=== PATIENT | male | born 1935 | race Caucasian/White ===

== ENCOUNTER → 2017-02-05 | Outpatient (CLI) | payer OTHER, MEDICARE ==
[~2017-02-05] MED LIST: ACET-1311 PO; ACET325T82 PO; ALPR-411 PO; ALUMSUS2 PO; ASPI81TA28 PO; ATOR-24 PO; BISA-16 PO; CEFU500T16 PO; CLC100 PO; CMD/25 PO; CZR25 PO; DLCS PR; DOCU100C31 PO; FEBU40TA PO; FINA5TAB4 PO; FURO40TA3 PO; GLIP-197 PO; GUAI1TAB69 PO; IMD/2 PO; INSDGIPEN SC; INSU1INJ SC; IPRA1AER2 INH; IRON SUPPLEMENT PO; LCTX PO; LISI-729 PO; LNX125 PO; MBXC PO; METO100T44 PO; MOMLX PO; MRLP17 PO; MULT-506 PO; MULTCAP7 PO; NITR1CAP32 PO; NUTR-468 PO; NUTR1.2L PO; ONDA4TAB10 SL; PANT40TA PO; POLY335019 PO; PRED10TA PO; RST/30 PO; RXC5 PO; SODI1ENE; TAMS0.4C38 PO; TEMA15CA4 PO; TPRSR50 PO; TRAZ50TA35 PO; TRIA1SPR4 NAE; iron PO
[2017-02-05 12:12] LABS: URINE APPEARANCE TURBID (CLEAR); URINE BILIRUBIN NEG (NEG); URINE COLOR YELLOW; URINE EPITHELIAL CELL AUTO >30 /lpf (0-5); URINE NITRITE NEG (NEG); UROBILINOGEN NEG (NEG)
[2017-02-05 12:16] LABS: MANUAL MICROSCOPIC REQUIRED? NO; REVIEW REQ? NO
== END | disposition home or self-care (01) ==
LOC: C.LAB1850 10:49
PROVIDERS: ATTEND Physician Assistant
DX: R30.0 Dysuria (principal); A49.8 Other bacterial infections of unspecified site

== ENCOUNTER → 2017-05-11 | Outpatient (CLI) | payer OTHER, MEDICARE ==
[~2017-05-11] MED LIST changes: -ACET-1311 PO; -ALPR-411 PO; -ALUMSUS2 PO; -BISA-16 PO; -CEFU500T16 PO; -FEBU40TA PO; -GUAI1TAB69 PO; -INSDGIPEN SC; -IPRA1AER2 INH; -LISI-729 PO; -MBXC PO; -METO100T44 PO; +METO1TAB69 PO; -MOMLX PO; -MULT-506 PO; -MULTCAP7 PO; -NITR1CAP32 PO; -NUTR1.2L PO; -ONDA4TAB10 SL; -POLY335019 PO; -PRED10TA PO; -SODI1ENE; -TRIA1SPR4 NAE; -iron PO
[2017-05-11 13:53] LABS: BLOOD UREA NITROGEN 39 mg/dl (7-18); BUN/CREATININE RATIO 19.5 (10-20); CALCIUM 9.9 mg/dl (8.5-10.1); CARBON DIOXIDE 27 mmol/L (21-32); CHLORIDE 106 mmol/L (98-107); GLUCOSE 111 mg/dl (70-99); POTASSIUM 3.6 mmol/L (3.5-5.1); SODIUM 142 mmol/L (136-145)
== END | disposition home or self-care (01) ==
LOC: C.LAB1850 12:19
PROVIDERS: ATTEND Internal Medicine
DX: N18.9 Chronic kidney disease, unspecified (principal); E11.22 Type 2 diabetes mellitus with diabetic chronic kidney disease; I50.9 Heart failure, unspecified; N39.0 Urinary tract infection, site not specified

== ENCOUNTER 2017-06-19 18:06 | Inpatient (IN) | payer OTHER, MEDICARE ==
[~2017-06-19] VITALS: Ht 193 cm; Wt 113.0 kg
[~2017-06-19 18:06] MED LIST changes: -DOCU100C31 PO; -TEMA15CA4 PO; -TRAZ50TA35 PO
--- NOTE | 2017-06-19 19:54 | EMERGENCY ROOM VISIT NOTE ---
History First contact with patient: 19:32 Chief Complaint: RESPIRATORY PROBLEMS Stated Complaint: PNEUMONIA,FEVER,BREATHING Nursing Triage Summary: Pt reports feeling hot this afternoon. Pt states, "I'm not breathing properly. I am sob. I went to the [facility] in [place]. They did an x-ray. They told me that I have a pink spot on the x-ray. I have CHF, pnx and I know I have a staph infection. I have a urinary tract infection. I didn't start the abx yet because I don't have them yet." History of Present Illness The patient is a 81 year old male with bladder cancer and extensive cardiovascular history with atrial fibrillation (on warfarin), lower extremity bypass, LVEF 15-20%, severe mitral regurgitation and severe aortic stenosis who presents to the Emergency Room with complaints of shortness of breath at rest. He generally hasn't been feeling well in the last 2 weeks (especially the last 2 days). He feels like he has similar symptoms to when he had congestive heart failure in the past and is concerned about that. Patient had a recent UTI on the 08 of May which grew pansensitive MRSA; patient was on rifampin for 10 days. Went down to [facility] @ [facility] on June 13: --he had a CXR -> told him he had a spot on his lung, thought to be pneumonia; was started on levaquin and patient could only tolerate 2 days of levaquin due to vomiting. --At same visit; repeated his urine culture, which again grew MRSA; some thought that he was prescribed linezolid; patient never picked up the prescription for this. He denies any chest tightness or pain. He has a productive yellow cough. Review of Systems see below Constitutional: + fever, + chills, + weakness, + fatigue, No sweats, No weight loss Eyes: No worsening of vision, No eye pain, No redness, No discharge, No diplopia, No problem reported ENT: + hearing loss ([place]), No unusual epistaxis, No nasal symptoms, No sore throat, No tinnitus, No dental problems, No trouble swallowing, No problem reported Respiratory: + cough, + sputum, + shortness of breath, + dyspnea on exertion , No dyspnea at rest, No hemoptysis Cardiovascular: + edema, No chest pain, No orthopnea, No PND Abdomen: No pain, No nausea, No vomiting, No diarrhea, No constipation Musculoskeletal: No joint pain, No muscle pain, No swelling, No calf pain, No problem reported Genitourinary - Male: No hematuria, No dysuria, No urinary frequency, No urinary urgency Neurologic: + memory loss, + weakness, + numbness/tingling (neuropathy), + balance problems (BKA of left leg) Past Medical/Surgical History Medical Problems: (1) Atherosclerosis of left lower extremity (2) Atrial fibrillation (3) Bladder cancer (4) chronic renal disease (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 (6) Diabetes mellitus (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 (8) 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, left tibia (9) Seizures (10) Sepsis (11) uti (12) Vasculopathy Surgical Problems: (1) History of cardiac catheterization Family History Diabetes mellitus Heart disease Social History Smoking Status: Former Smoker Alcohol Use: none Drug Use: none Marital Status: Housing Status: lives alone Occupation Status: retired Current/Historical Medications Scheduled Aspirin (Aspirin Ec), 81 MG PO QAM Atorvastatin (Lipitor), 40 MG PO QAM Digoxin (Digoxin), 0.125 MG PO 3XWEEK Digoxin (Digoxin), 0.0625 MG PO DAILY@16 Docusate Sodium (Docusate Sodium), 100 MG PO QAM Finasteride (Proscar), 5 MG PO DAILY Furosemide (Lasix), 40 MG PO QAM Glipizide (Glipizide Er), 1 TAB PO DAILY Insulin Isophan/Regular (Humulin 70/30), 20 UNITS SC BIDM Lactobacillus Acidophilus (Lactinex), 1 TAB PO QAM Loperamide Hcl (Imodium), 2 MG PO DIRECTED Losartan Potassium (Losartan Potassium), 25 MG PO DAILY Metoprolol Succinate (Metoprolol Succinate ER), 100 MG PO DAILY Nutritional Supplements (Glucerna), 1 CAN PO QAM Tamsulosin Hcl (Flomax), 0.4 MG PO DAILY Temazepam (Restoril), 30 MG PO HS Temazepam (Restoril), 15 MG PO HS Trazodone Hcl (Trazodone), 50 MG PO HS Warfarin Sod (Coumadin), 2.5 MG PO QPM Scheduled PRN Bisacodyl (Bisac-Evac), 10 MG [place] Q6H PRN for Constipation Physical Exam Vital Signs Date Time Temp Pulse Resp B/P (MAP) Pulse Ox O2 Delivery O2 Flow Rate FiO2 06/19/17 20:53 75 18 156/75 97 Room Air 06/19/17 19:30 78 06/19/17 18:15 37.0 80 20 156/77 96 Room Air Physical Exam GENERAL: Awake, alert, well-appearing, in no distress HENT: Normocephalic, atraumatic. Oropharynx unremarkable. EYES: Normal conjunctiva. Sclera non-icteric. RESPIRATORY: Decreased breath sounds diffusely; Markedly diminished in the right lower lobe CARDIAC: Regular rate, normal rhythm. Extremities warm and well perfused. Pulses equal. Mitral regurgitation. ABDOMEN: Soft, non-distended. No tenderness to palpation. No rebound or guarding. No masses. MUSCULOSKELETAL: Chest examination reveals no tenderness. The back is symmetrical on inspection without obvious abnormality. There is no CVA tenderness to palpation. No joint edema. LOWER EXTREMITIES: Below knee amputation of the left leg. Right Calf non- tender. Trace pitting edema. No discoloration. Medical Decision & Procedures Laboratory Results 06/19/17 20:12 Red Blood Count 3.87, Mean Corpuscular Volume 97.7, Mean Corpuscular Hemoglobin 31.0, Mean Corpuscular Hemoglobin Concent 31.7, Mean Platelet Volume 10.5, Neutrophils (%) (Auto) 80.2, Lymphocytes (%) (Auto) 11.4, Monocytes (%) (Auto) 7.7, Eosinophils (%) (Auto) 0.3, Basophils (%) (Auto) 0.1, Neutrophils # (Auto) 5.76, Lymphocytes # (Auto) 0.82, Monocytes # (Auto) 0.55, Eosinophils # (Auto) 0.02, Basophils # (Auto) 0.01 06/19/17 20:12 Test 06/19/17 20:12 White Blood Count 7.18 K/uL (4.8-10.8) Red Blood Count 3.87 M/uL (4.7-6.1) Hemoglobin 12.0 g/dL (14.0-18.0) Hematocrit 37.8 % (42-52) Mean Corpuscular Volume 97.7 fL (80-100) Mean Corpuscular Hemoglobin 31.0 pg (25-34) Mean Corpuscular Hemoglobin Concent 31.7 g/dl (32-36) Platelet Count 140 K/uL (130-400) Mean Platelet Volume 10.5 fL (7.4-10.4) Neutrophils (%) (Auto) 80.2 % Lymphocytes (%) (Auto) 11.4 % Monocytes (%) (Auto) 7.7 % Eosinophils (%) (Auto) 0.3 % Basophils (%) (Auto) 0.1 % Neutrophils # (Auto) 5.76 K/uL (1.4-6.5) Lymphocytes # (Auto) 0.82 K/uL (1.2-3.4) Monocytes # (Auto) 0.55 K/uL (0.11-0.59) Eosinophils # (Auto) 0.02 K/uL (0-0.5) Basophils # (Auto) 0.01 K/uL (0-0.2) RDW Standard Deviation 53.2 fL (36.4-46.3) RDW Coefficient of Variation 15.1 % (11.5-14.5) Immature Granulocyte % (Auto) 0.3 % Immature Granulocyte # (Auto) 0.02 K/uL (0.00-0.02) Prothrombin Time 24.7 SECONDS (9.0-12.0) Prothromb Time International Ratio 2.2 (0.9-1.1) Activated Partial Thromboplast Time 38.4 SECONDS (21.0-31.0) Partial Thromboplastin Ratio 1.5 Anion Gap 4.0 mmol/L (3-11) Estimated GFR () 40.0 Estimated GFR (Non- 34.5 BUN/Creatinine Ratio 14.6 (10-20) Calcium Level 9.8 mg/dl (8.5-10.1) Troponin I 0.036 ng/ml (0-0.045) Pro-B-Type Natriuretic Peptide 12327 pg/ml (0-1800) Digoxin Level 0.6 ng/ml (0.8-2.0) ECG Indication: SOB/dyspnea Rate (beats per minute): 70 Rhythm: atrial fibrillation Findings: no acute ischemic change Comparison ECG Date: february 2016, no significant change ED Course 1934: first seen by myself and Dr. Teixeira, full h&p obtained 2001: Discussed case with 2119: reassessed by Dr. Teixeira 2139: Discussed case with [facility] inpatient service; patient to be admitted. Medical Decision Prior records/ancillary studies reviewed. Triage Nursing notes reviewed. Additional history obtained from the family. The patient's history was concerning for respiratory difficulties. Differential diagnosis: Etiologies such as infections, reactive airway disease, pneumonia, pneumothorax , COPD, CHF, cardiac ischemia, pulmonary embolism, musculoskeletal, gastrointestinal, as well as others were entertained. Physical examination: As above. Diminshed breath sounds bilaterally; Markedly decreased in the right lower lobe ER treatment provided: Lasix 40, ertapenam, vancomycin Diagnostic interpretation by me: The electrocardiogram was negative for acute ischemic or pathologic change; atrial fibrillation, 70bpm. Comparison since February 2016: no significant change The labs revealed BNP of 21,000 Imaging studies: CHEST ONE VIEW PORTABLE CLINICAL HISTORY: shortness of breath dyspnea COMPARISON STUDY: 03/21/2016 FINDINGS: Increase in pulmonary vasculature compared to the prior study. Unchanging increased density both lung bases. Stable cardiomegaly. IMPRESSION: Developing congestive failure superimposed upon chronic change. Consultation: A consultation was placed with the [facility] hospitalist. The case was discussed and diagnostics were reviewed. The patient was evaluated in the ER for further treatment. This appears to be consistent with acute on chronic CHF, Complicated UTI, likely pneumonia. By the evaluation outlined above emergent etiologies such as cardiac ischemia, pulmonary embolism, reactive airway disease, pneumothorax, musculoskeletal, as well as others were deemed relatively unlikely. Blood Pressure Screening Patient's blood pressure: Elevated blood pressure Impression Primary Impression: Acute on chronic congestive heart failure Additional Impression: Complicated UTI (urinary tract infection) Departure Information Dispostion Admitted as an inpatient Condition FAIR Referrals Jamye Wilkerson M.D. (PCP) Patient Instructions My [facility] Resident Tracking Resident Involvement: Resident Care Provided Care Provided: Adult ED Problem Qualifiers Primary Impression: Acute on chronic congestive heart failure Congestive heart failure type: unspecified congestive heart failure type Qualified Codes: I50.9 - Heart failure, unspecified
[2017-06-19 20:28] LABS: BASO % 0.1 %; BASO ABS # 0.01 K/uL (0-0.2); COMPLETE YES; EOS % 0.3 %; HEMATOCRIT 37.8 % (42-52); IG% 0.3 %; LYMPH % 11.4 %; LYMPH ABS # 0.82 K/uL (1.2-3.4); MEAN CELL VOLUME 97.7 fL (80-100); MEAN CORPUSCULAR HGB CONC 31.7 g/dl (32-36); MEAN PLATELET VOLUME 10.5 fL (7.4-10.4); MONO % 7.7 %; NEUT % 80.2 %; PLATELET COUNT 140 K/uL (130-400); RED BLOOD COUNT 3.87 M/uL (4.7-6.1); WHITE BLOOD COUNT 7.18 K/uL (4.8-10.8)
[2017-06-19] MEDS ORDERED: DOCU100C31 PO (20:35)
[2017-06-19] MEDS ORDERED: TRAZ50TA35 PO (20:35)
[2017-06-19] MEDS ORDERED: TEMA15CA4 PO (20:35)
[2017-06-19 20:36] LABS: INR 2.2 (0.9-1.1); PARTIAL THROMBOPLASTIN RATIO 1.5; PROTHROMBIN TIME (PATIENT) 24.7 SECONDS (9.0-12.0)
[2017-06-19 20:42] LABS: BLOOD UREA NITROGEN 26 mg/dl (7-18); BUN/CREATININE RATIO 14.6 (10-20); CALCIUM 9.8 mg/dl (8.5-10.1); CARBON DIOXIDE 30 mmol/L (21-32); CHLORIDE 107 mmol/L (98-107); GLUCOSE 129 mg/dl (70-99); POTASSIUM 4.5 mmol/L (3.5-5.1); SODIUM 141 mmol/L (136-145)
--- NOTE | 2017-06-19 20:42 | DIAGNOSTIC IMAGING REPORT ---
CHEST ONE VIEW PORTABLE CLINICAL HISTORY: shortness of breath dyspnea COMPARISON STUDY: 03/21/2016 FINDINGS: Increase in pulmonary vasculature compared to the prior study. Unchanging increased density both lung bases. Stable cardiomegaly. IMPRESSION: Developing congestive failure superimposed upon chronic change. The above report was generated using voice recognition software. It may contain grammatical, syntax or spelling errors. Electronically signed by: Sreekanth Wood M.D. 06/19/2017 8:41 PM Dictated Date/Time: 06/19/2017 8:40 PM
[2017-06-19] MEDS ORDERED: FUROSEMIDE 40 MG/4 ML VIAL IV STA (20:56)
[2017-06-19] MEDS ORDERED: ERTAPENEM 1 GM ADDVIAL IV ONE (21:00)
[2017-06-19] MEDS ORDERED: VANCOMYCIN INJ 1,000 MG in SODIUM CHLORIDE 0.9% 250ML 250 ML IV STA (21:22)
[2017-06-19 22:38] LABS: URINE APPEARANCE CLEAR (CLEAR); URINE BILIRUBIN NEG (NEG); URINE COLOR YELLOW; URINE EPITHELIAL CELL AUTO >30 /lpf (0-5); URINE NITRITE NEG (NEG); URINE PH 6.5 (4.5-7.5); URINE SPECIFIC GRAVITY 1.014 (1.000-1.030); UROBILINOGEN NEG (NEG); ZZUR CULT IF INDIC CLEAN CATCH YES
[2017-06-19 22:40] LABS: MANUAL MICROSCOPIC REQUIRED? NO; REVIEW REQ? YES
[2017-06-19 23:01] LABS: ALKALINE PHOSPHATASE 102 U/L (45-117); ALT/SGPT 17 U/L (12-78); AST/SGOT 19 U/L (15-37)
--- NOTE | 2017-06-19 23:46 | EMERGENCY ROOM VISIT NOTE ---
ED Visit Note First contact with patient: 19:32 Resident Physician Supervision Note: Dr. Fara Noonan was resident physician during care of patient. I separately evaluated patient and did history and exam. I discussed the case with the resident and generally agree with the findings and plan. 81 yr old male arrives with complex past medical history and worsening SHOB on exertion. Unable to lay flat and with discussion he becomes further breathless. Lungs with crackles throughout and exam consistent with CHF. No definitive infiltrate on CXR though Pulm Edema evidence. Renal insufficiency but given pulm edema and symptoms felt that IV lasix required. He has questionable UTI here though recent culture is MDR and he is allergic to vast number other meds and has just failed outpatient therapy. Diagnosis: Pulmonary Edema Acute CHF Urinary Tract Infections, Multi-drug resistant Failure Outpatient Therapy Documented By: Archie Singh MD
--- NOTE | 2017-06-19 23:57 | History and Physical ---
History & Physical Date & Time of Service: Jun 19, 2017 at 23:57 Chief Complaint: Pneumonia,Fever,Breathing Primary Care Physician: Jayme Wilkerson M.D. History of Present Illness Source: patient 81-year-old male with a past medical history of bladder cancer, atrial fibrillation, lower extremity bypass , status post left below-knee amputation , severe mitral regurgitation, severe aortic stenosis, cardiomyopathy with ejection fraction of 15-20% presented to the ER with complaints of shortness of breath. The patient complained of feeling sick for about a week but had worsening shortness of breath associated with fever that started today. He was recently diagnosed with MRSA urinary tract infection and was placed on rifampin for 10 days. Repeat urine culture a few days later also showed MRSA and was recommended to use linezolid which he never started. During the same visit he was found to have pneumonia on his chest x-ray and started on Levaquin which she used for 2 days and stopped due to vomiting. Denies any chest pain, palpitations, dizziness or lightheadedness. Complains of shortness of breath associated cough with productive sputum and a fever Past Medical/Surgical History Medical Problems: (1) Atrial fibrillation Status: Chronic (2) Bladder cancer Status: Chronic (3) Diabetes mellitus Status: Chronic (4) Seizures Status: Chronic Surgical Problems: (1) History of cardiac catheterization Status: Resolved Family History Diabetes mellitus Heart disease Social History Smoking Status: Former Smoker Drug Use: none Marital Status: Housing status: lives alone Occupational Status: retired Immunizations History of Influenza Vaccine: Yes History of Tetanus Vaccine?: Yes History of Pneumococcal: Yes History of Hepatitis B Vaccine: No Allergies Coded Allergies: Meclizine (Verified Adverse Reaction, Severe, SEIZUES, 06/19/17) PATIENT STATES, CASUED PATIENT TO HAVE SIEZURES. Cephalexin (Verified Adverse Reaction, Mild, NAUSEA, 06/19/17) Pregabalin (Verified Adverse Reaction, Mild, NAUSEA, 06/19/17) Sulfa Antibiotics (Verified Adverse Reaction, Mild, NAUSEA, 06/19/17) Tramadol (Verified Adverse Reaction, Mild, HALLUCINATIONS, 06/19/17) Hydrocodone (Verified Adverse Reaction, Unknown, HALLUCINATIONS, 06/19/17) Linezolid (Unverified Adverse Reaction, Unknown, GI DISTRESS, 06/19/17) Tetracycline (Verified Adverse Reaction, Unknown, GI DISTRESS, 06/19/17) Home Medications Scheduled Aspirin (Aspirin Ec), 81 MG PO QAM Atorvastatin (Lipitor), 40 MG PO QAM Digoxin (Digoxin), 0.125 MG PO 3XWEEK Digoxin (Digoxin), 0.0625 MG PO DAILY@16 Docusate Sodium (Docusate Sodium), 100 MG PO QAM Finasteride (Proscar), 5 MG PO DAILY Furosemide (Lasix), 40 MG PO QAM Glipizide (Glipizide Er), 1 TAB PO DAILY Insulin Isophan/Regular (Humulin 70/30), 20 UNITS SC BIDM Lactobacillus Acidophilus (Lactinex), 1 TAB PO QAM Loperamide Hcl (Imodium), 2 MG PO DIRECTED Losartan Potassium (Losartan Potassium), 25 MG PO DAILY Metoprolol Succinate (Metoprolol Succinate ER), 100 MG PO DAILY Nutritional Supplements (Glucerna), 1 CAN PO QAM Tamsulosin Hcl (Flomax), 0.4 MG PO DAILY Temazepam (Restoril), 30 MG PO HS Temazepam (Restoril), 15 MG PO HS Trazodone Hcl (Trazodone), 50 MG PO HS Warfarin Sod (Coumadin), 2.5 MG PO QPM Scheduled PRN Bisacodyl (Bisac-Evac), 10 MG [place] Q6H PRN for Constipation Review of Systems Constitutional: + fever, No chills Eyes: No worsening of vision ENT: + hearing loss Respiratory: + cough, + sputum, + shortness of breath Cardiovascular: + orthopnea, No chest pain Abdomen: No pain Musculoskeletal: No joint pain Genitourinary - Male: + dysuria Neurologic: No memory loss Psychiatric: No depression symptoms Endocrine: No fatigue Hematologic / Lymphatic: No abnormal bleeding/bruising Integumentary: No rash Physical Exam Vital Signs Date Time Temp Pulse Resp B/P (MAP) Pulse Ox O2 Delivery O2 Flow Rate FiO2 06/19/17 23:06 84 20 97 06/19/17 23:01 165/87 06/19/17 22:52 74 18 160/92 97 Room Air 06/19/17 22:51 87 20 06/19/17 22:48 06/19/17 22:36 77 19 95 06/19/17 22:21 76 21 97 06/19/17 22:14 78 16 140/85 97 Room Air 06/19/17 22:13 140/85 06/19/17 22:12 180/103 06/19/17 22:06 74 18 97 06/19/17 21:51 78 24 97 06/19/17 21:36 72 24 06/19/17 21:21 84 20 97 06/19/17 21:06 87 96 06/19/17 20:54 06/19/17 20:53 75 18 156/75 97 Room Air 06/19/17 20:51 76 29 06/19/17 20:36 82 23 06/19/17 20:21 80 17 06/19/17 20:06 76 18 06/19/17 19:51 75 22 06/19/17 19:36 76 20 06/19/17 19:30 78 06/19/17 18:53 130/80 06/19/17 18:15 37.0 80 20 156/77 96 Room Air General Appearance: no apparent distress Eyes: normal inspection Neck: supple Respiratory/Chest: + decreased breath sounds Cardiovascular: + irregularly irregular Abdomen/GI: soft Extremities/Musculoskelatal: no pedal edema, + pertinent finding (left BKA) Neurologic/Psych: alert, normal mood/affect, oriented x 3 Diagnostics Laboratory Results Results Past 24 Hours Test 06/19/17 20:12 06/19/17 22:10 Range/Units White Blood Count 7.18 4.8-10.8 K/uL Red Blood Count 3.87 4.7-6.1 M/uL Hemoglobin 12.0 14.0-18.0 g/dL Hematocrit 37.8 42-52 % Mean Corpuscular Volume 97.7 80-100 fL Mean Corpuscular Hemoglobin 31.0 25-34 pg Mean Corpuscular Hemoglobin Concent 31.7 32-36 g/dl Platelet Count 140 130-400 K/uL Mean Platelet Volume 10.5 7.4-10.4 fL Neutrophils (%) (Auto) 80.2 % Lymphocytes (%) (Auto) 11.4 % Monocytes (%) (Auto) 7.7 % Eosinophils (%) (Auto) 0.3 % Basophils (%) (Auto) 0.1 % Neutrophils # (Auto) 5.76 1.4-6.5 K/uL Lymphocytes # (Auto) 0.82 1.2-3.4 K/uL Monocytes # (Auto) 0.55 0.11-0.59 K/uL Eosinophils # (Auto) 0.02 0-0.5 K/uL Basophils # (Auto) 0.01 0-0.2 K/uL RDW Standard Deviation 53.2 36.4-46.3 fL RDW Coefficient of Variation 15.1 11.5-14.5 % Immature Granulocyte % (Auto) 0.3 % Immature Granulocyte # (Auto) 0.02 0.00-0.02 K/uL Prothrombin Time 24.7 9.0-12.0 SECONDS Prothromb Time International Ratio 2.2 0.9-1.1 Activated Partial Thromboplast Time 38.4 21.0-31.0 SECONDS Partial Thromboplastin Ratio 1.5 Sodium Level 141 136-145 mmol/L Potassium Level 4.5 3.5-5.1 mmol/L Chloride Level 107 98-107 mmol/L Carbon Dioxide Level 30 21-32 mmol/L Anion Gap 4.0 3-11 mmol/L Blood Urea Nitrogen 26 7-18 mg/dl Creatinine 1.80 0.60-1.40 mg/dl Estimated GFR () 40.0 Estimated GFR (Non- 34.5 BUN/Creatinine Ratio 14.6 10-20 Random Glucose 129 70-99 mg/dl Calcium Level 9.8 8.5-10.1 mg/dl Total Bilirubin 0.5 0.2-1 mg/dl Direct Bilirubin 0.1 0-0.2 mg/dl Aspartate Amino Transf (AST/SGOT) 19 15-37 U/L Alanine Aminotransferase (ALT/SGPT) 17 12-78 U/L Alkaline Phosphatase 102 45-117 U/L Troponin I 0.036 0-0.045 ng/ml Pro-B-Type Natriuretic Peptide 42834 0-1800 pg/ml Total Protein 6.8 6.4-8.2 gm/dl Albumin 3.2 3.4-5.0 gm/dl Digoxin Level 0.6 0.8-2.0 ng/ml Urine Color YELLOW Urine Appearance CLEAR CLEAR Urine pH 6.5 4.5-7.5 Urine Specific [place] 1.014 1.000-1.030 Urine Protein 1+ NEG Urine Glucose (UA) NEG NEG Urine Ketones NEG NEG Urine Occult Blood 1+ NEG Urine Nitrite NEG NEG Urine Bilirubin NEG NEG Urine Urobilinogen NEG NEG Urine Leukocyte Esterase MODERATE NEG Urine WBC (Auto) 10-30 0-5 /hpf Urine RBC (Auto) 10-30 0-4 /hpf Urine Hyaline Casts (Auto) 1-5 0-5 /lpf Urine Epithelial Cells (Auto) >30 0-5 /lpf Urine Bacteria (Auto) NEG NEG Urine Renal Epithelial Cells 0-5 0-5 /lpf Microbiology Results 06/19/17 Blood Culture, Received Pending 06/19/17 Blood Culture, Received Pending 06/19/17 Urine Culture, Received Pending Diagnostic Radiology CHEST ONE VIEW PORTABLE CLINICAL HISTORY: shortness of breath dyspnea COMPARISON STUDY: 03/21/2016 FINDINGS: Increase in pulmonary vasculature compared to the prior study. Unchanging increased density both lung bases. Stable cardiomegaly. IMPRESSION: Developing congestive failure superimposed upon chronic change. EKG Atrial fibrillation Cannot rule out Inferior infarct , age undetermined Abnormal ECG When compared with ECG of 10-MAR-2016 12:02, No significant change was found Impression Assessment and Plan 81-year-old male with a past medical history of bladder cancer, atrial fibrillation, lower extremity bypass , status post left below-knee amputation , severe mitral regurgitation, severe aortic stenosis, cardiomyopathy with ejection fraction of 15-20% presented to the ER with complaints of shortness of breath associated with low-grade fever and a productive cough. Acute on chronic CHF exacerbation with ?superimposed pneumonia - Cardiomyopathy/ severe MR/severe /CAD s/p stent/ hypertension - CXR: : Developing congestive failure superimposed upon chronic change. - EF from last echo 02/27 15-20% - Continue Lasix 40 mg daily - Continue aspirin, Lipitor, losartan - Monitor I's and O's and daily weights - Continue vancomycin and ertapenem for superimposed pneumonia Recurrent urinary tract infections/ history of MRSA UTI - UA positive for moderate leuk esterase, more than 30 WBCs and epithelial cells - Urine culture pending - Continue vancomycin and ertapenem as above Atrial fibrillation - Continue digoxin and metoprolol - Anti-Coagulation with Coumadin Diabetes mellitus - Continue insulin sliding scale DO NOT RESUSCITATE DVT prophylaxis: Coumadin Disposition: Admitted to telemetry Attending Addendum: I have physically seen and examined this patient, have directed the resident's medical activities, and agree with the H&P as noted above with the following exceptions as noted. The patient is awake, alert and oriented 3, normocephalic and atraumatic, lying in bed and in no acute distress. HEENT--PERRL, EOMI, mucous membranes and oropharynx dry. Neck--supple, no JVD or bruits, thyroid normal, trachea midline, no adenopathy. Heart--irregularly irregular, no murmurs, rubs or gallops. Lungs--decreased breath sounds throughout, no respiratory distress, no accessory muscle use. Abdomen--normal bowel sounds and soft, nontender and nondistended, no hernias or masses, no organomegaly. Extremities--no cyanosis, clubbing or edema. Dermatologic--normal skin turgor, normal color, warm and dry, no abnormal lymph nodes, no rash. Neurologic--cranial nerves II through XII grossly intact. Rheumatologic--left BKA Psychiatric--normal affect. Assessment and Plan: 1. Acute on chronic systolic CHF, EF 15-20%/cardiomyopathy/severe /severe MR/ coronary stent/atrial fibrillation/hypertension-- The patient will be admitted to telemetry for serial cardiac enzymes, cardiac rhythm monitoring and a 2-D echocardiogram with Dopplers. Continue Lasix 40 mg by mouth daily. Continue aspirin, and losartan. Continue digoxin, metoprolol and warfarin. He did receive 1 dose of Lasix IV 40 mg IV in the emergency department. Need to monitor preload very closely in this patient. 2. Pneumonia/recurrent UTI/history of MRSA UTI-- Follow urine culture and sputum cultures. Continue vancomycin and ertapenem begun in the emergency department. Level of Care Telemetry Advanced Directives Existing Advance Directive: Yes Existing Living Will: Yes Existing Power of Boiler House Inspector: Yes Resuscitation Status DO NOT RESUSCITATE VTE Prophylaxis VTE Risk Assessment Done? Y/N: Yes Risk Level: Moderate Given or contraindicated: Warfarin (Coumadin) Resident Tracking Resident Involvement: Resident Care Provided Care Provided: Adult Hospital Medicine
[2017-06-20] VITALS (7 sets, daily range): BP systolic 127–154; BP diastolic 65–92; PULSE 59–83; TEMP 36.4–36.8; O2SAT 95–99; Ht 193 cm; Wt 113.0 kg
[2017-06-20] MEDS ORDERED: ONDANSETRON INJ 2 MG/ML 2 ML VIAL IV PRN
[2017-06-20] MEDS ORDERED: POLYETHYLENE (MIRALAX) 17 GM PACK PO PRN
[2017-06-20] MEDS ORDERED: ACETAMINOPHEN 325 MG TAB PO PRN
[2017-06-20] MEDS ORDERED: BISACODYL 10 MG SUPP PR PRN
[2017-06-20] MEDS ORDERED: DEXTROSE 50% 50 ML SYR IV PRN (01:45)
[2017-06-20] MEDS ORDERED: GLUCOSE 10 TABS/TUBE PO PRN (01:45)
[2017-06-20] MEDS ORDERED: VANCOMYCIN CONSULT ACTIVE PRN (01:45)
[2017-06-20] MEDS ORDERED: GLUCOSE 40% GEL 15 GM TUBE PO PRN (01:45)
[2017-06-20] MEDS ORDERED: GLUCAGON FOR INJ 1 MG VIAL SQ PRN (01:45)
[2017-06-20] MEDS ORDERED: TEMAZEPAM 15 MG CAP PO SCH ×3 (02:15→21:00)
[2017-06-20] MEDS: TRAZODONE HCL 50 MG TAB PO SCH ×2 (02:20→20:10)
[2017-06-20] MEDS ORDERED: VANCOMYCIN INJ 1,750 MG in SODIUM CHLORIDE 0.9% 500ML 500 ML IV SCH (02:30)
--- NOTE | 2017-06-20 04:09 | Medical Student: [facility] ---
Med Student History & Physical Date & Time of Service: Jun 20, 2017 at 03:56 Chief Complaint: Acute Exacerbation Of Chf Primary Care Physician: Jayme Wilkerson M.D. History of Present Illness Source: patient, friend 81 year old man with a history of CHF and Pneumonia presents to the ED with a chief complaint of shortness of breath. He felt the same way he has in the past when he has had water in his lungs and was unable to breathe. He believes it is due to the pneumonia which was diagnosed by [facility] on 06/13 when he went there to get a Prothrombin time and Urine analysis for Dr. Wilkerson. His history starts back in April when he was diagnosed with a UTI which grew MRSA. At the time he was prescribed a 10 day course of rifampicin which he completed. He was asked by Dr. Wilkerson to have a U/A and re-check his prothrombin time (he is on warfarin) which he went to do on 06/13. At the time he was not feeling well and was complaining of shortness of breath and generalized weakness. A chest X-Ray was done at [facility] that same day and he was diagnosed with Pneumonia. Is U/A also showed evidence of a continuing UTI. He was prescribed Levaquin for his and took it for 2 days before he started feeling slightly nauseas and overall "bad". Upon Dr. Wilkerson's instructions, he stopped taking the Levaquin and was instructed to switch to Linezolid. Patient states that he did not apple picker his prescription for Linezolid from the pharmacy because it was very expensive. He came into the ED today because he felt worsening shortness of breath. He states that he maybe had a slight temperature but did not have a thermometer. He has also had some lightheadedness, stuffiness, sneezing, orthopnea, cough, and pain with urination. He denies any urinary frequency or urgency, nausea, vomiting, vision changes, hearing changes, chest pain, palpitations, diarrhea, constipation, or abdominal pain. CXR taken in the ED showed both pneumonia and pulmonary edema U/A taken in the ED showed evidence of UTI In the ED he received 40 mg IV Lasix and has felt much better since then. He no longer feels shortness of breath. He is allergic to many different antibiotics and is apprehensive about starting any that are not approved by Dr. Wilkerson. Past Medical/Surgical History Medical Problems: (1) Acute on Chronic congestive heart failure Status: Acute (2) Complicated UTI (urinary tract infection) Status: Acute (3) Right lower lobe pneumonia Status: Acute (4) Chronic Kidney Disease Status: Chronic (5) Congestive Heart Failure Status: Chronic (6) Atrial Fibrillation Status: Chronic (7) Left lower leg amputation Status: Chronic (8) Hypertension Status: Chronic (9) Diabetes Mellitus Type II Status: Chronic (10) Macular degeneration Status: Chronic (11) Bladder Cancer Status: Resolved Surgical History: (1) Bladder cancer resection (2) Cardiac catheterization (3) Fistula (4) Internal Defibrillator Family History Family history is significant for diabetes mellitus and heart disease Social History He is a retired [place] . He is but lives with his girlfriend of 23 years Smoking Status: Former Smoker Alcohol Use: none Drug Use: none Marital Status: , in relationship Housing status: lives alone, lives with significant other Occupational Status: retired Immunizations History of Influenza Vaccine: Yes History of Tetanus Vaccine?: Yes History of Pneumococcal: Yes History of Hepatitis B Vaccine: No Allergies Coded Allergies: Meclizine (Verified Adverse Reaction, Severe, SEIZUES, 06/19/17) PATIENT STATES, CASUED PATIENT TO HAVE SIEZURES. Cephalexin (Verified Adverse Reaction, Mild, NAUSEA, 06/19/17) Pregabalin (Verified Adverse Reaction, Mild, NAUSEA, 06/19/17) Sulfa Antibiotics (Verified Adverse Reaction, Mild, NAUSEA, 06/19/17) Tramadol (Verified Adverse Reaction, Mild, HALLUCINATIONS, 06/19/17) Hydrocodone (Verified Adverse Reaction, Unknown, HALLUCINATIONS, 06/19/17) Linezolid (Unverified Adverse Reaction, Unknown, GI DISTRESS, 06/19/17) Tetracycline (Verified Adverse Reaction, Unknown, GI DISTRESS, 06/19/17) Medications Aspirin (Aspirin Ec), 81 MG PO QAM Atorvastatin (Lipitor), 40 MG PO QAM Bisacodyl (Bisac-Evac), 10 MG AK Q6H PRN for Constipation Digoxin (Digoxin), 0.125 MG PO 3XWEEK Digoxin (Digoxin), 0.0625 MG PO DAILY@16 Docusate Sodium (Docusate Sodium), 100 MG PO QAM Finasteride (Proscar), 5 MG PO DAILY Furosemide (Lasix), 40 MG PO QAM Glipizide (Glipizide Er), 1 TAB PO DAILY Insulin Isophan/Regular (Humulin 70/30), 20 UNITS SC BIDM Lactobacillus Acidophilus (Lactinex), 1 TAB PO QAM Loperamide Hcl (Imodium), 2 MG PO DIRECTED Losartan Potassium (Losartan Potassium), 25 MG PO DAILY Metoprolol Succinate (Metoprolol Succinate ER), 100 MG PO DAILY Nutritional Supplements (Glucerna), 1 CAN PO QAM Tamsulosin Hcl (Flomax), 0.4 MG PO DAILY Temazepam (Restoril), 30 MG PO HS Temazepam (Restoril), 15 MG PO HS Trazodone Hcl (Trazodone), 50 MG PO HS Warfarin Sod (Coumadin), 2.5 MG PO QPM Review of Systems Constitutional: + fever, + weakness, No chills, No sweats Eyes: No worsening of vision ENT: No hearing loss, No sore throat Respiratory: + cough, + shortness of breath Cardiovascular: + orthopnea, No chest pain, No edema, No palpitations Abdomen: No pain, No nausea, No vomiting, No diarrhea, No constipation Genitourinary - Male: + dysuria, No hematuria, No urinary frequency, No urinary urgency, No urinary incontinence Integumentary: No rash, No new/changing skin lesions Physical Exam Vital Signs (24 Hours) Date Time Temp Pulse Resp B/P (MAP) Pulse Ox O2 Delivery O2 Flow Rate FiO2 06/20/17 02:00 36.8 83 20 145/92 06/20/17 02:00 99 Room Air 06/20/17 00:36 72 18 97 06/20/17 00:31 159/86 06/20/17 00:21 80 18 98 06/20/17 00:16 156/93 06/20/17 00:06 78 18 98 06/20/17 00:01 161/95 06/19/17 23:56 77 18 99 06/19/17 23:46 159/87 06/19/17 23:41 84 19 98 06/19/17 23:31 165/81 06/19/17 23:26 74 22 98 06/19/17 23:17 164/85 06/19/17 23:11 82 22 95 06/19/17 23:06 84 20 97 06/19/17 23:01 165/87 06/19/17 22:52 74 18 160/92 97 Room Air 06/19/17 22:51 87 20 06/19/17 22:48 06/19/17 22:36 77 19 95 06/19/17 22:21 76 21 97 06/19/17 22:14 78 16 140/85 97 Room Air 06/19/17 22:13 140/85 06/19/17 22:12 180/103 06/19/17 22:06 74 18 97 06/19/17 21:51 78 24 97 06/19/17 21:36 72 24 06/19/17 21:21 84 20 97 06/19/17 21:06 87 96 06/19/17 20:54 06/19/17 20:53 75 18 156/75 97 Room Air 06/19/17 20:51 76 29 06/19/17 20:36 82 23 06/19/17 20:21 80 17 06/19/17 20:06 76 18 06/19/17 19:51 75 22 06/19/17 19:36 76 20 06/19/17 19:30 78 06/19/17 18:53 130/80 06/19/17 18:15 37.0 80 20 156/77 96 Room Air General Appearance: WD/WN, no apparent distress Head: normocephalic, atraumatic Eyes: PERRL, EOMI Neck: supple Respiratory/Chest: lungs clear, normal breath sounds, no respiratory distress Cardiovascular: regular rate, rhythm, no edema, no gallop, no JVD, no murmur Abdomen/GI: normal bowel sounds, non tender, soft, no organomegaly Skin: normal color, no rash Diagnostics Laboratory Results Results Past 24 Hours Test 06/19/17 20:12 06/19/17 22:10 Range/Units White Blood Count 7.18 4.8-10.8 K/uL Red Blood Count 3.87 4.7-6.1 M/uL Hemoglobin 12.0 14.0-18.0 g/dL Hematocrit 37.8 42-52 % Mean Corpuscular Volume 97.7 80-100 fL Mean Corpuscular Hemoglobin 31.0 25-34 pg Mean Corpuscular Hemoglobin Concent 31.7 32-36 g/dl Platelet Count 140 130-400 K/uL Mean Platelet Volume 10.5 7.4-10.4 fL Neutrophils (%) (Auto) 80.2 % Lymphocytes (%) (Auto) 11.4 % Monocytes (%) (Auto) 7.7 % Eosinophils (%) (Auto) 0.3 % Basophils (%) (Auto) 0.1 % Neutrophils # (Auto) 5.76 1.4-6.5 K/uL Lymphocytes # (Auto) 0.82 1.2-3.4 K/uL Monocytes # (Auto) 0.55 0.11-0.59 K/uL Eosinophils # (Auto) 0.02 0-0.5 K/uL Basophils # (Auto) 0.01 0-0.2 K/uL RDW Standard Deviation 53.2 36.4-46.3 fL RDW Coefficient of Variation 15.1 11.5-14.5 % Immature Granulocyte % (Auto) 0.3 % Immature Granulocyte # (Auto) 0.02 0.00-0.02 K/uL Prothrombin Time 24.7 9.0-12.0 SECONDS Prothromb Time International Ratio 2.2 0.9-1.1 Activated Partial Thromboplast Time 38.4 21.0-31.0 SECONDS Partial Thromboplastin Ratio 1.5 Sodium Level 141 136-145 mmol/L Potassium Level 4.5 3.5-5.1 mmol/L Chloride Level 107 98-107 mmol/L Carbon Dioxide Level 30 21-32 mmol/L Anion Gap 4.0 3-11 mmol/L Blood Urea Nitrogen 26 7-18 mg/dl Creatinine 1.80 0.60-1.40 mg/dl Estimated GFR () 40.0 Estimated GFR (Non- 34.5 BUN/Creatinine Ratio 14.6 10-20 Random Glucose 129 70-99 mg/dl Calcium Level 9.8 8.5-10.1 mg/dl Total Bilirubin 0.5 0.2-1 mg/dl Direct Bilirubin 0.1 0-0.2 mg/dl Aspartate Amino Transf (AST/SGOT) 19 15-37 U/L Alanine Aminotransferase (ALT/SGPT) 17 12-78 U/L Alkaline Phosphatase 102 45-117 U/L Troponin I 0.036 0-0.045 ng/ml Pro-B-Type Natriuretic Peptide 81158 0-1800 pg/ml Total Protein 6.8 6.4-8.2 gm/dl Albumin 3.2 3.4-5.0 gm/dl Digoxin Level 0.6 0.8-2.0 ng/ml Urine Color YELLOW Urine Appearance CLEAR CLEAR Urine pH 6.5 4.5-7.5 Urine Specific [place] 1.014 1.000-1.030 Urine Protein 1+ NEG Urine Glucose (UA) NEG NEG Urine Ketones NEG NEG Urine Occult Blood 1+ NEG Urine Nitrite NEG NEG Urine Bilirubin NEG NEG Urine Urobilinogen NEG NEG Urine Leukocyte Esterase MODERATE NEG Urine WBC (Auto) 10-30 0-5 /hpf Urine RBC (Auto) 10-30 0-4 /hpf Urine Hyaline Casts (Auto) 1-5 0-5 /lpf Urine Epithelial Cells (Auto) >30 0-5 /lpf Urine Bacteria (Auto) NEG NEG Urine Renal Epithelial Cells 0-5 0-5 /lpf Microbiology Results 06/19/17 Blood Culture, Received Pending 06/19/17 Blood Culture, Received Pending 06/19/17 Urine Culture, Received Pending Diagnostic Radiology CXR: Right lower lobe Pneumonia and diffuse pulmonary edema Impression Assessment and Plan Assessment and Plan: 81 year old male with a history of CHF presents to the ED with worsening shortness of breath in the background of a recent diagnosis of PNA and UTI. Chest X-Ray findings show evidence of fluid overload and pulmonary edema. It is possible that there is an exacerbation of his CHF along with the pneumonia and UTI which is adding to his shortness of breath. Improvement of symptoms after administration of diuretic treatment supports fluid overload. Fluid overload: It seems that the diuretics are working. In the background of his CKD and CHF, fluid overload seems like a possibility. His CXR also supports this diagnosis. Continue to give him Lasix treatment to help with the fluid overload but monitor his blood pressure to ensure that he does not become hypotensive. Order CMP to monitor electrolytes. UTI U/A was positive for UTI. Send for urine culture to confirm bacteria and resistance. It is possible that this is MRSA as that was the organism that grew in the urine culture from April. Treat with Vancomycin Pneumonia Diagnosed on CXR although not as visible on today's CXR due to the pulmonary edema Treat with ertapenem. Hypertension Continue with metoprolol but watch out for hypotension as he is also being treated with diuretics for fluid overload state Atrial Fibrillation Continue with warfarin CHF: Continue with digoxin Diabetes Mellitus Type II Continue insulin therapy and monitor blood glucose levels CKD Get CMP to monitor BUN and Cr as well as electrolytes. Level of Care Med/Surg Advanced Directives Existing Living Will: Yes Existing Power of Director Custom: Yes Resuscitation Status DO NOT RESUSCITATE
[2017-06-20] MEDS: INSULIN ASPART 100 UNITS/ML 3 ML PEN SC SCH ×4 (07:00→20:13)
[2017-06-20 07:18] LABS: HEMATOCRIT 35.2 % (42-52); MEAN CELL VOLUME 95.7 fL (80-100); MEAN CORPUSCULAR HEMOGLOBIN 31.5 pg (25-34); MEAN PLATELET VOLUME 10.9 fL (7.4-10.4); PLATELET COUNT 123 K/uL (130-400); RED BLOOD COUNT 3.68 M/uL (4.7-6.1); WHITE BLOOD COUNT 5.63 K/uL (4.8-10.8)
[2017-06-20 07:57] LABS: BUN/CREATININE RATIO 17.4 (10-20); CALCIUM 8.9 mg/dl (8.5-10.1); CREATININE 1.6 mg/dl (0.60-1.40); POTASSIUM 3.7 mmol/L (3.5-5.1)
[2017-06-20 08:01] LABS: ALB/GLOB RATIO 0.8 (0.9-2)
[2017-06-20] MEDS: ASPIRIN 81 MG ECTAB PO SCH (08:06)
[2017-06-20] MEDS: LACTOBACILLUS ACIDOPHILUS (FLORANEX) TAB PO SCH (08:07)
[2017-06-20] MEDS: FINASTERIDE 5 MG TAB PO SCH (08:07)
[2017-06-20] MEDS: METOPROLOL SUCC 50MG EXT REL TAB PO SCH (08:07)
[2017-06-20] MEDS: TAMSULOSIN HCL 0.4 MG CAP PO SCH (08:07)
[2017-06-20] MEDS: DOCUSATE SODIUM 100 MG CAP PO SCH (08:08)
[2017-06-20] MEDS: LOSARTAN POTASSIUM 25 MG TAB PO SCH (08:08)
[2017-06-20] MEDS: ATORVASTATIN 20 MG TAB PO SCH (08:08)
[2017-06-20] MEDS: INSULIN HUMAN 70% NPH/30% REGULAR SC SCH ×2 (08:09→17:19)
[2017-06-20] MEDS ORDERED: FUROSEMIDE 40 MG TAB PO SCH (09:00)
[2017-06-20] MEDS ORDERED: VANCOMYCIN INJ 1,000 MG in SODIUM CHLORIDE 0.9% 250ML 250 ML IV SCH (09:00)
--- NOTE | 2017-06-20 10:01 | Pharmacy Progress Note ---
Pharmacy Antibiotic Consult Date of Service: Jun 20, 2017. Pharmacy Dosing Scope Pharmacy is consulted to initiate vancomycin IV dosing therapy, order appropriate labs and adjust drug dose/frequency. Subjective The patient is a 81 year old male admitted on Jun 19, 2017 at 23:56. Objective Height (Feet): 6 Height (Inches): 4.00 Weight (Kilograms): 113.700 Lab Results (24hrs): Test 06/19/17 20:12 06/19/17 22:10 06/20/17 07:01 06/20/17 07:07 White Blood Count 7.18 K/uL (4.8-10.8) 5.63 K/uL (4.8-10.8) Red Blood Count 3.87 M/uL (4.7-6.1) 3.68 M/uL (4.7-6.1) Hemoglobin 12.0 g/dL (14.0-18.0) 11.6 g/dL (14.0-18.0) Hematocrit 37.8 % (42-52) 35.2 % (42-52) Mean Corpuscular Volume 97.7 fL (80-100) 95.7 fL (80-100) Mean Corpuscular Hemoglobin 31.0 pg (25-34) 31.5 pg (25-34) Mean Corpuscular Hemoglobin Concent 31.7 g/dl (32-36) 33.0 g/dl (32-36) Platelet Count 140 K/uL (130-400) 123 K/uL (130-400) Mean Platelet Volume 10.5 fL (7.4-10.4) 10.9 fL (7.4-10.4) Neutrophils (%) (Auto) 80.2 % Lymphocytes (%) (Auto) 11.4 % Monocytes (%) (Auto) 7.7 % Eosinophils (%) (Auto) 0.3 % Basophils (%) (Auto) 0.1 % Neutrophils # (Auto) 5.76 K/uL (1.4-6.5) Lymphocytes # (Auto) 0.82 K/uL (1.2-3.4) Monocytes # (Auto) 0.55 K/uL (0.11-0.59) Eosinophils # (Auto) 0.02 K/uL (0-0.5) Basophils # (Auto) 0.01 K/uL (0-0.2) RDW Standard Deviation 53.2 fL (36.4-46.3) 52.5 fL (36.4-46.3) RDW Coefficient of Variation 15.1 % (11.5-14.5) 15.0 % (11.5-14.5) Immature Granulocyte % (Auto) 0.3 % Immature Granulocyte # (Auto) 0.02 K/uL (0.00-0.02) Prothrombin Time 24.7 SECONDS (9.0-12.0) Prothromb Time International Ratio 2.2 (0.9-1.1) Activated Partial Thromboplast Time 38.4 SECONDS (21.0-31.0) Partial Thromboplastin Ratio 1.5 Sodium Level 141 mmol/L (136-145) 144 mmol/L (136-145) Potassium Level 4.5 mmol/L (3.5-5.1) 3.7 mmol/L (3.5-5.1) Chloride Level 107 mmol/L (98-107) 109 mmol/L (98-107) Carbon Dioxide Level 30 mmol/L (21-32) 28 mmol/L (21-32) Anion Gap 4.0 mmol/L (3-11) 7.0 mmol/L (3-11) Blood Urea Nitrogen 26 mg/dl (7-18) 28 mg/dl (7-18) Creatinine 1.80 mg/dl (0.60-1.40) 1.60 mg/dl (0.60-1.40) Estimated GFR () 40.0 46.1 Estimated GFR (Non- 34.5 39.8 BUN/Creatinine Ratio 14.6 (10-20) 17.4 (10-20) Random Glucose 129 mg/dl (70-99) 99 mg/dl (70-99) Calcium Level 9.8 mg/dl (8.5-10.1) 8.9 mg/dl (8.5-10.1) Total Bilirubin 0.5 mg/dl (0.2-1) 0.6 mg/dl (0.2-1) Direct Bilirubin 0.1 mg/dl (0-0.2) Aspartate Amino Transf (AST/SGOT) 19 U/L (15-37) 13 U/L (15-37) Alanine Aminotransferase (ALT/SGPT) 17 U/L (12-78) 14 U/L (12-78) Alkaline Phosphatase 102 U/L (45-117) 94 U/L (45-117) Troponin I 0.036 ng/ml (0-0.045) Pro-B-Type Natriuretic Peptide 06674 pg/ml (0-1800) Total Protein 6.8 gm/dl (6.4-8.2) 6.0 gm/dl (6.4-8.2) Albumin 3.2 gm/dl (3.4-5.0) 2.7 gm/dl (3.4-5.0) Digoxin Level 0.6 ng/ml (0.8-2.0) Urine Color YELLOW Urine Appearance CLEAR (CLEAR) Urine pH 6.5 (4.5-7.5) Urine Specific [place] 1.014 (1.000-1.030) Urine Protein 1+ (NEG) Urine Glucose (UA) NEG (NEG) Urine Ketones NEG (NEG) Urine Occult Blood 1+ (NEG) Urine Nitrite NEG (NEG) Urine Bilirubin NEG (NEG) Urine Urobilinogen NEG (NEG) Urine Leukocyte Esterase MODERATE (NEG) Urine WBC (Auto) 10-30 /hpf (0-5) Urine RBC (Auto) 10-30 /hpf (0-4) Urine Hyaline Casts (Auto) 1-5 /lpf (0-5) Urine Epithelial Cells (Auto) >30 /lpf (0-5) Urine Bacteria (Auto) NEG (NEG) Urine Renal Epithelial Cells 0-5 /lpf (0-5) Bedside Glucose 103 mg/dl (70-99) Est Creatinine Clear Calc Drug Dose 50.0 ml/min Globulin 3.3 gm/dl (2.5-4.0) Albumin/Globulin Ratio 0.8 (0.9-2) Test 06/20/17 08:38 Micro Results: Date/Time Source Procedure Growth Status 06/19/17 21:48 Blood Blood Culture Pending Received 06/19/17 21:24 Blood Blood Culture Pending Received 06/19/17 22:10 Urine , Clean Catch Urine Culture Pending Received Recent Pertinent Medications Rifampin Assessment & Plan Assessment: * 81 year old with recent MRSA UTI treated with rifampin x 10 days- had positive repeat positive cultures, and pneumonia. Per notes patient was to start levaquin but did not. * SCr 1.6, T1/2 ~15 hrs Plan: Received vancomycin 1 gm in the ED and completed load with 1750 mg (~23.5 mg/ kg) Maintenance dose of 1500 mg q18H Goal trough level between 15-20 mcg/mL Trough ordered for 06/22 @ 0930 Pharmacy will continue to follow and will adjust dose/frequency as necessary. Thank you
[2017-06-20 10:30] LABS: INR 1.9 (0.9-1.1)
--- NOTE | 2017-06-20 10:38 | Hospitalist Progress Note ---
Hospitalist Progress Note Date of Service Jun 20, 2017. (Thelma Vasquez ., CATC) Subjective Pt evaluation today including: conversation w/ patient, physical exam, chart review, lab review, review of studies, review of inpatient medication list Pain: None PO Intake: Tolerating PO diet Voiding: no voiding problems The patient reports feeling better today. He states that his shortness of breath has improved but not completely resolved. He denies coughing today. The patient reports that he had been treated for PNA at [facility] several days ago, but he was not able to tolerate the antibiotic given to him and stopped taking it. The patient denies hematuria or dysuria currently. The patient denies fevers, chills, sweats, chest pain, palpitations, claudication, cough, wheezing, nausea, vomiting, abdominal pain, dysuria, hematuria, urinary retention, paralysis, weakness, numbness and tingling. Additional Comments: See HPI for pertinent positives and negatives. All other systems reviewed and negative. (Thelma Vasquez ., SAIMA-C) Objective Vital Signs Date Time Temp Pulse Resp B/P (MAP) Pulse Ox O2 Delivery O2 Flow Rate FiO2 06/20/17 07:45 36.4 66 20 142/81 (101) 97 Room Air 06/20/17 07:15 Room Air 06/20/17 04:25 95 Room Air 06/20/17 04:09 36.8 69 17 127/65 (85) 95 Room Air 06/20/17 02:00 36.8 83 20 145/92 06/20/17 02:00 99 Room Air 06/20/17 00:36 72 18 97 06/20/17 00:31 159/86 06/20/17 00:21 80 18 98 06/20/17 00:16 156/93 06/20/17 00:06 78 18 98 06/20/17 00:01 161/95 06/19/17 23:56 77 18 99 06/19/17 23:46 159/87 06/19/17 23:41 84 19 98 06/19/17 23:31 165/81 06/19/17 23:26 74 22 98 06/19/17 23:17 164/85 06/19/17 23:11 82 22 95 06/19/17 23:06 84 20 97 06/19/17 23:01 165/87 06/19/17 22:52 74 18 160/92 97 Room Air 06/19/17 22:51 87 20 06/19/17 22:48 06/19/17 22:36 77 19 95 06/19/17 22:21 76 21 97 06/19/17 22:14 78 16 140/85 97 Room Air 06/19/17 22:13 140/85 06/19/17 22:12 180/103 06/19/17 22:06 74 18 97 06/19/17 21:51 78 24 97 06/19/17 21:36 72 24 06/19/17 21:21 84 20 97 06/19/17 21:06 87 96 06/19/17 20:54 06/19/17 20:53 75 18 156/75 97 Room Air 06/19/17 20:51 76 29 06/19/17 20:36 82 23 06/19/17 20:21 80 17 06/19/17 20:06 76 18 06/19/17 19:51 75 22 06/19/17 19:36 76 20 06/19/17 19:30 78 06/19/17 18:53 130/80 06/19/17 18:15 37.0 80 20 156/77 96 Room Air (Thelma Vasquez ., PA-C) Physical Exam Notes: General appearance: +Obese. Well-developed, well-nourished, no apparent distress Head: Normocephalic, atraumatic Eyes: Normal inspection, PERRL, EOMI ENT: Normal ENT inspection, hearing grossly normal, pharynx normal Neck: Supple, no JVD, trachea midline Respiratory/Chest: +Diminished breath sounds throughout, most marked in right base. Lungs clear to auscultation, no respiratory distress Cardiovascular: +Irregularly irregular, rate controlled. No gallop, no murmur Abdomen/GI: Normal bowel sounds, non-tender, soft Extremities/Musculoskeletal: +Left AKA. Normal inspection, no calf tenderness , no pedal edema Neurological/Psych: Alert, normal mood/affect, oriented x 3 Skin: Normal color, warm/dry, no rash (Thelma Vasquez ., PA-C) Laboratory Results Last 24 Hours Test 06/19/17 20:12 06/19/17 22:10 06/20/17 07:01 06/20/17 07:07 White Blood Count 7.18 K/uL 5.63 K/uL Red Blood Count 3.87 M/uL 3.68 M/uL Hemoglobin 12.0 g/dL 11.6 g/dL Hematocrit 37.8 % 35.2 % Mean Corpuscular Volume 97.7 fL 95.7 fL Mean Corpuscular Hemoglobin 31.0 pg 31.5 pg Mean Corpuscular Hemoglobin Concent 31.7 g/dl 33.0 g/dl Platelet Count 140 K/uL 123 K/uL Mean Platelet Volume 10.5 fL 10.9 fL Neutrophils (%) (Auto) 80.2 % Lymphocytes (%) (Auto) 11.4 % Monocytes (%) (Auto) 7.7 % Eosinophils (%) (Auto) 0.3 % Basophils (%) (Auto) 0.1 % Neutrophils # (Auto) 5.76 K/uL Lymphocytes # (Auto) 0.82 K/uL Monocytes # (Auto) 0.55 K/uL Eosinophils # (Auto) 0.02 K/uL Basophils # (Auto) 0.01 K/uL RDW Standard Deviation 53.2 fL 52.5 fL RDW Coefficient of Variation 15.1 % 15.0 % Immature Granulocyte % (Auto) 0.3 % Immature Granulocyte # (Auto) 0.02 K/uL Prothrombin Time 24.7 SECONDS Prothromb Time International Ratio 2.2 Activated Partial Thromboplast Time 38.4 SECONDS Partial Thromboplastin Ratio 1.5 Sodium Level 141 mmol/L 144 mmol/L Potassium Level 4.5 mmol/L 3.7 mmol/L Chloride Level 107 mmol/L 109 mmol/L Carbon Dioxide Level 30 mmol/L 28 mmol/L Anion Gap 4.0 mmol/L 7.0 mmol/L Blood Urea Nitrogen 26 mg/dl 28 mg/dl Creatinine 1.80 mg/dl 1.60 mg/dl Estimated GFR () 40.0 46.1 Estimated GFR (Non- 34.5 39.8 BUN/Creatinine Ratio 14.6 17.4 Random Glucose 129 mg/dl 99 mg/dl Calcium Level 9.8 mg/dl 8.9 mg/dl Total Bilirubin 0.5 mg/dl 0.6 mg/dl Direct Bilirubin 0.1 mg/dl Aspartate Amino Transf (AST/SGOT) 19 U/L 13 U/L Alanine Aminotransferase (ALT/SGPT) 17 U/L 14 U/L Alkaline Phosphatase 102 U/L 94 U/L Troponin I 0.036 ng/ml Pro-B-Type Natriuretic Peptide 99911 pg/ml Total Protein 6.8 gm/dl 6.0 gm/dl Albumin 3.2 gm/dl 2.7 gm/dl Digoxin Level 0.6 ng/ml Urine Color YELLOW Urine Appearance CLEAR Urine pH 6.5 Urine Specific [place] 1.014 Urine Protein 1+ Urine Glucose (UA) NEG Urine Ketones NEG Urine Occult Blood 1+ Urine Nitrite NEG Urine Bilirubin NEG Urine Urobilinogen NEG Urine Leukocyte Esterase MODERATE Urine WBC (Auto) 10-30 /hpf Urine RBC (Auto) 10-30 /hpf Urine Hyaline Casts (Auto) 1-5 /lpf Urine Epithelial Cells (Auto) >30 /lpf Urine Bacteria (Auto) NEG Urine Renal Epithelial Cells 0-5 /lpf Bedside Glucose 103 mg/dl Est Creatinine Clear Calc Drug Dose 50.0 ml/min Globulin 3.3 gm/dl Albumin/Globulin Ratio 0.8 Test 06/20/17 08:38 (Thelma Vasquez ., PA-C) Assessment and Plan 81 y/o male with a history of a-fib, chronic systolic CHF, cardiomyopathy, HTN, HLD, DM II, CKD stage III-IV, BPH, h/o bladder cancer, anxiety, and gout who presents to the ED with SOB, fever and productive cough. Acute on chronic systolic CHF--improving -Admit to telemetry. No acute events overnight. Pt in rate controlled a-fib with HR 60s-70s -CXR with developing congestive failure -D/C home PO Lasix -Lasix 40 mg IV qd -Daily weights, strict I's & O's -Last echo 03/11/16 showed LVEF of 15-20%, severe global hypokinesis of left ventricle and severe aortic stenosis -Repeat echocardiogram ?PNA--CXR on 06/13 shows right middle lobe PNA and small bilateral pleural effusions. He was apparently treated at [facility] but did not complete abx course -Continue ertapenem 1 gm IV qd -Infectious disease consulted, appreciate recs: Continue ertapenem for now pending cultures. Start daptomycin for MRSA UTI, will likely need 7 days. -D/C vancomycin. Start daptomycin IV. Day #1 of 7. -Blood cultures pending Recent MRSA UTI -UA looks like contamination -Urine culture pending -Abx as above ESTEE on CKD stage III-IV--improving -Baseline creatinine around 1.5 -Creatinine 1.8 on admission -Creatinine 1.6 on 06/20, continue to monitor A-fib--stable, rate controlled -Continue digoxin 0.1875 mg PO 3x/week and 0.125 mg PO 4x/week and Toprol 100 mg PO qd -Continue warfarin 2.5 mg PO qd -INR 1.9 on 06/20. Pt did not receive warfarin 06/19, took a dose morning of 06/20 after lab draw HTN, HLD--stable -Continue Toprol as above, losartan 25 mg PO qd and atorvastatin 40 mg PO qd Diabetes mellitus type 2--last HgbA1c in 2014 -Hold glipizide -Continue Humulin 70/30 20 units SC BIDM -Insulin sliding scale -Check BSGs q ac and qhs -Recheck HgbA1c BPH -Continue Proscar 5 mg PO qd and Flomax 0.4 mg PO qd DVT prophylaxis -Warfarin -SCDs Code Status -Level V, DO NOT RESUSCITATE (Thelma Vasquez ., PA-C) I agree with PA assessment and plan and have seen and examined pt myself Resting comfortably in bed No resp distress VSS Labs reviewed ?PNA with underlying CHF exab IV lasix IV daptomycin per ID recs Recent MRSA UTI (Neymar Best D.O.)
[2017-06-20 11:15] LABS: ESTIMATED AVERAGE GLUCOSE 131 mg/dl; HA1C FLAG Normal (Normal)
--- NOTE | 2017-06-20 11:16 | Medical Consult ---
Consultation Date of Consultation: Jun 20, 2017. Attending Physician: Neymar Best D.O. Reason for Consultation: Ertapenem ordered History of Present Illness 81-year-old male well known to me from previous infectious disease consultations, with history of atrial fibrillation, chronic kidney disease, recurrent urinary tract infections, who recently was found to have evidence of urinary tract infection with MRSA, was given a course of rifampin but cultures were again positive. Patient was given a prescription for Zyvox which was not filled. He then developed relatively acute onset of increasing shortness of breath, went to his local emergency room where he was diagnosed as having congestive heart failure as well as possible developing pneumonia, was transferred here for further management. He was started empirically on IV ertapenem which he has been tolerating reasonably well. Feeling better this morning with decreasing shortness of breath, no fever. Urine and blood cultures are pending. chest x-ray, read by me, seems more consistent with failure then developing pneumonia Patient states he had fever on going to the emergency room. 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 Cephalexin (Verified Adverse Reaction, Mild, NAUSEA, 06/19/17) Pregabalin (Verified Adverse Reaction, Mild, NAUSEA, 06/19/17) Sulfa Antibiotics (Verified Adverse Reaction, Mild, NAUSEA, 06/19/17) Tramadol (Verified Adverse Reaction, Mild, HALLUCINATIONS, 06/19/17) Hydrocodone (Verified Adverse Reaction, Unknown, HALLUCINATIONS, 06/19/17) Linezolid (Unverified Adverse Reaction, Unknown, GI DISTRESS, 06/19/17) Tetracycline (Verified Adverse Reaction, Unknown, GI DISTRESS, 06/19/17) Current Inpatient Medications Current Inpatient Medications Medications (Trade) Dose Ordered Sig/Dimas Route Start Time Stop Time Status Last Admin Dose Admin Acetaminophen (Tylenol Tab) 650 mg Q4H PRN PO 06/20/17 00:00 07/20/17 00:00 Ondansetron HCl (Zofran Inj) 4 mg Q6H PRN IV 06/20/17 00:00 07/20/17 00:00 Polyethylene (Miralax Powder Packet) 17 gm DAILY PRN PO 06/20/17 00:00 07/20/17 00:00 Aspirin (Ecotrin Tab) 81 mg QAM PO 06/20/17 09:00 07/20/17 08:59 06/20/17 08:06 81 MG Atorvastatin Calcium (Lipitor Tab) 40 mg QAM PO 06/20/17 09:00 07/20/17 08:59 06/20/17 08:08 40 MG Bisacodyl (Dulcolax Supp) 10 mg Q6H PRN CA 06/20/17 00:00 07/20/17 00:00 Digoxin (Lanoxin Tab) 0.0625 mg DAILY@16 PO 06/20/17 16:00 07/20/17 15:59 Docusate Sodium (coLACE CAP) 100 mg QAM PO 06/20/17 09:00 07/20/17 08:59 06/20/17 08:08 100 MG Finasteride (Proscar Tab) 5 mg DAILY PO 06/20/17 09:00 07/20/17 08:59 06/20/17 08:07 5 MG Furosemide (Lasix Tab) 40 mg QAM PO 06/20/17 09:00 07/20/17 08:59 06/20/17 08:06 40 MG Lactobacillus Acidophilus (Floranex Tab) 1 tab QAM PO 06/20/17 09:00 07/20/17 08:59 06/20/17 08:07 1 TAB Losartan Potassium (coZAAR TAB) 25 mg DAILY PO 06/20/17 09:00 07/20/17 08:59 06/20/17 08:08 25 MG Metoprolol Succinate (Toprol Xl Tab) 100 mg DAILY PO 06/20/17 09:00 07/20/17 08:59 06/20/17 08:07 100 MG Tamsulosin HCl (Flomax Cap) 0.4 mg DAILY PO 06/20/17 09:00 07/20/17 08:59 06/20/17 08:07 0.4 MG Temazepam (Restoril Cap) 45 mg HS PO 06/20/17 21:00 07/20/17 20:59 Trazodone HCl (Desyrel Tab) 50 mg HS PO 06/20/17 21:00 07/20/17 20:59 06/20/17 02:20 50 MG Warfarin Sodium (Coumadin Tab) 2.5 mg DAILY@1600 PO 06/20/17 16:00 07/20/17 15:59 06/20/17 08:28 2.5 MG Ertapenem 1 gm/ Sodium Chloride 50 ml @ 120 mls/hr Q24H IV 06/20/17 22:00 06/25/17 22:24 Digoxin (Lanoxin Tab) 0.125 mg MoWeFr@1600 PO 06/20/17 16:00 07/20/17 15:59 Insulin Human Isoph/Insulin Regular (novoLIN 70/30 REGULAR) 20 units BIDM SC 06/20/17 07:30 07/20/17 07:59 06/20/17 08:09 20 UNITS Glucose (Glucose 40% Gel) 15-30 GRAMS 15 GRAMS... UD PRN PO 06/20/17 01:45 07/20/17 01:44 Glucose (Glucose Chew Tab) 4-8 Tablets 4 Tabl... UD PRN PO 06/20/17 01:45 07/20/17 01:44 Dextrose (Dextrose 50% 50ML Syringe) 25-50ML OF 50% DW IV FOR... UD PRN IV 06/20/17 01:45 07/20/17 01:44 Glucagon (Glucagon Inj) 1 mg UD PRN SQ 06/20/17 01:45 07/20/17 01:44 Vancomycin HCl (Consult) 1 ea UD PRN N/A 06/20/17 01:45 07/20/17 01:44 Insulin Aspart (novoLOG ASPART) SLIDING SCALE G... ACHS SC 06/20/17 07:00 07/20/17 06:59 Vancomycin HCl 1500 mg/Sodium Chloride 530 ml @ 200 mls/hr Q18H IV 06/20/17 22:00 06/27/17 21:59 Review of Systems All systems were reviewed and are negative except as per HPI Physical Exam Date Time Temp Pulse Resp B/P (MAP) Pulse Ox O2 Delivery O2 Flow Rate FiO2 06/20/17 07:45 36.4 66 20 142/81 (101) 97 Room Air 06/20/17 07:15 Room Air 06/20/17 04:25 95 Room Air 06/20/17 04:09 36.8 69 17 127/65 (85) 95 Room Air 06/20/17 02:00 36.8 83 20 145/92 06/20/17 02:00 99 Room Air 06/20/17 00:36 72 18 97 06/20/17 00:31 159/86 06/20/17 00:21 80 18 98 06/20/17 00:16 156/93 06/20/17 00:06 78 18 98 06/20/17 00:01 161/95 06/19/17 23:56 77 18 99 06/19/17 23:46 159/87 06/19/17 23:41 84 19 98 06/19/17 23:31 165/81 06/19/17 23:26 74 22 98 06/19/17 23:17 164/85 06/19/17 23:11 82 22 95 06/19/17 23:06 84 20 97 06/19/17 23:01 165/87 06/19/17 22:52 74 18 160/92 97 Room Air 06/19/17 22:51 87 20 06/19/17 22:48 06/19/17 22:36 77 19 95 06/19/17 22:21 76 21 97 06/19/17 22:14 78 16 140/85 97 Room Air 06/19/17 22:13 140/85 06/19/17 22:12 180/103 06/19/17 22:06 74 18 97 06/19/17 21:51 78 24 97 06/19/17 21:36 72 24 06/19/17 21:21 84 20 97 06/19/17 21:06 87 96 06/19/17 20:54 06/19/17 20:53 75 18 156/75 97 Room Air 06/19/17 20:51 76 29 06/19/17 20:36 82 23 06/19/17 20:21 80 17 06/19/17 20:06 76 18 06/19/17 19:51 75 22 06/19/17 19:36 76 20 06/19/17 19:30 78 06/19/17 18:53 130/80 06/19/17 18:15 37.0 80 20 156/77 96 Room Air General Appearance: WD/WN, no apparent distress Head: normocephalic, atraumatic Eyes: normal inspection, EOMI, sclerae normal ENT: normal ENT inspection, pharynx normal Neck: supple, no adenopathy, thyroid normal, trachea midline Respiratory/Chest: chest non-tender, no respiratory distress, no accessory muscle use, + rales Cardiovascular: no gallop, + systolic murmur, + irregularly irregular Abdomen/GI: normal bowel sounds, non tender, soft, no organomegaly Back: normal inspection, no CVA tenderness Extremities/Musculoskelatal: no calf tenderness, non-tender Neurologic/Psych: alert, oriented x 3 Skin: normal color, warm/dry, no rash Lymphatic: no adenopathy Laboratory Results Date/Time Source Procedure Growth Status 06/19/17 21:48 Blood Blood Culture Pending Received 06/19/17 21:24 Blood Blood Culture Pending Received 06/19/17 22:10 Urine , Clean Catch Urine Culture Pending Received Last 24 Hours Test 06/19/17 20:12 06/19/17 22:10 06/20/17 07:01 06/20/17 07:07 White Blood Count 7.18 K/uL 5.63 K/uL Red Blood Count 3.87 M/uL 3.68 M/uL Hemoglobin 12.0 g/dL 11.6 g/dL Hematocrit 37.8 % 35.2 % Mean Corpuscular Volume 97.7 fL 95.7 fL Mean Corpuscular Hemoglobin 31.0 pg 31.5 pg Mean Corpuscular Hemoglobin Concent 31.7 g/dl 33.0 g/dl Platelet Count 140 K/uL 123 K/uL Mean Platelet Volume 10.5 fL 10.9 fL Neutrophils (%) (Auto) 80.2 % Lymphocytes (%) (Auto) 11.4 % Monocytes (%) (Auto) 7.7 % Eosinophils (%) (Auto) 0.3 % Basophils (%) (Auto) 0.1 % Neutrophils # (Auto) 5.76 K/uL Lymphocytes # (Auto) 0.82 K/uL Monocytes # (Auto) 0.55 K/uL Eosinophils # (Auto) 0.02 K/uL Basophils # (Auto) 0.01 K/uL RDW Standard Deviation 53.2 fL 52.5 fL RDW Coefficient of Variation 15.1 % 15.0 % Immature Granulocyte % (Auto) 0.3 % Immature Granulocyte # (Auto) 0.02 K/uL Prothrombin Time 24.7 SECONDS 21.0 SECONDS Prothromb Time International Ratio 2.2 1.9 Activated Partial Thromboplast Time 38.4 SECONDS Partial Thromboplastin Ratio 1.5 Sodium Level 141 mmol/L 144 mmol/L Potassium Level 4.5 mmol/L 3.7 mmol/L Chloride Level 107 mmol/L 109 mmol/L Carbon Dioxide Level 30 mmol/L 28 mmol/L Anion Gap 4.0 mmol/L 7.0 mmol/L Blood Urea Nitrogen 26 mg/dl 28 mg/dl Creatinine 1.80 mg/dl 1.60 mg/dl Estimated GFR () 40.0 46.1 Estimated GFR (Non- 34.5 39.8 BUN/Creatinine Ratio 14.6 17.4 Random Glucose 129 mg/dl 99 mg/dl Calcium Level 9.8 mg/dl 8.9 mg/dl Total Bilirubin 0.5 mg/dl 0.6 mg/dl Direct Bilirubin 0.1 mg/dl Aspartate Amino Transf (AST/SGOT) 19 U/L 13 U/L Alanine Aminotransferase (ALT/SGPT) 17 U/L 14 U/L Alkaline Phosphatase 102 U/L 94 U/L Troponin I 0.036 ng/ml Pro-B-Type Natriuretic Peptide 43515 pg/ml Total Protein 6.8 gm/dl 6.0 gm/dl Albumin 3.2 gm/dl 2.7 gm/dl Digoxin Level 0.6 ng/ml Urine Color YELLOW Urine Appearance CLEAR Urine pH 6.5 Urine Specific [place] 1.014 Urine Protein 1+ Urine Glucose (UA) NEG Urine Ketones NEG Urine Occult Blood 1+ Urine Nitrite NEG Urine Bilirubin NEG Urine Urobilinogen NEG Urine Leukocyte Esterase MODERATE Urine WBC (Auto) 10-30 /hpf Urine RBC (Auto) 10-30 /hpf Urine Hyaline Casts (Auto) 1-5 /lpf Urine Epithelial Cells (Auto) >30 /lpf Urine Bacteria (Auto) NEG Urine Renal Epithelial Cells 0-5 /lpf Bedside Glucose 103 mg/dl Est Creatinine Clear Calc Drug Dose 50.0 ml/min Globulin 3.3 gm/dl Albumin/Globulin Ratio 0.8 CHEST ONE VIEW PORTABLE CLINICAL HISTORY: shortness of breath dyspnea COMPARISON STUDY: 03/21/2016 FINDINGS: Increase in pulmonary vasculature compared to the prior study. Unchanging increased density both lung bases. Stable cardiomegaly. IMPRESSION: Developing congestive failure superimposed upon chronic change. The above report was generated using voice recognition software. It may contain grammatical, syntax or spelling errors. Assessment & Plan 81-year-old male with recent urinary tract infection with MRSA now admitted with what appears to be congestive heart failure, possibly with superimposed pneumonia. Patient will be continued on ertapenem pending follow-up chest x- ray and culture results. I have started patient on daptomycin to treat his MRSA UTI. Likely will require 7 days of therapy. Will follow.
[2017-06-20] MEDS ORDERED: FUROSEMIDE INJ 40 MG in SYRINGE 0 ML IV ONE (12:30)
[2017-06-20] MEDS: DAPTOmycin IV 500 MG in SODIUM CHLORIDE 0.9% 50ML 50 ML IV SCH (12:31)
[2017-06-20] MEDS ORDERED: WARFARIN SOD 2.5 MG TAB PO SCH (16:00)
[2017-06-20] MEDS ORDERED: DIGOXIN 0.125 MG TAB PO SCH ×2 (16:00)
--- NOTE | 2017-06-20 18:50 | ECHOCARDIOGRAM REPORT ---
*NOTICE TO RECEIVING DEMOCRAT AGENCY This information is strictly Confidential and protected under [place] law. [place] law prohibits you from making any further disclosure of this information unless further disclosure is expressly permitted by the written consent of the person to whom it pertains or is authorized by law. A general authorization for the release of medical or other information is not sufficient for this purpose. Hospital accepts no responsibility if the information is made available to any other person, INCLUDING THE PATIENT. Interpretation Summary * Name: ETHAN BALDWIN Study Date: 06/20/2017 03:21 PM BP: 154/76 mmHg * Patient Location: C.2T\S\S242\S\1 HR: 66 * : 1935 (M/d/yyyy) Gender: Male Height: 74 in * Age: 81 yrs Ethnicity: CA Weight: 250 lb * Ordering Physician: Thelma Vasquez * Performed By: Danii Banegas * * Reason For Study: CHF * BSA: 2.4 m2 * -- Conclusions -- * 1. Severely dilated left ventricle with severely reduced systolic function. EF 25-30%. Global hypokinesis. Mild to moderate concentric left ventricular hypertrophy. Tissue Doppler suggests elevated left atrial pressure. * 2. The left atrium is moderately dilated. * 3. The right atrium is mildly dilated. * 4. Restricted posterior leaflet with severe posteriorly directed mitral regurgitation. * 5. Mild aortic stenosis based on velocities and gradients but more significant aortic stenosis based on dimensionless index and also visually. Aortic stenosis severity may be underestimated based on velocities/gradient due to reduced LV systolic function. * 6. Technically difficult study. * 7. Compared to prior study on 03/11/2016, no significant change. Procedure Details * A complete two-dimensional transthoracic echocardiogram was performed (2D, M-mode, Doppler and color flow Doppler). Left Ventricle * Severely dilated left ventricle with severely reduced systolic function. EF 25-30%. Global hypokinesis. Mild to moderate concentric left ventricular hypertrophy. Tissue Doppler suggests elevated left atrial pressure. Right Ventricle * The right ventricle is not well visualized. * The right ventricle is grossly normal size. Atria * The left atrium is moderately dilated. * The right atrium is mildly dilated. * There is no evidence of atrial septal defect, but resolution does not allow assessment for a patent foramen ovale. Mitral Valve * Restricted posterior leaflet with severe posteriorly directed mitral regurgitation. * There is no mitral valve stenosis. Tricuspid Valve * The tricuspid valve is not well visualized. * There is no tricuspid stenosis. * There is trace tricuspid regurgitation. Aortic Valve * Mild aortic stenosis based on velocities and gradients but more significant aortic stenosis based on dimensionless index and also visually. Aortic stenosis severity may be underestimated based on velocities/gradient due to reduced LV systolic function. * dimensionless index 0.29 * Trace aortic regurgitation. Pulmonic Valve * The pulmonic valve is not well visualized. * There is no pulmonic valvular stenosis. Great Vessels * The aortic root is normal size. * Ascending aorta of normal dimension Pericardium/Pleural * There is no pericardial effusion. Great Vessels * Normal inferior vena cava size and collapsability with sniff indicates a normal right atrial pressure of 3 mmHg MMode 2D Measurements and Calculations IVSd 1.4 cm IVSs 1.6 cm LVIDd 7.2 cm LVIDs 6.4 cm LVPWd 1.2 cm LVPWs 1.5 cm IVS/LVPW 1.1 FS 10.2 % EDV(Teich) 270.5 ml ESV(Teich) 212.0 ml EF(Teich) 21.6 % EDV(cubed) 370.3 ml ESV(cubed) 268.0 ml EF(cubed) 27.6 % % IVS thick 18.0 % % LVPW thick 19.4 % LV mass(C)d 463.9 grams LV mass(C)dI 194.1 grams/m\S\2 LV mass(C)s 490.3 grams LV mass(C)sI 205.2 grams/m\S\2 SV(Teich) 58.5 ml SI(Teich) 24.5 ml/m\S\2 SV(cubed) 102.3 ml SI(cubed) 42.8 ml/m\S\2 Ao root diam 4.2 cm Ao root area 14.0 cm\S\2 ACS 0.77 cm LA dimension 5.2 cm asc Aorta Diam 3.5 cm LA/Ao 1.2 LVOT diam 2.7 cm LVOT area 5.8 cm\S\2 LVAd ap4 50.1 cm\S\2 LVLd ap4 10.0 cm EDV(MOD-sp4) 203.9 ml EDV(sp4-el) 212.4 ml LVAs ap4 40.3 cm\S\2 LVLs ap4 8.9 cm ESV(MOD-sp4) 155.0 ml ESV(sp4-el) 154.0 ml EF(MOD-sp4) 24.0 % EF(sp4-el) 27.5 % LVAd ap2 52.8 cm\S\2 LVLd ap2 9.4 cm EDV(MOD-sp2) 242.2 ml EDV(sp2-el) 252.8 ml LVAs ap2 43.3 cm\S\2 LVLs ap2 8.7 cm ESV(MOD-sp2) 174.6 ml ESV(sp2-el) 183.5 ml EF(MOD-sp2) 27.9 % EF(sp2-el) 27.4 % LVLd %diff -6.90 % EDV(MOD-bp) 232.3 ml LVLs %diff -3.22 % ESV(MOD-bp) 163.5 ml EF(MOD-bp) 29.6 % SV(MOD-sp4) 48.9 ml SI(MOD-sp4) 20.5 ml/m\S\2 SV(MOD-sp2) 67.6 ml SI(MOD-sp2) 28.3 ml/m\S\2 SV(MOD-bp) 68.8 ml SI(MOD-bp) 28.8 ml/m\S\2 SV(sp4-el) 58.4 ml SI(sp4-el) 24.4 ml/m\S\2 SV(sp2-el) 69.3 ml SI(sp2-el) 29.0 ml/m\S\2 Doppler Measurements and Calculations MV E max payton 132.6 cm/sec MV dec time 0.16 sec Ao V2 max 215.7 cm/sec Ao max PG 18.6 mmHg Ao max PG (full) 17.0 mmHg Ao V2 mean 144.2 cm/sec Ao mean PG 9.4 mmHg Ao mean PG (full) 8.8 mmHg Ao V2 VTI 45.4 cm JOSÉ MIGUEL(I,A) 1.7 cm\S\2 JOSÉ MIGUEL(I,D) 1.7 cm\S\2 JOSÉ MIGUEL(V,A) 1.7 cm\S\2 JOSÉ MIGUEL(V,D) 1.7 cm\S\2 AI max payton 323.1 cm/sec AI max PG 41.8 mmHg AI dec slope 137.0 cm/sec\S\2 AI P1/2t 690.5 msec LV V1 max PG 1.6 mmHg LV V1 mean PG 0.65 mmHg LV V1 max 63.2 cm/sec LV V1 mean 36.8 cm/sec LV V1 VTI 13.0 cm MR max payton 616.5 cm/sec MR max PG 152.7 mmHg MR mean payton 427.9 cm/sec MR mean PG 88.3 mmHg MR VTI 213.9 cm SV(Ao) 637.7 ml SI(Ao) 266.9 ml/m\S\2 SV(LVOT) 75.4 ml SI(LVOT) 31.6 ml/m\S\2 PA V2 max 55.0 cm/sec PA max PG 1.2 mmHg RAP systole 3.0 mmHg
[2017-06-20] MEDS ORDERED: VANCOMYCIN INJ 1,500 MG in SODIUM CHLORIDE 0.9% 500ML 500 ML IV SCH (22:00)
[2017-06-20] MEDS ORDERED: ERTAPENEM IV 1 GM in SODIUM CHLOR 0.9% AD-VAN 50ML 50 ML IV SCH (22:00)
[2017-06-21] VITALS (7 sets, daily range): BP systolic 138–148; BP diastolic 72–87; PULSE 75–99; TEMP 36.4–36.7; O2SAT 95–98
[2017-06-21 06:06] LABS: HEMATOCRIT 37.7 % (42-52); MEAN CELL VOLUME 96.9 fL (80-100); MEAN CORPUSCULAR HEMOGLOBIN 31.4 pg (25-34); MEAN CORPUSCULAR HGB CONC 32.4 g/dl (32-36); MEAN PLATELET VOLUME 11.3 fL (7.4-10.4); PLATELET COUNT 140 K/uL (130-400); RED BLOOD COUNT 3.89 M/uL (4.7-6.1); WHITE BLOOD COUNT 7.76 K/uL (4.8-10.8)
[2017-06-21 06:18] LABS: INR 1.8 (0.9-1.1); PROTHROMBIN TIME (PATIENT) 19.4 SECONDS (9.0-12.0)
[2017-06-21 06:25] LABS: BUN/CREATININE RATIO 19.1 (10-20); CALCIUM 9.1 mg/dl (8.5-10.1); CREATININE 1.8 mg/dl (0.60-1.40); POTASSIUM 3.9 mmol/L (3.5-5.1)
[2017-06-21 06:28] LABS: ALB/GLOB RATIO 0.8 (0.9-2)
[2017-06-21] MEDS: LACTOBACILLUS ACIDOPHILUS (FLORANEX) TAB PO SCH (07:47)
[2017-06-21] MEDS: DOCUSATE SODIUM 100 MG CAP PO SCH (07:47)
[2017-06-21] MEDS: ATORVASTATIN 20 MG TAB PO SCH (07:47)
[2017-06-21] MEDS: ASPIRIN 81 MG ECTAB PO SCH (07:47)
[2017-06-21] MEDS: FINASTERIDE 5 MG TAB PO SCH (07:48)
[2017-06-21] MEDS: METOPROLOL SUCC 50MG EXT REL TAB PO SCH (07:48)
[2017-06-21] MEDS: TAMSULOSIN HCL 0.4 MG CAP PO SCH (07:48)
[2017-06-21] MEDS: LOSARTAN POTASSIUM 25 MG TAB PO SCH (07:49)
[2017-06-21] MEDS: INSULIN ASPART 100 UNITS/ML 3 ML PEN SC SCH ×2 (07:54→11:59)
[2017-06-21] MEDS: INSULIN HUMAN 70% NPH/30% REGULAR SC SCH (07:55)
[2017-06-21] MEDS: DAPTOmycin IV 500 MG in SODIUM CHLORIDE 0.9% 50ML 50 ML IV SCH (07:59)
[2017-06-21] MEDS ORDERED: FUROSEMIDE INJ 40 MG in SYRINGE 0 ML IV SCH (09:00)
--- NOTE | 2017-06-21 14:19 | Discharge Instructions ---
Discharge Instructions Date of Service Jun 21, 2017. Admission Reason for Admission: Acute Exacerbation Of Chf Discharge Discharge Diagnosis / Problem: Acute on chronic systolic congestive heart failure, urinary tract infection Discharge Goals Goal(s): Decrease discomfort, Improve function, Diagnostic testing, Therapeutic intervention Activity Recommendations Activity Limitations: resume your previous activity (as tolerated) . Instructions / Follow-Up Instructions / Follow-Up You were admitted to the hospital with shortness of breath, a productive cough and fever. You were found to have an acute exacerbation of your chronic congestive heart failure (CHF). A recent chest x-ray in late May had suggested a pneumonia as well, but this was not found on the chest x-ray done at [facility], and you did not develop any fevers or further symptoms consistent with pneumonia during your stay. For your CHF exacerbation, you were given IV Lasix to diurese the excess fluid off. Due to your recent MRSA urinary tract infection that was never properly treated, you were given IV antibiotics and Dr. Castellanos from infectious disease was consulted. A repeat urine culture done at [facility] was again positive. Per Dr. Castellanos's recommendations, you will continue an IV antibiotic for a few more days as an inpatient to treat the urine infection. As you are no longer symptomatic and your lab work does not indicate a severe active infection, you are now medically stable for discharge. Medications: *You will receive daptomycin 500 mg IV daily for 5 more days to complete a 7 day antibiotic course per Dr. Castellanos's recommendations. *Continue your home medications as prescribed. Follow up: *You will be scheduled to follow up with your primary care provider in 1 week following discharge regarding your hospital stay. *You will also be scheduled to follow up with Dr. Castellanos of infectious disease to ensure the resolution of your urinary tract infection. Please seek medical attention if you experience fevers, chills, sweats, dizziness/lightheadedness, loss of consciousness, fall, chest pain, shortness of breath, nausea, vomiting, numbness or tingling. Current Hospital Diet Patient's current hospital diet: Diabetes Type 2 Diet, AHA Diet (Heart Healthy) Discharge Diet Recommended Diet: AHA Diet (Heart Healthy), Diabetes Type 2 Diet Pending Studies Studies pending at discharge: yes List of pending studies: Final urine culture, preliminary results positive for staph species Laboratory Results Hemoglobin A1c Test 06/20/17 07:07 Range/Units Estimated Average Glucose 131 mg/dl Hemoglobin A1c 6.2 H 4.5-5.6 % Medical Emergencies . Who to Call and When: Medical Emergencies: If at any time you feel your situation is an emergency, please call 911 immediately. . Non-Emergent Contact Non-Emergency issues call your: Primary Care Provider, Specialist (infectious disease) Call Non-Emergent contact if: you have a fever, you have any medication questions . Past History Medical & Surgical History: (1) UTI (urinary tract infection) (2) Acute exacerbation of CHF (congestive heart failure) . "Provider Documentation" section prepared by Thelma Vasquez. . VTE Core Measure Inpt VTE Proph given/why not?: Warfarin (Coumadin), SCD's
--- NOTE | 2017-06-21 15:16 | Discharge Summary ---
Discharge Summary Date of Service Jun 21, 2017. Discharge Summary Admission Date: Jun 19, 2017 at 23:56 Discharge Date: Jun 21, 2017 Discharge Disposition: Home with services Principal Diagnosis: Acute on chronic systolic congestive heart failure Problems/Secondary Diagnoses: Urinary tract infection Immunizations: Have You Had Influenza Vaccine: Yes History of Tetanus Vaccine?: Yes History of Pneumococcal: Yes History of Hepatitis B Vaccine: No Procedures: Echocardiogram: Interpretation Summary * Name: ETHAN BALDWIN Study Date: 06/20/2017 03:21 PM BP: 154/76 mmHg * Patient Location: [facility]\\S\\S242\\S\\1 HR: 66 * : 1935 (M/d/yyyy) Gender: Male Height: 74 in * Age: 81 yrs Ethnicity: [place] Weight: 250 lb * Ordering Physician: Thelma Vasquez * Performed By: Danii Banegas * * Reason For Study: CHF * BSA: 2.4 m2 * -- Conclusions -- * 1. Severely dilated left ventricle with severely reduced systolic function. EF 25-30%. Global hypokinesis. Mild to moderate concentric left ventricular hypertrophy. Tissue Doppler suggests elevated left atrial pressure. * 2. The left atrium is moderately dilated. * 3. The right atrium is mildly dilated. * 4. Restricted posterior leaflet with severe posteriorly directed mitral regurgitation. * 5. Mild aortic stenosis based on velocities and gradients but more significant aortic stenosis based on dimensionless index and also visually. Aortic stenosis severity may be underestimated based on velocities/gradient due to reduced LV systolic function. * 6. Technically difficult study. * 7. Compared to prior study on 03/11/2016, no significant change. Procedure Details * A complete two-dimensional transthoracic echocardiogram was performed (2D, M-mode, Doppler and color flow Doppler). Left Ventricle * Severely dilated left ventricle with severely reduced systolic function. EF 25-30%. Global hypokinesis. Mild to moderate concentric left ventricular hypertrophy. Tissue Doppler suggests elevated left atrial pressure. Right Ventricle * The right ventricle is not well visualized. * The right ventricle is grossly normal size. Atria * The left atrium is moderately dilated. * The right atrium is mildly dilated. * There is no evidence of atrial septal defect, but resolution does not allow assessment for a patent foramen ovale. Mitral Valve * Restricted posterior leaflet with severe posteriorly directed mitral regurgitation. * There is no mitral valve stenosis. Tricuspid Valve * The tricuspid valve is not well visualized. * There is no tricuspid stenosis. * There is trace tricuspid regurgitation. Aortic Valve * Mild aortic stenosis based on velocities and gradients but more significant aortic stenosis based on dimensionless index and also visually. Aortic stenosis severity may be underestimated based on velocities/gradient due to reduced LV systolic function. * dimensionless index 0.29 * Trace aortic regurgitation. Pulmonic Valve * The pulmonic valve is not well visualized. * There is no pulmonic valvular stenosis. Great Vessels * The aortic root is normal size. * Ascending aorta of normal dimension Pericardium/Pleural * There is no pericardial effusion. Great Vessels * Normal inferior vena cava size and collapsability with sniff indicates a normal right atrial pressure of 3 mmHg Consultations: Infectious disease--Dr. Castellanos Medication Reconciliation Continued Medications: Aspirin (Aspirin Ec) 81 Mg Tab 81 MG PO QAM Atorvastatin (Lipitor) 40 Mg Tab 40 MG PO QAM, TAB Bisacodyl (Bisac-Evac) 10 Mg Supp 10 MG VT Q6H PRN for Constipation for 10 Days, SUPP Digoxin (Digoxin) 0.125 Mg Tab 0.125 MG PO 3XWEEK MONDAYS/Wednesdays Digoxin (Digoxin) 0.125 Mg Tab 0.0625 MG PO DAILY@16 for 10 Days, TAB Docusate Sodium (Docusate Sodium) 100 Mg Cap 100 MG PO QAM, CAP Finasteride (Proscar) 5 Mg Tab 5 MG PO DAILY, TAB Furosemide (Lasix) 40 Mg Tab 40 MG PO QAM, TAB Glipizide (Glipizide Er) 5 Mg Tab 1 TAB PO DAILY for 90 Days, #90 TAB 3 Refills Insulin Isophan/Regular (Humulin 70/30) Susp 20 UNITS SC BIDM, VIAL Lactobacillus Acidophilus (Lactinex) Tab 1 TAB PO QAM, TAB Loperamide Hcl (Imodium) 2 Mg Cap 2 MG PO DIRECTED, CAP Losartan Potassium (Losartan Potassium) 25 Mg Tab 25 MG PO DAILY PT NOT SURE WHEN Metoprolol Succinate (Metoprolol Succinate ER) 50 Mg Tabcr 100 MG PO DAILY for 10 Days Nutritional Supplements (Glucerna) 1 Liq Liq 1 CAN PO QAM Tamsulosin Hcl (Flomax) 0.4 Mg Cap 0.4 MG PO DAILY, CAP Temazepam (Restoril) 30 Mg Cap 30 MG PO HS, CAP Temazepam (Restoril) 15 Mg Cap 15 MG PO HS, CAP Trazodone Hcl (Trazodone) 50 Mg Tab 50 MG PO HS, TAB Warfarin Sod (Coumadin) 2.5 Mg Tab 2.5 MG PO QPM, TAB Discharge Exam Patient reports feeling well. He denies any shortness of breath or wheezing. He does complain of a non-productive cough. He states that earlier this morning his stomach felt "sick" but he denies any vomiting. He states that after eating breakfast this feeling resolved. The patient denies fevers, chills , sweats, chest pain, palpitations, claudication, wheezing, shortness of breath , vomiting, abdominal pain, dysuria, hematuria, urinary retention, paralysis, weakness, numbness and tingling. Review of Systems: Constitutional: No fever, No chills, No sweats Eyes: No worsening of vision, No eye pain, No diplopia ENT: No hearing loss, No sore throat, No trouble swallowing Respiratory: + cough, No sputum, No wheezing, No shortness of breath Cardiovascular: No chest pain, No orthopnea, No claudication, No palpitations Abdomen: + nausea, No pain, No vomiting Musculoskeletal: No joint pain, No muscle pain, No calf pain Genitourinary - Male: No hematuria, No dysuria, No urinary retention Neurologic: No paralysis, No weakness, No numbness/tingling Integumentary: No rash, No itch, No color change Physical Exam: General Appearance: WD/WN, no apparent distress, + obese Eyes: normal inspection, PERRL, EOMI ENT: normal ENT inspection, hearing grossly normal, pharynx normal Neck: supple, no JVD, trachea midline Respiratory/Chest: lungs clear, no respiratory distress, + decreased breath sounds Cardiovascular: no gallop, no murmur, + irregularly irregular (rate controlled) Abdomen / GI: normal bowel sounds, non tender, soft Extremities: normal inspection, no calf tenderness, no pedal edema, + pertinent finding (left AKA) Neurologic/Psychiatric: alert, normal mood/affect, oriented x 3 Skin: normal color, warm/dry, no rash Hospital Course 81 y/o male with a history of a-fib, chronic systolic CHF, cardiomyopathy, HTN, HLD, DM II, CKD stage III-IV, BPH, h/o bladder cancer, anxiety, and gout who presents to the ED with SOB, fever and productive cough. Acute on chronic systolic CHF--improving -Admit to telemetry. No acute events overnight. Pt in rate controlled a-fib with HR 70s-90s -CXR with developing congestive failure -UO 2625 cc, net balance -815 -D/C IV Lasix, resume home Lasix 40 mg PO qd -Daily weights, strict I's & O's -Last echo 03/11/16 showed LVEF of 15-20%, severe global hypokinesis of left ventricle and severe aortic stenosis -Echo 06/20 shows LVEF 25-30%, severely dilated left ventricle. Global hypokinesis. ?PNA--CXR on 06/13 shows right middle lobe PNA and small bilateral pleural effusions. He was apparently treated at [facility] but did not complete abx course -Pt has been asymptomatic, afebrile, and without leukocytosis. No PNA noted on CXR done here -D/C ertapenem -Infectious disease consulted, appreciate recs: Continue daptomycin for MRSA UTI for total 7 days. -D/C vancomycin -Blood cultures NGTD x 2 Recent MRSA UTI--never adequately treated -UA looks like contamination -Urine culture here positive for staph species, further identification and sensitivities pending -Daptomycin 500 mg IV q24h. Day #2 of 7 -Ultrasound guided peripheral IV placed 06/21 so that pt may receive remaining doses at home with home health ESTEE on CKD stage III-IV--stable -Baseline creatinine as low as 1.5, although in last year had more often been around 2 -Creatinine 1.8 on admission -Creatinine 1.8 on 06/21, up from 1.6. Lasix converted back to home PO dose as above A-fib--stable, rate controlled -Continue digoxin 0.1875 mg PO 3x/week and 0.125 mg PO 4x/week and Toprol 100 mg PO qd -INR 1.8 on 06/21 -Warfarin 2.5 mg PO qd. Continue to monitor regularly as outpatient HTN, HLD--stable -Continue Toprol as above, losartan 25 mg PO qd and atorvastatin 40 mg PO qd Diabetes mellitus type 2--last HgbA1c in 2014 -Hold glipizide -Continue Humulin 70/30 20 units SC BIDM -Insulin sliding scale -Check BSGs q ac and qhs -HgbA1c 6.2 on 06/20 BPH -Continue Proscar 5 mg PO qd and Flomax 0.4 mg PO qd DVT prophylaxis -Warfarin -SCDs Code Status -Level V, DO NOT RESUSCITATE Total Time Spent: Greater than 30 minutes This includes examination of the patient, discharge planning, medication reconciliation, and communication with other providers. Discharge Instructions Please refer to the electronic Patient Visit Report (Discharge Instructions) for additional information. Additional Copies To Jayme Wilkerson M.D.
[2017-06-22] MEDS ORDERED: FUROSEMIDE 40 MG TAB PO SCH (09:00)
[2017-06-22] MEDS ORDERED: VANCOMYCIN TROUGH ONE (09:30)
== END 2017-06-21 14:59 | disposition home health service (06) | DRG 291 ==
LOC: C.EDB 18:07 → C.2T 23:56 → ENRESERV 06-20 → C.2T 06-20 19:35
PROVIDERS: ADMIT Family Medicine; ATTEND Hospitalist
DX: I13.0 Hypertensive heart and chronic kidney disease with heart failure and stage 1 through stage 4 chronic kidney disease, or unspecified chronic kidney disease (principal); J18.9 Pneumonia, unspecified organism; I50.23 Acute on chronic systolic (congestive) heart failure; N17.9 Acute kidney failure, unspecified; N18.4 Chronic kidney disease, stage 4 (severe); N39.0 Urinary tract infection, site not specified; I70.202 Unspecified atherosclerosis of native arteries of extremities, left leg; E78.5 Hyperlipidemia, unspecified; E11.22 Type 2 diabetes mellitus with diabetic chronic kidney disease; N40.0 Benign prostatic hyperplasia without lower urinary tract symptoms; Z66 Do not resuscitate; Z87.891 Personal history of nicotine dependence; Z79.82 Long term (current) use of aspirin; Z79.899 Other long term (current) drug therapy; Z79.84 Long term (current) use of oral hypoglycemic drugs; Z79.4 Long term (current) use of insulin; Z79.01 Long term (current) use of anticoagulants; Z16.24 Resistance to multiple antibiotics; Z86.69 Personal history of other diseases of the nervous system and sense organs

== ENCOUNTER 2017-08-27 06:52 | Day surgery (SDC) | payer OTHER, MEDICARE ==
[~2017-08-27] VITALS: Ht 193 cm; Wt 114.0 kg
[2017-08-27] VITALS (12 sets, daily range): BP systolic 103–137; BP diastolic 63–76; PULSE 70–82; TEMP 36.5–36.6; O2SAT 96–100; Ht 193 cm; Wt 114.0 kg
--- NOTE | 2017-08-27 06:42 | History and Physical ---
History & Physical Date of Service Aug 27, 2017. History & Physical CC: Left iliac artery stenosis HPI: Mr. Montes is a pleasant 82-year-old gentleman has had a fem-fem bypass along with a right fem-pop bypass in the past. He had noninvasive testing done at [facility] which showed a patent right fem-pop bypass and a cross femoral bypass. However, there is severe stenosis on the inflow vessel to the fem-fem graft. His indexes went from 1.0 down to 0.56. EVIEW OF SYSTEMS: Denies shortness of breath, chest pain, or fevers. ALLERGIES: Amoxicillin,cephalexin, Lyrica, risperidone,tetracycline,tramadol,vicodin PAST MEDICAL HISTORY: 1. Diabetes (most recent HBA1C 6). 2. Diabetic neuropathy, lower extremity, for the past 25 years. 3. Hypertension. 4. CHF. 5. A-fib. 6. Gout. 7. Small bowel obstruction. 8. Cross fem bypass 9: Toe amputations PAST SURGERIES: Tonsillectomy and cataracts, as well as AV fistula placement in the left upper extremity for anticipated dialysis needs. That was never started. SOCIAL HISTORY: Quit tobacco 14 years ago and alcohol was quit 25 years ago. FAMILY HISTORY: Diabetes mellitus, stroke, lymphoma on mom's side. On exam today, his right foot is warm. Capillary refill is slightly decreased. I could not appreciate palpable pulses. There is a femoral pulse present on the left side, but is slightly weaker. Right side is also slightly weakened. VSS. HEENT is wnl. Lungs are clear. Cor has a RRR. Abdominal exam is normal without masses. Neuro exam is wnl. There are no carotid bruits. Upper extremity pulses are normal. No ulcerations of the extremities are seen. 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 Due to his renal insufficiency, we will rehydrate him with saline and bicarbonate preangio along with Mucomyst starting the night before. I have discussed the risks options and benefits of the procedure with the patient. The patient understands the risks options and benefits and agrees to the procedure.
[~2017-08-27 06:52] MED LIST changes: +ACET-1311 PO; -ACET325T82 PO; +ALPR-411 PO; +ALUMSUS2 PO; +BISA-16 PO; -CLC100 PO; +CLINDAMYCIN 600 MG/54 ML D5W IV SCH; +DOCU100C31 PO; -IRON SUPPLEMENT PO; +LISI-729 PO; +MBXC PO; -METO1TAB69 PO; +MOMLX PO; -MRLP17 PO; +MULT-506 PO; +MULTCAP7 PO; -PANT40TA PO; +POLY335019 PO; -RXC5 PO; +SODI1ENE; +SODIUM BICARBONATE 8.4% INJ 100 MEQ in STERILE WATER 1000 ML 1,000 ML IV SCH; +SODIUM CHLORIDE 0.9% 1000ML IV SCH; +TEMA15CA4 PO; +TRAZ50TA35 PO; +iron PO
[2017-08-27 07:36] LABS: INR 1.7 (0.9-1.1); PARTIAL THROMBOPLASTIN RATIO 1.4; PROTHROMBIN TIME (PATIENT) 18.7 SECONDS (9.0-12.0)
[2017-08-27 07:42] LABS: BLOOD UREA NITROGEN 28 mg/dl (7-18); CREATININE 1.85 mg/dl (0.60-1.40)
--- NOTE | 2017-08-27 08:17 | History & Physical Bridge Note ---
H&P Re-Evaluation Bridge Note: I have examined the patient, reviewed the History & Physical and in the interval since the performance of the History & Physical I have noted the following changes of clinical significance: No changes noted
--- NOTE | 2017-08-27 08:18 | Procedure Note ---
Pre-Mod Sedation Assessment General Date of Moderate Sedation: Aug 27, 2017. Vital Signs: Vital Signs Past 12 Hours Date Time Temp Pulse Resp B/P (MAP) Pulse Ox O2 Delivery O2 Flow Rate FiO2 08/27/17 08:00 36.6 82 20 126/76 (93) 96 Room Air 08/27/17 07:30 36.6 82 20 126/76 (93) 96 Room Air Pre-Sedation Airway Assessment Oral Cavity: Dentures Short Thick Neck: No Hx of Sleep Apnea: No Smoking Status: Former Smoker Mallampati Classification: Class I ASA Classification: Class III Notes The planned sedation has been discussed with the patient and consent obtained. I have identified the patient, determined the appropriateness of sedation and have assessed the patient immediately prior to the procedure. All medicine(s) and interventions are by my order.
[2017-08-27] MEDS ORDERED: FENTANYL CITRATE INJ 50 MCG/1 ML 2 ML VIAL ONE (10:37)
[2017-08-27] MEDS ORDERED: MIDAZOLAM HCL 1 MG/ML 2ML VIAL ONE (10:37)
[2017-08-27] MEDS ORDERED: HEPARIN SOD (PORCINE) 1000 UNIT/ML 10 ML VIAL ONE (10:38)
[2017-08-27] MEDS ORDERED: LIDOCAINE HCL 1% 20 ML VIAL SQ ONE (11:17)
[2017-08-27] MEDS ORDERED: SODIUM CHLORIDE 0.9% 1000ML 1,000 ML IV SCH (11:36)
[2017-08-27] MEDS ORDERED: IODIXANOL (VISIPAQUE) 270 MG/ML 150ML XX ONE (11:40)
[2017-08-27] MEDS ORDERED: OXYCODONE/ACETAMINOPHEN 5-325 TAB PO PRN (11:45)
[2017-08-27] MEDS ORDERED: SODIUM BICARBONATE 8.4% INJ 100 MEQ in STERILE WATER 1000 ML 1,000 ML IV SCH (11:45)
--- NOTE | 2017-08-27 11:53 | [facility] Operative Report ---
Operative Report Operative Date Aug 27, 2017. Pre-Operative Diagnosis Left Iliac Artery Stenosis Post-Operative Diagnosis same Procedure(s) Performed Left Lower Extremity Angiogram USN localization of left femoral artery Surgeon Dr. Vnicent Sail Maker Surgeon(s) None Estimated Blood Loss 5 Findings 50% stenosis left proximal common iliac artery, 70-80% stenosis of left femoral cross femoral anastomosis Specimens None Anesthesia Local Complication(s) None Disposition Indications This is an 82-year-old gentleman who has a cross femoral bypass, left to right and a femoroperoneal bypass on the right side. Routine follow-up suggested an inflow stenosis on the left side in the iliac artery. Arteriography and possible intervention was recommended.I have discussed the risks options and benefits of the procedure with the patient. The patient understands the risks options and benefits and agrees to the procedure. Description of Procedure The patient was taken to the angiogram suite and placed in supine position. After both groins are prepped and draped in a sterile manner, ultrasound was used to image the left groin. Ultrasound showed a cross femoral bypass to be patent as well as the left common femoral artery. I could not see a patent superficial femoral artery and I could not see a patent profunda femoral artery. Using ultrasound guidance after local anesthetic was administered, a puncture was made in the common femoral artery just beyond the anastomosis of the cross fem bypass using micropuncture technique. The micropuncture sheath was able to be passed into the artery for a short distance. I could not pass the sheath and any further. I then inserted an 035 Glidewire and over the wire we exchanged the micro-sheath for a 4 Urdu sheath. Arteriography was then performed. This showed irregularity in the left external iliac artery. There is approximately a 50% narrowing in the left common iliac artery at its origin with slight poststenotic dilatation. There is total occlusion of the left superficial femoral artery and the main profunda femoral artery. The femorofemoral bypass is patent however there is approximately a 70 to 80% narrowing right at the anastomosis of the left femoral artery with the cross femoral bypass. In view of the location of this lesion I thought it was the best to treat this surgically. I would recommend doing pressures at the time of the surgical intervention to see if the inflow is compromised and treat it at that time if needed. At that point the 4 Urdu sheath was pulled and pressure was applied. After adequate hemostasis was obtained, dressings were applied to the wound and the patient left the angiogram suite in good condition and tolerated the procedure well. I attest to the content of the Intraoperative Record and any orders documented therein. Any exceptions are noted below.
[2017-08-27] MEDS ORDERED: BOOST GLUCOSE CONTROL PO ONE (13:15)
--- NOTE | 2017-08-27 15:46 | Discharge Instructions ---
Discharge Instructions Date of Service Aug 27, 2017. Visit Reason for Visit: Left Iliac Stenosis Discharge Discharge Diagnosis / Problem: Stenosis of femoral bypass left groin Discharge Goals Goal(s): Diagnostic testing Activity Recommendations Activity Limitations: per Instructions/Follow-up section Anesthesia . Post Anesthesia Instructions: If you have had General Anesthesia or IV Sedation: * Do not drive today. * Resume driving when surgeon permits. * Do not make important decisions or sign legal documents today. * Call surgeon for: 1. Temperature elevations greater than 101 degrees F. 2. Uncontrollable pain. 3. Excessive bleeding. 4. Persistent nausea and vomiting. 5. Medication intolerance (nausea, vomiting or rash). * For nausea and vomiting use only clear liquids such as: tea, soda, bouillon until nausea subsides, then gradually increase diet as tolerated. * If you have any concerns or questions, call your surgeon's office. If physician is unavailable and it is an emergency, call 911 or go to the nearest emergency room. . Instructions / Follow-Up Instructions / Follow-Up SPECIAL CARE INSTRUCTIONS: Medications: * Continue to take your medications as directed. If you have been given a prescription for Plavix, please fill it immediately and take as directed. Incision Care: * Your puncture site may have some bruising and minor swelling for about one week. * You will have a small dressing covering your puncture site. You may remove the dressing after 24 hours and shower. You may let the warm soapy water run over it, but be sure to dry the puncture site well and keep it dry. * DO NOT IMMERSE THE INCISION IN A TUB/POOL/etc. UNTIL HEALED. * Puncture sites should be kept covered with a band-aid until it begins to heal. Restrictions: * Depending on whether you leg or arm was punctured to access the arteries, you will be required to lay flat, hold your arm still, or both, for about 4 hours after the procedure to prevent bleeding. * Limit your activity for the first 48 hours. You may walk and go up and down steps. Avoid excessive bending or movement at the puncture site. Possible Complications: * Excessive Swelling - after blood flow is improved you may notice increased swelling in the lower legs. This is a normal response. This usually depends on the amount of blockages in the leg, how long they have been there prior to your procedure and how much blood flow was restored. Elevating your legs will help to improve this. Please notify our office ([phone] ) if the swelling does not go away after lying in bed overnight. * Infection/Drainage/Bleeding - Drainage or bleeding from the puncture site should be minimal. If you have excessive bleeding or drainage, call our office ([phone]) right away. * Pain - You may experience some mild pain or soreness at your puncture site. If your pain does not improve, please contact our office ([phone]). Call your doctor and seek emergent treatment if you develop: * Temperature above 101 degrees * Any fever or chills * Any redness or purulent drainage from the puncture site * Any new dusky/blue colored toes or feet with coolness or sharp or aching pain. SKIN IRRITATION: * You may experience some redness and/or swelling in the area where radiation was administered. If any skin irritation occurs, please contact your family physician. FOLLOW UP VISIT: Keep any scheduled doctor appointments. Diet Recommendations Recommended Home Diet: resume previous diet Procedures Procedures Performed: Left Lower Extremity Angiogram USN localization of left femoral artery Pending Studies Studies pending at discharge: no Medical Emergencies . Who to Call and When: Medical Emergencies: If at any time you feel your situation is an emergency, please call 911 immediately. . Non-Emergent Contact Non-Emergency issues call your: Surgeon . . "Provider Documentation" section prepared by Rene Vincent. .
== END 2017-08-27 16:30 | disposition home or self-care (01) ==
LOC: C.ACU 06:52
PROVIDERS: ATTEND Surgery Vascular Surgery
DX: I74.5 Embolism and thrombosis of iliac artery (principal); I11.0 Hypertensive heart disease with heart failure; I48.91 Unspecified atrial fibrillation; M10.9 Gout, unspecified; Z88.0 Allergy status to penicillin; Z88.1 Allergy status to other antibiotic agents; Z88.8 Allergy status to other drugs, medicaments and biological substances; E11.9 Type 2 diabetes mellitus without complications; Z89.429 Acquired absence of other toe(s), unspecified side; Z90.89 Acquired absence of other organs; Z98.49 Cataract extraction status, unspecified eye; Z87.891 Personal history of nicotine dependence; Z82.3 Family history of stroke

== ENCOUNTER 2017-09-03 11:03 | Observation (INO) | payer OTHER, MEDICARE ==
[~2017-09-03] VITALS: Ht 190.5 cm; Wt 108.2 kg
[~2017-09-03 11:03] MED LIST changes: -CLINDAMYCIN 600 MG/54 ML D5W IV SCH; -SODIUM BICARBONATE 8.4% INJ 100 MEQ in STERILE WATER 1000 ML 1,000 ML IV SCH; -SODIUM CHLORIDE 0.9% 1000ML IV SCH
[2017-09-03 12:01] LABS: BASO % 0.2 %; BASO ABS # 0.01 K/uL (0-0.2); COMPLETE YES; EOS % 1.3 %; HEMATOCRIT 35.9 % (42-52); IG% 0.2 %; LYMPH ABS # 0.83 K/uL (1.2-3.4); MEAN CELL VOLUME 95.5 fL (80-100); MEAN CORPUSCULAR HEMOGLOBIN 30.1 pg (25-34); MEAN CORPUSCULAR HGB CONC 31.5 g/dl (32-36); MEAN PLATELET VOLUME 10.6 fL (7.4-10.4); MONO % 6.9 %; NEUT % 75.4 %; PLATELET COUNT 159 K/uL (130-400); RED BLOOD COUNT 3.76 M/uL (4.7-6.1)
[2017-09-03 12:08] LABS: INR 2.9 (0.9-1.1); PARTIAL THROMBOPLASTIN RATIO 1.6
--- NOTE | 2017-09-03 12:14 | DIAGNOSTIC IMAGING REPORT ---
CHEST ONE VIEW PORTABLE HISTORY: EVALUATE WEAKNESS COMPARISON: Chest 06/19/2017. FINDINGS: The heart remains enlarged. Mild pulmonary edema, small bilateral pleural fusions, bibasilar densities have slightly improved. No pneumothorax. IMPRESSION: Slight improvement in the pulmonary edema, small bilateral pleural effusions, and bibasilar densities. Electronically signed by: Dagoberto Meza M.D. 09/03/2017 12:13 PM Dictated Date/Time: 09/03/2017 12:12 PM
[2017-09-03] MEDS ORDERED: LEVALBUTEROL 1.25MG/3ML NEB INH STA (12:23)
[2017-09-03] MEDS ORDERED: LEVALBUTEROL 1.25MG/0.5ML NEB INH ONE (12:28)
[2017-09-03 12:34] LABS: BUN/CREATININE RATIO 16.6 (10-20); CALCIUM 9.2 mg/dl (8.5-10.1); CREATININE 1.92 mg/dl (0.60-1.40); MAGNESIUM 2.3 mg/dl (1.8-2.4); POTASSIUM 3.7 mmol/L (3.5-5.1)
[2017-09-03 12:48] LABS: CKMB/CK RATIO 2.8 (0-3.0); THYROID STIMULATING HORMONE 1.24 uIu/ml (0.300-4.500)
[2017-09-03] MEDS ORDERED: NUTR1.2L PO (13:24)
[2017-09-03] MEDS ORDERED: NITR1CAP32 PO (13:24)
[2017-09-03] MEDS ORDERED: INSDGIPEN SC (13:24)
[2017-09-03] MEDS ORDERED: ONDA4TAB10 SL (13:24)
[2017-09-03] MEDS ORDERED: FEBU40TA PO (13:24)
[2017-09-03] MEDS ORDERED: FUROSEMIDE 40 MG/4 ML VIAL IV STA (14:27)
[2017-09-03] MEDS ORDERED: LEVALBUTEROL 1.25MG/3ML NEB INH PRN (16:00)
[2017-09-03] MEDS ORDERED: BISACODYL 5 MG TABEC PO PRN (16:00)
[2017-09-03] MEDS ORDERED: NITROGLYCERIN 0.4 MG SL PER TAB CHARGE SL PRN (16:00)
[2017-09-03] MEDS ORDERED: ONDANSETRON 4MG OD TAB SL PRN (16:00)
[2017-09-03] MEDS ORDERED: MAGNESIUM HYDROXIDE SUSP 30 ML UDC PO PRN (16:00)
[2017-09-03] MEDS ORDERED: BISACODYL 10 MG SUPP PR PRN (16:00)
[2017-09-03] MEDS ORDERED: ALUMINUM/MAGNESIUM/SIMETH (MAALOX MAX) 30 ML UDC PO PRN (16:00)
[2017-09-03] MEDS ORDERED: ONDANSETRON INJ 2 MG/ML 2 ML VIAL IV PRN (16:00)
[2017-09-03] MEDS ORDERED: POLYETHYLENE (MIRALAX) 17 GM PACK PO PRN (16:00)
[2017-09-03] MEDS ORDERED: ACETAMINOPHEN 325 MG TAB PO PRN (16:00)
[2017-09-03] MEDS ORDERED: INSULIN GLARGINE SOLOSTAR 100 UNITS/ML 3 ML PEN SC SCH (16:00)
[2017-09-03] MEDS ORDERED: ALPRAZOLAM 0.25 MG TAB PO PRN (16:00)
--- NOTE | 2017-09-03 16:30 | History and Physical ---
History & Physical Date & Time of Service: Sep 03, 2017 at 16:11 Chief Complaint: Cold, Chest Congestion, Trouble Breathing Primary Care Physician: Jayme Wilkerson M.D. History of Present Illness Source: patient, clinic records, hospital records Patient is a pleasant 82 y/o male, with PMHx of cardiomyopathy w/ EF of 25-30%, mitral regurgitation, aortic stenosis, HLD, a.fib, HTN, T2DM, h/o bladder CA, BPH, and anxiety, who presented to the ED because of a cough x1 week. Patient notes cough is productive- sputum white/clear in color. He believes cough seems to be improving, but not significantly. He notes symptoms seem similar to past presentations of CHF exacerbation and PNA. He denies any fever. He denies any edema or SOB. He states he feels congested but nebulizer treatment in ED improved his symptoms. Patient denies any fever, chills, sweats, lightheadedness , dizziness, vision changes, CP, palpitations, edema, SOB, wheezing, abdominal pain, nausea, vomiting, diarrhea, urinary symptoms, melena, numbness/tingling, weakness, muscle/joint pain, anxiety/depression, active bleeding, or new skin discoloration/changes. Past Medical/Surgical History Medical Problems: cardiomyopathy w/ EF of 25-30% mitral regurgitation aortic stenosis HLD a.fib HTN T2DM h/o bladder CA BPH anxiety Surgical Problems: (1) History of cardiac catheterization Status: Resolved L BKA Family History Diabetes mellitus Heart disease Social History Smoking Status: Former Smoker Drug Use: none Marital Status: , in relationship Housing status: lives alone Occupational Status: retired Immunizations History of Influenza Vaccine: Yes History of Tetanus Vaccine?: Yes History of Pneumococcal: Yes History of Hepatitis B Vaccine: No Multi-Drug Resistant Organisms History of MDRO: Yes Type of MDRO: MRSA Allergies Coded Allergies: Penicillins (Verified Allergy, Unknown, `, 09/03/17) Risperidone and Related (Verified Allergy, Unknown, `, 09/03/17) Meclizine (Verified Adverse Reaction, Severe, SEIZUES, 09/03/17) PATIENT STATES, CASUED PATIENT TO HAVE SIEZURES. Cephalexin (Verified Adverse Reaction, Mild, NAUSEA, 09/03/17) Pregabalin (Verified Adverse Reaction, Mild, NAUSEA, 09/03/17) Sulfa Antibiotics (Verified Adverse Reaction, Mild, NAUSEA, 09/03/17) Tramadol (Verified Adverse Reaction, Mild, HALLUCINATIONS, 09/03/17) Hydrocodone (Verified Adverse Reaction, Unknown, HALLUCINATIONS, 09/03/17) Linezolid (Unverified Adverse Reaction, Unknown, GI DISTRESS, 09/03/17) Tetracycline (Verified Adverse Reaction, Unknown, GI DISTRESS, 09/03/17) Home Medications Scheduled Acetaminophen (Tylenol), 325 MG PO DIRECTED Aluminum/Magnesium/Simeth (Maalox Max Susp), PO DIRECTED Aspirin (Aspirin Ec), 81 MG PO QAM Atorvastatin (Lipitor), 40 MG PO QAM Bisacodyl (Dulcolax), 2 TAB PO UD Digoxin (Digoxin), 0.0625 MG PO DAILY@16 Docusate Sodium (Docusate Sodium), 100 MG PO QAM Febuxostat (Uloric), 1 TAB PO DAILY Finasteride (Proscar), 5 MG PO DAILY Furosemide (Lasix), 40 MG PO BID Glipizide (Glipizide Er), 1 TAB PO DAILY Insulin Glargine (Lantus Solostar), 7 UNITS SC UD Insulin Isophan/Regular (Humulin 70/30), 30 UNITS SC TID Lactobacillus Acidophilus (Lactinex), 4 TABS PO QAM Lisinopril (Zestril), 2.5 MG PO DAILY Loperamide Hcl (Imodium), 2 MG PO DIRECTED Magic Swizzle (Magic Swizzle - SUCRALFA/ALUM/MAG/DIPHEN/LIDO), 3-4 TSP PO ACHS Magnesium Hydroxide (Milk of Magnesia), PO DIRECTED Metoprolol Succinate (Metoprolol Succinate ER), 100 MG PO DAILY Multiple Vitamins W/ Minerals (Eye Vitamins), PO BID Multivitamin (Multivitamin), 1 TAB PO DAILY Nitrofurantoin Macrocrystals (Macrodantin), 100 MG PO HS Nutritional Supplements (Glucerna 1.2 Guicho), 1 CAN PO BID17 Ondasetron Odt (Zofran Odt), 4 MG SL Q6H Polyethylene Glycol 3350 (Miralax), 17 GM PO DAILY Tamsulosin Hcl (Flomax), 0.4 MG PO DAILY Temazepam (Restoril), 30 MG PO HS Temazepam (Restoril), 15 MG PO HS Trazodone Hcl (Trazodone), 50 MG PO HS Warfarin Sod (Coumadin), 2.5 MG PO QPM [iron], PO DAILY Scheduled PRN Alprazolam (Xanax), 0.25 MG PO Q8 PRN for Anxiety/Agitation Bisacodyl (Bisac-Evac), 10 MG LA Q6H PRN for Constipation Miscellaneous Medications Sodium Phosphates (Fleet Enema Six Pack) Physical Exam Vital Signs Date Time Temp Pulse Resp B/P (MAP) Pulse Ox O2 Delivery O2 Flow Rate FiO2 09/03/17 15:49 93 16 143/79 98 Room Air 09/03/17 14:19 66 16 132/63 98 Room Air 09/03/17 12:34 67 16 139/73 100 Nebulizer 09/03/17 12:33 70 09/03/17 11:51 95 Room Air 09/03/17 11:51 95 Room Air 09/03/17 11:15 36.5 82 18 136/68 95 Room Air 09/03/17 11:15 95 Room Air General Appearance: no apparent distress Head: normocephalic, atraumatic Eyes: PERRL ENT: hearing grossly normal Neck: supple Respiratory/Chest: lungs clear, no respiratory distress, no accessory muscle use, + decreased breath sounds (throughout all lung hansen ) Cardiovascular: + irregularly irregular (rate controlled ) Abdomen/GI: normal bowel sounds, non tender, soft Back: normal inspection Extremities/Musculoskelatal: no pedal edema, + pertinent finding (L BKA ) Neurologic/Psych: alert, normal mood/affect, oriented x 3 Skin: normal color, warm/dry, no rash Diagnostics Laboratory Results Results Past 24 Hours Test 09/03/17 11:46 Range/Units White Blood Count 5.20 4.8-10.8 K/uL Red Blood Count 3.76 4.7-6.1 M/uL Hemoglobin 11.3 14.0-18.0 g/dL Hematocrit 35.9 42-52 % Mean Corpuscular Volume 95.5 80-100 fL Mean Corpuscular Hemoglobin 30.1 25-34 pg Mean Corpuscular Hemoglobin Concent 31.5 32-36 g/dl Platelet Count 159 130-400 K/uL Mean Platelet Volume 10.6 7.4-10.4 fL Neutrophils (%) (Auto) 75.4 % Lymphocytes (%) (Auto) 16.0 % Monocytes (%) (Auto) 6.9 % Eosinophils (%) (Auto) 1.3 % Basophils (%) (Auto) 0.2 % Neutrophils # (Auto) 3.92 1.4-6.5 K/uL Lymphocytes # (Auto) 0.83 1.2-3.4 K/uL Monocytes # (Auto) 0.36 0.11-0.59 K/uL Eosinophils # (Auto) 0.07 0-0.5 K/uL Basophils # (Auto) 0.01 0-0.2 K/uL RDW Standard Deviation 56.5 36.4-46.3 fL RDW Coefficient of Variation 16.3 11.5-14.5 % Immature Granulocyte % (Auto) 0.2 % Immature Granulocyte # (Auto) 0.01 0.00-0.02 K/uL Prothrombin Time 33.0 9.0-12.0 SECONDS Prothromb Time International Ratio 2.9 0.9-1.1 Activated Partial Thromboplast Time 42.3 21.0-31.0 SECONDS Partial Thromboplastin Ratio 1.6 Sodium Level 140 136-145 mmol/L Potassium Level 3.7 3.5-5.1 mmol/L Chloride Level 104 98-107 mmol/L Carbon Dioxide Level 28 21-32 mmol/L Anion Gap 8.0 3-11 mmol/L Blood Urea Nitrogen 32 7-18 mg/dl Creatinine 1.92 0.60-1.40 mg/dl Est Creatinine Clear Calc Drug Dose 40.3 ml/min Estimated GFR () 36.8 Estimated GFR (Non- 31.7 BUN/Creatinine Ratio 16.6 10-20 Random Glucose 181 70-99 mg/dl Calcium Level 9.2 8.5-10.1 mg/dl Magnesium Level 2.3 1.8-2.4 mg/dl Total Bilirubin 0.8 0.2-1 mg/dl Direct Bilirubin 0.3 0-0.2 mg/dl Aspartate Amino Transf (AST/SGOT) 18 15-37 U/L Alanine Aminotransferase (ALT/SGPT) 25 12-78 U/L Alkaline Phosphatase 89 45-117 U/L Total Creatine Kinase 82 39-308 U/L Creatine Kinase MB 2.3 0.5-3.6 ng/ml Creatine Kinase MB Ratio 2.8 0-3.0 Troponin I 0.045 0-0.045 ng/ml Pro-B-Type Natriuretic Peptide 81636 0-1800 pg/ml Total Protein 6.8 6.4-8.2 gm/dl Albumin 2.9 3.4-5.0 gm/dl Thyroid Stimulating Hormone (TSH) 1.240 0.300-4.500 uIu/ml Microbiology Results 09/03/17 Blood Culture, Received Pending 09/03/17 Blood Culture, Received Pending Diagnostic Radiology CHEST ONE VIEW PORTABLE HISTORY: EVALUATE WEAKNESS COMPARISON: Chest 06/19/2017. FINDINGS: The heart remains enlarged. Mild pulmonary edema, small bilateral pleural fusions, bibasilar densities have slightly improved. No pneumothorax. IMPRESSION: Slight improvement in the pulmonary edema, small bilateral pleural effusions, and bibasilar densities. Electronically signed by: Dagoberto Meza M.D. 09/03/2017 12:13 PM Dictated Date/Time: 09/03/2017 12:12 PM The status of this report is Signed. Draft = Not yet reviewed or approved by Radiologist. Signed = Reviewed and approved by Radiologist. EKG ETHAN BALDWIN ID:[id number] 03-SEP-2017 11:26:06 [facility] Atrial fibrillation Rightward axis Incomplete left bundle block ST & T wave abnormality, consider inferior ischemia Abnormal ECG When compared with ECG of 19-JUN-2017 20:21, T wave inversion now evident in Inferior leads Nonspecific T wave abnormality no longer evident in Lateral leads Confirmed by KAVYA BLAKE ([id number]) on 09/03/2017 12:25:14 PM 25mm/s 10mm/mV 150Hz 8.0 SP2 12SL 241 HD SUKI: 12 Referred by: Confirmed By: KAVYA Lama. rate 77 BPM LA interval * ms QRS duration 120 ms QT/QTc 392/443 ms P-R-T axes * 92 -43 1935 (82 yr) Male 114in 1lb Room: Loc:15 [place] Carter:FREDY Meraz ind: Impression Assessment and Plan Patient is a pleasant 82 y/o male, with PMHx of cardiomyopathy w/ EF of 25-30%, mitral regurgitation, aortic stenosis, HLD, a.fib, HTN, T2DM, h/o bladder CA, BPH, and anxiety, who presented to the ED because of a cough x1 week. ?mild acute on chronic systolic CHF exacerbation vs acute bronchitis: - Admitted to tele for cardiac monitoring - Cardiac enzymes negative x1 - EKG QAM and PRN for chest pain - IV Lasix 20 mg x1 in ED; will continue PO Lasix 40 mg BID- appreciate cardiology input - Monitor I&Os and daily weights - DuoNebs QID and q2 hrs PRN - Consult cardiology, appreciate recommendations- given patient's history, he requested to see cardiology tomorrow- follows w/ [facility] in [place] CKD stage III- baseline Cr. 2.00- follows w/ Dr. Wilkerson- STABLE: Follow PRP Cardiomyopathy w/ EF of 25-30%, mitral regurgitation, aortic stenosis, a.fib: - ECHO in 06/20/17- * 1. Severely dilated left ventricle with severely reduced systolic function. EF 25-30%. Global hypokinesis. Mild to moderate concentric left ventricular hypertrophy. Tissu Doppler suggests elevated left atrial pressure. * 2. The left atrium is moderately dilated. * 3. The right atrium is mildly dilated. * 4. Restricted posterior leaflet with severe posteriorly directed mitral regurgitation. * 5. Mild aortic stenosis based on velocities and gradients but more significant aortic stenosis based on dimensionless index and also visually. Aortic stenosis severity may be underestimated based on velocities/gradient due to reduced LV systolic function. - Continue ASA 81 mg daily, Digoxin 0.0625 mcg daily, Metoprolol 100 mg daily - INR 2.9- hold Warfarin 2.5 mg tonight- follow PT/INR and adjust dosage PRN h/o bladder CA, BPH- follows w/ Dr. Banegas: Continue Proscar 5 mg daily, Flomax 0.4 mg daily, Macrodantin 100 mg HS T2DM: - Continue Lantus 7 u daily - Hold Glipizide while inpatient - BSG ACHS and ISS HTN: Continue Lisinopril 2.5 mg daily HLD: Continue Lipitor 40 mg daily ?h/o of MRSA: Nasal swab, contact precautions if positive DVT prophylaxis: Warfarin Code Status: LEVEL V, DNR Dispo: From home, lives alone- PT/OT and CM consulted PA Physician Supervision Note: I interviewed and examined the patient. Discussed with Eneida Murarik PAC and agree with findings and plan as documented in the note. Any exceptions or clarifications are listed here: None Patient has multiple comorbid conditions of cardiopulmonary status. The patient presents with a cough. He has a significant chronic systolic heart failure history and it's hard to tell whether he has a mild component of this. Subsequently his symptoms improved the most dramatically in the emergency department when he had his inhaled treatment versus diuresis. We'll resume his typical diuresis we'll place him on nebulizers and oral azithromycin. His vitals are stable with slightly low her blood pressure sign cardiac exam is distant regular systolic murmur lungs have coarse rhonchorous coughing decreased breath sounds at bases Concern for possible bronchitis we'll treat with azithromycin and inhaled medication Chronic systolic heart failure may be very minor acute component was given IV diuresis in the ER will continue oral diuresis with cardiology oversight Documented By: Chance Hdz Level of Care Telemetry Resuscitation Status DO NOT RESUSCITATE VTE Prophylaxis VTE Risk Assessment Done? Y/N: Yes Risk Level: Moderate Given or contraindicated: Warfarin (Coumadin)
[2017-09-03] MEDS ORDERED: IMPACT LIQ 1000 ML BAG PO SCH (17:00)
[2017-09-03] MEDS ORDERED: IV FLUIDS COMPLETED PRN (17:00)
[2017-09-03 18:24] LABS: MANUAL MICROSCOPIC REQUIRED? YES; URINE APPEARANCE CLEAR (CLEAR); URINE BILIRUBIN NEG (NEG); URINE COLOR YELLOW; URINE NITRITE NEG (NEG); UROBILINOGEN NEG (NEG)
[2017-09-03 18:33] LABS: REVIEW REQ? NO
[2017-09-03 18:42] LABS: URINE BACTERIA NEG (NEG)
[2017-09-03] MEDS ORDERED: DEXTROSE 50% 50 ML SYR IV PRN (18:45)
[2017-09-03] MEDS ORDERED: GLUCOSE 40% GEL 15 GM TUBE PO PRN (18:45)
[2017-09-03] MEDS ORDERED: GLUCAGON FOR INJ 1 MG VIAL SQ PRN (18:45)
[2017-09-03] MEDS ORDERED: GLUCOSE 10 TABS/TUBE PO PRN (18:45)
[2017-09-03] MEDS ORDERED: AZITHROMYCIN 250 MG TAB PO ONE (18:57)
[2017-09-03 19:08] VITALS: BP 130/67; PULSE 61; TEMP 36.4; O2SAT 92; Ht 190.5 cm; Wt 108.2 kg
--- NOTE | 2017-09-03 20:04 | EMERGENCY ROOM VISIT NOTE ---
History Report prepared by Peterson: Abby Newell Under the Supervision of: Dr. Antione Pulido M.D. First contact with patient: 11:39 Chief Complaint: CONGESTION Stated Complaint: COLD, CHEST CONGESTION, TROUBLE BREATHING Nursing Triage Summary: Head cold x3 days and now in lungs, cough ongoing for a few days now and bringing up thick sputum. Pt also has hx of CHF, concerned perhaps he might be overloaded. History of Present Illness The patient is a 82 year old male who presents to the Emergency Room with complaints of chest congestion beginning several days ago. The patient states that he is coughing up a lot of phlegm and has been febrile. The patient reports that he has congestive heart failure and that he has had pneumonia around 3 times over the last 3 years, and that he often has these together. The patient denies swelling in his abdomen, but states that he usually has swelling in his ankles due to bypass. Per his , the patient sounded like he was wheezing last night when they went to bed. The patient reports that he has been unable to take a deep breath. He denies being around anyone that has been sick, but his states that he has been in the hospital the last 2 Mondays for in and out procedures. Pt denies LOC, headache, diaphoresis, visual changes, neck pain, nausea, vomiting, abdominal pain, back pain, melena, hematochezia, urinary symptoms, numbness, weakness, lymphadenopathy, rash, or other complaints. The patient reports that he was a smoker and quit 20 years ago, but has never had emphysema. He reports that he does not take inhalers or nebulizers at home. Source of History: patient, spouse/significant other () Onset: several days ago Position: chest Quality: other (congestion ) Associated Symptoms: + fevers, No LOC Review of Systems See HPI for pertinent positives and negatives. A total of ten systems were reviewed and were otherwise negative. 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, left tibia (10) Seizures (11) Sepsis (12) uti (13) Vasculopathy Surgical Problems: (1) History of cardiac catheterization Family History Diabetes mellitus Heart disease Social History Smoking Status: Former Smoker Alcohol Use: none Drug Use: none Marital Status: , in relationship Housing Status: lives alone Occupation Status: retired Current/Historical Medications Scheduled Acetaminophen (Tylenol), 325 MG PO DIRECTED Aluminum/Magnesium/Simeth (Maalox Max Susp), PO DIRECTED Aspirin (Aspirin Ec), 81 MG PO QAM Atorvastatin (Lipitor), 40 MG PO QAM Bisacodyl (Dulcolax), 2 TAB PO UD Digoxin (Digoxin), 0.0625 MG PO DAILY@16 Docusate Sodium (Docusate Sodium), 100 MG PO QAM Febuxostat (Uloric), 1 TAB PO DAILY Finasteride (Proscar), 5 MG PO DAILY Furosemide (Lasix), 40 MG PO BID Glipizide (Glipizide Er), 1 TAB PO DAILY Insulin Glargine (Lantus Solostar), 7 UNITS SC UD Insulin Isophan/Regular (Humulin 70/30), 30 UNITS SC TID Lactobacillus Acidophilus (Lactinex), 4 TABS PO QAM Lisinopril (Zestril), 2.5 MG PO DAILY Loperamide Hcl (Imodium), 2 MG PO DIRECTED Magic Swizzle (Magic Swizzle - SUCRALFA/ALUM/MAG/DIPHEN/LIDO), 3-4 TSP PO ACHS Magnesium Hydroxide (Milk of Magnesia), PO DIRECTED Metoprolol Succinate (Metoprolol Succinate ER), 100 MG PO DAILY Multiple Vitamins W/ Minerals (Eye Vitamins), PO BID Multivitamin (Multivitamin), 1 TAB PO DAILY Nitrofurantoin Macrocrystals (Macrodantin), 100 MG PO HS Nutritional Supplements (Glucerna 1.2 Guicho), 1 CAN PO BID17 Ondasetron Odt (Zofran Odt), 4 MG SL Q6H Polyethylene Glycol 3350 (Miralax), 17 GM PO DAILY Tamsulosin Hcl (Flomax), 0.4 MG PO DAILY Temazepam (Restoril), 30 MG PO HS Temazepam (Restoril), 15 MG PO HS Trazodone Hcl (Trazodone), 50 MG PO HS Warfarin Sod (Coumadin), 2.5 MG PO QPM [iron], PO DAILY Scheduled PRN Alprazolam (Xanax), 0.25 MG PO Q8 PRN for Anxiety/Agitation Bisacodyl (Bisac-Evac), 10 MG HI Q6H PRN for Constipation Miscellaneous Medications Sodium Phosphates (Fleet Enema Six Pack) Allergies Coded Allergies: Penicillins (Verified Allergy, Unknown, `, 09/03/17) Risperidone and Related (Verified Allergy, Unknown, `, 09/03/17) Meclizine (Verified Adverse Reaction, Severe, SEIZUES, 09/03/17) PATIENT STATES, CASUED PATIENT TO HAVE SIEZURES. Cephalexin (Verified Adverse Reaction, Mild, NAUSEA, 09/03/17) Pregabalin (Verified Adverse Reaction, Mild, NAUSEA, 09/03/17) Sulfa Antibiotics (Verified Adverse Reaction, Mild, NAUSEA, 09/03/17) Tramadol (Verified Adverse Reaction, Mild, HALLUCINATIONS, 09/03/17) Hydrocodone (Verified Adverse Reaction, Unknown, HALLUCINATIONS, 09/03/17) Linezolid (Unverified Adverse Reaction, Unknown, GI DISTRESS, 09/03/17) Tetracycline (Verified Adverse Reaction, Unknown, GI DISTRESS, 09/03/17) Physical Exam Vital Signs Date Time Temp Pulse Resp B/P (MAP) Pulse Ox O2 Delivery O2 Flow Rate FiO2 09/03/17 15:49 93 16 143/79 98 Room Air 09/03/17 14:19 66 16 132/63 98 Room Air 09/03/17 12:34 67 16 139/73 100 Nebulizer 09/03/17 12:33 70 09/03/17 11:51 95 Room Air 09/03/17 11:51 95 Room Air 09/03/17 11:15 36.5 82 18 136/68 95 Room Air 09/03/17 11:15 95 Room Air Physical Exam GENERAL: Awake, alert, well-appearing, in no distress HENT: Normocephalic, atraumatic. Oropharynx unremarkable. EYES: Normal conjunctiva. Sclera non-icteric. NECK: Supple. No nuchal rigidity. FROM. No JVD. RESPIRATORY: Frequent productive cough present. CARDIAC: Borderline tachycardia, irregular rhythm. Extremities warm and well perfused. Pulses equal. ABDOMEN: Soft, non-distended. No tenderness to palpation. No rebound or guarding. No masses. RECTAL: Deferred. MUSCULOSKELETAL: Chest examination reveals no tenderness. The back is symmetrical on inspection without obvious abnormality. There is no CVA tenderness to palpation. No joint edema. LOWER EXTREMITIES: Left AKA. 2+ lower right extremity lilli. NEURO: Normal sensorium. No sensory or motor deficits noted. SKIN: No rash or jaundice noted. Medical Decision & Procedures ER Provider Diagnostic Interpretation: Radiology results as stated below per my review and radiologist interpretation: CHEST ONE VIEW PORTABLE HISTORY: EVALUATE WEAKNESS COMPARISON: Chest 06/19/2017. FINDINGS: The heart remains enlarged. Mild pulmonary edema, small bilateral pleural fusions, bibasilar densities have slightly improved. No pneumothorax. IMPRESSION: Slight improvement in the pulmonary edema, small bilateral pleural effusions, and bibasilar densities. Electronically signed by: Dagoberto Meza M.D. 09/03/2017 12:13 PM Dictated Date/Time: 09/03/2017 12:12 PM Laboratory Results 09/03/17 11:46 Red Blood Count 3.76, Mean Corpuscular Volume 95.5, Mean Corpuscular Hemoglobin 30.1, Mean Corpuscular Hemoglobin Concent 31.5, Mean Platelet Volume 10.6, Neutrophils (%) (Auto) 75.4, Lymphocytes (%) (Auto) 16.0, Monocytes (%) (Auto) 6.9, Eosinophils (%) (Auto) 1.3, Basophils (%) (Auto) 0.2, Neutrophils # (Auto) 3.92, Lymphocytes # (Auto) 0.83, Monocytes # (Auto) 0.36, Eosinophils # (Auto) 0.07, Basophils # (Auto) 0.01 09/03/17 11:46 Test 09/03/17 11:46 White Blood Count 5.20 K/uL (4.8-10.8) Red Blood Count 3.76 M/uL (4.7-6.1) Hemoglobin 11.3 g/dL (14.0-18.0) Hematocrit 35.9 % (42-52) Mean Corpuscular Volume 95.5 fL (80-100) Mean Corpuscular Hemoglobin 30.1 pg (25-34) Mean Corpuscular Hemoglobin Concent 31.5 g/dl (32-36) Platelet Count 159 K/uL (130-400) Mean Platelet Volume 10.6 fL (7.4-10.4) Neutrophils (%) (Auto) 75.4 % Lymphocytes (%) (Auto) 16.0 % Monocytes (%) (Auto) 6.9 % Eosinophils (%) (Auto) 1.3 % Basophils (%) (Auto) 0.2 % Neutrophils # (Auto) 3.92 K/uL (1.4-6.5) Lymphocytes # (Auto) 0.83 K/uL (1.2-3.4) Monocytes # (Auto) 0.36 K/uL (0.11-0.59) Eosinophils # (Auto) 0.07 K/uL (0-0.5) Basophils # (Auto) 0.01 K/uL (0-0.2) RDW Standard Deviation 56.5 fL (36.4-46.3) RDW Coefficient of Variation 16.3 % (11.5-14.5) Immature Granulocyte % (Auto) 0.2 % Immature Granulocyte # (Auto) 0.01 K/uL (0.00-0.02) Prothrombin Time 33.0 SECONDS (9.0-12.0) Prothromb Time International Ratio 2.9 (0.9-1.1) Activated Partial Thromboplast Time 42.3 SECONDS (21.0-31.0) Partial Thromboplastin Ratio 1.6 Anion Gap 8.0 mmol/L (3-11) Est Creatinine Clear Calc Drug Dose 40.3 ml/min Estimated GFR () 36.8 Estimated GFR (Non- 31.7 BUN/Creatinine Ratio 16.6 (10-20) Calcium Level 9.2 mg/dl (8.5-10.1) Magnesium Level 2.3 mg/dl (1.8-2.4) Total Bilirubin 0.8 mg/dl (0.2-1) Direct Bilirubin 0.3 mg/dl (0-0.2) Aspartate Amino Transf (AST/SGOT) 18 U/L (15-37) Alanine Aminotransferase (ALT/SGPT) 25 U/L (12-78) Alkaline Phosphatase 89 U/L (45-117) Total Creatine Kinase 82 U/L (39-308) Creatine Kinase MB 2.3 ng/ml (0.5-3.6) Creatine Kinase MB Ratio 2.8 (0-3.0) Troponin I 0.045 ng/ml (0-0.045) Pro-B-Type Natriuretic Peptide 16833 pg/ml (0-1800) Total Protein 6.8 gm/dl (6.4-8.2) Albumin 2.9 gm/dl (3.4-5.0) Thyroid Stimulating Hormone (TSH) 1.240 uIu/ml (0.300-4.500) Laboratory results reviewed by me Medications Administered Medications (Trade) Dose Ordered Sig/Dimas Route Start Time Stop Time Status Last Admin Dose Admin Levalbuterol (Xopenex 1.25MG/ 0.5ML Neb) 1.25 mg STK-MED ONCE INH 09/03/17 12:28 09/03/17 12:29 DC 09/03/17 12:33 1.25 MG Furosemide (Lasix Inj) 20 mg NOW STAT IV 09/03/17 14:27 09/03/17 14:28 DC 09/03/17 14:37 20 MG ECG Indication: SOB/dyspnea Rate (beats per minute): 77 Rhythm: atrial fibrillation Findings: LBBB (incomplete), T-wave inversion (Inferior), other (right axis deviation ) Comparison ECG Date: T wave inversions are new compared to prior ECG ED Course 1218: The patient was evaluated in room C10. A complete history and physical exam was performed. 1223: Ordered Levalbuterol 1.25 mg INH. 1228: Ordered Levalbuterol 1.25 mg INH. 1417: Discussed the patient's case. The patient will be evaluated for further treatment and disposition. Dr. Pedraza recommended IV Lasix and admission for the patient. 1427: Ordered Lasix Inj 20 mg IV. 1430: I updated the patient on his test results. 1435: Discussed the patient's case with Dr. Hdz. The patient will be evaluated for further treatment and disposition. 1442: Upon reexamination, the patient was resting. I discussed the test results and treatment plan with him. The patient will be evaluated for further management. Medical Decision Triage Nursing notes reviewed. The patient's presentation and history were concerning for shortness of breath. Etiologies such as pneumonia, COPD, reactive airway disease, CHF, cardiac ischemia, pulmonary embolism, pneumothorax, musculoskeletal, infections, gastrointestinal, as well as others were entertained. The patient was evaluated. He had a significant cough. He was given a Xopenex neb treatment while x-ray and imaging were ordered. ECG was somewhat concerning is he has new T-wave inversions. The patient did not have any evidence of pneumonia on chest x-ray. Blood work revealed a leukocytosis. The patient's BNP is markedly elevated. I did consult with Dr. Pedraza of cardiology. Given the findings and need ECG changes he felt further treatment in the hospital would be warranted. The patient was given IV Lasix. Consultation was made with internal medicine. The patient was evaluated in the Emergency Room for further management. Medication Reconcilliation Current Medication List: was personally reviewed by me Blood Pressure Screening Patient's blood pressure: Normal blood pressure Consults Time Called: 1400 Consulting Physician: Dr. Pedraza-Cardiology Returned Call: 1417 Discussed the patient's case. The patient will be evaluated for further treatment and disposition. Dr. Pedraza recommended IV Lasix and admission for the patient. Additional Consults: Time Called: 1420 Consulted Physician: Dr. Hdz- [facility] Returned Call: 1432 Additional Comments: Discussed the patient's case. The patient will be evaluated for further treatment and disposition. Impression Primary Impression: CHF (congestive heart failure) Additional Impression: Acute electrocardiogram changes Scribe Attestation The scribe's documentation has been prepared under my direction and personally reviewed by me in its entirety. I confirm that the note above accurately reflects all work, treatment, procedures, and medical decision making performed by me. Departure Information Dispostion Being Evaluated By Hospitalist Referrals Jayme Wilkerson M.D. (PCP) Patient Instructions My [facility] Problem Qualifiers
[2017-09-03 20:14] VITALS: PULSE 71; O2SAT 96
[2017-09-03] MEDS: LEVALBUTEROL 1.25MG/3ML NEB INH SCH (20:14)
[2017-09-03] MEDS: FUROSEMIDE 40 MG TAB PO SCH (20:59)
[2017-09-03] MEDS ORDERED: LOPERAMIDE HCL 2 MG CAP PO PRN (21:00)
[2017-09-03] MEDS: INSULIN ASPART 100 UNITS/ML 3 ML PEN SC SCH (21:00)
[2017-09-03] MEDS: DIGOXIN 0.125 MG TAB PO SCH (21:03)
[2017-09-03] MEDS: NITROFURANTOIN MONOHYDRATE 100 MG CAP PO SCH (21:03)
[2017-09-03] MEDS: TRAZODONE HCL 50 MG TAB PO SCH (21:04)
[2017-09-03] MEDS: TEMAZEPAM 15 MG CAP PO SCH ×2 (21:10)
[2017-09-03] MEDS: INSULIN GLARGINE SOLOSTAR 100 UNITS/ML 3 ML PEN SC SCH (21:29)
[2017-09-03 23:59] VITALS: O2SAT 96
[2017-09-04] VITALS (14 sets, daily range): BP systolic 137–158; BP diastolic 67–77; PULSE 66–97; TEMP 36.5–37.1; O2SAT 91–98
[2017-09-04] MEDS: LEVALBUTEROL 1.25MG/3ML NEB INH SCH ×3 (02:08→14:26)
[2017-09-04] MEDS: INSULIN ASPART 100 UNITS/ML 3 ML PEN SC SCH ×4 (08:34→21:00)
[2017-09-04] MEDS: FUROSEMIDE 40 MG TAB PO SCH ×2 (08:36→17:03)
[2017-09-04] MEDS ORDERED: FEBUXOSTAT 40 MG TAB PO SCH (09:00)
[2017-09-04] MEDS ORDERED: TAMSULOSIN HCL 0.4 MG CAP PO SCH (09:00)
[2017-09-04] MEDS ORDERED: ASPIRIN 81 MG ECTAB PO SCH (09:00)
[2017-09-04] MEDS ORDERED: FINASTERIDE 5 MG TAB PO SCH (09:00)
[2017-09-04] MEDS ORDERED: DOCUSATE SODIUM 100 MG CAP PO SCH (09:00)
[2017-09-04] MEDS ORDERED: MULTIVITAMIN TAB PO SCH (09:00)
[2017-09-04] MEDS ORDERED: ATORVASTATIN 40 MG TAB PO SCH (09:00)
[2017-09-04] MEDS ORDERED: METOPROLOL SUCC 50MG EXT REL TAB PO SCH (09:00)
[2017-09-04] MEDS ORDERED: LACTOBACILLUS ACIDOPHILUS (FLORANEX) TAB PO SCH (09:00)
[2017-09-04] MEDS ORDERED: LISINOPRIL 2.5 MG TAB PO SCH (09:00)
[2017-09-04] MEDS ORDERED: AZITHROMYCIN 250 MG TAB PO SCH (09:00)
[2017-09-04 09:03] LABS: INR 2.9 (0.9-1.1); PROTHROMBIN TIME (PATIENT) 32.1 SECONDS (9.0-12.0)
[2017-09-04 09:26] LABS: BUN/CREATININE RATIO 15.6 (10-20); CALCIUM 9.3 mg/dl (8.5-10.1); CREATININE 1.87 mg/dl (0.60-1.40); POTASSIUM 3.7 mmol/L (3.5-5.1)
--- NOTE | 2017-09-04 10:25 | Hospitalist Progress Note ---
Hospitalist Progress Note Date of Service Sep 04, 2017. (Malou Escobar .LILLIE) Subjective Pt evaluation today including: conversation w/ patient, physical exam, chart review, lab review, review of studies, review of inpatient medication list Voiding: no voiding problems Mr. Montes reports feeling better today than yesterday with less sob and less coughing. He is still coughing at times with some sputum production. He ate well this morning which he says he has not done in some time. He otherwise has no complaints. ROS Constitutional: no chills, aches, sweats or fever Respiratory: see HPI Cardiac: no chest pain, palpitations, edema, orthopnea or lightheadedness GI: no abdominal pain, nausea, vomiting, diarrhea or constipation : no dysuria or hesitancy Extremities: no joint pain or weakness Skin: no rash All Other Systems: Reviewed and Negative (Malou Escobar CRNP) Medications Medications (Trade) Dose Ordered Sig/Dimas Route Start Time Stop Time Status Last Admin Dose Admin Levalbuterol (Xopenex 1.25MG/ 0.5ML Neb) 1.25 mg STK-MED ONCE INH 09/03/17 12:28 09/03/17 12:29 DC 09/03/17 12:33 1.25 MG Furosemide (Lasix Inj) 20 mg NOW STAT IV 09/03/17 14:27 09/03/17 14:28 DC 09/03/17 14:37 20 MG Aspirin (Ecotrin Tab) 81 mg QAM PO 09/04/17 09:00 10/04/17 08:59 09/04/17 08:36 81 MG Levalbuterol (Xopenex 1.25MG/ 3ML Neb) 1.25 mg Q6R INH 09/03/17 21:00 10/03/17 20:59 09/04/17 07:06 1.25 MG Atorvastatin Calcium (Lipitor Tab) 40 mg QAM PO 09/04/17 09:00 10/04/17 08:59 09/04/17 08:35 40 MG Digoxin (Lanoxin Tab) 0.0625 mg DAILY@16 PO 09/03/17 21:00 10/03/17 20:59 09/03/17 21:03 0.0625 MG Docusate Sodium (coLACE CAP) 100 mg QAM PO 09/04/17 09:00 10/04/17 08:59 09/04/17 08:36 100 MG Finasteride (Proscar Tab) 5 mg DAILY PO 09/04/17 09:00 10/04/17 08:59 09/04/17 08:35 5 MG Furosemide (Lasix Tab) 40 mg BID17 PO 09/03/17 17:00 10/03/17 16:59 09/04/17 08:36 40 MG Lactobacillus Acidophilus (Floranex Tab) 4 tab QAM PO 09/04/17 09:00 10/04/17 08:59 09/04/17 08:35 4 TAB Lisinopril (Zestril Tab) 2.5 mg DAILY PO 09/04/17 09:00 10/04/17 08:59 09/04/17 08:36 2.5 MG Metoprolol Succinate (Toprol Xl Tab) 100 mg DAILY PO 09/04/17 09:00 10/04/17 08:59 09/04/17 08:35 100 MG Multivitamins (Multivitamin Tab) 1 tab DAILY PO 09/04/17 09:00 10/04/17 08:59 09/04/17 08:36 1 TAB Nitrofurantoin Macrocrystals (Macrobid Cap) 100 mg HS PO 09/03/17 21:00 10/03/17 20:59 09/03/17 21:03 100 MG Tamsulosin HCl (Flomax Cap) 0.4 mg DAILY PO 09/04/17 09:00 10/04/17 08:59 09/04/17 08:35 0.4 MG Temazepam (Restoril Cap) 15 mg HS PO 09/03/17 21:00 10/03/17 20:59 09/03/17 21:10 15 MG Temazepam (Restoril Cap) 30 mg HS PO 09/03/17 21:00 10/03/17 20:59 09/03/17 21:10 30 MG Trazodone HCl (Desyrel Tab) 50 mg HS PO 09/03/17 21:00 10/03/17 20:59 09/03/17 21:04 50 MG Febuxostat (Uloric) 40 mg DAILY PO 09/04/17 09:00 10/04/17 08:59 09/04/17 08:36 40 MG Azithromycin (Zithromax Tab) 500 mg NOW ONCE PO 09/03/17 18:57 09/03/17 18:58 DC 09/03/17 21:00 500 MG Azithromycin (Zithromax Tab) 250 mg QAM PO 09/04/17 09:00 09/11/17 08:59 09/04/17 08:36 250 MG Insulin Glargine (Lantus Solostar Pen) 7 units HS SC 09/03/17 21:00 10/03/17 15:59 09/03/17 21:29 7 UNITS (Malou Escobar CRNP) Objective Vital Signs Date Time Temp Pulse Resp B/P (MAP) Pulse Ox O2 Delivery O2 Flow Rate FiO2 09/04/17 07:55 36.5 97 20 143/71 (95) 96 Room Air 09/04/17 07:06 80 16 96 Room Air 09/04/17 04:00 96 Room Air 09/04/17 03:41 36.6 66 16 145/70 (95) 96 Room Air 09/04/17 02:08 75 16 91 Room Air 09/04/17 00:02 36.8 76 21 151/67 (95) 93 Room Air 09/03/17 23:59 96 Room Air 09/03/17 21:03 68 09/03/17 20:14 71 16 96 Room Air 09/03/17 19:08 36.4 61 20 130/67 92 Room Air 09/03/17 18:26 62 16 137/76 98 Room Air 09/03/17 16:53 59 16 143/79 98 Room Air 09/03/17 16:36 81 09/03/17 15:49 93 16 143/79 98 Room Air 09/03/17 14:19 66 16 132/63 98 Room Air 09/03/17 12:34 67 16 139/73 100 Nebulizer 09/03/17 12:33 70 09/03/17 11:51 95 Room Air 09/03/17 11:51 95 Room Air 09/03/17 11:15 36.5 82 18 136/68 95 Room Air 09/03/17 11:15 95 Room Air (Malou Escobar CRNP) Physical Exam Notes: General: no distress Eyes: normal inspection, PERLL Respiratory: chest non tender, diminished breath sounds bilaterally, faint crackles to auscultation right base, no respiratory distress, no accessory muscle use Cardiac: regular rate and rhythm, no rub or gallop, no murmur, trace lower extremity edema, GI/: active bowel sounds, no abd pain or tenderness, soft, non distended Extremities: normal range of motion, normal strength, non tender Neuro/Psych: alert and oriented x 3, normal mood and affect Skin: normal color, dry (Malou Escobar ., LILLIE) Laboratory Results Last 24 Hours Test 09/03/17 11:46 09/03/17 17:34 09/03/17 18:52 09/04/17 06:58 White Blood Count 5.20 K/uL Red Blood Count 3.76 M/uL Hemoglobin 11.3 g/dL Hematocrit 35.9 % Mean Corpuscular Volume 95.5 fL Mean Corpuscular Hemoglobin 30.1 pg Mean Corpuscular Hemoglobin Concent 31.5 g/dl Platelet Count 159 K/uL Mean Platelet Volume 10.6 fL Neutrophils (%) (Auto) 75.4 % Lymphocytes (%) (Auto) 16.0 % Monocytes (%) (Auto) 6.9 % Eosinophils (%) (Auto) 1.3 % Basophils (%) (Auto) 0.2 % Neutrophils # (Auto) 3.92 K/uL Lymphocytes # (Auto) 0.83 K/uL Monocytes # (Auto) 0.36 K/uL Eosinophils # (Auto) 0.07 K/uL Basophils # (Auto) 0.01 K/uL RDW Standard Deviation 56.5 fL RDW Coefficient of Variation 16.3 % Immature Granulocyte % (Auto) 0.2 % Immature Granulocyte # (Auto) 0.01 K/uL Prothrombin Time 33.0 SECONDS Prothromb Time International Ratio 2.9 Activated Partial Thromboplast Time 42.3 SECONDS Partial Thromboplastin Ratio 1.6 Sodium Level 140 mmol/L Potassium Level 3.7 mmol/L Chloride Level 104 mmol/L Carbon Dioxide Level 28 mmol/L Anion Gap 8.0 mmol/L Blood Urea Nitrogen 32 mg/dl Creatinine 1.92 mg/dl Est Creatinine Clear Calc Drug Dose 40.3 ml/min Estimated GFR () 36.8 Estimated GFR (Non- 31.7 BUN/Creatinine Ratio 16.6 Random Glucose 181 mg/dl Calcium Level 9.2 mg/dl Magnesium Level 2.3 mg/dl Total Bilirubin 0.8 mg/dl Direct Bilirubin 0.3 mg/dl Aspartate Amino Transf (AST/SGOT) 18 U/L Alanine Aminotransferase (ALT/SGPT) 25 U/L Alkaline Phosphatase 89 U/L Total Creatine Kinase 82 U/L Creatine Kinase MB 2.3 ng/ml Creatine Kinase MB Ratio 2.8 Troponin I 0.045 ng/ml Pro-B-Type Natriuretic Peptide 42001 pg/ml Total Protein 6.8 gm/dl Albumin 2.9 gm/dl Thyroid Stimulating Hormone (TSH) 1.240 uIu/ml Urine Color YELLOW Urine Appearance CLEAR Urine pH 6.0 Urine Specific [place] 1.010 Urine Protein NEG Urine Glucose (UA) NEG Urine Ketones NEG Urine Occult Blood TRACE Urine Nitrite NEG Urine Bilirubin NEG Urine Urobilinogen NEG Urine Leukocyte Esterase NEG Urine RBC 5-10 /hpf Urine WBC 1-5 /hpf Urine Epithelial Cells 0-5 /lpf Urine Bacteria NEG Bedside Glucose 83 mg/dl 88 mg/dl Test 09/04/17 08:38 Prothrombin Time 32.1 SECONDS Prothromb Time International Ratio 2.9 Sodium Level 141 mmol/L Potassium Level 3.7 mmol/L Chloride Level 104 mmol/L Carbon Dioxide Level 29 mmol/L Anion Gap 8.0 mmol/L Blood Urea Nitrogen 29 mg/dl Creatinine 1.87 mg/dl Est Creatinine Clear Calc Drug Dose 40.5 ml/min Estimated GFR () 37.9 Estimated GFR (Non- 32.7 BUN/Creatinine Ratio 15.6 Random Glucose 177 mg/dl Calcium Level 9.3 mg/dl Digoxin Level 0.7 ng/ml (Malou Escobar, LILLIE) Assessment and Plan Mr. Montes is an 82 year old man here for CHF exacerbation with possible acute bronchitis Mild Acute on chronic systolic CHF exacerbation/Cardiomyopathy w/ EF of 25-30%, mitral regurgitation, aortic stenosis, a.fib/: - negative 700 ml so far on I&O this morning - continue BID lasix diuresis and await cardiology input - strict Is&Os and daily weights - INR today 2.9 - hold warfarin again today - INR in am - continue isosorbide and metoprolol Acute Bronchitis - continue scheduled duonebs and prn - continue azithromycin for bronchitis CKD stage III - Creat 1.87 which is near baseline - avoid nephrotoxic drugs where possible - continue low dose lisinopril T2DM: - lantus, ss - BSGs stable ?h/o of MRSA: - Nasal swab negative for MRSA DVT prophylaxis: Warfarin Code Status: DNR Dispo: From home, lives alone- await PT/OT eval to decide disposition (Malou Escobar ., LILLIE) Attending Attestation: Pt seen/examined, chart reviewed, care plan d/w LILLIE Escobar. I agree w/ the linares components of her documentation. Pt with cough, nasal/sinus congestion (7-10 days), sputum production, wheezing. +h/o smoking. VSS no fever gen - NAD heent - sinuses (maxillary) look boggy, nose with congestion/swollen turbs neck - no JVD heart - irregular, rate <100 lungs - mild end-exp wheeze b/l, minimal rales bases abd - soft, NT ext - no edema A/P: 1. acute bronchitis 2. probable/early acute sinusitis 3. acute/chronic systolic CHF - acute component looks resolved 4. CKD stage 3 would Rx for sinusitis - 3rd generation cephalosporin or similar add mucinex add nasal steroid spray consider systemic prednisone combivent inhaler q6h hold off on additional IV lasix cleared by PT for home repeat labs am anticipate d/c home in AM Jayme Liang MD (Jayme Liang MD)
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
[2017-09-04] MEDS ORDERED: TRIAMCINOLONE ACET NASAL SPRAY 10.8ML BTL NAE SCH (16:00)
[2017-09-04] MEDS ORDERED: CEFU500T16 PO (16:09)
[2017-09-04] MEDS ORDERED: GUAI1TAB69 PO (16:09)
[2017-09-04] MEDS ORDERED: IPRA1AER2 INH (16:09)
[2017-09-04] MEDS ORDERED: TRIA1SPR4 NAE (16:09)
[2017-09-04] MEDS ORDERED: PRED10TA PO (16:09)
[2017-09-04] MEDS: DIGOXIN 0.125 MG TAB PO SCH (16:59)
[2017-09-04] MEDS: IPRATROPIUM BROMIDE/ALBUTEROL respimat INH INH SCH ×2 (17:03→21:00)
[2017-09-04] MEDS ORDERED: CEFUROXIME AXETIL 250 MG TAB PO SCH (21:00)
[2017-09-04] MEDS ORDERED: CEFUROXIME AXETIL 500 MG TAB PO SCH (21:00)
[2017-09-04] MEDS: TRAZODONE HCL 50 MG TAB PO SCH (21:01)
[2017-09-04] MEDS: NITROFURANTOIN MONOHYDRATE 100 MG CAP PO SCH (21:01)
[2017-09-04] MEDS: TEMAZEPAM 15 MG CAP PO SCH ×2 (21:07)
[2017-09-04] MEDS: INSULIN GLARGINE SOLOSTAR 100 UNITS/ML 3 ML PEN SC SCH (21:07)
[2017-09-05 00:08] VITALS: BP 141/69; PULSE 74; TEMP 36.8; O2SAT 94
[2017-09-05 03:40] VITALS: BP 119/70; PULSE 80; TEMP 36.9; O2SAT 96
[2017-09-05 07:34] VITALS: BP 124/82; PULSE 91; TEMP 37.1; O2SAT 95
[2017-09-05 07:39] LABS: INR 2.6 (0.9-1.1); PROTHROMBIN TIME (PATIENT) 29.2 SECONDS (9.0-12.0)
[2017-09-05 07:56] LABS: BUN/CREATININE RATIO 15.6 (10-20); CALCIUM 9.3 mg/dl (8.5-10.1); CREATININE 1.94 mg/dl (0.60-1.40); POTASSIUM 3.8 mmol/L (3.5-5.1)
--- NOTE | 2017-09-05 08:44 | Discharge Instructions ---
Discharge Instructions Date of Service Sep 05, 2017. Admission Reason for Admission: Acute Exacerbation Of Chf Discharge Discharge Diagnosis / Problem: mild CHF exacerbation, acute bronchitis Discharge Goals Goal(s): Decrease discomfort, Improve function Activity Recommendations Activity Limitations: resume your previous activity . Instructions / Follow-Up Instructions / Follow-Up Because you are going home with a prescription for prednisone, you may have an increase in your blood sugars. Please check your blood sugars before meals and before bed and call your provider if they are consistently above your goal range or you are getting multiple readings above 200. Your antibiotic may interfere with Coumadin and elevate your INR. Home Health will come to draw your blood on Sunday to check INR Current Hospital Diet Patient's current hospital diet: AHA Diet (Heart Healthy), Diabetes Type 2 Diet , Low Sodium Diet (2gm Na) Discharge Diet Recommended Diet: AHA Diet (Heart Healthy), Diabetes Type 2 Diet Procedures Procedures Performed: Chest x-ray Pending Studies Studies pending at discharge: no Laboratory Results Hemoglobin A1c Test 06/20/17 07:07 Range/Units Estimated Average Glucose 131 mg/dl Hemoglobin A1c 6.2 H 4.5-5.6 % Medical Emergencies . Who to Call and When: Medical Emergencies: If at any time you feel your situation is an emergency, please call 911 immediately. . Non-Emergent Contact Non-Emergency issues call your: Primary Care Provider Call Non-Emergent contact if: you have any medication questions . Past History Medical & Surgical History: (1) CHF (congestive heart failure) (2) Acute bronchitis . "Provider Documentation" section prepared by Malou Escobar. . VTE Core Measure Inpt VTE Proph given/why not?: Warfarin (Coumadin)
[2017-09-05 10:08] VITALS: BP 124/82; PULSE 91; TEMP 37.1; O2SAT 95
--- NOTE | 2017-09-05 10:35 | Cardiology Follow-Up ---
Subjective General Date of Service: Sep 05, 2017. Pt evaluation today including: conversation w/ patient, physical exam, chart review, lab review, review of studies, review of inpatient medication list History of Present Illness Patient feeling well this AM. Cough and SOB improving. No chest pain. Anxious for discharge this AM. Denies acute complaints. Wishes to schedule f/u with Dr. Watters at Allergies Coded Allergies: Penicillins (Verified Allergy, Unknown, `, 09/03/17) Risperidone and Related (Verified Allergy, Unknown, `, 09/03/17) Meclizine (Verified Adverse Reaction, Severe, SEIZUES, 09/03/17) PATIENT STATES, CASUED PATIENT TO HAVE SIEZURES. Cephalexin (Unverified Adverse Reaction, Mild, NAUSEA, also had Rocephin & Ancef inpast, 09/04/17) Pregabalin (Verified Adverse Reaction, Mild, NAUSEA, 09/03/17) Sulfa Antibiotics (Verified Adverse Reaction, Mild, NAUSEA, 09/03/17) Tramadol (Verified Adverse Reaction, Mild, HALLUCINATIONS, 09/03/17) Hydrocodone (Verified Adverse Reaction, Unknown, HALLUCINATIONS, 09/03/17) Linezolid (Unverified Adverse Reaction, Unknown, GI DISTRESS, 09/03/17) Tetracycline (Verified Adverse Reaction, Unknown, GI DISTRESS, 09/03/17) Social History Smoking Status: Former Smoker Hx Tobacco Use In Past Year?: No Hx Alcohol Use - Type And Amou: No Hx Substance Use - Type And Am: No Problem List Medical Problems: (1) Acute electrocardiogram changes Status: Acute (2) Acute on chronic congestive heart failure Status: Acute (3) CHF (congestive heart failure) Status: Acute (4) Complicated UTI (urinary tract infection) Status: Acute (5) Right lower lobe pneumonia Status: Acute Review of Systems Respiratory: No cough, No sputum, No wheezing, No shortness of breath, No dyspnea at rest, No hemoptysis Cardiac: No chest pain, No orthopnea, No PND, No edema, No palpitations Physical Exam Vital Signs Last Vital Signs Documentation Date Time Temp Pulse Resp B/P (MAP) Pulse Ox O2 Delivery O2 Flow Rate FiO2 09/05/17 10:08 37.1 91 24 95 Room Air 09/05/17 07:34 124/82 (96) Physical Exam Constitutional: General Apperance: overweight Level of Distress: NAD, chronically ill Psychiatric: Mental Status: active & alert Orientation: to time, to place, to person Head: normocephalic Eyes: Pupils: PERRLA Neck: supple Lungs: Auscultation: no wheezing, no rales/crackles, no rhonchi, decreased breath sounds Cardiovascular: Heart Auscultation: II/ HODAN, irregular rate rhythm Extremities: no edema, pertinent finding (left AKA) Assessment and Plan Assessment and Plan Assessment & Plan 1. Cough secondary to acute Bronchitis 2. Superimposed acute on chronic systolic heart failure exacerbation. 3. Coronary artery disease s/p LAD stent in 2013. 4. Persistent/chronic atrial fibrillation with controlled rate, appropriately anticoagulated 5. Dilated cardiomyopathy with LVEF 25-30% per echo in Jun 2017. 6. Aortic stenosis, severity difficult to determine on last echo secondary to reduced LV systolic function. 7. Hypertension PLAN: Symptoms improved with IV diuresis x1 dose in ER along with neb treatment and antibiotics. Does not appear volume overloaded currently. Recommend continuing home dose furosemide 40 mg BID. Continue Toprol and digoxin for rate control. Continue Coumadin for anticoagulation Continue ASA and atorvastatin. Patient will f/u with Dr. Watters on discharge. Will assist in arranging f/u. CARDIOLOGY ATTENDING ADDENDUM: The patient was seen and personally examined. Agree with Elli Roque PA-C's findings and plans as documented above. The patient needs follow-up with LTC after discharge. Laboratory Results Last 24 Hours Test 09/04/17 11:22 09/04/17 16:25 09/04/17 20:28 09/05/17 06:42 Bedside Glucose 151 mg/dl 135 mg/dl 130 mg/dl 118 mg/dl Test 09/05/17 07:12 Prothrombin Time 29.2 SECONDS Prothromb Time International Ratio 2.6 Sodium Level 140 mmol/L Potassium Level 3.8 mmol/L Chloride Level 104 mmol/L Carbon Dioxide Level 30 mmol/L Anion Gap 6.0 mmol/L Blood Urea Nitrogen 30 mg/dl Creatinine 1.94 mg/dl Est Creatinine Clear Calc Drug Dose 39.0 ml/min Estimated GFR () 36.3 Estimated GFR (Non- 31.3 BUN/Creatinine Ratio 15.6 Random Glucose 120 mg/dl Calcium Level 9.3 mg/dl
--- NOTE | 2017-09-05 13:22 | Discharge Summary ---
Discharge Summary Date of Service Sep 05, 2017. (Malou Escobar CRNP) Discharge Summary Admission Date: Sep 03, 2017 at 16:10 Discharge Date: Sep 04, 2017 Discharge Disposition: Home with services Principal Diagnosis: CHF, acute bronchitis Immunizations: Have You Had Influenza Vaccine: Yes History of Tetanus Vaccine?: Yes History of Pneumococcal: Yes History of Hepatitis B Vaccine: No Procedures: CXR IMPRESSION: Slight improvement in the pulmonary edema, small bilateral pleural effusions, and bibasilar densities. (Malou Escobar CRNP) Medication Reconciliation New Medications: Cefuroxime Axetil (Ceftin) 500 Mg Tab 500 MG PO BID for 7 Days, #14 TAB Guaifenesin (Mucinex Maximum Strength) 1,200 Mg Tab 1 TAB PO BID for 7 Days, #14 TAB Ipratropium-Albuterol (Combivent Respimat) 1 Aer Aer 1 PUFFS INH QID for 14 Days, #1 INH Prednisone Tab (Prednisone) 10 Mg Tab 30 MG PO DAILY for 4 Days, #12 TAB Triamcinolone Acetonide (Nasal (Nasacort Allergy 24Hr) 55 Mcg/Act Spr 2 SPRAYS MARLYS DAILY for 14 Days, #1 BTL 2 Refills Continued Medications: Acetaminophen (Tylenol) 325 Mg Tab 325 MG PO DIRECTED, TAB Alprazolam (Xanax) 0.5 Mg Tab 0.25 MG PO Q8 PRN for Anxiety/Agitation, TAB Aluminum/Magnesium/Simeth (Maalox Max Susp) Susp PO DIRECTED Aspirin (Aspirin Ec) 81 Mg Tab 81 MG PO QAM Atorvastatin (Lipitor) 40 Mg Tab 40 MG PO QAM, TAB Bisacodyl (Bisac-Evac) 10 Mg Supp 10 MG NH Q6H PRN for Constipation for 10 Days, SUPP Bisacodyl (Dulcolax) 5 Mg Tab 2 TAB PO UD for 1 Day, #2 TAB Digoxin (Digoxin) 0.125 Mg Tab 0.0625 MG PO DAILY@16 for 10 Days, TAB Docusate Sodium (Docusate Sodium) 100 Mg Cap 100 MG PO QAM, CAP Febuxostat (Uloric) 40 Mg Tab 1 TAB PO DAILY for 90 Days, #90 TAB 3 Refills Finasteride (Proscar) 5 Mg Tab 5 MG PO DAILY, TAB Furosemide (Lasix) 40 Mg Tab 40 MG PO BID, TAB Glipizide (Glipizide Er) 5 Mg Tab 1 TAB PO DAILY for 90 Days, #90 TAB 3 Refills Insulin Glargine (Lantus Solostar) 100 Unit/Ml Inj 7 UNITS SC UD, PEN Insulin Isophan/Regular (Humulin 70/30) Susp 30 UNITS SC TID, VIAL Lactobacillus Acidophilus (Lactinex) Tab 4 TABS PO QAM, TAB Lisinopril (Zestril) 5 Mg Tab 2.5 MG PO DAILY, TAB Loperamide Hcl (Imodium) 2 Mg Cap 2 MG PO DIRECTED, CAP Magic Swizzle (Magic Swizzle - SUCRALFA/ALUM/MAG/DIPHEN/LIDO) 240 Ml Susp 3-4 TSP PO ACHS, #240 ML 100ml Sucralfate 50ml Maalox 50ml Diphenhydramine 40ml 2% Aq. Lidocaine Swish and Swallow Magnesium Hydroxide (Milk of Magnesia) 30 Ml Susp PO DIRECTED Metoprolol Succinate (Metoprolol Succinate ER) 50 Mg Tabcr 100 MG PO DAILY for 10 Days Multiple Vitamins W/ Minerals (Eye Vitamins) 1 Cap Cap PO BID Multivitamin (Multivitamin) Tab 1 TAB PO DAILY, TAB Nitrofurantoin Macrocrystals (Macrodantin) 100 Mg Cap 100 MG PO HS, CAP Nutritional Supplements (Glucerna 1.2 Guicho) 1 Liq Liq 1 CAN PO BID17 Ondasetron Odt (Zofran Odt) 4 Mg Tab 4 MG SL Q6H for Nausea, #6 TAB Polyethylene Glycol 3350 (Miralax) 1 Pow Pow 17 GM PO DAILY, #527 GM Sodium Phosphates (Fleet Enema Six Pack) 1 Madelyn Madelyn Tamsulosin Hcl (Flomax) 0.4 Mg Cap 0.4 MG PO DAILY, CAP Temazepam (Restoril) 30 Mg Cap 30 MG PO HS, CAP Temazepam (Restoril) 15 Mg Cap 15 MG PO HS, CAP Trazodone Hcl (Trazodone) 50 Mg Tab 50 MG PO HS, TAB Warfarin Sod (Coumadin) 2.5 Mg Tab 2.5 MG PO QPM, TAB [iron] () PO DAILY Discharge Exam ROS Constitutional: no chills, aches, sweats or fever Respiratory: no sob,cough, sputum, or wheezing Cardiac: no chest pain, palpitations, edema, orthopnea or lightheadedness GI: no abdominal pain, nausea, vomiting, diarrhea or constipation : no dysuria or hesitancy Extremities: no joint pain or weakness Skin: no rash PE General: no distress Eyes: normal inspection, PERLL Respiratory: chest non tender, clear to auscultation, normal breath sounds, no respiratory distress, no accessory muscle use Cardiac: regular rate and rhythm, no rub or gallop, no murmur, no edema, no jvd GI/: active bowel sounds, no abd pain or tenderness, soft, non distended Extremities: normal range of motion, normal strength, non tender Neuro/Psych: alert and oriented x 3, normal mood and affect Skin: normal color, dry (Malou Escobar CRNP) Hospital Course Mr. Montes is an 82 year old man admitted for CHF exacerbation with acute bronchitis/sinusitis Mild Acute on chronic systolic CHF exacerbation/Cardiomyopathy w/ EF of 25-30%, mitral regurgitation, aortic stenosis, a.fib/: - diuresed 1.5 liters total - INR on admission was 2.9 and warfarin was held two days resulting in an INR of 2.6 09/05. Patient will have INR drawn Sunday by home health with results to myself for management while taking antibiotics and outpatient office is closed - continued isosorbide and metoprolol Acute Bronchitis/sinusitis - discharged with ceftin x 7 days, prednisone x3 days, Combivent, guaifenesin, Flonase CKD stage III - stable while inpatient - continued JOHNATHON inhibitor T2DM: - lantus, ss - BSGs stable during admission - given instruction to alert primary provider if blood sugars are consistently above target range. Patient reports he takes his blood sugar three times per day. ?h/o of MRSA: - Nasal swab negative for MRSA - patient placed on contact precautions Discharged back to home Total Time Spent: Less than 30 minutes This includes examination of the patient, discharge planning, medication reconciliation, and communication with other providers. (Malou Escobar CRNP) Attending Attestation & Discharge Note: Pt seen/examined, chart reviewed, and discharge care plan d/w LILLIE Escobar. I agree w/ the linares components of her discharge summary. 82yo male with known chronic systolic CHF and CKD 3 who presented with 7-10 days of worsening cough and congestion. [place] to have acute bronchitis with sinusitis +/- acute/chronic systolic CHF. Received diuresis as well as oral antibiotics/bronchodilators. Will complete a course of oral abx/steroids after discharge. Discharge exam - gen - nad neck - no JVD sinuses - modestly swollen nose - congested heart - RRR, s1, s2 lungs - mild end-exp wheeze, no rales abd - soft, NT ext - no edema follow-up with cardiology after discharge recommended along with PCP follow-up Jayme Liang MD (Jayme Liang MD) Discharge Instructions Please refer to the electronic Patient Visit Report (Discharge Instructions) for additional information. (Malou Escobar CRNP) Follow-Up Dr. Wilkerson's office with Erlinda Champion PA-C on September 13 at 2:00 pm. Follow up at the [facility] in [place] (Malou Escobar CRNP) Additional Copies To Jayme Wilkerson M.D.; Erlinda Champion PA
--- NOTE | 2017-09-08 14:26 | Hospitalist Progress Note ---
Hospitalist Progress Note Date of Service Sep 08, 2017. Assessment and Plan Called [facility] to ask why I had not received a phone call with INR from yesterday. They apparently have called multiple times and left messages with no response. They got in touch with a family member who said that he was aware he was aware he was getting these calls. Patient follows with Dr. Wilkerson on
== END 2017-09-05 10:30 | disposition home or self-care (01) ==
LOC: C.EDB 11:06 → C.2T 16:10 → ENRESERV 18:14
PROVIDERS: ADMIT Internal Medicine; ATTEND Internal Medicine
DX: I11.0 Hypertensive heart disease with heart failure (principal); J20.9 Acute bronchitis, unspecified; R94.31 Abnormal electrocardiogram [ECG] [EKG]; Z79.82 Long term (current) use of aspirin; Z79.899 Other long term (current) drug therapy; Z79.4 Long term (current) use of insulin; I12.9 Hypertensive chronic kidney disease with stage 1 through stage 4 chronic kidney disease, or unspecified chronic kidney disease; E11.22 Type 2 diabetes mellitus with diabetic chronic kidney disease; N18.3 Chronic kidney disease, stage 3 (moderate)

== ENCOUNTER 2017-10-02 10:13 | Inpatient (IN) | payer OTHER, MEDICARE ==
--- NOTE | 2017-09-26 16:22 | PAT Medication Instructions ---
Service Date Sep 26, 2017. Current Home Medication List Acetaminophen (Tylenol), 325 MG PO DIRECTED Alprazolam (Xanax), 0.25 MG PO Q8 PRN for Anxiety/Agitation Aspirin (Aspirin Ec), 81 MG PO QAM Atorvastatin (Lipitor), 40 MG PO QPM Digoxin (Digoxin), 1 TAB PO MWF Docusate Sodium (Docusate Sodium), 100 MG PO QAM Enoxaparin (Lovenox), 30 MG SQ Q12H PRN for DIRECTED Ferrous Sulfate (Kp Ferrous Sulfate), 1 TAB PO QPM Finasteride (Proscar), 5 MG PO QAM Furosemide (Lasix), 40 MG PO BID Glipizide (Glipizide Er), 1 TAB PO QAM Insulin Human Isophan/Regular (Humulin 70/30), 1 DOSE SC QPM/HS Insulin Isophan/Regular (Humulin 70/30), 30 UNITS SC QAM Lisinopril (Zestril), 2.5 MG PO QAM Loperamide Hcl (Imodium), 2 MG PO DIRECTED Metoprolol Succinate (Toprol Xl), 1 TAB PO QAM Multiple Vitamins W/ Minerals (Eye Vitamins), PO BID Multivitamin (Multivitamin), 1 TAB PO QAM Nutritional Supplements (Glucerna 1.2 Guicho), 1 CAN PO BID17 Saccharomyces Boulardii (Probiotic), 1 CAP PO MWF Tamsulosin Hcl (Flomax), 0.4 MG PO QAM Temazepam (Restoril), 30 MG PO HS Temazepam (Restoril), 15 MG PO HS Trazodone Hcl (Trazodone), 50 MG PO HS Warfarin Sod (Coumadin), 2.5 MG PO QPM Medication Instructions For Your Scheduled Surgery - Check with surgeon and prescribing physician for instructiosn: Warfarin Sod (Coumadin), 2.5 MG PO QPM Enoxaparin (Lovenox), 30 MG SQ Q12H PRN for DIRECTED Aspirin (Aspirin Ec), 81 MG PO QAM - Continue as directed: Digoxin (Digoxin), 1 TAB PO MWF - Hold the following medications the morning of surgery: Docusate Sodium (Docusate Sodium), 100 MG PO QAM Finasteride (Proscar), 5 MG PO QAM Furosemide (Lasix), 40 MG PO BID Glipizide (Glipizide Er), 1 TAB PO QAM Lisinopril (Zestril), 2.5 MG PO QAM Loperamide Hcl (Imodium), 2 MG PO DIRECTED Multiple Vitamins W/ Minerals (Eye Vitamins), PO BID Multivitamin (Multivitamin), 1 TAB PO QAM Nutritional Supplements (Glucerna 1.2 Guicho), 1 CAN PO BID17 Saccharomyces Boulardii (Probiotic), 1 CAP PO MWF Tamsulosin Hcl (Flomax), 0.4 MG PO QAM - Take the following medications the morning of surgery with a sip of water: Metoprolol Succinate (Toprol Xl), 1 TAB PO QAM Acetaminophen (Tylenol), 325 MG PO DIRECTED Alprazolam (Xanax), 0.25 MG PO Q8 PRN for Anxiety/Agitation (if needed) - Take the following medications as scheduled the night before surgery: Trazodone Hcl (Trazodone), 50 MG PO HS Temazepam (Restoril), 30 MG PO HS Temazepam (Restoril), 15 MG PO HS\ Nutritional Supplements (Glucerna 1.2 Guicho), 1 CAN PO BID17 Multiple Vitamins W/ Minerals (Eye Vitamins), PO BID Loperamide Hcl (Imodium), 2 MG PO DIRECTED Insulin Human Isophan/Regular (Humulin 70/30), 1 DOSE SC QPM/HS Furosemide (Lasix), 40 MG PO BID Ferrous Sulfate (Kp Ferrous Sulfate), 1 TAB PO QPM Atorvastatin (Lipitor), 40 MG PO QPM Acetaminophen (Tylenol), 325 MG PO DIRECTED Alprazolam (Xanax), 0.25 MG PO Q8 PRN for Anxiety/Agitation (if needed) - For Insulin Dependent Diabetic patients: Test blood sugar A.M. of surgery. - If blood sugar greater than 150, take half of your regular dose of: Insulin Isophan/Regular (Humulin 70/30), 15 units - If blood sugar less than 150, do not take any: Insulin Isophan/Regular (Humulin 70/30), 30 UNITS SC QAM If you have any questions please call us at [phone] or [phone] or [phone]
[2017-09-26 16:26] LABS: BASO % 0.2 %; BASO ABS # 0.01 K/uL (0-0.2); COMPLETE YES; EOS % 1.5 %; HEMATOCRIT 37.6 % (42-52); LYMPH % 25.7 %; LYMPH ABS # 1.24 K/uL (1.2-3.4); MEAN CELL VOLUME 93.8 fL (80-100); MEAN CORPUSCULAR HEMOGLOBIN 29.9 pg (25-34); MEAN CORPUSCULAR HGB CONC 31.9 g/dl (32-36); MEAN PLATELET VOLUME 10.9 fL (7.4-10.4); MONO % 9.3 %; NEUT % 63.3 %; PLATELET COUNT 111 K/uL (130-400); RED BLOOD COUNT 4.01 M/uL (4.7-6.1); WHITE BLOOD COUNT 4.82 K/uL (4.8-10.8)
[2017-09-26 16:50] LABS: CREATININE 1.82 mg/dl (0.60-1.40)
[2017-09-26 16:51] LABS: BUN/CREATININE RATIO 16.5 (10-20); CALCIUM 9.5 mg/dl (8.5-10.1); POTASSIUM 3.7 mmol/L (3.5-5.1)
--- NOTE | 2017-09-26 17:32 | DIAGNOSTIC IMAGING REPORT ---
CHEST 2 VIEWS ROUTINE HISTORY: 82 years-old Male PAT preoperative exam. No acute chest complaints COMPARISON: Chest radiographs 09/03/2017 TECHNIQUE: AP and lateral views of the chest FINDINGS: Cardiac silhouette is moderately enlarged, unchanged. Atherosclerosis of the aorta. No pneumothorax. Small bilateral pleural effusions with bibasilar alveolar opacities, right greater than left. Pulmonary vascular congestion with mild interstitial coarsening. Pattern of disease appears similar from comparison. Bones appear grossly intact. IMPRESSION: 1. Cardiomegaly with mild pulmonary edema. 2. Small bilateral pleural effusions with right greater than left bibasilar opacities suggesting atelectasis or pneumonia. The above report was generated using voice recognition software. It may contain grammatical, syntax or spelling errors. Electronically signed by: Angel Paniagua M.D. 09/26/2017 5:31 PM Dictated Date/Time: 09/26/2017 5:29 PM
[~2017-10-02] VITALS: Ht 193 cm; Wt 109.2 kg
--- NOTE | 2017-10-02 06:17 | History and Physical ---
History & Physical Date of Service Oct 02, 2017. History & Physical CC: Left femoral anastomosis stenosis HPI: Mr. Montes is a pleasant 82-year-old gentleman has had a fem-fem bypass along with a right fem-pop bypass in the past. He had noninvasive testing done at [facility] which showed a patent right fem-pop bypass and a cross femoral bypass. However, there is severe stenosis on the inflow vessel to the fem-fem graft. His indexes went from 1.0 down to 0.56. Arteriography showed a tight left common femoral anastomotic stenosis. REVIEW OF SYSTEMS: Denies shortness of breath, chest pain, or fevers. ALLERGIES: Amoxicillin,cephalexin, Lyrica, risperidone,tetracycline,tramadol,vicodin PAST MEDICAL HISTORY: 1. Diabetes (most recent HBA1C 6). 2. Diabetic neuropathy, lower extremity, for the past 25 years. 3. Hypertension. 4. CHF. 5. A-fib. 6. Gout. 7. Small bowel obstruction. 8. Cross fem bypass 9: Toe amputations PAST SURGERIES: Tonsillectomy and cataracts, as well as AV fistula placement in the left upper extremity for anticipated dialysis needs. That was never started. SOCIAL HISTORY: Quit tobacco 14 years ago and alcohol was quit 25 years ago. FAMILY HISTORY: Diabetes mellitus, stroke, lymphoma on mom's side. Patient is awake and alert. VSS. Afebrile. He is oriented x 3. HEENT is wnl. Lungs are clear. Cor has a RRR. Abdominal exam is normal without masses. Neuro exam is wnl. There are no carotid bruits. Upper extremity pulses are normal. No ulcerations of the extremities are seen. His right foot is warm. Capillary refill is slightly decreased. I could not appreciate palpable pulses. There is a femoral pulse present on the left side, but is slightly weaker. Right side is also slightly weakened. 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 I have discussed the risks options and benefits of the procedure with the patient. The patient understands the risks options and benefits and agrees to the procedure.
[~2017-10-02 10:13] MED LIST changes: -ALUMSUS2 PO; -BISA-16 PO; -CZR25 PO; -DLCS PR; +ENOX30IN4 SQ; +FERR1TAB13 PO; +INSHI7030 SC; +LACTATED RINGER'S 1000ML 1,000 ML IV SCH; -LCTX PO; -MBXC PO; -MOMLX PO; -NUTR-468 PO; +NUTR1.2L PO; -POLY335019 PO; +SACC250C11 PO; -SODI1ENE; +TPRSR100 PO; -TPRSR50 PO; -iron PO
[2017-10-02] MEDS ORDERED: ENOX30IN4 SQ (10:45)
[2017-10-02 11:12] VITALS: BP 147/76; PULSE 92; TEMP 36.7; O2SAT 97; Ht 193 cm; Wt 109.2 kg
[2017-10-02 11:29] LABS: INR 1.6 (0.9-1.1); PARTIAL THROMBOPLASTIN RATIO 1.3; PROTHROMBIN TIME (PATIENT) 16.4 SECONDS (9.0-12.0)
[2017-10-02] MEDS ORDERED: PROPOFOL IV EMULSION 10 MG/ML 20 ML VIAL IV ONE ×2 (13:51→16:01)
[2017-10-02] MEDS ORDERED: LIDOCAINE HCL 2% 2 ML VIAL (20MG/ML) ONE ×2 (13:51→16:01)
[2017-10-02] MEDS ORDERED: FENTANYL CITRATE INJ 50 MCG/1 ML 2 ML VIAL ONE ×2 (13:52→15:52)
[2017-10-02] MEDS ORDERED: MIDAZOLAM HCL 1 MG/ML 2ML VIAL ONE ×3 (13:52→18:41)
[2017-10-02] MEDS ORDERED: ROCURONIUM BROMIDE 10 MG/ML 5 ML VIAL IV ONE ×2 (16:01→19:30)
[2017-10-02] MEDS ORDERED: GLYCOPYRROLATE INJ 0.2 MG/ML VIAL ONE (16:01)
[2017-10-02] MEDS ORDERED: NEOSTIGMINE METHYLSULFATE 5 MG/5 ML SYR ONE (16:01)
[2017-10-02] MEDS ORDERED: ONDANSETRON INJ 2 MG/ML 2 ML VIAL ONE (16:01)
[2017-10-02] MEDS ORDERED: DEXAMETHASONE SOD INJ 4 MG/ML VIAL ONE (16:01)
[2017-10-02] MEDS ORDERED: ETOMIDATE 2 MG/ML 20 ML VIAL IV ONE (16:01)
[2017-10-02] MEDS ORDERED: BUPIVACAINE/EPINEPHRINE 0.5% MPF 1:200,000 30 ML VIAL ONE (16:39)
[2017-10-02] MEDS ORDERED: IODIXANOL (VISIPAQUE) 270 MG/ML 50ML ONE (16:39)
[2017-10-02] MEDS ORDERED: LIDOCAINE HCL 1% 20 ML VIAL ONE (16:39)
[2017-10-02] MEDS ORDERED: GELATIN SPONGE SZ 100 ONE ×2 (16:39→18:51)
[2017-10-02] MEDS ORDERED: THROMBIN 5000 UNITS KIT ONE (16:40)
[2017-10-02] MEDS ORDERED: HEPARIN SOD (PORCINE) 1000 UNIT/ML 10 ML VIAL ONE (16:41)
[2017-10-02] MEDS ORDERED: ONDANSETRON INJ 2 MG/ML 2 ML VIAL IV PRN ×2 (17:00→20:30)
[2017-10-02] MEDS ORDERED: PROMETHAZINE HCL INJ 6.25 MG in SODIUM CHLORIDE 0.9% 50ML 50 ML IV PRN (17:00)
[2017-10-02] MEDS ORDERED: FENTANYL CITRATE INJ 50 MCG/1 ML 2 ML VIAL IV PRN ×2 (17:00→21:00)
[2017-10-02] MEDS ORDERED: ATROPINE SULFATE 0.1 MG/ML 5ML SYR IV PRN (17:00)
[2017-10-02] MEDS ORDERED: EpHEDrine SULFATE INJ 50 MG/ML AMP IV PRN (17:00)
[2017-10-02] MEDS ORDERED: THROMBIN FOR SOLN 20000 UNIT KIT ONE (19:53)
[2017-10-02] MEDS ORDERED: BACITRACIN 50000 UNIT VIAL ONE (19:59)
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
[2017-10-02] MEDS ORDERED: ESMOLOL HCL 10 MG/ML 10 ML VIAL ONE (20:20)
[2017-10-02] MEDS ORDERED: ALPRAZOLAM 0.25 MG TAB PO PRN (20:30)
[2017-10-02] MEDS ORDERED: GLUCOSE 10 TABS/TUBE PO PRN (20:30)
[2017-10-02] MEDS ORDERED: GLUCOSE 40% GEL 15 GM TUBE PO PRN (20:30)
[2017-10-02] MEDS ORDERED: DEXTROSE 50% 50 ML SYR IV PRN (20:30)
[2017-10-02] MEDS ORDERED: ACETAMINOPHEN 325 MG TAB PO PRN (20:30)
[2017-10-02] MEDS ORDERED: GLUCAGON FOR INJ 1 MG VIAL SQ PRN (20:30)
[2017-10-02] MEDS ORDERED: MoRPHine SULFATE 4 MG/ML 1 ML CARP\\VIAL IV PRN (20:30)
--- NOTE | 2017-10-02 20:44 | [facility] Post Operative Brief Note ---
Immediate Operative Summary Operative Date Oct 02, 2017. Pre-Operative Diagnosis Left Femoral anatomosis stenosis Post-Operative Diagnosis same Procedure(s) Performed Left Commom Femoral Endarterectomy with Patch and Angioplasty; Revision of Cross-Femoral Bypass with interposition Graft; Right Lower Extremity arteriogram; Physiologic Transducing of Left Iliac Artery Surgeon Dr Vincent Shed Boss Surgeon(s) Carmelita Aguillon MD Estimated Blood Loss 250cc Findings good flow to right foot Specimens None per surgeon Anesthesia Gen Complication(s) None Disposition Surgical ICU
[2017-10-02] MEDS ORDERED: MIDAZOLAM HCL 1 MG/ML 2ML VIAL IV PRN (21:00)
[2017-10-02 21:09] LABS: BASO % 0.2 %; BASO ABS # 0.01 K/uL (0-0.2); EOS % 0.4 %; HEMATOCRIT 33.6 % (42-52); IG% 0.4 %; LYMPH % 11.5 %; LYMPH ABS # 0.63 K/uL (1.2-3.4); MEAN CELL VOLUME 94.1 fL (80-100); MEAN CORPUSCULAR HEMOGLOBIN 30.3 pg (25-34); MEAN PLATELET VOLUME 10.2 fL (7.4-10.4); MONO % 2.4 %; NEUT % 85.1 %; PLATELET COUNT 106 K/uL (130-400); RED BLOOD COUNT 3.57 M/uL (4.7-6.1); WHITE BLOOD COUNT 5.48 K/uL (4.8-10.8)
[2017-10-02 21:20] LABS: COMPLETE YES; MEAN CORPUSCULAR HGB CONC 32.1 g/dl (32-36)
[2017-10-02 21:36] LABS: INR 1.8 (0.9-1.1); PARTIAL THROMBOPLASTIN RATIO 4.9; PROTHROMBIN TIME (PATIENT) 18.4 SECONDS (9.0-12.0)
[2017-10-02 21:55] LABS: BUN/CREATININE RATIO 15.8 (10-20); CALCIUM 8.6 mg/dl (8.5-10.1); CREATININE 1.61 mg/dl (0.60-1.40); MAGNESIUM 2.2 mg/dl (1.8-2.4); POTASSIUM 4.1 mmol/L (3.5-5.1)
--- NOTE | 2017-10-02 22:01 | Anesthesiology Progress Note ---
Anesthesia Post Op Note Date & Time Oct 02, 2017 at 22:00 Vital Signs Pain Intensity: 0 Vital Signs Past 12 Hours Date Time Temp Pulse Resp B/P (MAP) Pulse Ox O2 Delivery O2 Flow Rate FiO2 10/02/17 21:25 36.7 93 22 131/79 96 Mechanical Ventilator 50 93/57 (70) 10/02/17 21:15 102 22 122/82 95 Mechanical Ventilator 50 129/80 (96) 10/02/17 21:12 50 10/02/17 21:05 102 20 117/72 94 Mechanical Ventilator 50 129/80 (96) 10/02/17 20:55 97 23 116/67 95 Mechanical Ventilator 50 10/02/17 20:48 36.7 115 15 113/78 94 Mechanical Ventilator 50 10/02/17 11:12 36.7 92 20 147/76 97 Room Air Notes Mental Status: alert / awake / arousable, participated in evaluation Pt Amnestic to Procedure: Yes Nausea / Vomiting: adequately controlled Pain: adequately controlled Airway Patency, RR, SpO2: stable & adequate, see Notes BP & HR: stable & adequate Hydration State: stable & adequate Anesthetic Complications: no major complications apparent Patient remains intubated at the end of pacu course due to shallow tidal volumes. Awakens and follows commands. plans made for early weaning from intensive care team. full report to icu physician.
[2017-10-02] MEDS: NORMOSOL R 1,000 ML IV SCH (23:48)
[2017-10-03] VITALS (33 sets, daily range): BP systolic 95–138; BP diastolic 39–83; PULSE 65–92; TEMP 36.3–36.8; O2SAT 82–100
[2017-10-03] MEDS: TRAZODONE HCL 50 MG TAB PO SCH ×2 (00:12→21:18)
[2017-10-03] MEDS: ATORVASTATIN 40 MG TAB PO SCH ×2 (00:12→21:16)
[2017-10-03] MEDS: CEROVITE ADV FORMULA TAB PO SCH ×3 (00:12→21:19)
[2017-10-03] MEDS: FUROSEMIDE 40 MG TAB PO SCH ×2 (00:13→07:47)
[2017-10-03] MEDS: TEMAZEPAM 15 MG CAP PO SCH ×4 (00:13→21:21)
[2017-10-03] MEDS: INSULIN HUMAN REGULAR SC SCH ×3 (00:14→11:50)
[2017-10-03] MEDS: CLINDAMYCIN IV 600 MG in DEXTROSE 5% 50ML 50 ML IV SCH ×2 (00:15→05:34)
--- NOTE | 2017-10-03 00:46 | OPERATIVE REPORT ---
DATE OF OPERATION: 10/02/2017 PREOPERATIVE DIAGNOSIS: Anastomotic stenosis of proximal left to right fem-fem bypass. POSTOPERATIVE DIAGNOSIS: Same. PROCEDURE: 1. Left common femoral endarterectomy with patch placement of a [place] Acuseal patch. 2. Left lower extremity angiogram with physiologic pullback pressures of iliac system. 3. Right lower extremity angiogram. 4. Revision of left to right fem-fem bypass with 8 mm PTFE. SURGEON: Rene Vincent MD. MAINTENANCE AND UTILITIES SUPERVISOR: Khushi Aguillon MD. ANESTHESIA: General endotracheal intubation. BLOOD LOSS: 150. FLUOROSCOPY TIME: 0.5 minutes. MILLIGRAYS: 27 milligrays. CONTRAST: 35 mL COMPLICATIONS: None apparent. CONDITION: Extubated to the ICU. INDICATIONS: Mr. Christiano Montes is an 82-year-old male who has a left to right fem-fem bypass which is the inflow for his right fem-tibial bypass. He had increased claudication of his right lower extremity. He underwent a previous angiogram which showed proximal stenosis of this cross femoral bypass. He was offered bypass revision and angiogram, and agreed to undergo the above procedure. PROCEDURE IN DETAIL: The patient was brought into the operative suite. He was prepped and draped in the usual fashion. A timeout occurred. An incision was made over his left femoral scar. This was taken down to the cross femoral bypass. This was then further extended down to the artery. There were significant amounts of scar tissue that required prolonged dissection. The femoral artery was exposed. During the dissection, there was transection of a lateral femoral branch. The distal end of this was tied off. The patient was systemically heparinized with 7000 units of heparin. The common femoral, the SFA, profunda and the fem-fem bypass were controlled with clamps. A #11 blade was used to make an arteriotomy, this was extended with Cohen. Common femoral endarterectomy was performed. This resulted in a tear in the lateral wall. This was repaired with Prolene sutures. A [place] Acuseal patch was then sewn onto the arteriotomy with CV5 suture. It was inspected for hemostasis, this was obtained with some repair sutures. A [employer] 18-gauge access needle was used to puncture the patch and a J-wire was exchanged and was passed through the needle. This was exchanged for a 6-[place] sheath. A 0.035 Glidewire was then passed through the 6-[place] sheath into the aorta and a straight glide catheter was paced over the wire. The wire was removed and pullback pressures were obtained. These showed pressures of 140 throughout the aorta, the common iliac and the external iliac artery without any significant change. After this, the catheter was removed. An 8-[place] sheath was then placed through the fem-fem bypass which had been transected off the common femoral artery. Silastic vessel loop was used to hold this in place. An angiogram was then obtained at the cross femoral bypass as well as the right lower extremity which showed the cross femoral bypass was open, the fem-tibial bypass was widely patent without evidence of stenosis. There was stenosis of the profunda on the right. The AT was the main runoff to the foot. After this, the graft was flushed copiously with heparinized saline and was reclamped. The proximal vein graft was inspected, there were areas of obvious intimal hyperplasia along the proximal aspect. The graft was transected just distal to the area of intimal hyperplasia and an 8 PTFE graft was used as an interposition, was sewn in an end-to-end fashion with previous fem-fem bypass to give enough link to sew onto the left common femoral artery. The control was again obtained of the left common femoral artery, the left SFA profunda artery. The 6-[place] sheath was removed from the PTFE patch and the puncture site was extended with Cohen to create a graftotomy. The PTFE interposition graft was trimmed to fit the graftotomy and was sewn in an end-to-side fashion with running CV5 suture. Once the anastomosis was completed, it was inspected for hemostasis, this was obtained using some Gelfoam with thrombin. The wound was copiously irrigated with antibiotic irrigation with bacitracin and then the wound was closed with interrupted 2-0 and 3-0 Vicryls as well as issac The patient was then extubated and transported to the ICU in stable condition. Dr. Rene Vincent was present and scrubbed for the entirety of this case. I attest to the content of the Intraoperative Record and any orders documented therein. Any exception s are noted below.
[2017-10-03 05:14] LABS: ISTAT CREATININE 1.6 mg/dl (0.6-1.3); ISTAT HEMOGLOBIN 10.9 g/dl (14.0-18.0); ISTAT IONIZED CALCIUM 1.25 mmol/l (1.12-1.32)
[2017-10-03 05:14] LABS: ISTAT ARTERIAL BLOOD GAS HCO3 26 meq/L (19-24); ISTAT ARTERIAL BLOOD GAS PCO2 36 mmHg (35-46); ISTAT ARTERIAL BLOOD GAS PO2 105 mmHg (80-95); ISTAT ARTERIAL BLOOD GAS pH 7.47 (7.35-7.45); ISTAT CARBON DIOXIDE 27 mEq/l (24-31)
[2017-10-03 06:12] LABS: COMPLETE YES; HEMATOCRIT 31.5 % (42-52); IG% 0.4 %; LYMPH % 7.6 %; LYMPH ABS # 0.41 K/uL (1.2-3.4); MEAN CELL VOLUME 94.9 fL (80-100); MEAN CORPUSCULAR HEMOGLOBIN 29.8 pg (25-34); MEAN CORPUSCULAR HGB CONC 31.4 g/dl (32-36); MEAN PLATELET VOLUME 10.5 fL (7.4-10.4); MONO % 3.7 %; NEUT % 88.3 %; PLATELET COUNT 107 K/uL (130-400); RED BLOOD COUNT 3.32 M/uL (4.7-6.1); WHITE BLOOD COUNT 5.39 K/uL (4.8-10.8)
[2017-10-03 06:20] LABS: INR 1.8 (0.9-1.1); PROTHROMBIN TIME (PATIENT) 18.6 SECONDS (9.0-12.0)
[2017-10-03 06:44] LABS: BUN/CREATININE RATIO 17.1 (10-20); CALCIUM 8.4 mg/dl (8.5-10.1); CREATININE 1.7 mg/dl (0.60-1.40); MAGNESIUM 2.3 mg/dl (1.8-2.4); PHOSPHORUS 4.1 mg/dl (2.5-4.9); POTASSIUM 4.3 mmol/L (3.5-5.1)
--- NOTE | 2017-10-03 07:08 | DIAGNOSTIC IMAGING REPORT ---
CHEST ONE VIEW PORTABLE CLINICAL HISTORY: Pleural Effusions COMPARISON STUDY: 09/26/2017 FINDINGS: The heart remains enlarged. There is a right pleural effusion with associated right lower lobe atelectasis/consolidation. Mild pulmonary vascular congestion is suspected.[ Minimally prominent left basal markings are also present. IMPRESSION: 1. Persistent cardiomegaly, mild pulmonary vascular congestion, and a right pleural effusion with associated right basilar atelectasis/consolidation. Electronically signed by: Jarred Gutierrez M.D. 10/03/2017 7:07 AM Dictated Date/Time: 10/03/2017 7:05 AM
[2017-10-03] MEDS: MULTIVITAMIN TAB PO SCH (07:45)
[2017-10-03] MEDS: DOCUSATE SODIUM 100 MG CAP PO SCH (07:45)
[2017-10-03] MEDS: FINASTERIDE 5 MG TAB PO SCH (07:45)
[2017-10-03] MEDS: ASPIRIN 81 MG ECTAB PO SCH (07:45)
[2017-10-03] MEDS: TAMSULOSIN HCL 0.4 MG CAP PO SCH (07:45)
[2017-10-03] MEDS: LISINOPRIL 2.5 MG TAB PO SCH (07:46)
[2017-10-03] MEDS: METOPROLOL SUCC 50MG EXT REL TAB PO SCH (07:46)
[2017-10-03] MEDS: NORMOSOL R 1,000 ML IV SCH (07:49)
--- NOTE | 2017-10-03 07:49 | Clinical Documentation Query ---
Dr. LOPEZ, [facility] : CLINICAL DOCUMENTATION QUERY Patient is an 82 year old male admitted for treatment of anastomotic stenosis of proximal left to right fem-fem bypass. Procedure notes note that when common femoral endarterectomy was performed, that (this) "this resulted in a tear in the lateral wall" which was repaired with Prolene sutures. Please clarify as one of the suggested options below so as to avoid stage driver uncertainty at time of discharge. Thank you. In your clinical opinion is this patient being managed for: ( ) Accidental wall tear of left common femoral artery, a complication of care ( ) Incidental wall tear of left common femoral artery, not a complication of care ( ) Not Agree ( ) Other explanation of clinical findings (Please Explain) ( ) Unable to determine (Please Define) ( ) Need to Discuss The medical record reflects the following clinical findings, treatment, and risk factors. Clinical Indicators: As above Treatment: Prolene sutures Risk Factors: Endarterectomy Please clarify and document your clinical opinion in the progress notes and discharge summary. Terms such as "probable", "suspected", "likely", "questionable", "possible", or "still to be ruled out" are acceptable. IF IN AGREEMENT, YOU MUST DOCUMENT ABOVE DIAGNOSTIC STATEMENT IN DAILY PROGRESS NOTES AND DISCHARGE SUMMARY. This document is not part of the patient's record. Thank You, Diallo Clifton RN [phone]
[2017-10-03] MEDS: HEPARIN SOD 5000 UNIT/0.5 ML CARP SQ SCH ×2 (07:56→15:35)
--- NOTE | 2017-10-03 07:59 | Clinical Documentation Query ---
Dr. LOPEZ, [facility] : CLINICAL DOCUMENTATION QUERY Estimated GFR range 34-39 ml/min associated with a serum creatinine of 1.6-1.8 mg/dl. No documented history of CKD and/or ESTEE. Please clarify as clinically appropriate. Thank you. In your clinical opinion is this patient being managed for: ( ) Chronic kidney disease, stage 3 ( ) Not Agree ( ) Other explanation of clinical findings (Please Explain) ( ) Unable to determine (Please Define) ( ) Need to Discuss The medical record reflects the following clinical findings, treatment, and risk factors. Clinical Indicators: As above Treatment: IVF, serial chemistries Risk Factors: Age, HTN, CHF, DM Please clarify and document your clinical opinion in the progress notes and discharge summary. Terms such as "probable", "suspected", "likely", "questionable", "possible", or "still to be ruled out" are acceptable. IF IN AGREEMENT, YOU MUST DOCUMENT ABOVE DIAGNOSTIC STATEMENT IN DAILY PROGRESS NOTES AND DISCHARGE SUMMARY. This document is not part of the patient's record. Thank You, Diallo Clifton, RN [phone]
[2017-10-03] MEDS ORDERED: SACCHAROMYCES BOUL (FLORASTOR) 250 MG CAP PO SCH (09:00)
[2017-10-03] MEDS ORDERED: PANTOprazole INJ 40 MG in SYRINGE 0 ML IV SCH (11:00)
[2017-10-03] MEDS: PANTOprazole SOD 40 MG TAB PO SCH (11:47)
[2017-10-03] MEDS ORDERED: PHARMACY GLYCEMIC MGMT CONSULT PRN (12:35)
[2017-10-03] MEDS ORDERED: SEVERE STRESS LEVEL ONE (13:30)
[2017-10-03] MEDS ORDERED: INSULIN IV INFUSION PROTOCOL STA (13:30)
[2017-10-03] MEDS ORDERED: INSULIN PROTOCOL GOAL RANGE ONE ×2 (13:30)
--- NOTE | 2017-10-03 14:29 | Pharmacy Progress Note ---
Glycemic Control Intl Consult Date of Service Oct 03, 2017. Scope Glycemic Pharmacist consulted by Barrett Hays on 10/03 for glycemic control and to write orders per [facility] inpatient glycemic control protocol Objective Weight (Kilograms): 109.200 Accuchecks BSG (last 24hrs): Test 10/02/17 20:57 10/02/17 23:58 10/03/17 05:38 10/03/17 05:46 Random Glucose 177 mg/dl (70-99) 194 mg/dl (70-99) Bedside Glucose 164 mg/dl (70-99) 169 mg/dl (70-99) Test 10/03/17 11:33 Bedside Glucose 221 mg/dl (70-99) Laboratory Data (last 24hrs) Test 10/02/17 18:52 10/02/17 20:57 10/03/17 05:38 Anion Gap 17.0 mmol/L 5.0 mmol/L 7.0 mmol/L BUN/Creatinine Ratio 15.8 17.1 Blood Urea Nitrogen 26 mg/dl 29 mg/dl Creatinine 1.61 mg/dl 1.70 mg/dl Potassium Level 4.1 mmol/L 4.3 mmol/L Sodium Level 139 mmol/L 137 mmol/L White Blood Count 5.48 K/uL 5.39 K/uL Red Blood Count 3.57 M/uL 3.32 M/uL Hemoglobin 10.8 g/dL 9.9 g/dL Hematocrit 33.6 % 31.5 % Mean Corpuscular Volume 94.1 fL 94.9 fL Mean Corpuscular Hemoglobin 30.3 pg 29.8 pg Mean Corpuscular Hemoglobin Concent 32.1 g/dl 31.4 g/dl Platelet Count 106 K/uL 107 K/uL Mean Platelet Volume 10.2 fL 10.5 fL Neutrophils (%) (Auto) 85.1 % 88.3 % Lymphocytes (%) (Auto) 11.5 % 7.6 % Monocytes (%) (Auto) 2.4 % 3.7 % Eosinophils (%) (Auto) 0.4 % 0.0 % Basophils (%) (Auto) 0.2 % 0.0 % Neutrophils # (Auto) 4.67 K/uL 4.76 K/uL Lymphocytes # (Auto) 0.63 K/uL 0.41 K/uL Monocytes # (Auto) 0.13 K/uL 0.20 K/uL Eosinophils # (Auto) 0.02 K/uL 0.00 K/uL Basophils # (Auto) 0.01 K/uL 0.00 K/uL Recent Pertinent Medications Outpatient Anti-diabetic Regimen: * Glipizide ER 5 mg po qAM * A1c = 6.2 % on 06/20/17 The patient is currently receiving: * Basal insulin: None * Correctional Insulin: Regular insulin correction per scale ACHS Goal Range: Low 120 mg/dL - High 150 mg/dL Correction Factor: 20 mg/dL/unit * Prandial insulin: Per carb ratio of 1 unit per 7 grams CHO consumed * Oral Agents: On hold Risk Factors for Insulin Resistance: * Steroids: Dexamethasone 4 mg IV x1 10/02 in OR * Recent Surgery: POD 1 * Diet: T2DM/AHA Assessment & Plan ASSESSMENT: * 82 yo M admitted for surgery with Dr. Vincent. Patient now hyperglycemic 2nd surgery yesterday, dexamethasone yesterday (effects persist at least 24 hours), and basal insulin held * Basal insulin needed - will give NPH as patient's home regimen is Humulin 70/ 30 and this will ease transition back to home regimen. * BSG > 220 mg/dL which is critical in a post-surgical patient. Will initiate insulin drip. * OK to d/c once NPH has been on board for at least 2 hours *and* two consecutive BSG's are less than 160 mg/dL PLAN FOR INPATIENT GLYCEMIC CONTROL: * Starting IV insulin infusion per severe stress protocol * Goal Range 120 - 160 mg/dl * In the critical care setting, continuous IV insulin infusion has been shown to be the best method for achieving glycemic targets. * Regular insulin SC PCHS for CHO coverage per insulin infusion sliding scale calculator * Hold outpatient oral diabetes medications * Please note that the plan above was derived based on current level of insulin resistance and hospital stress. These recommendations are appropriate for inpatient admission only. Plan of care upon discharge will need to be reassessed to avoid potential outpatient hypo/hyperglycemia. Thank you.
[2017-10-03] MEDS: WARFARIN SOD 2.5 MG TAB PO SCH (15:34)
[2017-10-03] MEDS ORDERED: DIGOXIN 0.125 MG TAB PO SCH (16:00)
[2017-10-03] MEDS ORDERED: NovoLIN R BOLUS FROM BAG IV ONE (16:15)
[2017-10-03] MEDS ORDERED: INSULIN REGULAR 250 UNITS in SODIUM CHLORIDE 0.9% 250ML 250 ML IV SCH (16:15)
[2017-10-03] MEDS: INSULIN HUMAN NPH SC SCH ×2 (16:35→17:45)
[2017-10-03] MEDS ORDERED: INSULIN HUMAN REGULAR SC SCH (17:15)
--- NOTE | 2017-10-03 17:58 | Progress Note ---
Progress Note Date of Service: Oct 03, 2017. Subjective No complaints other than occasional groin pain. Problem List Medical Problems: (1) Acute electrocardiogram changes Status: Acute (2) Acute on chronic congestive heart failure Status: Acute (3) CHF (congestive heart failure) Status: Acute (4) Complicated UTI (urinary tract infection) Status: Acute (5) Right lower lobe pneumonia Status: Acute Objective Vital Signs Vital Signs Past 12 Hours Date Time Temp Pulse Resp B/P (MAP) Pulse Ox O2 Delivery O2 Flow Rate FiO2 10/03/17 16:00 Room Air 93 10/03/17 16:00 36.3 77 20 109/52 (71) 93 Room Air 10/03/17 15:34 77 10/03/17 14:01 67 25 107/56 (73) 92 Room Air 10/03/17 12:01 36.4 83 25 133/73 (93) 100 Nasal Cannula 2.0 10/03/17 12:00 Nasal Cannula 2.0 10/03/17 10:01 79 16 115/73 (87) 99 Nasal Cannula 2.0 10/03/17 10:00 76 18 105/59 (74) 99 Nasal Cannula 2.0 10/03/17 08:01 36.4 87 14 125/66 (85) 96 Nasal Cannula 2.0 10/03/17 08:00 Nasal Cannula 2.0 10/03/17 07:45 86 Room Air 10/03/17 07:01 78 20 124/67 (86) 99 Nasal Cannula 2.0 10/03/17 07:00 89 26 101/47 (65) 10/03/17 06:01 16 114/44 (67) 97 Nasal Cannula 2.0 Exam VSS Afebrile Incision dressing intact. Good distal flow. On insulin drip Intake & Output 8-Hour Column 10/03/17 10/04/17 10/04/17 16:00 00:00 08:00 Intake Total 1157 ml Output Total 250 ml Balance 907 ml 24-Hour Column 10/04/17 08:00 Intake Total 1157 ml Output Total 250 ml Balance 907 ml Laboratory and Microbiology Results Past 24 Hours Test 10/02/17 18:52 10/02/17 20:53 10/02/17 20:57 10/02/17 23:58 Range/Units Bedside Hemoglobin 10.9 14.0-18.0 g/dl Bedside Hematocrit 32 42-52 % Bedside Sodium 141 135-144 mEq/L Bedside Potassium 3.5 3.3-5.0 mEq/L Bedside Chloride 101 101-112 mEq/L Bedside Total CO2 26 24-31 mEq/l Anion Gap 17.0 5.0 3-11 mmol/L Bedside Blood Urea Nitrogen 24 7-18 mg/dl Bedside Creatinine 1.6 0.6-1.3 mg/dl Bedside Glucose (other) 140 70-99 mg/dl Bedside Ionized Calcium (Awa) 1.25 1.12-1.32 mmol/l Bedside Blood Gas pH (LAB) 7.47 7.35-7.45 Bedside Blood Gas pCO2 (LAB) 36 35-46 mmHg Bedside Blood Gas pO2 (LAB) 105 80-95 mmHg Bedside Blood Gas HCO3 (LAB) 26 19-24 meq/L Bedside Blood Gas Total CO2 27 24-31 mEq/l Bedside Blood Gas Base Excess (LAB) 3.0 -9-1.8 meq/L Bedside Blood Gas O2 Saturation 98.0 90-95 % White Blood Count 5.48 4.8-10.8 K/uL Red Blood Count 3.57 4.7-6.1 M/uL Hemoglobin 10.8 14.0-18.0 g/dL Hematocrit 33.6 42-52 % Mean Corpuscular Volume 94.1 80-100 fL Mean Corpuscular Hemoglobin 30.3 25-34 pg Mean Corpuscular Hemoglobin Concent 32.1 32-36 g/dl Platelet Count 106 130-400 K/uL Mean Platelet Volume 10.2 7.4-10.4 fL Neutrophils (%) (Auto) 85.1 % Lymphocytes (%) (Auto) 11.5 % Monocytes (%) (Auto) 2.4 % Eosinophils (%) (Auto) 0.4 % Basophils (%) (Auto) 0.2 % Neutrophils # (Auto) 4.67 1.4-6.5 K/uL Lymphocytes # (Auto) 0.63 1.2-3.4 K/uL Monocytes # (Auto) 0.13 0.11-0.59 K/uL Eosinophils # (Auto) 0.02 0-0.5 K/uL Basophils # (Auto) 0.01 0-0.2 K/uL RDW Standard Deviation 59.1 36.4-46.3 fL RDW Coefficient of Variation 17.1 11.5-14.5 % Immature Granulocyte % (Auto) 0.4 % Immature Granulocyte # (Auto) 0.02 0.00-0.02 K/uL Prothrombin Time 18.4 9.0-12.0 SECONDS Prothromb Time International Ratio 1.8 0.9-1.1 Activated Partial Thromboplast Time 127.7 21.0-31.0 SECONDS Partial Thromboplastin Ratio 4.9 Sodium Level 139 136-145 mmol/L Potassium Level 4.1 3.5-5.1 mmol/L Chloride Level 106 98-107 mmol/L Carbon Dioxide Level 28 21-32 mmol/L Blood Urea Nitrogen 26 7-18 mg/dl Creatinine 1.61 0.60-1.40 mg/dl Est Creatinine Clear Calc Drug Dose 47.9 ml/min Estimated GFR () 45.5 Estimated GFR (Non- 39.2 BUN/Creatinine Ratio 15.8 08-03 Random Glucose 177 70-99 mg/dl Calcium Level 8.6 8.5-10.1 mg/dl Magnesium Level 2.2 1.8-2.4 mg/dl Bedside Glucose 164 70-99 mg/dl Test 10/03/17 05:38 10/03/17 05:46 10/03/17 11:33 Range/Units White Blood Count 5.39 4.8-10.8 K/uL Red Blood Count 3.32 4.7-6.1 M/uL Hemoglobin 9.9 14.0-18.0 g/dL Hematocrit 31.5 42-52 % Mean Corpuscular Volume 94.9 80-100 fL Mean Corpuscular Hemoglobin 29.8 25-34 pg Mean Corpuscular Hemoglobin Concent 31.4 32-36 g/dl Platelet Count 107 130-400 K/uL Mean Platelet Volume 10.5 7.4-10.4 fL Neutrophils (%) (Auto) 88.3 % Lymphocytes (%) (Auto) 7.6 % Monocytes (%) (Auto) 3.7 % Eosinophils (%) (Auto) 0.0 % Basophils (%) (Auto) 0.0 % Neutrophils # (Auto) 4.76 1.4-6.5 K/uL Lymphocytes # (Auto) 0.41 1.2-3.4 K/uL Monocytes # (Auto) 0.20 0.11-0.59 K/uL Eosinophils # (Auto) 0.00 0-0.5 K/uL Basophils # (Auto) 0.00 0-0.2 K/uL RDW Standard Deviation 58.8 36.4-46.3 fL RDW Coefficient of Variation 17.0 11.5-14.5 % Immature Granulocyte % (Auto) 0.4 % Immature Granulocyte # (Auto) 0.02 0.00-0.02 K/uL Prothrombin Time 18.6 9.0-12.0 SECONDS Prothromb Time International Ratio 1.8 0.9-1.1 Sodium Level 137 136-145 mmol/L Potassium Level 4.3 3.5-5.1 mmol/L Chloride Level 104 98-107 mmol/L Carbon Dioxide Level 26 21-32 mmol/L Anion Gap 7.0 3-11 mmol/L Blood Urea Nitrogen 29 7-18 mg/dl Creatinine 1.70 0.60-1.40 mg/dl Est Creatinine Clear Calc Drug Dose 45.4 ml/min Estimated GFR () 42.6 Estimated GFR (Non- 36.7 BUN/Creatinine Ratio 17.1 10-20 Random Glucose 194 70-99 mg/dl Calcium Level 8.4 8.5-10.1 mg/dl Phosphorus Level 4.1 2.5-4.9 mg/dl Magnesium Level 2.3 1.8-2.4 mg/dl Bedside Glucose 169 221 70-99 mg/dl Microbiology Results 10/02/17 MRSA DNA Surveillance Screen - Final, Complete Specimen 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 Can transfer to floor when ok by Critical Care Medicine. May be ready for d/c tomorrow if back on home diabetes regimen.
[2017-10-03] MEDS ORDERED: DC IV INSULIN INFUSION SCH (19:00)
--- NOTE | 2017-10-03 19:11 | Critical Care Progress Note ---
Critical Care Progress Note Date of Service Oct 03, 2017. ICU Day ICU Day Number: [address] Graff Subjective Pain well-controlled, no shortness of breath, no nausea no vomiting Objective Alert and oriented 3 Abdomen soft nontender nondistended Dopplerable pulses Current SOFA Score SOFA Score Response (Comments) Value Platelets (x10) < 150 1 Bilirubin (mg/dL) < 1.2 0 [place] Coma Score 15 0 Level of Hypotension No Hypotension 0 Creatinine (mg/dL) 1.2 - 1.9 1 Total 2 Assessment & Plan Reason Critically Ill: 82-year-old male with significant peripheral vascular disease postop day 1 from a vascular graft revision PLAN: Neuro: Pain well-controlled Resp: 2 L nasal cannula attempt to wean off CV: Peripheral vascular disease Fluids/Renal: Stop maintenance fluids, creatinine improved from 09/26/2017 ID: Off anti-infectives at this time GI/Nutrition: Tolerating diet Heme: Thrombocytopenia, anemia, DVT prophylaxis with heparin, restarted Coumadin this evening Endocrine: Worsening blood sugars had transition to insulin infusion * Reviewed last hemoglobin A1c's: 6.2 06/20/2017 * Stable for downgraded out out of ICU. Discussed with Dr. Vincent, hospitalist consult for medical management outside of ICU Consults & Procedures Consultants: Hospitalist medicine Critical care medicine Procedures: Graft revision 10/02/2017 Data Medications: Current Inpatient Medications Medications (Trade) Dose Ordered Sig/Dimas Route Start Time Stop Time Status Last Admin Dose Admin Acetaminophen (Tylenol Tab) 650 mg Q4H PRN PO 10/02/17 20:30 11/01/17 20:29 Morphine Sulfate (MoRPHine SULFATE INJ) If PO analgesic is orde... Q2H PRN IV 10/02/17 20:30 10/16/17 20:29 10/03/17 13:00 2 MG Ondansetron HCl (Zofran Inj) 4 mg Q6H PRN IV 10/02/17 20:30 11/01/17 20:29 Heparin Sodium (Porcine) (Heparin Sq 5000 Unit/0.5ml) 5,000 unit Q8H SQ 10/03/17 08:00 11/02/17 07:59 10/03/17 15:35 5,000 UNIT Alprazolam (Xanax Tab) 0.25 mg Q8 PRN PO 10/02/17 20:30 11/01/17 20:29 Aspirin (Ecotrin Tab) 81 mg QAM PO 10/03/17 09:00 11/02/17 08:59 10/03/17 07:45 81 MG Atorvastatin Calcium (Lipitor Tab) 40 mg QPM PO 10/02/17 21:00 11/01/17 20:59 10/03/17 00:12 40 MG Digoxin (Lanoxin Tab) 0.125 mg MoWeFr@1600 PO 10/03/17 16:00 11/02/17 15:59 10/03/17 15:34 0.125 MG Docusate Sodium (coLACE CAP) 100 mg QAM PO 10/03/17 09:00 11/02/17 08:59 10/03/17 07:45 100 MG Finasteride (Proscar Tab) 5 mg QAM PO 10/03/17 09:00 11/02/17 08:59 10/03/17 07:45 5 MG Furosemide (Lasix Tab) 40 mg BID PO 10/02/17 21:00 11/01/17 20:59 10/03/17 07:47 40 MG Lisinopril (Zestril Tab) 2.5 mg QAM PO 10/03/17 09:00 11/02/17 08:59 10/03/17 07:46 2.5 MG Multivitamins (Multivitamin Tab) 1 tab QAM PO 10/03/17 09:00 11/02/17 08:59 10/03/17 07:45 1 TAB Saccharomyces Boulardii (Florastor Cap) 250 mg MoWeFr@0900 PO 10/03/17 09:00 11/02/17 08:59 10/03/17 07:46 250 MG Tamsulosin HCl (Flomax Cap) 0.4 mg QAM PO 10/03/17 09:00 11/02/17 08:59 10/03/17 07:45 0.4 MG Temazepam (Restoril Cap) 15 mg HS PO 10/02/17 21:00 11/01/17 20:59 10/03/17 00:13 15 MG Temazepam (Restoril Cap) 30 mg HS PO 10/02/17 21:00 11/01/17 20:59 10/03/17 00:13 30 MG Trazodone HCl (Desyrel Tab) 50 mg HS PO 10/02/17 21:00 11/01/17 20:59 10/03/17 00:12 50 MG Metoprolol Succinate (Toprol Xl Tab) 100 mg QAM PO 10/03/17 09:00 18 08:59 10/03/17 07:46 100 MG Multivitamins/ Minerals (Multivitamin W/ Minerals Tab) 1 tab BID PO 10/02/17 21:00 11/01/17 20:59 10/03/17 07:44 1 TAB Glucose (Glucose 40% Gel) 15-30 GRAMS 15 GRAMS... UD PRN PO 10/02/17 20:30 11/01/17 20:29 Glucose (Glucose Chew Tab) 4-8 Tablets 4 Tabl... UD PRN PO 10/02/17 20:30 11/01/17 20:29 Dextrose (Dextrose 50% 50ML Syringe) 25-50ML OF 50% DW IV FOR... UD PRN IV 10/02/17 20:30 11/01/17 20:29 Glucagon (Glucagon Inj) 1 mg UD PRN SQ 10/02/17 20:30 11/01/17 20:29 Warfarin Sodium (Coumadin Tab) 2.5 mg DAILY@1600 PO 10/03/17 16:00 11/02/17 15:59 10/03/17 15:34 2.5 MG Pantoprazole Sodium (Protonix Tab) 40 mg QAM PO 10/03/17 11:00 10/06/17 09:01 10/03/17 11:47 40 MG Miscellaneous Information (Consult Glycemic Management Pharmacy) 1 ea UD PRN N/A 10/03/17 12:35 11/02/17 12:34 Miscellaneous Information (Dc Iv Insulin Infusion) 1 ea Q2H N/A 10/03/17 19:00 11/02/17 18:59 Insulin Human Regular (novoLIN-R) [facility] 10/03/17 17:15 11/02/17 17:14 10/03/17 17:40 12 UNITS Insulin Human Regular 250 units/ Sodium Chloride 252.5 ml @ 0 mls/hr Q24H IV 10/03/17 16:15 11/02/17 16:14 10/03/17 16:29 4.1 MLS/HR I & O: 24-Hour Column 10/04/17 07:59 Intake Total 1157 ml Output Total 250 ml Balance 907 ml Vital Signs: Date Time Temp Pulse Resp B/P (MAP) Pulse Ox O2 Delivery O2 Flow Rate FiO2 10/03/17 18:01 74 18 110/59 (76) 10/03/17 18:00 77 24 82 10/03/17 17:45 67 16 97 10/03/17 17:30 72 26 93 10/03/17 17:15 83 18 93 10/03/17 17:02 82 14 104/63 (77) 97 10/03/17 17:00 87 17 83 10/03/17 16:45 78 22 10/03/17 16:30 74 19 99 10/03/17 16:15 70 17 93 10/03/17 16:01 65 15 112/68 (83) 92 10/03/17 16:00 70 19 88 10/03/17 16:00 Room Air 93 10/03/17 16:00 36.3 77 20 109/52 (71) 93 Room Air 10/03/17 15:34 77 10/03/17 14:01 67 25 107/56 (73) 92 Room Air 10/03/17 12:01 36.4 83 25 133/73 (93) 100 Nasal Cannula 2.0 10/03/17 12:00 Nasal Cannula 2.0 10/03/17 10:01 79 16 115/73 (87) 99 Nasal Cannula 2.0 10/03/17 10:00 76 18 105/59 (74) 99 Nasal Cannula 2.0 10/03/17 08:01 36.4 87 14 125/66 (85) 96 Nasal Cannula 2.0 10/03/17 08:00 Nasal Cannula 2.0 10/03/17 07:45 86 Room Air 10/03/17 07:01 78 20 124/67 (86) 99 Nasal Cannula 2.0 10/03/17 07:00 89 26 101/47 (65) 10/03/17 06:01 16 114/44 (67) 97 Nasal Cannula 2.0 10/03/17 05:01 15 117/83 (94) 97 Nasal Cannula 2.0 10/03/17 04:01 14 138/79 (98) 99 Nasal Cannula 4.0 10/03/17 04:00 Nasal Cannula 4.0 10/03/17 03:01 15 124/62 (82) 96 Nasal Cannula 4.0 10/03/17 02:00 92 14 101/46 (64) 97 Nasal Cannula 4.0 10/03/17 01:00 92 17 99/39 (59) 95 Nasal Cannula 2.0 10/03/17 00:46 87 12 123/75 (91) 96 Nasal Cannula 2.0 10/03/17 00:00 36.8 86 20 130/60 (83) 97 Nasal Cannula 2.0 10/03/17 00:00 Nasal Cannula 2.0 10/02/17 21:25 36.7 93 22 131/79 96 Mechanical Ventilator 50 93/57 (70) 10/02/17 21:15 102 22 122/82 95 Mechanical Ventilator 50 129/80 (96) 10/02/17 21:12 50 10/02/17 21:05 102 20 117/72 94 Mechanical Ventilator 50 129/80 (96) 10/02/17 20:55 97 23 116/67 95 Mechanical Ventilator 50 10/02/17 20:48 36.7 115 15 113/78 94 Mechanical Ventilator 50 Laboratory Results: Last 24 Hours Test 10/02/17 20:53 10/02/17 20:57 10/02/17 23:58 10/03/17 05:38 Bedside Blood Gas pH (LAB) 7.47 Bedside Blood Gas pCO2 (LAB) 36 mmHg Bedside Blood Gas pO2 (LAB) 105 mmHg Bedside Blood Gas HCO3 (LAB) 26 meq/L Bedside Blood Gas Total CO2 27 mEq/l Bedside Blood Gas Base Excess (LAB) 3.0 meq/L Bedside Blood Gas O2 Saturation 98.0 % White Blood Count 5.48 K/uL 5.39 K/uL Red Blood Count 3.57 M/uL 3.32 M/uL Hemoglobin 10.8 g/dL 9.9 g/dL Hematocrit 33.6 % 31.5 % Mean Corpuscular Volume 94.1 fL 94.9 fL Mean Corpuscular Hemoglobin 30.3 pg 29.8 pg Mean Corpuscular Hemoglobin Concent 32.1 g/dl 31.4 g/dl Platelet Count 106 K/uL 107 K/uL Mean Platelet Volume 10.2 fL 10.5 fL Neutrophils (%) (Auto) 85.1 % 88.3 % Lymphocytes (%) (Auto) 11.5 % 7.6 % Monocytes (%) (Auto) 2.4 % 3.7 % Eosinophils (%) (Auto) 0.4 % 0.0 % Basophils (%) (Auto) 0.2 % 0.0 % Neutrophils # (Auto) 4.67 K/uL 4.76 K/uL Lymphocytes # (Auto) 0.63 K/uL 0.41 K/uL Monocytes # (Auto) 0.13 K/uL 0.20 K/uL Eosinophils # (Auto) 0.02 K/uL 0.00 K/uL Basophils # (Auto) 0.01 K/uL 0.00 K/uL RDW Standard Deviation 59.1 fL 58.8 fL RDW Coefficient of Variation 17.1 % 17.0 % Immature Granulocyte % (Auto) 0.4 % 0.4 % Immature Granulocyte # (Auto) 0.02 K/uL 0.02 K/uL Prothrombin Time 18.4 SECONDS 18.6 SECONDS Prothromb Time International Ratio 1.8 1.8 Activated Partial Thromboplast Time 127.7 SECONDS Partial Thromboplastin Ratio 4.9 Sodium Level 139 mmol/L 137 mmol/L Potassium Level 4.1 mmol/L 4.3 mmol/L Chloride Level 106 mmol/L 104 mmol/L Carbon Dioxide Level 28 mmol/L 26 mmol/L Anion Gap 5.0 mmol/L 7.0 mmol/L Blood Urea Nitrogen 26 mg/dl 29 mg/dl Creatinine 1.61 mg/dl 1.70 mg/dl Est Creatinine Clear Calc Drug Dose 47.9 ml/min 45.4 ml/min Estimated GFR () 45.5 42.6 Estimated GFR (Non- 39.2 36.7 BUN/Creatinine Ratio 15.8 17.1 Random Glucose 177 mg/dl 194 mg/dl Calcium Level 8.6 mg/dl 8.4 mg/dl Magnesium Level 2.2 mg/dl 2.3 mg/dl Bedside Glucose 164 mg/dl Phosphorus Level 4.1 mg/dl Test 10/03/17 05:46 10/03/17 11:33 Bedside Glucose 169 mg/dl 221 mg/dl
[2017-10-03] MEDS ORDERED: NURSING VERBAL MED ORDER ONE (21:45)
[2017-10-04] MEDS: HEPARIN SOD 5000 UNIT/0.5 ML CARP SQ SCH ×3 (00:28→15:33)
[2017-10-04] MEDS: INSULIN HUMAN REGULAR SC SCH ×4 (04:00→13:07)
[2017-10-04 04:10] VITALS: BP 118/67; PULSE 71; TEMP 36.5; O2SAT 96
[2017-10-04 07:13] VITALS: BP 133/60; PULSE 81; TEMP 36.4; O2SAT 96
[2017-10-04] MEDS ORDERED: INSULIN HUMAN NPH SC SCH (08:30)
[2017-10-04 09:16] LABS: INR 2.2 (0.9-1.1); PROTHROMBIN TIME (PATIENT) 22.4 SECONDS (9.0-12.0)
[2017-10-04] MEDS: MULTIVITAMIN TAB PO SCH (10:21)
[2017-10-04] MEDS: DOCUSATE SODIUM 100 MG CAP PO SCH (10:22)
[2017-10-04] MEDS: CEROVITE ADV FORMULA TAB PO SCH (10:22)
[2017-10-04] MEDS: METOPROLOL SUCC 50MG EXT REL TAB PO SCH (10:22)
[2017-10-04] MEDS: LISINOPRIL 2.5 MG TAB PO SCH (10:22)
[2017-10-04] MEDS: TAMSULOSIN HCL 0.4 MG CAP PO SCH (10:22)
[2017-10-04] MEDS: ASPIRIN 81 MG ECTAB PO SCH (10:22)
[2017-10-04] MEDS: FINASTERIDE 5 MG TAB PO SCH (10:23)
[2017-10-04] MEDS: FUROSEMIDE 40 MG TAB PO SCH ×2 (10:23→10:30)
[2017-10-04] MEDS: PANTOprazole SOD 40 MG TAB PO SCH (10:23)
--- NOTE | 2017-10-04 14:20 | Medical Student: [facility] ---
Med Student Progress Note Date of Service Oct 04, 2017. Subjective Pt evaluation today including: conversation w/ patient, physical exam, chart review, lab review pt is an 82 yo M s/p L femoral endarterectomy. He has a hx of femorofemoral bypass and right femoral popliteal bypass. Testing done at [place] found a sever stenosis of the inflow vessel to the femorofemoral graft. Pt is complaining of minimal pain currently from the surgery with dressing over the area which appears clean overall with some blood. He said getting out of bed this morning caused groin obrien but he did not need any pain medication. Appetite is good and pt otherwise has no complaints. Aguilera in place and will plan to have it removed prior to discharge to make sure pt can urinate with no difficulty. Review of Systems Constitutional: No fever, No chills Eyes: No worsening of vision, No eye pain ENT: No hearing loss Respiratory: No cough, No sputum, No wheezing, No shortness of breath Cardiac: No chest pain, No orthopnea, No PND, No edema Musculoskeletal: No joint pain, No muscle pain Male : + see HPI Neurologic: No memory loss Psychiatric: No depression symptoms Heme: + abnormal bleeding/bruising (bruising on bilateral upper extremities) Endo: No fatigue Skin: No rash, No itch Objective Vital Signs Date Time Temp Pulse Resp B/P (MAP) Pulse Ox O2 Delivery O2 Flow Rate FiO2 10/04/17 07:13 36.4 81 16 133/60 (84) 96 Room Air 10/04/17 04:10 36.5 71 17 118/67 (84) 96 Room Air 10/03/17 23:06 36.4 73 15 118/57 (77) 97 Room Air 10/03/17 21:10 78 95/53 (67) 10/03/17 20:15 98 Room Air 10/03/17 20:01 36.7 68 21 103/62 (76) 97 Room Air 10/03/17 20:00 Room Air 10/03/17 19:01 68 15 116/57 (76) 10/03/17 18:01 74 18 110/59 (76) 10/03/17 18:00 77 24 82 10/03/17 17:45 67 16 97 10/03/17 17:30 72 26 93 10/03/17 17:15 83 18 93 10/03/17 17:02 82 14 104/63 (77) 97 10/03/17 17:00 87 17 83 10/03/17 16:45 78 22 10/03/17 16:30 74 19 99 10/03/17 16:15 70 17 93 10/03/17 16:01 65 15 112/68 (83) 92 10/03/17 16:00 70 19 88 10/03/17 16:00 Room Air 93 10/03/17 16:00 36.3 77 20 109/52 (71) 93 Room Air 10/03/17 15:34 77 10/03/17 14:01 67 25 107/56 (73) 92 Room Air Physical Exam General Appearance: WD/WN, no apparent distress Eyes: bilateral eyes normal inspection, bilateral eyes PERRL, bilateral eyes EOMI ENT: normal ENT inspection, hearing grossly normal Neck: supple, no adenopathy, thyroid normal, no JVD Respiratory/Chest: chest non-tender, lungs clear, normal breath sounds Cardiovascular: regular rate, rhythm, no edema, no gallop, no JVD, no murmur Abdomen: normal bowel sounds, non tender, soft Extremities: normal range of motion, non-tender, normal inspection, no pedal edema, no calf tenderness, + pertinent finding (dressing over the left groin/ thigh area from the surgery) Neurologic/Psychiatric: 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 II-XII nml as tested, no motor/sensory deficits, alert, normal mood/affect, oriented x 3 Skin: normal color, warm/dry, + pertinent finding (bruising on the arms bilaterally) Lymphatic: no adenopathy Laboratory Results Last 24 Hours Test 10/03/17 15:25 10/03/17 17:29 10/03/17 18:34 10/03/17 19:32 Bedside Glucose 243 mg/dl 232 mg/dl 271 mg/dl 185 mg/dl Test 10/03/17 20:36 10/03/17 21:31 10/03/17 22:15 10/03/17 23:05 Bedside Glucose 157 mg/dl 113 mg/dl 89 mg/dl 113 mg/dl Test 10/04/17 00:09 10/04/17 04:09 10/04/17 07:59 10/04/17 08:32 Bedside Glucose 128 mg/dl 111 mg/dl 148 mg/dl Prothrombin Time 22.4 SECONDS Prothromb Time International Ratio 2.2 Medications Current Inpatient Medications Medications (Trade) Dose Ordered Sig/Dimas Route Start Time Stop Time Status Last Admin Dose Admin Acetaminophen (Tylenol Tab) 650 mg Q4H PRN PO 10/02/17 20:30 11/01/17 20:29 Morphine Sulfate (MoRPHine SULFATE INJ) If PO analgesic is orde... Q2H PRN IV 10/02/17 20:30 10/16/17 20:29 10/03/17 13:00 2 MG Ondansetron HCl (Zofran Inj) 4 mg Q6H PRN IV 10/02/17 20:30 11/01/17 20:29 Heparin Sodium (Porcine) (Heparin Sq 5000 Unit/0.5ml) 5,000 unit Q8H SQ 10/03/17 08:00 11/02/17 07:59 10/04/17 10:21 5,000 UNIT Alprazolam (Xanax Tab) 0.25 mg Q8 PRN PO 10/02/17 20:30 11/01/17 20:29 Aspirin (Ecotrin Tab) 81 mg QAM PO 10/03/17 09:00 11/02/17 08:59 10/04/17 10:22 81 MG Atorvastatin Calcium (Lipitor Tab) 40 mg QPM PO 10/02/17 21:00 11/01/17 20:59 10/03/17 21:16 40 MG Digoxin (Lanoxin Tab) 0.125 mg MoWeFr@1600 PO 10/03/17 16:00 11/02/17 15:59 10/03/17 15:34 0.125 MG Docusate Sodium (coLACE CAP) 100 mg QAM PO 10/03/17 09:00 11/02/17 08:59 10/04/17 10:22 100 MG Finasteride (Proscar Tab) 5 mg QAM PO 10/03/17 09:00 11/02/17 08:59 10/04/17 10:23 5 MG Furosemide (Lasix Tab) 40 mg BID PO 10/02/17 21:00 11/01/17 20:59 Future hold 10/04/17 10:30 40 MG Lisinopril (Zestril Tab) 2.5 mg QAM PO 10/03/17 09:00 11/02/17 08:59 10/04/17 10:22 2.5 MG Multivitamins (Multivitamin Tab) 1 tab QAM PO 10/03/17 09:00 11/02/17 08:59 10/04/17 10:21 1 TAB Saccharomyces Boulardii (Florastor Cap) 250 mg MoWeFr@0900 PO 10/03/17 09:00 11/02/17 08:59 10/03/17 07:46 250 MG Tamsulosin HCl (Flomax Cap) 0.4 mg QAM PO 10/03/17 09:00 11/02/17 08:59 10/04/17 10:22 0.4 MG Temazepam (Restoril Cap) 15 mg HS PO 10/02/17 21:00 11/01/17 20:59 10/03/17 21:17 15 MG Temazepam (Restoril Cap) 30 mg HS PO 10/02/17 21:00 11/01/17 20:59 10/03/17 21:21 30 MG Trazodone HCl (Desyrel Tab) 50 mg HS PO 10/02/17 21:00 11/01/17 20:59 10/03/17 21:18 50 MG Metoprolol Succinate (Toprol Xl Tab) 100 mg QAM PO 10/03/17 09:00 11/02/17 08:59 10/04/17 10:22 100 MG Multivitamins/ Minerals (Multivitamin W/ Minerals Tab) 1 tab BID PO 10/02/17 21:00 11/01/17 20:59 10/04/17 10:22 1 TAB Glucose (Glucose 40% Gel) 15-30 GRAMS 15 GRAMS... UD PRN PO 10/02/17 20:30 11/01/17 20:29 Glucose (Glucose Chew Tab) 4-8 Tablets 4 Tabl... UD PRN PO 10/02/17 20:30 11/01/17 20:29 Dextrose (Dextrose 50% 50ML Syringe) 25-50ML OF 50% DW IV FOR... UD PRN IV 10/02/17 20:30 11/01/17 20:29 Glucagon (Glucagon Inj) 1 mg UD PRN SQ 10/02/17 20:30 11/01/17 20:29 Warfarin Sodium (Coumadin Tab) 2.5 mg DAILY@1600 PO 10/03/17 16:00 11/02/17 15:59 10/03/17 15:34 2.5 MG Pantoprazole Sodium (Protonix Tab) 40 mg QAM PO 10/03/17 11:00 10/06/17 09:01 10/04/17 10:23 40 MG Miscellaneous Information (Consult Glycemic Management Pharmacy) 1 ea UD PRN N/A 10/03/17 12:35 11/02/17 12:34 Insulin Human Regular (novoLIN-R) SLIDING SCALE ACHS SC 10/04/17 08:00 11/03/17 07:59 10/04/17 13:07 8 UNITS Insulin Human Regular (novoLIN-R) SLIDING SCALE 0000,0400 SC 10/04/17 00:00 11/03/17 00:00 Insulin Human NPH (novoLIN-N NPH) 20 units BIDM SC 10/04/17 08:30 11/03/17 08:29 10/04/17 10:20 20 UNITS Assessment and Plan Assessment and Plan: This is an 82 yo M s/p left common femoral endarterectomy for sever stenosis of the vascular graft anastomosis. Hx significant for chronic systolic heart failure, AFib, DM, chronic renal disease, and bladder cancer. S/p L common femoral endarterectomy for severe stenosis of vascular graft anastomosis - Post-op pain appears to be tolerated well by pt. Had morphine yesterday morning but nothing else otherwise - Dressing in place over site of surgery. Chronic systolic heart failure - Stable - Pt has no complaints of acute symptoms - Pt not hypoxic on room air and shows no edema - Continue furosemide 40mg BID , lisinopril 2.5 mg q AM , digoxin 0.125 mg AFib - Coumadin held for surgery and was resumed yesterday - INR today 2.2 - Continue metoprolol 100 mg q AM and digoxin 0.125 mg DM - On novolin in hospital DVT Prophylaxis - Was on heparin, started on Coumadin yesterday. Code Status - Full Disposition - Home
--- NOTE | 2017-10-04 14:59 | Discharge Instructions ---
Discharge Instructions Date of Service Oct 04, 2017. Admission Reason for Admission: Left Femoral Anastamosis Stenosis Discharge Discharge Diagnosis / Problem: post LEFT femoral art endarterectomy, revision of L femoral anastomosis Discharge Goals Goal(s): Decrease discomfort, Therapeutic intervention Activity Recommendations Activity Limitations: per Instructions/Follow-up section . Instructions / Follow-Up Instructions / Follow-Up May shower, no bathing or soaking. Dry gently. May apply dry dressing to area daily or when saturated; stop applying dressing when no longer any drainage on it. Activity as tolerated. Follow up with Dr Vincent or Ira Hunt PA-C in 2 weeks for staple removal. Current Hospital Diet Patient's current hospital diet: AHA Diet (Heart Healthy), Diabetes Type 2 Diet Discharge Diet Recommended Diet: AHA Diet (Heart Healthy), Diabetes Type 2 Diet Procedures Procedures Performed: Left Commom Femoral Endarterectomy with Patch and Angioplasty; Revision of Cross-Femoral Bypass with interposition Graft; Right Lower Extremity arteriogram; Physiologic Transducing of Left Iliac Artery Pending Studies Studies pending at discharge: no Medical Emergencies . Who to Call and When: Medical Emergencies: If at any time you feel your situation is an emergency, please call 911 immediately. . Non-Emergent Contact Non-Emergency issues call your: Surgeon . "Provider Documentation" section prepared by Ira Hunt. . VTE Core Measure Inpt VTE Proph given/why not?: Unfractionated heparin SQ
--- NOTE | 2017-10-04 15:05 | Progress Note ---
Progress Note Date of Service: Oct 04, 2017. Subjective 82 yo m with multiple medical problems, including PAD, POD #2 after Left Commom Femoral Endarterectomy with Patch and Angioplasty; Revision of Cross-Femoral Bypass with interposition Graft, seen in f/u today. Pt admits discomfort in L groin with movement/transfers, however, states is tolerable and has not needed pain medication. Denies other complaints. Problem List Medical Problems: (1) Acute electrocardiogram changes Status: Acute (2) Acute on chronic congestive heart failure Status: Acute (3) CHF (congestive heart failure) Status: Acute (4) Complicated UTI (urinary tract infection) Status: Acute (5) Right lower lobe pneumonia Status: Acute Objective Vital Signs Vital Signs Past 12 Hours Date Time Temp Pulse Resp B/P (MAP) Pulse Ox O2 Delivery O2 Flow Rate FiO2 10/04/17 08:30 Room Air 10/04/17 07:13 36.4 81 16 133/60 (84) 96 Room Air 10/04/17 04:10 36.5 71 17 118/67 (84) 96 Room Air Exam CONST: A&O x3, NAD, obese, chronically ill appearing male CHEST: RRR, lungs decreased but ctab ABD: soft, nontender, + bs x 4 quad EXT: L groin incision C/I with issac. small amt bloody serous drainage. + local edema, tenderness and minimal ecchymosis. Soft. Intake & Output 8-Hour Column 10/04/17 10/05/17 10/05/17 16:00 00:00 08:00 Intake Total 275 ml Output Total 400 ml Balance -125 ml 24-Hour Column 10/05/17 08:00 Intake Total 275 ml Output Total 400 ml Balance -125 ml Laboratory and Microbiology Results Past 24 Hours Test 10/03/17 15:25 10/03/17 17:29 10/03/17 18:34 10/03/17 19:32 Range/Units Bedside Glucose 243 232 271 185 70-99 mg/dl Test 10/03/17 20:36 10/03/17 21:31 10/03/17 22:15 10/03/17 23:05 Range/Units Bedside Glucose 157 113 89 113 70-99 mg/dl Test 10/04/17 00:09 10/04/17 04:09 10/04/17 07:59 10/04/17 08:32 Range/Units Bedside Glucose 128 111 148 70-99 mg/dl Prothrombin Time 22.4 9.0-12.0 SECONDS Prothromb Time International Ratio 2.2 0.9-1.1 ASSESSMENT and PLAN: s/p Left Commom Femoral Endarterectomy with Patch and Angioplasty; Revision of Cross-Femoral Bypass with interposition Graft L limb fem-fem BPG anastomosis stenosis Pt doing well post op. Stable. OK for d/c home after voiding.
[2017-10-04 15:06] VITALS: BP 103/56; PULSE 67; TEMP 36.4; O2SAT 98
[2017-10-04] MEDS: WARFARIN SOD 2.5 MG TAB PO SCH (15:33)
[2017-10-04 16:02] VITALS: BP 103/56; PULSE 67; TEMP 36.4; O2SAT 98
--- NOTE | 2017-10-04 21:05 | Hospitalist Progress Note ---
Hospitalist Progress Note Date of Service Oct 04, 2017. Subjective Pt evaluation today including: conversation w/ patient Patient doing very well, he does have some pain in his left groin area. He is upset about having to be on an insulin drip last night, but his sugars are much better today and he is off the insulin drip. He states that he knows how to manage his glucose very well at home which is evidenced by his excellent hemoglobin A1c of 6.2%. He is tolerating by mouth, denies chest pain or shortness of breath. I discussed the case with the vascular PA and he will be discharged to home today. All Other Systems: Reviewed and Negative Objective Vital Signs Date Time Temp Pulse Resp B/P (MAP) Pulse Ox O2 Delivery O2 Flow Rate FiO2 10/04/17 16:02 36.4 67 16 98 Room Air 10/04/17 15:06 36.4 67 16 103/56 (72) 98 Room Air 10/04/17 08:30 Room Air 10/04/17 07:13 36.4 81 16 133/60 (84) 96 Room Air 10/04/17 04:10 36.5 71 17 118/67 (84) 96 Room Air 10/03/17 23:06 36.4 73 15 118/57 (77) 97 Room Air 10/03/17 21:10 78 95/53 (67) Physical Exam General Appearance: WD/WN, no apparent distress (sitting in a wheelchair) Eyes: normal inspection, sclerae normal ENT: hearing grossly normal Neck: trachea midline Respiratory/Chest: no respiratory distress, no accessory muscle use, + decreased breath sounds (at the bases bilaterally, otherwise clear) Cardiovascular: + irregularly irregular (with normal rate, no murmurs gallops or rubs), + pertinent finding (no edema of the right lower extremity, left groin with dressing in place with small amount of dried blood, left wrist with small AV fistula with good thrill) Abdomen: normal bowel sounds, non tender, soft Extremities: no calf tenderness (on the right, left AKA present) Neurologic/Psychiatric: alert, normal mood/affect, oriented x 3 Skin: normal color, warm/dry, no rash Laboratory Results Last 24 Hours Test 10/03/17 21:31 10/03/17 22:15 10/03/17 23:05 10/04/17 00:09 Bedside Glucose 113 mg/dl 89 mg/dl 113 mg/dl 128 mg/dl Test 10/04/17 04:09 10/04/17 07:59 10/04/17 08:32 10/04/17 12:16 Bedside Glucose 111 mg/dl 148 mg/dl 192 mg/dl Prothrombin Time 22.4 SECONDS Prothromb Time International Ratio 2.2 Assessment and Plan This patient is an 82 yo M with a history of PAD, CAD status post stents, chronic kidney disease stage III, diabetes mellitus type 2 with neuropathy, hypertension, hyperlipidemia, permanent atrial fibrillation on long-term anticoagulation with Coumadin, chronic systolic CHF and ischemic cardiomyopathy , mild aortic stenosis, severe mitral valve regurgitation, history of bladder cancer, and a stable renal mass, who is admitted status post left common femoral endarterectomy with Patch and Angioplasty; Revision of Cross-Femoral Bypass with interposition Graft L limb fem-fem BPG anastomosis stenosis. S/p L common femoral endarterectomy for severe stenosis of vascular graft anastomosis/severe PAD-doing well postoperatively -DC Aguilera now with trial of void -Discharge plans as per vascular surgery with follow-up in the office -Continue aspirin and statin Chronic systolic heart failure/ischemic cardiomyopathy/CAD status post stent/ hypertension/hyperlipidemia/aortic stenosis/mitral valve regurgitation-all conditions are stable. He has no evidence of volume overload on exam except he does have some small pleural effusions on chest x-ray. He is not hypoxic and is asymptomatic. - Continue furosemide 40mg BID ,lisinopril, aspirin, statin -Follow up with PCP Permanent atrial fibrillation on long-term anticoagulation-rate controlled - Coumadin was held for surgery and was resumed yesterday - INR today 2.2 which is within goal range, no need for further bridging - Continue metoprolol 100 mg q AM and digoxin 0.125 mg CKD Stage III- baseline creatinine is 1.6-1.8. Today's creatinine is 1.7, stable -Renally dose medications Avoid nephrotoxins -Follow up with PCP/nephrology routinely DMII-on long-term insulin, very well controlled, last hemoglobin A1c 6.2%. With some hyperglycemia immediately postop in the intensive care unit requiring brief administration of insulin drip. -Can return to his normal dose of NPH 70/30 insulin at home twice a day with NovoLog [facility] DVT Prophylaxis Heparin subcutaneous, Coumadin Code Status - Full CODE Disposition - to Home today
--- NOTE | 2017-10-17 14:26 | DISCHARGE SUMMARY ---
ADMISSION DIAGNOSES: Stenosis of left common femoral artery anastomosis. DISCHARGE DIAGNOSES: 1. Status post left common femoral endarterectomy with patch angioplasty, revision of cross femoral bypass with interposition graft, right lower extremity arteriogram. 2. Stenosis of the left femoral artery and anastomosis. DISCHARGE CONDITION: Stable. CONSULTATIONS IN THE HOSPITAL: Included medicine for management of chronic medical problems. PROCEDURES IN THE HOSPITAL: Left common femoral artery endarterectomy and patch angioplasty, revision of cross femoral bypass with interposition graft, right lower extremity angiography which was performed on 10/02/2017 with an EBL of 250 mL and no significant complication. HISTORY OF PRESENT ILLNESS: Mr. Montes is an 82-year-old male with a longstanding history of multiple complicated medical problems including diabetes, hypertension, congestive heart failure, atrial fibrillation, gout as well as severe peripheral arterial disease and having undergone a femoral to femoral artery bypass in the past as well as a right leg femoral to popliteal artery bypass in the past. Those prior procedures are performed down at [facility] by a different surgeon. The patient presented to the office for reevaluation as he does on an annual basis. The patient's ultrasound indicated that there was some inflow obstruction to his right leg. He was found to have a stenosis at the left femoral artery anastomosis from his fem-fem bypass. He was recommended to consider undergoing a revision of the area. The patient discussed this with his previous surgeon as well as his family physician who agreed that this would be beneficial for the patient. The patient expressed understanding and agreement to undergo the procedure which was recommended to maintain patency of his bypasses. HOSPITAL COURSE: The patient was admitted 10/02/2017 after undergoing his anastomosis revision. He did essentially well postoperatively. He was somewhat fatigued but otherwise relatively unaffected by his 250 mL blood loss. He did not require a blood transfusion. His vital signs remained stable as well and he was felt to be stable enough for discharge on postop day 2. PHYSICAL EXAMINATION: VITAL SIGNS: On day of discharge, vital signs were as follows: A temperature of 36.4, pulse of 67, respiratory rate of 16, blood pressure of 103/56, and pulse oximetry of 98% on room air. CONSTITUTIONAL: The patient is an obese, chronically ill appearing elderly male in no acute distress. 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 HEAD: Normocephalic and atraumatic. EYES: EOMI. EARS, NOSE, THROAT: No hearing loss, rhinorrhea or pharyngeal erythema. NECK: Supple, nontender with a midline trachea without masses or crepitus. LUNGS: Demonstrated no dyspnea. They were somewhat decreased throughout but clear bilaterally. CARDIOVASCULAR: Demonstrated nondisplaced apical impulse with an irregular rhythm and a faint systolic murmur. His peripheral pulses are full and equal in all extremities unless otherwise noted, specifically they were normal in his carotid, brachial, radial, and his right femoral pulse was +2. His left leg was difficult to palpate due to his recent surgery there; however, it did appear strong. His right leg distal pulses were nonpalpable due to calcification; however, they are present with the Doppler from his bypass. ABDOMEN: Soft, nontender with normoactive bowel sounds in all 4 quadrants without guarding or rebound. There was no flank or CVA tenderness. EXTREMITIES: Bilateral upper extremities demonstrate no cyanosis, edema, clubbing, varicosities or ulcers. His left groin surgical incision demonstrated good healing for 2 days postop. The issac are in place. The area was tender to palpation, but without erythema. There is some mild ecchymosis noted but no firm hard hematoma and no pulsatile mass as appreciable. 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 DIET UPON DISCHARGE: Should be a low-cholesterol AHA diet. MEDICATIONS: Reconciled in the chart and are as per his discharge instructions. FOLLOWUP: Should be with Dr. Vincent or his PA Ira Hunt within 2 weeks for reevaluation and removal of his issac. The patient was advised to call with any other questions.
== END 2017-10-04 16:40 | disposition home or self-care (01) | DRG 270 ==
LOC: C.ACU 10:13 → C.MSICU 20:42 → ENRESERV 10-03 19:38 → C.MSN 10-03 20:09
PROVIDERS: ADMIT Surgery Vascular Surgery; ATTEND Surgery Vascular Surgery
PROC: 04CL3ZZ Extirpation of Matter from Left Femoral Artery, Percutaneous Approach (ICD-10-PCS; principal; 2017-10-02 12:15)
PROC: B41GYZZ Fluoroscopy of Left Lower Extremity Arteries using Other Contrast (ICD-10-PCS; principal; 2017-10-02 12:15)
PROC: 04UL3JZ Supplement Left Femoral Artery with Synthetic Substitute, Percutaneous Approach (ICD-10-PCS; principal; 2017-10-02 12:15)
PROC: B41FYZZ Fluoroscopy of Right Lower Extremity Arteries using Other Contrast (ICD-10-PCS; principal; 2017-10-02 12:15)
PROC: 04WY3JZ Revision of Synthetic Substitute in Lower Artery, Percutaneous Approach (ICD-10-PCS; principal; 2017-10-02 12:15)
PROC: 4A033B1 Measurement of Arterial Pressure, Peripheral, Percutaneous Approach (ICD-10-PCS; principal; 2017-10-02 12:15)
DX: T82.858A Stenosis of other vascular prosthetic devices, implants and grafts, initial encounter (principal); S75.002A Unspecified injury of femoral artery, left leg, initial encounter; I13.0 Hypertensive heart and chronic kidney disease with heart failure and stage 1 through stage 4 chronic kidney disease, or unspecified chronic kidney disease; I50.22 Chronic systolic (congestive) heart failure; Y83.9 Surgical procedure, unspecified as the cause of abnormal reaction of the patient, or of later complication, without mention of misadventure at the time of the procedure; Y92.234 Operating room of hospital as the place of occurrence of the external cause; Z95.820 Peripheral vascular angioplasty status with implants and grafts; E11.51 Type 2 diabetes mellitus with diabetic peripheral angiopathy without gangrene; E11.42 Type 2 diabetes mellitus with diabetic polyneuropathy; E11.22 Type 2 diabetes mellitus with diabetic chronic kidney disease; N18.9 Chronic kidney disease, unspecified; I48.2 Chronic atrial fibrillation; E78.5 Hyperlipidemia, unspecified; I25.10 Atherosclerotic heart disease of native coronary artery without angina pectoris; M10.9 Gout, unspecified; F41.9 Anxiety disorder, unspecified; I25.5 Ischemic cardiomyopathy; I08.0 Rheumatic disorders of both mitral and aortic valves; E66.9 Obesity, unspecified; Z68.29 Body mass index [BMI] 29.0-29.9, adult; Z99.3 Dependence on wheelchair; Z95.5 Presence of coronary angioplasty implant and graft; Z85.51 Personal history of malignant neoplasm of bladder; Z90.6 Acquired absence of other parts of urinary tract; Z87.891 Personal history of nicotine dependence; Z87.19 Personal history of other diseases of the digestive system; Z86.14 Personal history of Methicillin resistant Staphylococcus aureus infection; Z89.612 Acquired absence of left leg above knee; Z89.411 Acquired absence of right great toe; Z89.421 Acquired absence of other right toe(s); Z79.01 Long term (current) use of anticoagulants; Z79.1 Long term (current) use of non-steroidal anti-inflammatories (NSAID); Z79.4 Long term (current) use of insulin; Z79.82 Long term (current) use of aspirin; Z79.84 Long term (current) use of oral hypoglycemic drugs; Z79.899 Other long term (current) drug therapy; Z88.0 Allergy status to penicillin; Z88.1 Allergy status to other antibiotic agents; Z88.5 Allergy status to narcotic agent; Z88.8 Allergy status to other drugs, medicaments and biological substances; Z83.3 Family history of diabetes mellitus; Z82.3 Family history of stroke; Z80.7 Family history of other malignant neoplasms of lymphoid, hematopoietic and related tissues

== ENCOUNTER → 2017-10-11 | Outpatient (CLI) | payer OTHER, MEDICARE ==
[~2017-10-11] MED LIST changes: -ENOX30IN4 SQ; -LACTATED RINGER'S 1000ML 1,000 ML IV SCH
[2017-10-11 14:50] LABS: URINE APPEARANCE TURBID (CLEAR); URINE BILIRUBIN NEG (NEG); URINE COLOR YELLOW; URINE EPITHELIAL CELL AUTO 0-5 /lpf (0-5); URINE NITRITE POS (NEG); URINE SPECIFIC GRAVITY 1.013 (1.000-1.030); UROBILINOGEN NEG (NEG)
[2017-10-11 14:51] LABS: MANUAL MICROSCOPIC REQUIRED? NO; REVIEW REQ? YES
== END | disposition home or self-care (01) ==
LOC: C.LAB1850 13:30
PROVIDERS: ATTEND Physician Assistant
DX: N39.0 Urinary tract infection, site not specified (principal)

== ENCOUNTER 2017-11-08 11:15 | Emergency (ER) | payer OTHER, MEDICARE ==
[2017-11-08 11:18] VITALS: TEMP 36.3; Ht 193 cm
--- NOTE | 2017-11-08 12:56 | EMERGENCY ROOM VISIT NOTE ---
History Report prepared by Peterson: Brian Adam Under the Supervision of: Dr. Hailey De Santiago M.D. First contact with patient: 11:56 Chief Complaint: SHORTNESS OF BREATH Stated Complaint: SOB History of Present Illness The patient is a 82 year old male who presents to the Emergency Room with complaints of constant shortness of breath this morning. The patient states that his shortness of breath is worsened with exertion. The patient states that he has a history of CHF, diabetes, and he has had pneumonia recently. He states that he has a history of neuropathy, and he recently had surgery on his left leg for a blocked artery. The patient denies any fever, abnormal leg swelling, hematochezia, and he states that he is not more short of breath while laying down. The patient is not on oxygen at home. He has a history of neuropathy and macular degeneration, and he is on Coumadin. He does not have a history of COPD. Source of History: patient Onset: this morning Position: other (global) Quality: other (shortness of breath) Timing: constant Modifying Factors (Worsening): exertion Associated Symptoms: No fevers, No hematochezia Review of Systems See HPI for pertinent positives & negatives. A total of 10 systems reviewed and were otherwise negative. 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 (16) uti (17) Vasculopathy Surgical Problems: (1) History of cardiac catheterization Family History Diabetes mellitus FH: lymphoma FH: throat cancer FHx: hypertension Heart disease Social History Smoking Status: Former Smoker Alcohol Use: none Drug Use: none Marital Status: , in relationship Housing Status: lives alone Occupation Status: retired Current/Historical Medications Scheduled Aspirin (Aspirin Ec), 81 MG PO QAM Atorvastatin (Lipitor), 40 MG PO QPM Digoxin (Digoxin), 0.5 TAB PO QAM Docusate Sodium (Docusate Sodium), 200 MG PO QAM Febuxostat (Uloric), 1 TAB PO DAILY Ferrous Sulfate (Kp Ferrous Sulfate), 1 TAB PO QPM Finasteride (Proscar), 5 MG PO 1500 Furosemide (Lasix), 40 MG PO BID Glipizide (Glipizide Er), 1 TAB PO QAM Insulin Human Isophan/Regular (Humulin 70/30), 1 DOSE SC QPM/HS Insulin Isophan/Regular (Humulin 70/30), 30 UNITS SC QAM Lactobacillus Acidophilus (Lactinex), 1 TAB PO MWF Lisinopril (Zestril), 2.5 MG PO QAM Metoprolol Succinate (Toprol Xl), 1 TAB PO QAM Multiple Vitamins W/ Minerals (Eye Vitamins), 1 CAP PO BID Multivitamin (Multivitamin), 1 TAB PO QAM Nitrofurantoin Macrocrystals (Macrodantin), 100 MG PO HS Nutritional Supplements (Glucerna), 1 CAN PO BID Tamsulosin Hcl (Flomax), 0.4 MG PO QAM Temazepam (Restoril), 30 MG PO HS Temazepam (Restoril), 15 MG PO HS Trazodone Hcl (Trazodone), 50 MG PO HS Warfarin Sod (Coumadin), 2.5 MG PO QPM Scheduled PRN Acetaminophen (Tylenol), 650 MG PO Q4H PRN for Pain Magnesium Hydroxide (Milk Of Magnesia), 30 ML PO DAILY PRN for Constipation Allergies Coded Allergies: Risperidone and Related (Verified Allergy, Unknown, PT UNSURE OF RXN, 11/08) Meclizine (Verified Adverse Reaction, Severe, CAUSED NAUSEA, MADE HIM "FEEL FUNNY", 11/08/17) Cephalexin (Verified Adverse Reaction, Mild, NAUSEA, also had Rocephin & Ancef inpast, DIARRHEA, 11/08/17) Pregabalin (Verified Adverse Reaction, Mild, NAUSEA, 11/08/17) Sulfa Antibiotics (Verified Adverse Reaction, Mild, NAUSEA, 11/08/17) Tramadol (Verified Adverse Reaction, Mild, HALLUCINATIONS, 11/08/17) Hydrocodone (Verified Adverse Reaction, Unknown, HALLUCINATIONS, 11/08/17) Linezolid (Verified Adverse Reaction, Unknown, GI DISTRESS, 11/08/17) Penicillins (Verified Adverse Reaction, Unknown, gi upset, 11/08/17) Tetracycline (Verified Adverse Reaction, Unknown, TURNED HEAD OF PENIS RED /EXCORIATED, 11/08/17) Physical Exam Vital Signs Date Time Temp Pulse Resp B/P (MAP) Pulse Ox O2 Delivery O2 Flow Rate FiO2 11/08/17 15:03 69 17 123/60 97 11/08/17 13:03 69 17 123/60 97 Room Air 11/08/17 12:07 Room Air 11/08/17 11:38 73 11/08/17 11:18 36.3 69 18 129/62 96 Room Air Physical Exam Vital signs reviewed. General: Chronically ill appearing male, somewhat pale, in no significant distress. HEENT: No scleral icterus, PERRLA, neck supple. Atraumatic. Normal conjunctiva Cardiovascular: Regular rate and rhythm, no extra sounds. Pulmonary: Diminished breath sounds bilaterally but equal. normal work of breathing. Abdomen: Soft, nontender, nondistended, positive bowel sounds. Musculoskeletal: Left above the knee amputation. Atraumatic, minimal peripheral edema. Neurologic: Patient awake alert and oriented x 3, full strength in all extremities. Cranial nerves 2 through 12 grossly intact. Skin: Pale in appearance. Warm, dry, no rash Medical Decision & Procedures ER Provider Diagnostic Interpretation: Radiology results as stated below per my review and radiologist interpretation: CHEST ONE VIEW PORTABLE CLINICAL HISTORY: SOB, TEAGUE dyspnea COMPARISON STUDY: 10/03/2017 FINDINGS: Moderate cardiomegaly. Mild congestive failure. Small bilateral pleural effusions. Calcified granuloma right base. IMPRESSION: Findings consistent with mild congestive heart failure. The above report was generated using voice recognition software. It may contain grammatical, syntax or spelling errors. Electronically signed by: Sreekanth Wood M.D. 11/08/2017 1:25 PM Dictated Date/Time: 11/08/2017 1:21 PM Laboratory Results 11/08/17 11:52 Red Blood Count 3.68, Mean Corpuscular Volume 95.1, Mean Corpuscular Hemoglobin 30.2, Mean Corpuscular Hemoglobin Concent 31.7, Mean Platelet Volume 11.4, Neutrophils (%) (Auto) 65.5, Lymphocytes (%) (Auto) 21.3, Monocytes (%) (Auto) 10.5, Eosinophils (%) (Auto) 2.1, Basophils (%) (Auto) 0.3, Neutrophils # (Auto ) 2.56, Lymphocytes # (Auto) 0.83, Monocytes # (Auto) 0.41, Eosinophils # (Auto ) 0.08, Basophils # (Auto) 0.01 11/08/17 11:52 Test 11/08/17 11:52 11/08/17 12:38 11/08/17 13:00 11/08/17 13:25 White Blood Count 3.90 K/uL (4.8-10.8) Red Blood Count 3.68 M/uL (4.7-6.1) Hemoglobin 11.1 g/dL (14.0-18.0) Hematocrit 35.0 % (42-52) Mean Corpuscular Volume 95.1 fL (80-100) Mean Corpuscular Hemoglobin 30.2 pg (25-34) Mean Corpuscular Hemoglobin Concent 31.7 g/dl (32-36) Platelet Count 151 K/uL (130-400) Mean Platelet Volume 11.4 fL (7.4-10.4) Neutrophils (%) (Auto) 65.5 % Lymphocytes (%) (Auto) 21.3 % Monocytes (%) (Auto) 10.5 % Eosinophils (%) (Auto) 2.1 % Basophils (%) (Auto) 0.3 % Neutrophils # (Auto) 2.56 K/uL (1.4-6.5) Lymphocytes # (Auto) 0.83 K/uL (1.2-3.4) Monocytes # (Auto) 0.41 K/uL (0.11-0.59) Eosinophils # (Auto) 0.08 K/uL (0-0.5) Basophils # (Auto) 0.01 K/uL (0-0.2) RDW Standard Deviation 57.4 fL (36.4-46.3) RDW Coefficient of Variation 16.5 % (11.5-14.5) Immature Granulocyte % (Auto) 0.3 % Immature Granulocyte # (Auto) 0.01 K/uL (0.00-0.02) Prothrombin Time 76.3 SECONDS (9.0-12.0) Prothromb Time International Ratio 7.6 (0.9-1.1) Activated Partial Thromboplast Time 47.0 SECONDS (21.0-31.0) Partial Thromboplastin Ratio 1.8 Anion Gap 7.0 mmol/L (3-11) Estimated GFR () 38.2 Estimated GFR (Non- 33.0 BUN/Creatinine Ratio 15.5 (10-20) Calcium Level 9.4 mg/dl (8.5-10.1) Total Bilirubin 0.7 mg/dl (0.2-1) Direct Bilirubin 0.2 mg/dl (0-0.2) Aspartate Amino Transf (AST/SGOT) 15 U/L (15-37) Alanine Aminotransferase (ALT/SGPT) 17 U/L (12-78) Alkaline Phosphatase 88 U/L (45-117) Total Creatine Kinase 46 U/L (39-308) Creatine Kinase MB 2.3 ng/ml (0.5-3.6) Creatine Kinase MB Ratio 5.0 (0-3.0) Pro-B-Type Natriuretic Peptide > 13859 pg/ml (0-1800) Total Protein 6.6 gm/dl (6.4-8.2) Albumin 3.0 gm/dl (3.4-5.0) Bedside Troponin I < 0.030 ng/ml (0-0.045) Urine Color YELLOW Urine Appearance CLEAR (CLEAR) Urine pH 6.0 (4.5-7.5) Urine Specific [place] 1.013 (1.000-1.030) Urine Protein NEG (NEG) Urine Glucose (UA) NEG (NEG) Urine Ketones NEG (NEG) Urine Occult Blood TRACE (NEG) Urine Nitrite NEG (NEG) Urine Bilirubin NEG (NEG) Urine Urobilinogen NEG (NEG) Urine Leukocyte Esterase NEG (NEG) Urine WBC (Auto) 1-5 /hpf (0-5) Urine RBC (Auto) 5-10 /hpf (0-4) Urine Hyaline Casts (Auto) 1-5 /lpf (0-5) Urine Epithelial Cells (Auto) 0-5 /lpf (0-5) Urine Bacteria (Auto) NEG (NEG) Influenza Type A (RT-PCR) Neg for Influ A (NEG) Influenza Type A Antigen See Comment (NEG) Influenza Type B Antigen See Comment (NEG) Influenza Type B (RT-PCR) Neg for Influ B (NEG) Laboratory results per my review. Medications Administered Medications (Trade) Dose Ordered Sig/Dimas Route Start Time Stop Time Status Last Admin Dose Admin Furosemide (Lasix Inj) 40 mg NOW STAT IV 11/08/17 13:23 11/08/17 13:24 DC 11/08/17 13:29 40 MG Phytonadione 2.5 mg/Sodium Chloride 50.25 ml @ 100.5 mls/ hr ONE ONCE IV 11/08/17 14:15 11/08/17 14:44 DC 11/08/17 14:24 100.5 MLS/HR ECG Indication: SOB/dyspnea Rate (beats per minute): 69 Rhythm: atrial fibrillation Findings: no acute ischemic change, no ectopy, other (Intraventricular conduction delay. ST changes in the lateral leads. Likley previous anterior infarct.) Change: Patient's electrocardiogram interpreted by me. ED Course 1223: Past medical records reviewed. The patient was evaluated in room C8. A complete history and physical examination was performed. 1323: Lasix 40mg IV 1402: I discussed the patient's case with Dr. Watters - [facility], and he recommends giving the patient more Lasix, and to send the patient home. I ordered Lasix 40mg IV 1415: Phytonedione 2.5mg/ Sodium Chloride 50.25 @ 100.5ml/hr IV 1427: Upon reevaluation, the patient appeared to have improvement of his symptoms. I discussed findings with him. He verbalized agreement of the treatment plan. He was discharged home. Medical Decision Differential diagnosis: Etiologies such as infections, reactive airway disease, pneumonia, pneumothorax , COPD, CHF, cardiac ischemia, pulmonary embolism, musculoskeletal, gastrointestinal, as well as others were entertained. This patient was evaluated and appeared to be in no significant distress. The patient is found to be stable on room air. He is not in any respiratory distress. EKG reveals no acute changes. He is in a rate controlled atrial fibrillation. Chest x-ray was obtained and reveals congestive changes. Laboratory reveals a BNP greater than 35,000. His INR is 7.6 and H&H is stable. Patient was given 40 mg of IV Lasix. The patient was offered observation stay for further management of his CHF however he prefers to be discharged. A call to Dr. Watters, the patient's department secretary was placed. He has recommended an additional 40 mg of IV Lasix for a total of 80 mg. The patient will increase his daily Lasix to 80 in the morning and 40 at night 1 week[address] He'll contact Dr. Watters's office this week for reevaluation. Patient was given 2.5 mg of IV vitamin K. He will hold his Coumadin tonight. He does check his INR at home. When his INR is approximately 3 or less, he will resume his Coumadin therapy. The patient will return to the emergency department for worsening of symptoms or any medical concerns. Medication Reconcilliation Current Medication List: was personally reviewed by me Blood Pressure Screening Patient's blood pressure: Normal blood pressure Consults Time Called: 1348 Consulting Physician: Dr. Duong [facility]s Card[facility] Returned Call: 1402 I discussed the patient's case with Dr. Duong Griffiths Cardiology, and he recommends giving the patient more Lasix, and to send the patient home. Impression Primary Impression: Congestive heart failure Additional Impression: Supratherapeutic INR Scribe Attestation The scribe's documentation has been prepared under my direction and personally reviewed by me in its entirety. I confirm that the note above accurately reflects all work, treatment, procedures, and medical decision making performed by me. Departure Information Dispostion Home / Self-Care Referrals Jayme Wilkerson M.D. (PCP) Forms HOME CARE DOCUMENTATION FORM, IMPORTANT VISIT INFORMATION Patient Instructions [facility] Additional Instructions Diagnosis: Congestive heart failure, supratherapeutic INR Increase your Lasix to 80 mg in the morning, 40 mg in the evening 1 week. Follow-up with Dr. Watters of cardiology within the next week for reevaluation. Hold your Coumadin 2 days, resume on Sunday. Have your INR repeated Sunday. Return to the emergency department for worsening of symptoms or any medical concerns. Problem Qualifiers
[2017-11-08 13:08] LABS: BASO % 0.3 %; BASO ABS # 0.01 K/uL (0-0.2); EOS % 2.1 %; EOS ABS # 0.08 K/uL (0-0.5); HEMOGLOBIN 11.1 g/dL (14.0-18.0); IG# 0.01 K/uL (0.00-0.02); LYMPH % 21.3 %; LYMPH ABS # 0.83 K/uL (1.2-3.4); MEAN CELL VOLUME 95.1 fL (80-100); MEAN CORPUSCULAR HEMOGLOBIN 30.2 pg (25-34); MEAN CORPUSCULAR HGB CONC 31.7 g/dl (32-36); MEAN PLATELET VOLUME 11.4 fL (7.4-10.4); MONO % 10.5 %; MONO ABS # 0.41 K/uL (0.11-0.59); NEUT % 65.5 %; NEUT ABS # 2.56 K/uL (1.4-6.5); PLATELET COUNT 151 K/uL (130-400); RED CELL DISTRIBUTION WIDTH CV 16.5 % (11.5-14.5); RED CELL DISTRIBUTION WIDTH SD 57.4 fL (36.4-46.3)
[2017-11-08 13:17] LABS: ALT/SGPT 17 U/L (12-78); AST/SGOT 15 U/L (15-37); BLOOD UREA NITROGEN 29 mg/dl (7-18); CALCIUM 9.4 mg/dl (8.5-10.1); CARBON DIOXIDE 29 mmol/L (21-32); CREATININE 1.86 mg/dl (0.60-1.40); GLUCOSE 144 mg/dl (70-99); POTASSIUM 3.7 mmol/L (3.5-5.1); SODIUM 140 mmol/L (136-145)
[2017-11-08 13:22] LABS: ALKALINE PHOSPHATASE 88 U/L (45-117); CKMB 2.3 ng/ml (0.5-3.6); TOTAL PROTEIN 6.6 gm/dl (6.4-8.2)
[2017-11-08] MEDS ORDERED: FUROSEMIDE 40 MG/4 ML VIAL IV STA ×2 (13:23→14:02)
--- NOTE | 2017-11-08 13:26 | DIAGNOSTIC IMAGING REPORT ---
CHEST ONE VIEW PORTABLE CLINICAL HISTORY: SOB, TEAGUE dyspnea COMPARISON STUDY: 10/03/2017 FINDINGS: Moderate cardiomegaly. Mild congestive failure. Small bilateral pleural effusions. Calcified granuloma right base. IMPRESSION: Findings consistent with mild congestive heart failure. The above report was generated using voice recognition software. It may contain grammatical, syntax or spelling errors. Electronically signed by: Sreekanth Wood M.D. 11/08/2017 1:25 PM Dictated Date/Time: 11/08/2017 1:21 PM
[2017-11-08] MEDS ORDERED: ALUMSUS2 PEG (13:44)
[2017-11-08] MEDS ORDERED: NITR1CAP32 PO (13:44)
[2017-11-08] MEDS ORDERED: FEBU40TA PO (13:44)
[2017-11-08] MEDS ORDERED: LCTX PO (13:44)
[2017-11-08] MEDS ORDERED: NUTR-468 PO (13:44)
[2017-11-08] MEDS ORDERED: MOML PO (13:44)
[2017-11-08 13:48] LABS: INR 7.6 (0.9-1.1)
[2017-11-08] MEDS ORDERED: PHYTONADIONE INJ 2.5 MG in SODIUM CHLORIDE 0.9% 50ML 50 ML IV ONE (14:15)
[2017-11-08 15:03] VITALS: BP 123/60; PULSE 69; O2SAT 97
[2017-11-08 15:42] LABS: INFLUENZA A PCR Neg for Influ A (NEG); INFLUENZA B PCR Neg for Influ B (NEG)
== END 2017-11-08 15:04 | disposition home or self-care (01) ==
LOC: C.EDB 11:17 → C.EDC 15:04
DX: I50.9 Heart failure, unspecified (principal); I48.91 Unspecified atrial fibrillation; N18.9 Chronic kidney disease, unspecified; E11.9 Type 2 diabetes mellitus without complications; M21.162 Varus deformity, not elsewhere classified, left knee; R56.9 Unspecified convulsions; Z83.3 Family history of diabetes mellitus; Z82.49 Family history of ischemic heart disease and other diseases of the circulatory system; Z87.891 Personal history of nicotine dependence; Z79.82 Long term (current) use of aspirin; Z79.4 Long term (current) use of insulin; Z79.01 Long term (current) use of anticoagulants; Z51.81 Encounter for therapeutic drug level monitoring

== ENCOUNTER 2017-12-21 10:57 | Emergency (ER) | payer OTHER, MEDICARE ==
[~2017-12-21 10:57] MED LIST changes: -ALPR-411 PO; +FEBU40TA PO; -IMD/2 PO; +LCTX PO; +MOML PO; +NITR1CAP32 PO; +NUTR-468 PO; -NUTR1.2L PO; -SACC250C11 PO
[2017-12-21 11:01] VITALS: TEMP 36.3; Ht 193 cm
[2017-12-21] MEDS ORDERED: ASPIRIN 81 MG CHEW PO STA (11:33)
--- NOTE | 2017-12-21 11:54 | EMERGENCY ROOM VISIT NOTE ---
History Report prepared by Peterson: Celine Al Under the Supervision of: Dr. Aime Philippe M.D. First contact with patient: 11:26 Chief Complaint: SHORTNESS OF BREATH Stated Complaint: CONGESTIVE HEART FAILURE History of Present Illness The patient is a 82 year old male who presents to the Emergency Room with complaints of constant shortness of breath beginning 10 days ago. The patient notes a dry cough and difficulty catching his breath. He denies any coughing up blood, chest pain, blood in his stools. He denies any recent falls. The patient believes he has CHF. The patient is on Coumadin and his last level was 3.9. The patient has a history of diabetes. Was told to come into the emergency department by his PCP Source of History: patient Onset: 10 days ago Position: other (generalized) Quality: other (shortness fo breath) Timing: constant Associated Symptoms: + cough, + SOB, No chest pain Review of Systems See HPI for pertinent positives and negatives. A total of ten systems were reviewed and were otherwise negative. 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 (16) uti (17) Vasculopathy Surgical Problems: (1) History of cardiac catheterization Family History Diabetes mellitus FH: lymphoma FH: throat cancer FHx: hypertension Heart disease Social History Smoking Status: Former Smoker Alcohol Use: none Drug Use: none Marital Status: , in relationship Housing Status: lives alone Occupation Status: retired Current/Historical Medications Scheduled Atorvastatin (Lipitor), 40 MG PO QPM Digoxin (Digoxin), 0.5 TAB PO QAM Docusate Sodium (Docusate Sodium), 200 MG PO QAM Febuxostat (Uloric), 40 MG PO DAILY Finasteride (Proscar), 5 MG PO 1500 Furosemide (Lasix), 40 MG PO DAILY Glipizide (Glipizide Er), 5 MG PO QAM Insulin Glargine (Lantus), 7 UNITS SC UD Insulin Human Isophan/Regular (Humulin 70/30), 1 DOSE SC QPM/HS Insulin Isophan/Regular (Humulin 70/30), 30 UNITS SC QAM Lactobacillus Acidophilus (Lactinex), 1 TAB PO MWF Lisinopril (Zestril), 2.5 MG PO QAM Metoprolol Succinate (Toprol Xl), 100 MG PO QAM Multiple Vitamins W/ Minerals (Eye Vitamins), 1 CAP PO BID Multivitamin (Multivitamin), 1 TAB PO QAM Nitrofurantoin Macrocrystals (Macrodantin), 100 MG PO HS Nutritional Supplements (Glucerna 1.2 Guicho), 1 CAN PO BID Tamsulosin Hcl (Flomax), 0.4 MG PO QAM Temazepam (Restoril), 30 MG PO HS Temazepam (Restoril), 15 MG PO HS Trazodone Hcl (Trazodone), 50 MG PO HS Warfarin Sod (Coumadin), 2.5 MG PO UD Scheduled PRN Acetaminophen (Tylenol), 650 MG PO Q4H PRN for Pain Alprazolam (Alprazolam), 0.25 MG PO Q8 PRN for , Magnesium Hydroxide (Milk Of Magnesia), 30 ML PO DAILY PRN for Constipation Allergies Coded Allergies: Risperidone and Related (Verified Allergy, Unknown, PT UNSURE OF RXN, ) Meclizine (Verified Adverse Reaction, Severe, CAUSED NAUSEA, MADE HIM "FEEL FUNNY", 12/21/17) Cephalexin (Verified Adverse Reaction, Mild, NAUSEA, also had Rocephin & Ancef inpast, DIARRHEA, 12/21/17) Pregabalin (Verified Adverse Reaction, Mild, NAUSEA, 12/21/17) Sulfa Antibiotics (Verified Adverse Reaction, Mild, NAUSEA, 12/21/17) Tramadol (Verified Adverse Reaction, Mild, HALLUCINATIONS, 12/21/17) Hydrocodone (Verified Adverse Reaction, Unknown, HALLUCINATIONS, 12/21/17) Linezolid (Verified Adverse Reaction, Unknown, GI DISTRESS, 12/21/17) Penicillins (Verified Adverse Reaction, Unknown, gi upset, 12/21/17) Tetracycline (Verified Adverse Reaction, Unknown, TURNED HEAD OF PENIS RED /EXCORIATED, 12/21/17) Physical Exam Vital Signs Date Time Temp Pulse Resp B/P (MAP) Pulse Ox O2 Delivery O2 Flow Rate FiO2 12/21/17 14:55 69 23 142/75 100 Room Air 12/21/17 14:20 74 25 128/78 100 Room Air 12/21/17 12:28 77 24 139/82 97 Room Air 12/21/17 12:05 87 12/21/17 12:02 98 Room Air 12/21/17 11:31 100 Room Air 12/21/17 11:29 100 Room Air Nasal Cannula 12/21/17 11:01 36.3 91 20 140/78 93 Room Air Physical Exam Physical Exam GENERAL: He is oriented to person, place, and time. He appears well-developed and well-nourished. He does not appear distressed. ____ HENT: Exam performed. Head: Normocephalic and atraumatic. Right Ear: External ear normal. No mastoid tenderness. Left Ear: External ear normal. No mastoid tenderness. Mouth/Throat: The oropharynx is clear and moist. No trismus in the jaw. No dental abscesses or uvula swelling. No oropharyngeal exudate or tonsillar abscesses. ____ EYES: Conjunctivae and EOM are normal. Pupils are equal, round, and reactive to light. Right eye exhibits no discharge. Left eye exhibits no discharge. No scleral icterus. ____ NECK: Normal range of motion. Neck supple. No JVD present. No spinous process tenderness present. No carotid bruit present. No rigidity. No tracheal deviation and normal range of motion present. No Brudzinski's sign and no Kernig 's sign noted. ____ CV: Normal rate, regular rhythm, normal heart sounds and intact distal pulses. Palpable radial pulses bue. ____ PULM/CHEST: Decreased breath sounds of right lower lung. No respiratory distress. No stridor. He has no wheezes. He has no rales. Chest Wall: He exhibits no tenderness. ____ ABD: The abdomen is soft. Bowel sounds are normal. He has no distension. No mass is present. There is no tenderness. There is no rebound, no guarding, no Rose's sign and no tenderness at McBurney's point. Rovsig negative MUSC/SKEL: Left sided AKA. Toes ambulated on right side. 1+ pitting edema in the right lower extremity. LYMPH: No cervical adenopathy. ____ NEURO: He is alert and oriented to person, place, and time. He has normal strength. No cranial nerve deficit or sensory deficit. Coordination and gait normal. GCS eye subscore is 4. GCS verbal subscore is 5. GCS motor subscore is 6. Cerebellar tests wnl. ____ SKIN: Left sided fistula with palpable thrill. Skin is warm and dry. He is not diaphoretic. ____ PSYCH: He has a normal mood and affect. He behavior is normal. Judgment and thought content normal. ____ Medical Decision & Procedures ER Provider Diagnostic Interpretation: Radiology results as stated below per my review and radiologist interpretation: TWO VIEW CHEST CLINICAL HISTORY: Dyspnea. FINDINGS: AP and lateral chest radiographs are compared to study dated 11/08/2017. The AP view is degraded by patient rotation. The heart is enlarged and there is atherosclerotic calcification of the thoracic aorta. There is pulmonary vascular congestion and interstitial edema. There are small layering pleural effusions with bibasilar consolidation. This likely represents atelectasis. Calcified granulomas are seen in the right lower lung. There is no pneumothorax. The skeletal structures are osteopenic. The bony thorax appears intact. IMPRESSION: 1. Cardiomegaly with evidence of congestive failure and interstitial edema. 2. Small pleural effusions with bibasilar consolidation. Electronically signed by: Barrett Smith M.D. Laboratory Results 12/21/17 13:00 Red Blood Count 4.36, Mean Corpuscular Volume 93.1, Mean Corpuscular Hemoglobin 29.4, Mean Corpuscular Hemoglobin Concent 31.5, Mean Platelet Volume 10.7, Neutrophils (%) (Auto) 74.9, Lymphocytes (%) (Auto) 14.8, Monocytes (%) (Auto) 9.1, Eosinophils (%) (Auto) 0.8, Basophils (%) (Auto) 0.2, Neutrophils # (Auto) 3.79, Lymphocytes # (Auto) 0.75, Monocytes # (Auto) 0.46, Eosinophils # (Auto) 0.04, Basophils # (Auto) 0.01 12/21/17 13:00 Test 12/21/17 13:00 White Blood Count 5.06 K/uL (4.8-10.8) Red Blood Count 4.36 M/uL (4.7-6.1) Hemoglobin 12.8 g/dL (14.0-18.0) Hematocrit 40.6 % (42-52) Mean Corpuscular Volume 93.1 fL (80-100) Mean Corpuscular Hemoglobin 29.4 pg (25-34) Mean Corpuscular Hemoglobin Concent 31.5 g/dl (32-36) Platelet Count 128 K/uL (130-400) Mean Platelet Volume 10.7 fL (7.4-10.4) Neutrophils (%) (Auto) 74.9 % Lymphocytes (%) (Auto) 14.8 % Monocytes (%) (Auto) 9.1 % Eosinophils (%) (Auto) 0.8 % Basophils (%) (Auto) 0.2 % Neutrophils # (Auto) 3.79 K/uL (1.4-6.5) Lymphocytes # (Auto) 0.75 K/uL (1.2-3.4) Monocytes # (Auto) 0.46 K/uL (0.11-0.59) Eosinophils # (Auto) 0.04 K/uL (0-0.5) Basophils # (Auto) 0.01 K/uL (0-0.2) RDW Standard Deviation 52.0 fL (36.4-46.3) RDW Coefficient of Variation 15.3 % (11.5-14.5) Immature Granulocyte % (Auto) 0.2 % Immature Granulocyte # (Auto) 0.01 K/uL (0.00-0.02) Prothrombin Time 31.5 SECONDS (9.0-12.0) Prothromb Time International Ratio 3.1 (0.9-1.1) Activated Partial Thromboplast Time 37.8 SECONDS (21.0-31.0) Partial Thromboplastin Ratio 1.5 Anion Gap 6.0 mmol/L (3-11) Estimated GFR () 39.2 Estimated GFR (Non- 33.8 BUN/Creatinine Ratio 16.4 (10-20) Calcium Level 9.9 mg/dl (8.5-10.1) Magnesium Level 2.3 mg/dl (1.8-2.4) Troponin I 0.028 ng/ml (0-0.045) Pro-B-Type Natriuretic Peptide > 70945 pg/ml (0-1800) Laboratory results reviewed by me Medications Administered Medications (Trade) Dose Ordered Sig/Dimas Route Start Time Stop Time Status Last Admin Dose Admin Aspirin (Aspirin Chew) 324 mg NOW STAT PO 12/21/17 11:33 12/21/17 11:34 DC 12/21/17 12:26 324 MG Furosemide (Lasix Inj) 40 mg NOW STAT IV 12/21/17 14:05 12/21/17 14:07 DC 12/21/17 15:00 40 MG ECG Per My Interpretation Indication: SOB/dyspnea Rate (beats per minute): 95 Rhythm: sinus rhythm Findings: PVC, other (TN, QRS, QTC within normal limits, no ST elevation or ST depression ) ED Course 1128: The patient was evaluated in room A4B. A complete history and physical exam was performed. 1133: Ordered Aspirin 324 mg PO. 1405: Chest x-ray shows cardiomegaly with cephalization, consistent with congestive heart failure exacerbation. Labs with the exception of Coumadin of 3.1 and proBNP greater than 35,000 within normal limits. Troponin negative. Ordered Lasix Inj 40 mg IV. Discussed the patient's case with Dr. Faustin for admission. The patient will be evaluated for further treatment and disposition. Medical Decision Chest x-ray shows cardiomegaly with cephalization, consistent with congestive heart failure exacerbation. Labs with the exception of Coumadin of 3.1 and proBNP greater than 35,000 within normal limits. Troponin negative. Ordered Lasix Inj 40 mg IV. Discussed the patient's case with Dr. Faustin for admission. The patient will be evaluated for further treatment and disposition. Medication Reconcilliation Current Medication List: was personally reviewed by me Blood Pressure Screening Patient's blood pressure: Elevated blood pressure Blood pressure disposition: Referred to PCP (referred to hospitalist ) Consults Time Called: 1405 Consulting Physician: Dr. Faustin Returned Call: 1410 Discussed the patient's case with Dr. Faustin. The patient will be evaluated for further treatment and disposition. Impression Primary Impression: CHF exacerbation Scribe Attestation The scribe's documentation has been prepared under my direction and personally reviewed by me in its entirety. I confirm that the note above accurately reflects all work, treatment, procedures, and medical decision making performed by me. The chart was completed utilizing [employer] Speech voice recognition software. Grammatical errors, random word insertions, pronoun errors, and incomplete sentences are an occasional consequence of this system due to software limitations, ambient noise, and hardware issues. Any formal questions or concerns about the content, text, or information contained within the body of this dictation should be directly addressed to the physician for clarification. Departure Information Dispostion Being Evaluated By Hospitalist Referrals Jayme Wilkerson M.D. (PCP) Patient Instructions My [facility]
[2017-12-21] MEDS ORDERED: INSDGI SC (11:59)
[2017-12-21] MEDS ORDERED: NUTR1.2L PO (11:59)
[2017-12-21] MEDS ORDERED: ALPR-412 PO (11:59)
[2017-12-21 12:02] VITALS: O2SAT 98
--- NOTE | 2017-12-21 12:31 | DIAGNOSTIC IMAGING REPORT ---
TWO VIEW CHEST CLINICAL HISTORY: Dyspnea. FINDINGS: AP and lateral chest radiographs are compared to study dated 11/08/2017. The AP view is degraded by patient rotation. The heart is enlarged and there is atherosclerotic calcification of the thoracic aorta. There is pulmonary vascular congestion and interstitial edema. There are small layering pleural effusions with bibasilar consolidation. This likely represents atelectasis. Calcified granulomas are seen in the right lower lung. There is no pneumothorax. The skeletal structures are osteopenic. The bony thorax appears intact. IMPRESSION: 1. Cardiomegaly with evidence of congestive failure and interstitial edema. 2. Small pleural effusions with bibasilar consolidation. Electronically signed by: Barrett Smith M.D. 12/21/2017 12:30 PM Dictated Date/Time: 12/21/2017 12:29 PM
[2017-12-21 13:11] LABS: BASO % 0.2 %; BASO ABS # 0.01 K/uL (0-0.2); EOS % 0.8 %; EOS ABS # 0.04 K/uL (0-0.5); HEMATOCRIT 40.6 % (42-52); HEMOGLOBIN 12.8 g/dL (14.0-18.0); IG# 0.01 K/uL (0.00-0.02); LYMPH % 14.8 %; LYMPH ABS # 0.75 K/uL (1.2-3.4); MEAN CELL VOLUME 93.1 fL (80-100); MEAN CORPUSCULAR HEMOGLOBIN 29.4 pg (25-34); MEAN CORPUSCULAR HGB CONC 31.5 g/dl (32-36); MEAN PLATELET VOLUME 10.7 fL (7.4-10.4); MONO % 9.1 %; MONO ABS # 0.46 K/uL (0.11-0.59); NEUT % 74.9 %; NEUT ABS # 3.79 K/uL (1.4-6.5); PLATELET COUNT 128 K/uL (130-400); RED CELL DISTRIBUTION WIDTH CV 15.3 % (11.5-14.5); WHITE BLOOD COUNT 5.06 K/uL (4.8-10.8)
[2017-12-21 13:24] LABS: INR 3.1 (0.9-1.1); PTT PATIENT 37.8 SECONDS (21.0-31.0)
[2017-12-21 13:26] LABS: BLOOD UREA NITROGEN 30 mg/dl (7-18); CALCIUM 9.9 mg/dl (8.5-10.1); CARBON DIOXIDE 30 mmol/L (21-32); CREATININE 1.82 mg/dl (0.60-1.40); GLUCOSE 145 mg/dl (70-99); POTASSIUM 4.2 mmol/L (3.5-5.1); SODIUM 139 mmol/L (136-145)
[2017-12-21] MEDS ORDERED: FUROSEMIDE 40 MG/4 ML VIAL IV STA (14:05)
--- NOTE | 2017-12-21 15:54 | Medical Consult ---
Consultation Date of Consultation: Dec 21, 2017. Attending Physician: Melia Mendoza Reason for Consultation: Possible Admission History of Present Illness Mr. Montes is an 82yo C male with history of CHF (EF 25-30% with diffuse dilation per echocardiogram 06/20/17) presenting with 10-14 days of progressive shortness of breath. Patient feels that his symptoms are consistent with prior episodes of HF decompensation. He presently denies chest pain, orthopnea or worsening edema. He reports that his dry weight is typically 240 pounds (weight =242 pounds per bed scale during encounter). He denies fevers or chills. Reports a dry cough for months. He has had no recent medication changes or change in diet. He is adherent to his home medication regimen and follows routinely with outpatient Cardiology. ER Course: patient administered 324mg ASA po and Lasix 40mg IV x 1 Past Medical/Surgical History 1. Congestive heart failure - diagnosed in 1995, acute on chronic, systolic dysfunction EF 25-30% per echo 06/2017 2. Atrial fibrillation on coumadin anticoagulation 3. 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 CKD - baseline Cr 1.6-1.8 5. Hypertension 6. Gout 7. Chronic troponemia 8. Left BKA7. 9. Tonsillectomy 10. Fem-fem bypass 11. Fem- pop bypass 12. Left AV fistula placement Family History Diabetes mellitus FH: lymphoma FH: throat cancer FHx: hypertension Heart disease Social History Smoking Status: Former Smoker Smokeless Tobacco Use: No Alcohol Use: none Drug Use: none Marital Status: , in relationship Housing Status: lives alone Occupation Status: retired Allergies Coded Allergies: Risperidone and Related (Verified Allergy, Unknown, PT UNSURE OF RXN, ) Meclizine (Verified Adverse Reaction, Severe, CAUSED NAUSEA, MADE HIM "FEEL FUNNY", 12/21/17) Cephalexin (Verified Adverse Reaction, Mild, NAUSEA, also had Rocephin & Ancef inpast, DIARRHEA, 12/21/17) Pregabalin (Verified Adverse Reaction, Mild, NAUSEA, 12/21/17) Sulfa Antibiotics (Verified Adverse Reaction, Mild, NAUSEA, 12/21/17) Tramadol (Verified Adverse Reaction, Mild, HALLUCINATIONS, 12/21/17) Hydrocodone (Verified Adverse Reaction, Unknown, HALLUCINATIONS, 12/21/17) Linezolid (Verified Adverse Reaction, Unknown, GI DISTRESS, 12/21/17) Penicillins (Verified Adverse Reaction, Unknown, gi upset, 12/21/17) Tetracycline (Verified Adverse Reaction, Unknown, TURNED HEAD OF PENIS RED /EXCORIATED, 12/21/17) Home Medications Active Reported Glucerna 1.2 Guicho (Nutritional Supplements) 1 Liq Liq 1 Can PO BID Alprazolam 0.25 Mg Tab 0.25 Mg PO Q8 PRN 30 Days Lantus (Insulin Glargine) 100 Unit/Ml Inj 7 Units SC UD Macrodantin (Nitrofurantoin Macrocrystals) 100 Mg Cap 100 Mg PO HS Uloric (Febuxostat) 40 Mg Tab 40 Mg PO DAILY Milk Of Magnesia (Magnesium Hydroxide) 30 Ml Susp 30 Ml PO DAILY PRN Lactinex (Lactobacillus Acidophilus) Tab 1 Tab PO MWF Toprol Xl (Metoprolol Succinate) 100 Mg Tabcr 100 Mg PO QAM Humulin 70/30 (Insulin Human Isoph/Insulin Regular) Inj 1 Dose SC QPM/HS PT USES SLIDING SCALE DEPENDING ON BLOOD SUGAR Digoxin 0.125 Mg Tab 0.5 Tab PO QAM Eye Vitamins (Multiple Vitamins W/ Minerals) 1 Cap Cap 1 Cap PO BID Multivitamin (Multivitamins) Tab 1 Tab PO QAM Zestril (Lisinopril) 5 Mg Tab 2.5 Mg PO QAM Tylenol (Acetaminophen) 325 Mg Tab 650 Mg PO Q4H PRN Trazodone (Trazodone HCl) 50 Mg Tab 50 Mg PO HS Restoril (Temazepam) 15 Mg Cap 15 Mg PO HS Docusate Sodium 100 Mg Cap 200 Mg PO QAM Humulin 70/30 (Insulin Human Isoph/Insulin Regular) Susp 30 Units SC QAM Glipizide Er (Glipizide) 5 Mg Tab 5 Mg PO QAM Lasix (Furosemide) 40 Mg Tab 40 Mg PO DAILY Coumadin (Warfarin Sod) 2.5 Mg Tab 2.5 Mg PO UD Lipitor (Atorvastatin Calcium) 40 Mg Tab 40 Mg PO QPM Restoril (Temazepam) 30 Mg Cap 30 Mg PO HS Flomax (Tamsulosin Hcl) 0.4 Mg Cap 0.4 Mg PO QAM Proscar (Finasteride) 5 Mg Tab 5 Mg PO 1500 Review of Systems Constitutional: No fever, No weight loss, No fatigue Eyes: No worsening of vision ENT: No sore throat, No trouble swallowing Respiratory: + cough, + shortness of breath, + dyspnea at rest, No sputum, No wheezing, No dyspnea on exertion Cardiovascular: No chest pain, No orthopnea, No edema Abdomen: No pain, No nausea, No vomiting Physical Exam Date Time Temp Pulse Resp B/P (MAP) Pulse Ox O2 Delivery O2 Flow Rate FiO2 12/21/17 14:55 69 23 142/75 100 Room Air 12/21/17 14:20 74 25 128/78 100 Room Air 12/21/17 12:28 77 24 139/82 97 Room Air 12/21/17 12:05 87 12/21/17 12:02 98 Room Air 12/21/17 11:31 100 Room Air 12/21/17 11:29 100 Room Air Nasal Cannula 12/21/17 11:01 36.3 91 20 140/78 93 Room Air General Appearance: WD/WN, no apparent distress Head: normocephalic, atraumatic Eyes: normal inspection, PERRL, EOMI, sclerae normal ENT: hearing grossly normal, pharynx normal Neck: supple, no adenopathy, no JVD, trachea midline Respiratory/Chest: chest non-tender, no respiratory distress, no accessory muscle use (equal air entry bilaterally, diminished breath sounds in right base with mild bibasilar crackles) Cardiovascular: no edema, no gallop, no JVD, + systolic murmur (4/6 HODAN at apex ), + irregularly irregular Abdomen/GI: normal bowel sounds, non tender, soft, no organomegaly Extremities/Musculoskelatal: normal capillary refill (1+ edema right lower extremity, warm, palpable pulses, hairless) Skin: normal color, warm/dry, no rash Lymphatic: no adenopathy Laboratory Results Last 24 Hours Test 12/21/17 13:00 White Blood Count 5.06 K/uL Red Blood Count 4.36 M/uL Hemoglobin 12.8 g/dL Hematocrit 40.6 % Mean Corpuscular Volume 93.1 fL Mean Corpuscular Hemoglobin 29.4 pg Mean Corpuscular Hemoglobin Concent 31.5 g/dl Platelet Count 128 K/uL Mean Platelet Volume 10.7 fL Neutrophils (%) (Auto) 74.9 % Lymphocytes (%) (Auto) 14.8 % Monocytes (%) (Auto) 9.1 % Eosinophils (%) (Auto) 0.8 % Basophils (%) (Auto) 0.2 % Neutrophils # (Auto) 3.79 K/uL Lymphocytes # (Auto) 0.75 K/uL Monocytes # (Auto) 0.46 K/uL Eosinophils # (Auto) 0.04 K/uL Basophils # (Auto) 0.01 K/uL RDW Standard Deviation 52.0 fL RDW Coefficient of Variation 15.3 % Immature Granulocyte % (Auto) 0.2 % Immature Granulocyte # (Auto) 0.01 K/uL Prothrombin Time 31.5 SECONDS Prothromb Time International Ratio 3.1 Activated Partial Thromboplast Time 37.8 SECONDS Partial Thromboplastin Ratio 1.5 Sodium Level 139 mmol/L Potassium Level 4.2 mmol/L Chloride Level 103 mmol/L Carbon Dioxide Level 30 mmol/L Anion Gap 6.0 mmol/L Blood Urea Nitrogen 30 mg/dl Creatinine 1.82 mg/dl Estimated GFR () 39.2 Estimated GFR (Non- 33.8 BUN/Creatinine Ratio 16.4 Random Glucose 145 mg/dl Calcium Level 9.9 mg/dl Magnesium Level 2.3 mg/dl Troponin I 0.028 ng/ml Pro-B-Type Natriuretic Peptide > 73115 pg/ml Assessment & Plan 82 yo C male with longstanding history of congestive heart failure with reduced EF 25-30% per echo in 2017 presenting with suspected acute decompensation, progressive dyspnea x 10-14 days. Patient is presently hemodynamically stable, in no acute distress, breathing comfortably with adequate oxygenation on room air. Patient has a stable detectable troponin, 0.028 today, prior results ranging from 0.028 - 0.045. 1. HF with reduced EF, suspected decompensation - patient administered 40mg Lasix IV while in ER. Will monitor response. If patient has adequate urine output and improvement in symptoms will discharge home with followup with Cardiology and PCP. Recommend continuing home medication regimen as written - Toprol XL, Zestril, Digoxin, Lasix and statin. 2. Atrial fibrillation - presently rate controlled on Coumadin anticoagulation (INR=3.1) 3. HTN - hemodynamically stable. Continue home medication regimen 4. DM - Blood sugar presently 145. Continue home medication regimen Addendum 16:23 Patient with improved symptoms. Has some urine output with Lasix. States he is comfortable going home at this time. Patient to followup with Dr. Watters from Cardiology on December 25 at 08: 15. Patient informed of this appointment time. Recommend discharge home with outpatient followup at this time
[2017-12-21 16:47] VITALS: BP 135/84; PULSE 71; O2SAT 99
== END 2017-12-21 17:40 | disposition home or self-care (01) ==
LOC: C.EDB 10:58 → C.EDA 17:40
DX: I50.33 Acute on chronic diastolic (congestive) heart failure (principal); I48.91 Unspecified atrial fibrillation; I11.0 Hypertensive heart disease with heart failure; E11.9 Type 2 diabetes mellitus without complications; I70.90 Unspecified atherosclerosis; Z85.51 Personal history of malignant neoplasm of bladder; M10.9 Gout, unspecified; N18.9 Chronic kidney disease, unspecified; Z87.440 Personal history of urinary (tract) infections; Z83.3 Family history of diabetes mellitus; Z80.9 Family history of malignant neoplasm, unspecified; Z82.49 Family history of ischemic heart disease and other diseases of the circulatory system; Z87.891 Personal history of nicotine dependence; Z79.4 Long term (current) use of insulin; Z79.01 Long term (current) use of anticoagulants; Z79.899 Other long term (current) drug therapy; Z88.2 Allergy status to sulfonamides; Z88.5 Allergy status to narcotic agent; Z88.0 Allergy status to penicillin; Z88.8 Allergy status to other drugs, medicaments and biological substances

== ENCOUNTER → 2017-12-25 | Outpatient (CLI) | payer OTHER, MEDICARE ==
[~2017-12-25] MED LIST changes: +ALPR-412 PO; -ASPI81TA28 PO; -FERR1TAB13 PO; +INSDGI SC; -NUTR-468 PO; +NUTR1.2L PO
[2017-12-25 15:45] LABS: BASO % 0.2 %; BASO ABS # 0.01 K/uL (0-0.2); EOS % 1.5 %; EOS ABS # 0.08 K/uL (0-0.5); HEMATOCRIT 39.6 % (42-52); HEMOGLOBIN 12.4 g/dL (14.0-18.0); IG# 0.01 K/uL (0.00-0.02); LYMPH % 19.7 %; LYMPH ABS # 1.08 K/uL (1.2-3.4); MEAN CELL VOLUME 93.6 fL (80-100); MEAN CORPUSCULAR HEMOGLOBIN 29.3 pg (25-34); MEAN CORPUSCULAR HGB CONC 31.3 g/dl (32-36); MONO % 9.1 %; NEUT % 69.3 %; NEUT ABS # 3.79 K/uL (1.4-6.5); PLATELET COUNT 143 K/uL (130-400); RED CELL DISTRIBUTION WIDTH CV 15.5 % (11.5-14.5); RED CELL DISTRIBUTION WIDTH SD 52.2 fL (36.4-46.3); WHITE BLOOD COUNT 5.47 K/uL (4.8-10.8)
[2017-12-25 16:20] LABS: BLOOD UREA NITROGEN 25 mg/dl (7-18); CALCIUM 9.5 mg/dl (8.5-10.1); CARBON DIOXIDE 31 mmol/L (21-32); CREATININE 1.54 mg/dl (0.60-1.40); GLUCOSE 105 mg/dl (70-99); POTASSIUM 3.7 mmol/L (3.5-5.1); SODIUM 140 mmol/L (136-145)
[2017-12-26 06:05] LABS: HEMOGLOBIN A1C 6.4 % (4.5-5.6)
== END | disposition home or self-care (01) ==
LOC: C.LAB1850 14:35
PROVIDERS: ATTEND Internal Medicine
DX: E78.00 Pure hypercholesterolemia, unspecified (principal)

== ENCOUNTER → 2018-01-18 | Outpatient (CLI) | payer OTHER, MEDICARE | END | disposition home or self-care (01) | LOC: C.LAB1850 12:34 | PROVIDERS: ATTEND Internal Medicine | DX: E78.00 Pure hypercholesterolemia, unspecified (principal) ==

== ENCOUNTER → 2018-05-07 | Outpatient (CLI) | payer OTHER, MEDICARE ==
[~2018-05-07] MED LIST changes: +ALUMSUS2 PO; +BISA10SU3 PR; -CMD/25 PO; +DEXT40GE20 PO; +GLGKIT INJ; +IMD/2 PO; -INSDGI SC; -INSU1INJ SC; +LACTCAP PO; -LCTX PO; -LISI-729 PO; +LISI-789 PO; +MAGNSUS73 PO; -MOML PO; -MULTCAP7 PO; -NITR1CAP32 PO; +ONDA4TAB10 SL; +PANT1TAB4 PO; +POLY335019 PO; +SODIENE PR
[2018-05-07 16:36] LABS: HEMOGLOBIN 9.6 g/dL (14.0-18.0); MEAN CELL VOLUME 96.2 fL (80-100); MEAN CORPUSCULAR HEMOGLOBIN 30.8 pg (25-34); MEAN PLATELET VOLUME 10.4 fL (7.4-10.4); PLATELET COUNT 156 K/uL (130-400); RED CELL DISTRIBUTION WIDTH SD 56.2 fL (36.4-46.3); WHITE BLOOD COUNT 4.84 K/uL (4.8-10.8)
== END | disposition home or self-care (01) ==
LOC: C.LAB1850 15:30
PROVIDERS: ATTEND Internal Medicine
DX: N39.0 Urinary tract infection, site not specified (principal)

== ENCOUNTER → 2018-06-07 | Outpatient (CLI) | payer OTHER, MEDICARE ==
[2018-06-07 13:20] LABS: BASO % 0.2 %; BASO ABS # 0.01 K/uL (0-0.2); EOS % 1.3 %; EOS ABS # 0.08 K/uL (0-0.5); HEMATOCRIT 37.5 % (42-52); IG# 0.01 K/uL (0.00-0.02); LYMPH % 21.5 %; LYMPH ABS # 1.28 K/uL (1.2-3.4); MEAN CELL VOLUME 96.6 fL (80-100); MEAN CORPUSCULAR HEMOGLOBIN 30.9 pg (25-34); MEAN PLATELET VOLUME 10.6 fL (7.4-10.4); MONO % 8.8 %; MONO ABS # 0.52 K/uL (0.11-0.59); NEUT ABS # 4.04 K/uL (1.4-6.5); PLATELET COUNT 122 K/uL (130-400); RED CELL DISTRIBUTION WIDTH CV 14.5 % (11.5-14.5); WHITE BLOOD COUNT 5.94 K/uL (4.8-10.8)
[2018-06-07 14:01] LABS: BLOOD UREA NITROGEN 28 mg/dl (7-18); CARBON DIOXIDE 28 mmol/L (21-32); CREATININE 1.98 mg/dl (0.60-1.40); GLUCOSE 125 mg/dl (70-99); POTASSIUM 4.3 mmol/L (3.5-5.1); SODIUM 137 mmol/L (136-145)
[2018-06-07 14:08] LABS: HEMOGLOBIN A1C 5.7 % (4.5-5.6)
== END | disposition home or self-care (01) ==
LOC: C.LAB1850 12:20
PROVIDERS: ATTEND Internal Medicine
DX: M10.9 Gout, unspecified (principal); I48.91 Unspecified atrial fibrillation; E11.9 Type 2 diabetes mellitus without complications

== ENCOUNTER 2019-12-20 08:00 | Inpatient (IN) ==
[2019-12-20] MEDS ORDERED: SODIUM CHLORIDE 0.9% 500 ML IV ONE (08:47)
--- NOTE | 2019-12-20 08:49 | Emergency Department Note ---
ED Visit Note I assisted attending Dr. Sharma in the care of this patient. Please see attending's note for details of the visit. Cate Medina MD Urgent Care Physician PGY-3 . Resident Activity Tracking Resident Involvement: Resident Care Provided Care Provided: Adult ED
[2019-12-20 09:20] LABS: Basophils # (auto) 0.01 K/uL (0-0.2); Basophils % (auto) 0.3 %; Eosinophils # (auto) 0.06 K/uL (0-0.5); Eosinophils % (auto) 1.5 %; Hematocrit (blood only) 39.6 % (42-52); Hemoglobin 12.3 g/dL (14.0-18.0); Lymphocytes # (auto) 0.77 K/uL (1.2-3.4); Lymphocytes % (auto) 19.8 %; Mean Corpuscular Hemoglobin 30.3 pg (25-34); Mean Corpuscular Hgb Conc 31.1 g/dL (32-36); Mean Corpuscular Volume 97.5 fL (80-100); Mean Platelet Volume 9.9 fL (7.4-10.4); Monocytes # (auto) 0.42 K/uL (0.11-0.59); Monocytes % (auto) 10.8 %; Neutrophils # (auto) 2.63 K/uL (1.4-6.5); Neutrophils % (auto) 67.6 %; Platelet Count 105 K/uL (130-400); RDW Coefficient of Variation 16.1 % (11.5-14.5); RDW Standard Deviation 57.5 fL (36.4-46.3); Red Blood Count 4.06 M/uL (4.7-6.1); White Blood Count 3.89 K/uL (4.8-10.8)
[2019-12-20 09:35] LABS: Partial Thromboplastin Ratio 1.4; Partial Thromboplastin Time 38.5 Seconds (21.0-31.0); Prothrombin Time 29.8 Seconds (9.0-12.0)
[2019-12-20 09:36] LABS: Alanine Aminotransferase 12 U/L (12-78); Albumin Level 3.1 gm/dl (3.4-5.0); Aspartate Aminotransferase 9 U/L (15-37); BUN Creatinine Ratio 22.2 (10-20); Blood Urea Nitrogen 64 mg/dl (7-18); Calcium 9.8 mg/dl (8.5-10.1); Carbon Dioxide 28 mmol/L (21-32); Chloride 106 mmol/L (98-107); Est GFR (African American) 22.2; Est GFR (Non-African American) 19.2; Glucose 156 mg/dl (70-99); Potassium 4.3 mmol/L (3.5-5.1); Sodium 140 mmol/L (136-145)
[2019-12-20 09:41] LABS: Albumin Globulin Ratio 0.9 (0.9-2); Alkaline Phosphatase 64 U/L (45-117); Bilirubin,Total 0.8 mg/dl (0.2-1); Globulin 3.6 gm/dl (2.5-4.0); NT Pro B Type Natriuretic Pept > 35000 pg/ml (0-1800); Total Protein 6.7 gm/dl (6.4-8.2); Troponin I 0.044 ng/ml (0-0.045)
[2019-12-20 09:44] LABS: Ovalocytes 1+
--- NOTE | 2019-12-20 09:52 | XRay Report ---
XR chest 1V portable CLINICAL HISTORY: 84 years-old Male presenting with SOB. TECHNIQUE: Portable upright AP view of the chest was obtained. COMPARISON: 02/04/2019. FINDINGS: Atherosclerosis of the aortic arch. Cardiac silhouette enlarged. Pulmonary vascular prominence. Inter stitial prominence. Extensive right mid to basilar opacity. Small to moderate right pleural effusion. Limited evaluation of the left costophrenic angle. No pneumothorax. Osseous structures normal. Upper abdomen normal. IMPRESSION: 1. Cardiomegaly with volume overload and congestive change. 2. Asymmetric extensive right mid to basilar opacity may in large part represent a layering pleural effusion though there is suspected underlying either extensive atelectasis or consolidation/pneumonia . 3. Evaluation limited by exclusion of the left costophrenic angle. ACT 112: Negative or not required by law. Electronically signed by: Jordan Price M.D. 12/20/2019 9:51 AM
[2019-12-20] MEDS ORDERED: cefTRIAXone SODIUM 2,000 MG/70 ML BAG IV STA (10:30)
[2019-12-20] MEDS ORDERED: AZITHROMYCIN 250 MG TAB PO ONE (10:30)
[2019-12-20] MEDS ORDERED: FUROSEMIDE 40 MG/4 ML VIAL IV STA ×2 (10:35→10:57)
[2019-12-20] MEDS ORDERED: ACETAMINOPHEN 325 MG TAB PO PRN (12:31)
[2019-12-20] MEDS ORDERED: ALUMINUM/MAGNESIUM/SIMETH (MAALOX MAX) 30 ML UDC PO PRN (12:31)
[2019-12-20] MEDS ORDERED: POLYETHYLENE (MIRALAX) 17 GM PACK PO PRN (12:31)
[2019-12-20] MEDS ORDERED: ALUMINUM/MAGNESIUM SUSP 30 ML UDC PO PRN (12:31)
[2019-12-20] MEDS ORDERED: MAGNESIUM HYDROXIDE SUSP 30 ML UDC PO PRN (12:31)
[2019-12-20] MEDS ORDERED: TOBRAMYCIN/DEXAMETHASONE OPH SUSP 2.5 ML BTL OP PRN (12:31)
[2019-12-20] MEDS ORDERED: bisacodyL 10 MG SUPP PR PRN (12:31)
[2019-12-20] MEDS ORDERED: LOPERAMIDE HCL 2 MG CAP PO PRN (12:31)
[2019-12-20] MEDS ORDERED: DOCUSATE SODIUM 100 MG CAP PO PRN (12:31)
[2019-12-20] MEDS: ASPIRIN 81 MG ECTAB PO SCH (14:00)
[2019-12-20] MEDS: KETOCONAZOLE 2% CR 15 GM TUBE EXT SCH (14:00)
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
[2019-12-20] MEDS ORDERED: DEXTROSE 50% 50 ML SYRINGE IV PRN (15:49)
[2019-12-20] MEDS ORDERED: GLUCOSE 10 TABS/TUBE PO PRN (15:49)
[2019-12-20] MEDS ORDERED: GLUCAGON FOR INJ 1 MG VIAL SQ PRN (15:49)
[2019-12-20] MEDS ORDERED: CARBOHYDRATES FOR HYPOGLYCEMIA PO PRN (15:49)
[2019-12-20] MEDS ORDERED: GLUCOSE 40% GEL 15 GM TUBE PO PRN (15:49)
--- NOTE | 2019-12-20 16:19 | XCELERA ---
[id number] \\[id number]
[2019-12-20] MEDS ORDERED: PHARMACY GLYCEMIC MGMT CONSULT PRN (16:30)
[2019-12-20] MEDS: INSULIN ASPART 100 UNITS/ML 3 ML PEN SC SCH ×2 (17:01→21:31)
[2019-12-20] MEDS: FUROSEMIDE 40 MG in SYRINGE 0 ML IV SCH (17:03)
--- NOTE | 2019-12-20 17:38 | Ultrasound Report ---
US venous doppler LE RT CLINICAL HISTORY: 84 years-old Male presenting with swelling of the RLE. TECHNIQUE: Real-time grayscale and color and spectral Doppler ultrasound imaging of the veins of the right lower extremity was performed. Compression and augmentation were also utilized. COMPARISON: None. FINDINGS: RIGHT: Common femoral vein: Patent. Greater saphenous vein (superficial): Patent. Deep femoral vein: Patent. Femoral vein: Patent. Popliteal vein: Patent. Calf veins: Patent. Other: Subcutaneous edema in the popliteal fossa. IMPRESSION: No evidence of deep venous thrombosis. ACT 112: Negative or not required by law. Electronically signed by: Jordan Price M.D. 12/20/2019 5:37 PM
[2019-12-20] MEDS ORDERED: MUPIROCIN 2% OINT 22 GM TUBE EXT SCH (21:00)
[2019-12-20] MEDS ORDERED: FUROSEMIDE 40 MG/4 ML VIAL IV SCH (21:00)
[2019-12-20] MEDS ORDERED: TEMAZEPAM 15 MG CAPSULE PO SCH (21:00)
[2019-12-20] MEDS: GABAPENTIN 100 MG CAP PO SCH (21:29)
[2019-12-20] MEDS: MUPIROCIN 2% OINT 22 GM TUBE EXT SCH (21:30)
[2019-12-20] MEDS: HEPARIN SOD 5,000 UNIT/0.5 ML VIAL SQ SCH (21:30)
[2019-12-20] MEDS: TEMAZEPAM 15 MG CAPSULE PO SCH (21:30)
[2019-12-20] MEDS: TRAZODONE HCL 50 MG TAB PO SCH (21:30)
[2019-12-21 05:48] LABS: Basophils # (auto) 0.01 K/uL (0-0.2); Basophils % (auto) 0.3 %; Eosinophils # (auto) 0.04 K/uL (0-0.5); Eosinophils % (auto) 1.2 %; Hematocrit (blood only) 40.6 % (42-52); Hemoglobin 12.5 g/dL (14.0-18.0); Lymphocytes # (auto) 0.75 K/uL (1.2-3.4); Lymphocytes % (auto) 21.7 %; Mean Corpuscular Hemoglobin 30.2 pg (25-34); Mean Corpuscular Hgb Conc 30.8 g/dL (32-36); Mean Corpuscular Volume 98.1 fL (80-100); Mean Platelet Volume 10.2 fL (7.4-10.4); Monocytes # (auto) 0.38 K/uL (0.11-0.59); Neutrophils # (auto) 2.28 K/uL (1.4-6.5); Neutrophils % (auto) 65.8 %; Platelet Count 108 K/uL (130-400); RDW Standard Deviation 57.1 fL (36.4-46.3); Red Blood Count 4.14 M/uL (4.7-6.1); White Blood Count 3.46 K/uL (4.8-10.8)
[2019-12-21 06:17] LABS: Prothrombin Time 36.1 Seconds (9.0-12.0)
[2019-12-21 06:21] LABS: INR 3.7 (0.9-1.1)
[2019-12-21 06:30] LABS: Albumin Level 2.9 gm/dl (3.4-5.0); BUN Creatinine Ratio 23.5 (10-20); Calcium 9.9 mg/dl (8.5-10.1); Creatinine Clr Calc Pharmacy 25.2 ml/min; Est GFR (African American) 24.2; Est GFR (Non-African American) 20.9; Potassium 4.1 mmol/L (3.5-5.1)
[2019-12-21 06:33] LABS: Albumin Globulin Ratio 0.8 (0.9-2); Bilirubin,Total 0.7 mg/dl (0.2-1); Globulin 3.8 gm/dl (2.5-4.0); Total Protein 6.7 gm/dl (6.4-8.2)
[2019-12-21] MEDS ORDERED: INSULIN HUMAN NPH SC SCH (07:30)
[2019-12-21] MEDS: FUROSEMIDE 40 MG in SYRINGE 0 ML IV SCH ×2 (08:07→16:43)
[2019-12-21] MEDS: INSULIN ASPART 100 UNITS/ML 3 ML PEN SC SCH ×4 (08:08→20:54)
[2019-12-21] MEDS: HEPARIN SOD 5,000 UNIT/0.5 ML VIAL SQ SCH ×2 (08:09→20:53)
[2019-12-21] MEDS: TAMSULOSIN HCL 0.4 MG CAP PO SCH (08:10)
[2019-12-21] MEDS: ASPIRIN 81 MG ECTAB PO SCH (08:10)
[2019-12-21] MEDS: FEBUXOSTAT 40 MG TABLET PO SCH (08:10)
[2019-12-21] MEDS: FINASTERIDE 5 MG TAB PO SCH (08:10)
[2019-12-21] MEDS: PANTOprazole 40 MG TAB PO SCH (08:10)
[2019-12-21] MEDS: ATORVASTATIN 40 MG TAB PO SCH (08:10)
[2019-12-21] MEDS: METOPROLOL SUCC 50MG EXT REL TAB PO SCH (08:11)
[2019-12-21] MEDS: MULTIVITAMIN TAB PO SCH (08:11)
[2019-12-21] MEDS: AZITHROMYCIN 250 MG TAB PO SCH (08:11)
[2019-12-21] MEDS: KETOCONAZOLE 2% CR 15 GM TUBE EXT SCH (08:11)
[2019-12-21] MEDS: TRIAMCINOLONE ACET NASAL SPRAY 10.8ML BTL SCH (08:12)
[2019-12-21] MEDS: MUPIROCIN 2% OINT 22 GM TUBE EXT SCH ×2 (08:13→20:53)
--- NOTE | 2019-12-21 08:28 | Pharmacy Report ---
Glycemic Control Consultation - Date of Service December 21, 2019 - Scope Scope: Glycemic Pharmacist consulted for glycemic control and to write orders per [facility] inpatient glycemic control protocol. - Objective Weight: 98.2 kg Accuchecks BSG (last 24hrs): 12/20/19 12/20/19 12/20/19 09:08 12:39 16:32 Glucose 156 H POC Glucose 141 H 149 H 12/20/19 12/21/19 12/21/19 20:32 05:31 07:23 Glucose 130 H POC Glucose 142 H 136 H Laboratory Data (last 24hrs): 12/20/19 12/21/19 09:08 05:31 Potassium 4.3 4.1 Carbon Dioxide 28 27 Anion Gap 6.0 8.0 Creatinine 2.88 H 2.68 H Est Cr Clr Drug Dosing Not Reportable 25.2 - Recent Pertinent Medications Outpatient Anti-diabetic Regimen: * Novolin 70/30 + glipizide * A1c = 6.8 % 11/18/2019 - Assessment & Plan Assessment & Plan: ASSESSMENT: * Pt is an 84yo M type II diabetic. PMHx consistent with , AF, CAD, CKD, among others. He pw HF exac. It looks like he's anemic, making his A1C an unreliable metric in determining his glycemic control. * He is ordered a diet. Receiving IV antibx for r/o pulm infxn. PLAN FOR INPATIENT GLYCEMIC CONTROL: * Holding outpatient oral diabetes medications * Basal insulin * NPH scale BIDM, see MAR for further details * Bolus insulin * NovoLog per scale ACHS or Q6hrs while NPO * Goal Range: Low 110 mg/dL - High 140 mg/dL * Correction Factor: 30 mg/dL/unit * Nutritional / Prandial insulin per carb ratio of 1 unit per 10 grams CHO consumed * Please note that the plan above was derived based on current level of insulin resistance and hospital stress. These recommendations are appropriate for inpatient admission only. Plan of care upon discharge will need to be reassessed to avoid potential outpatient hypo/hyperglycemia. Thank you.
[2019-12-21] MEDS ORDERED: WARFARIN SOD 2.5 MG TAB PO SCH (09:00)
[2019-12-21] MEDS: INSULIN HUMAN NPH SC SCH ×2 (09:08→16:43)
--- NOTE | 2019-12-21 10:39 | Cardiology Consultation ---
Date of Consultation December 21, 2019 Assessment & Plan (1) CHF exacerbation: (2) Pneumonia: (3) Amputee, above knee: (4) Aortic stenosis: (5) Cardiomyopathy: (6) Chronic renal insufficiency: (7) Malignant tumor of urinary bladder: (8) Left renal mass: The patient is feeling improvement with his treatment here in the hospital. The echocardiogram completed this admission is different from the outpatient echo studies and should be repeated after the patient has been discharged. At this point the patient appears to be going the right direction and I would recommend no additional cardiac testing or changes in therapy. History of Present Illness Attending Physician: Husam Banegas MD History of Present Illness This is an 84-year-old male patient who follows with [facility] and [place]. He is a patient of Dr. Smith. He has a significant cardiac history as outlined below. He was admitted with congestive heart failure and has received doses of IV antibiotics as well as being started on antibiotics for possible pneumonia. He is now improved and actually breathing better. Of note, is that his echocardiogram completed this admission represents a change. Previous echocardiograms as an outpatient indicate an estimated left ventricular ejection fraction of around 20%. The echocardiogram completed this admission indicates EF to be around 40%. This may represent technical variation. He does have aortic stenosis which on previous echocardiograms was not felt to be critical but on the recent studies suggest severe aortic stenosis. In any case, he is feeling better. He denies chest pain. He has a history of atrial fibrillation. Past medical history: 1.Cardiomyopathy, unspecified type last estimated left ventricular ejection fraction 20% 2.Coronary artery disease involving [place] coronary artery of [place] heart without angina pectoris, previous LAD stent at [place] 3.Nonrheumatic aortic valve stenosis 4.Non-rheumatic mitral regurgitation 5.Persistent atrial fibrillation 6.PVD (peripheral vascular disease) 7.Chronic combined systolic and diastolic CHF (congestive heart failure) 8. History of bladder cancer and possible renal cell carcinoma. Allergies Allergy/AdvReac Type Severity Reaction Status Date / Time risperidone Allergy Unknown PT UNSURE Verified 12/20/19 10:38 OF RXN meclizine AdvReac Severe CAUSED Verified 12/20/19 10:38 NAUSEA, MADE HIM "FEEL FUNNY" cephalexin AdvReac Mild NAUSEA, Verified 12/20/19 10:38 also had Rocephin & Ancef inpast, DIARRHEA pregabalin AdvReac Mild NAUSEA Verified 12/20/19 10:38 Sulfa (Sulfonamide AdvReac Mild NAUSEA Verified 12/20/19 10:38 Antibiotics) tramadol AdvReac Mild HALLUCINATI Verified 12/20/19 10:38 ONS hydrocodone AdvReac Unknown HALLUCINATI Verified 12/20/19 10:38 ONS linezolid AdvReac Unknown GI DISTRESS Verified 12/20/19 10:38 Penicillins AdvReac Unknown gi upset Verified 12/20/19 10:38 tetracycline AdvReac Unknown TURNED Verified 12/20/19 10:38 HEAD OF PENIS RED/EXCORIATED Home Medications Home Medications Medication Instructions Recorded Confirmed Type acetaminophen 2 tab PO Q4H 11/08/18 12/20/19 History alum-mag hydroxide-simeth [Maalox 15 ml PO Q4H PRN 11/08/18 12/20/19 History Maximum Strength] atorvastatin 40 mg PO DAILY 11/08/18 12/20/19 History bisacodyl [Dulcolax (bisacodyl)] 10 mg [place] DAILY PRN 11/08/18 12/20/19 History dextrose [Glucose Gel] 0 dose DIRECTED 11/08/18 12/20/19 History docusate sodium 100 mg PO BID PRN 11/08/18 12/20/19 History finasteride 5 mg PO DAILY 11/08/18 12/20/19 History insulin NPH and regular human 1 sliding scale dose SUBCUT UD 11/08/18 12/20/19 History [Humulin 70/30 U-100 Insulin] lisinopril 2.5 mg PO DAILY 11/08/18 12/20/19 History loperamide 2 mg PO QID PRN 11/08/18 12/20/19 History multivitamin 1 tab PO DAILY 11/08/18 12/20/19 History nut.tx.gluc.intol,lac-free,soy 1 can PO BID 11/08/18 12/20/19 History [Glucerna 1.2 Guicho] ondansetron 4 mg PO Q6H PRN 11/08/18 12/20/19 History polyethylene glycol 3350 [Miralax] 17 g PO DAILY PRN 11/08/18 12/20/19 History tamsulosin 0.4 mg PO DAILY 11/08/18 12/20/19 History febuxostat 40 mg tablet 40 mg PO DAILY #90 tab 07/04/19 12/20/19 History ketoconazole 2 % topical cream 1 appln TOPICAL DIRECTED gm 07/04/19 12/20/19 History tobramycin 0.3 %-dexamethasone 0.1 1 drops OP QID PRN #1 ml 07/04/19 12/20/19 History % eye drops,suspension triamcinolone acetonide 55 mcg 2 sprays INTRANASAL DAILY ml 07/04/19 12/20/19 History nasal spray aerosol furosemide 40 mg tablet 80 mg PO BID #120 tab 07/07/19 12/20/19 Rx esomeprazole magnesium 40 mg 40 mg PO DAILY cap 08/12/19 12/20/19 History capsule,delayed release warfarin 2.5 mg tablet 2.5 mg PO DAILY #90 tab 09/04/19 12/20/19 Rx glipizide 5 mg tablet, extended 5 mg PO DAILY #90 tab 09/08/19 12/20/19 Rx release 24 hr lancets #100 ea 09/18/19 11/18/19 Rx mupirocin 2 % topical ointment 1 appln TOP BID #30 gm 10/21/19 12/20/19 Rx digoxin 125 mcg (0.125 mg) tablet 125 mcg PO DIRECTED 11/18/19 12/20/19 History temazepam 30 mg capsule 30 mg PO HS #90 cap 11/18/19 12/20/19 Rx trazodone 50 mg tablet 50 mg PO HS #90 tab 11/18/19 12/20/19 Rx temazepam 15 mg capsule 15 mg PO HS #90 cap 11/21/19 12/20/19 Rx ciprofloxacin HCl 500 mg tablet 500 mg PO BID 11/24/19 12/20/19 History gabapentin 100 mg PO HS 12/20/19 12/20/19 History metoprolol succinate 100 mg PO DAILY 12/20/19 12/20/19 History Patient History Medical History Atrial fibrillation with RVR (Resolved) CHF (congestive heart failure) (Acute) 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) GI (gastrointestinal bleed) Left renal mass (Chronic) 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) Seizures (Chronic) Surgical History History of cardiac catheterization (Resolved) S/P drug eluting coronary stent placement (Chronic) Family History Other Diabetes Hypertension Social History Preferred Language: Marshallese Communication Ability: Effective Upper Inspector Required: No Beliefs That Will Affect Care: None Current Living Situation: Significant Other Current Living Situation Comment: s/o cares for patient, lives separate home Other Information That Helps Us Care for You: No Feels Safe at Home: Yes Safety Concerns: Feels Safe At This Time Smoking Status: Former smoker Do You Dip or Chew Tobacco: No ; Second Hand Exposure: No ; Tobacco Cessation Education Requested by Patient: No Hx Alcohol Use: No Hx Substance Use: No Review of Systems Review of Systems: All systems reviewed & are unremarkable except as noted in HPI & below Nothing additional to add Physical Exam Physical Exam: General: no acute distress and stated age Head: normocephalic, no masses, lesions, tenderness or abnormalities Eyes: conjunctiva are pink and non-injected, sclera clear Neck: supple, no adenopathy, no bruits, normal jugular venous pulse, no hepatojugular reflux Chest: normal shape and normal respiratory effort Lungs: clear to auscultation and percussion Cardiac Exam: - irregular rate & rhythm, systolic murmur left sternal border- normal S1, normal S2 Pulses: 2(+) throughout Abdomen: abdomen soft, non-tender, no abnormal masses and no hepatosplenomegaly Musculoskeletal: no gait disturbance, no joint inflammation, no deforming arthritis Extremities: Left AKA Neuro: grossly normal exam Results & Data ([facility]) Vital Signs (Past 12 Hours) Vital Signs Temp Pulse Pulse Resp BP Pulse Ox 12/21/19 07:55 68 12/21/19 07:25 36.4 C L 81 19 124/70 91 12/21/19 03:25 36.3 C L 63 17 122/69 93 12/20/19 23:56 36.3 C L 67 16 110/60 94 12/20/19 22:20 60 (1) CHF exacerbation Heart failure type: unspecified Qualified Code(s): I50.9 - Heart failure, unspecified (2) Pneumonia Laterality: unspecified laterality Lung location: unspecified part of lung Pneumonia type: due to unspecified organism Qualified Code(s): J18.9 - Pneumonia, unspecified organism
[2019-12-21] MEDS: cefTRIAXone SODIUM 2,000 MG in DEXTROSE 5% 50 ML IV SCH (10:46)
--- NOTE | 2019-12-21 11:45 | Nephrology Consultation ---
Date of Consultation December 21, 2019 Assessment & Plan (1) ESTEE (acute kidney injury): Creatinine slightly improved today (2.8-->2.6 mg/dL). Electrolytes are normal. Non-oliguric with adequate urine output to attain a negative fluid balance. BP is acceptable. ESTEE can be attributed to acute on chronic CHF. Renal ultrasound has been requested, I will have the PVR document with this study given recent LUTS and elevated creatinine. Medications are appropriate for kidney function. It is reasonable to continue lisinopril for now. I/O's will be documented. Metabolic profile will be rechecked tomorrow AM. (2) Chronic renal insufficiency: Baseline creatinine ~2.0 mg/dL. CKD IV A1. CKD attributed to DM. Noted chronic stable anemia likely related to kidney dysfunction. No additional evaluation necessary at this time. No role for dialysis currently. (3) CHF exacerbation: Cardiology consultation reviewed this AM. Clinically improving. Document I/O's and daily weight. Continue furosemide to encourage a net negative fluid balance of ~1L/d. (4) Pneumonia: Remains on ceftriaxone and azithromycin. Medications appropriately dosed for kidney dysfunction. (5) Aortic stenosis: (6) Cardiomyopathy: As discussed above History of Present Illness Reason for Consultation: ESTEE/CKD Requesting Physician: Husam Banegas MD Attending Physician: Husam Banegas MD History of Present Illness Mr. Montes is an 84-year-old male with coronary artery disease, PVD, cardiomyopathy with reduced LVEF, severe aortic stenosis, diabetes mellitus II, BPH, atrial fibrillation, BPH, a history of bladder cancer, a left renal mass, and chronic kidney disease. Left AKA had been performed remotely following a t raumatic injury. Baseline creatinine has been approximately 2.0 mg/dL which is consistent with CKD IV. There has not been significant proteinuria. The patient follows with Dr. Wilkerson in the clinic. CKD has been attributed primarily to diabetic nephropathy. Mr. Montes saw Dr. Wilkerson in the clinic last month. He was found to be euvolemic at that time. He had noted some urinary hesitancy and urge incontinence. These symptoms however have been improving. Creatinine was elevated at 2.85 mg/dL at the end of November. Urine studies at that time +pyuria and culture +E coli. The patient unfortunately presented to [facility] yesterday with cough, fatigue, and loose stool. Mr. Montes felt that he was developing congestive heart failure and he had increased his diuretic to furosemide 80 mg twice daily without improvement in symptoms. He denies any fevers or chills. He denies any sick contacts. CXR demonstrated notable pulmonary vascular congestion with diffuse interstitial edema. There is a notable opacity in the base on the right lung favoring a layering pleural effusion versus possible infiltrate. Antibiotic therapy has been started with ceftriaxone and azithromycin. Furosemide 40 mg IV BID has been provided. A negative fluid balance of 1 L in the past 24 hours noted. Cardiology consultation was obtained. Mr. Montes was feeling significantly improved at the time of my assessment this morning. He is breathing comfortably. He denied significant urinary symptoms at this time. He denies chest pain or palpitations. He was laying comfortably in bed without distress. Allergies Allergy/AdvReac Type Severity Reaction Status Date / Time risperidone Allergy Unknown PT UNSURE Verified 12/20/19 10:38 OF RXN meclizine AdvReac Severe CAUSED Verified 12/20/19 10:38 NAUSEA, MADE HIM "FEEL FUNNY" cephalexin AdvReac Mild NAUSEA, Verified 12/20/19 10:38 also had Rocephin & Ancef inpast, DIARRHEA pregabalin AdvReac Mild NAUSEA Verified 12/20/19 10:38 Sulfa (Sulfonamide AdvReac Mild NAUSEA Verified 12/20/19 10:38 Antibiotics) tramadol AdvReac Mild HALLUCINATI Verified 12/20/19 10:38 ONS hydrocodone AdvReac Unknown HALLUCINATI Verified 12/20/19 10:38 ONS linezolid AdvReac Unknown GI DISTRESS Verified 12/20/19 10:38 Penicillins AdvReac Unknown gi upset Verified 12/20/19 10:38 tetracycline AdvReac Unknown TURNED Verified 12/20/19 10:38 HEAD OF PENIS RED/EXCORIATED Home Medications Home Medications Medication Instructions Recorded Confirmed Type acetaminophen 2 tab PO Q4H 11/08/18 12/20/19 History alum-mag hydroxide-simeth [Maalox 15 ml PO Q4H PRN 11/08/18 12/20/19 History Maximum Strength] atorvastatin 40 mg PO DAILY 11/08/18 12/20/19 History bisacodyl [Dulcolax (bisacodyl)] 10 mg HI DAILY PRN 11/08/18 12/20/19 History dextrose [Glucose Gel] 0 dose DIRECTED 11/08/18 12/20/19 History docusate sodium 100 mg PO BID PRN 11/08/18 12/20/19 History finasteride 5 mg PO DAILY 11/08/18 12/20/19 History insulin NPH and regular human 1 sliding scale dose SUBCUT UD 11/08/18 12/20/19 History [Humulin 70/30 U-100 Insulin] lisinopril 2.5 mg PO DAILY 11/08/18 12/20/19 History loperamide 2 mg PO QID PRN 11/08/18 12/20/19 History multivitamin 1 tab PO DAILY 11/08/18 12/20/19 History nut.tx.gluc.intol,lac-free,soy 1 can PO BID 11/08/18 12/20/19 History [Glucerna 1.2 Guicho] ondansetron 4 mg PO Q6H PRN 11/08/18 12/20/19 History polyethylene glycol 3350 [Miralax] 17 g PO DAILY PRN 11/08/18 12/20/19 History tamsulosin 0.4 mg PO DAILY 11/08/18 12/20/19 History febuxostat 40 mg tablet 40 mg PO DAILY #90 tab 07/04/19 12/20/19 History ketoconazole 2 % topical cream 1 appln TOPICAL DIRECTED gm 07/04/19 12/20/19 History tobramycin 0.3 %-dexamethasone 0.1 1 drops OP QID PRN #1 ml 07/04/19 12/20/19 History % eye drops,suspension triamcinolone acetonide 55 mcg 2 sprays INTRANASAL DAILY ml 07/04/19 12/20/19 History nasal spray aerosol furosemide 40 mg tablet 80 mg PO BID #120 tab 07/07/19 12/20/19 Rx esomeprazole magnesium 40 mg 40 mg PO DAILY cap 08/12/19 12/20/19 History capsule,delayed release warfarin 2.5 mg tablet 2.5 mg PO DAILY #90 tab 09/04/19 12/20/19 Rx glipizide 5 mg tablet, extended 5 mg PO DAILY #90 tab 09/08/19 12/20/19 Rx release 24 hr lancets #100 ea 09/18/19 11/18/19 Rx mupirocin 2 % topical ointment 1 appln TOP BID #30 gm 10/21/19 12/20/19 Rx digoxin 125 mcg (0.125 mg) tablet 125 mcg PO DIRECTED 11/18/19 12/20/19 History temazepam 30 mg capsule 30 mg PO HS #90 cap 11/18/19 12/20/19 Rx trazodone 50 mg tablet 50 mg PO HS #90 tab 11/18/19 12/20/19 Rx temazepam 15 mg capsule 15 mg PO HS #90 cap 11/21/19 12/20/19 Rx ciprofloxacin HCl 500 mg tablet 500 mg PO BID 11/24/19 12/20/19 History gabapentin 100 mg PO HS 12/20/19 12/20/19 History metoprolol succinate 100 mg PO DAILY 12/20/19 12/20/19 History Patient History Medical History Atrial fibrillation with RVR (Resolved) CHF (congestive heart failure) (Acute) 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) GI (gastrointestinal bleed) Left renal mass (Chronic) 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) Seizures (Chronic) Surgical History History of cardiac catheterization (Resolved) S/P drug eluting coronary stent placement (Chronic) Family History Other Diabetes Hypertension Social History Preferred Language: Armenian Communication Ability: Effective Lyft Driver Required: No Beliefs That Will Affect Care: None Current Living Situation: Significant Other Current Living Situation Comment: s/o cares for patient, lives separate home Other Information That Helps Us Care for You: No Feels Safe at Home: Yes Safety Concerns: Feels Safe At This Time Smoking Status: Former smoker Do You Dip or Chew Tobacco: No ; Second Hand Exposure: No ; Tobacco Cessation Education Requested by Patient: No Hx Alcohol Use: No Hx Substance Use: No Review of Systems Review of Systems: All systems reviewed & are unremarkable except as noted in HPI & below Physical Exam Constitutional: well developed; no acute distress Eyes: + anicteric sclerae; no conjunctival abnormality ENMT: Mouth: no oral mucosal abnormality and oral mucous membranes not dry Neck: normal visual inspection and trachea midline Respiratory: normal respiratory effort Auscultation: + rales Cardiovascular: Rate/Rhythm: + bradycardic Heart Sounds: normal S1, normal S2 and + murmur Vessels: + JVD Extremities: + edema Gastrointestinal (Abdomen): Percussion/Palpation: abdomen soft; abdomen nontender Musculoskeletal: Extremities: no cyanosis and no clubbing Skin: + turgor decreased; no jaundice Neurologic: Motor/Sensory: no tremor and no asterixis Psychiatric: Orientation: alert and oriented x 3 Results & Data Vital Signs (Past 12 Hours) Vital Signs Temp Pulse Pulse Resp BP Pulse Ox 12/21/19 11:29 36.7 C 61 18 116/60 91 12/21/19 07:55 68 12/21/19 07:25 36.4 C L 81 19 124/70 91 12/21/19 03:25 36.3 C L 63 17 122/69 93 12/20/19 23:56 36.3 C L 67 16 110/60 94 Laboratory Results Laboratory Results - last 24 hr 12/20/19 12/20/19 12/20/19 12:39 13:13 16:32 WBC RBC Hgb Hct MCV MCH MCHC RDW Std Deviation RDW Coeff of Mary Plt Count MPV Immature Gran % (Auto) Neut % (Auto) Lymph % (Auto) Cass % (Auto) Eos % (Auto) Baso % (Auto) Immature Gran # (Auto) Neut # (Auto) Lymph # (Auto) Cass # (Auto) Eos # (Auto) Baso # (Auto) PT INR Sodium Potassium Chloride Carbon Dioxide Anion Gap BUN Creatinine Est Cr Clr Drug Dosing Est GFR ( Amer) Est GFR (Non-Af Amer) BUN/Creatinine Ratio Glucose POC Glucose 141 H 149 H Estimat Average Glucose Hemoglobin A1c Calcium Total Bilirubin AST ALT Alkaline Phosphatase Troponin I 0.040 Total Protein Albumin Globulin Albumin/Globulin Ratio Nasal Screen MRSA (PCR) Digoxin 12/20/19 12/20/19 12/20/19 17:04 18:30 20:32 WBC RBC Hgb Hct MCV MCH MCHC RDW Std Deviation RDW Coeff of Mary Plt Count MPV Immature Gran % (Auto) Neut % (Auto) Lymph % (Auto) Cass % (Auto) Eos % (Auto) Baso % (Auto) Immature Gran # (Auto) Neut # (Auto) Lymph # (Auto) Cass # (Auto) Eos # (Auto) Baso # (Auto) PT INR Sodium Potassium Chloride Carbon Dioxide Anion Gap BUN Creatinine Est Cr Clr Drug Dosing Est GFR ( Amer) Est GFR (Non-Af Amer) BUN/Creatinine Ratio Glucose POC Glucose 142 H Estimat Average Glucose Hemoglobin A1c Calcium Total Bilirubin AST ALT Alkaline Phosphatase Troponin I 0.043 Total Protein Albumin Globulin Albumin/Globulin Ratio Nasal Screen MRSA (PCR) Positive A Digoxin 12/21/19 12/21/19 12/21/19 00:29 05:31 05:31 WBC 3.46 L RBC 4.14 L Hgb 12.5 L Hct 40.6 L MCV 98.1 MCH 30.2 MCHC 30.8 L RDW Std Deviation 57.1 H RDW Coeff of Mary 16.0 H Plt Count 108 L MPV 10.2 Immature Gran % (Auto) 0.0 Neut % (Auto) 65.8 Lymph % (Auto) 21.7 Cass % (Auto) 11.0 Eos % (Auto) 1.2 Baso % (Auto) 0.3 Immature Gran # (Auto) 0.00 Neut # (Auto) 2.28 Lymph # (Auto) 0.75 L Cass # (Auto) 0.38 Eos # (Auto) 0.04 Baso # (Auto) 0.01 PT INR Sodium 142 Potassium 4.1 Chloride 107 Carbon Dioxide 27 Anion Gap 8.0 BUN 63 H Creatinine 2.68 H Est Cr Clr Drug Dosing 25.2 Est GFR ( Amer) 24.2 Est GFR (Non-Af Amer) 20.9 BUN/Creatinine Ratio 23.5 H Glucose 130 H POC Glucose Estimat Average Glucose Hemoglobin A1c Calcium 9.9 Total Bilirubin 0.7 AST 8 L ALT 10 L Alkaline Phosphatase 64 Troponin I 0.038 Total Protein 6.7 Albumin 2.9 L Globulin 3.8 Albumin/Globulin Ratio 0.8 L Nasal Screen MRSA (PCR) Digoxin 12/21/19 12/21/19 12/21/19 05:31 05:31 05:31 WBC RBC Hgb Hct MCV MCH MCHC RDW Std Deviation RDW Coeff of Mary Plt Count MPV Immature Gran % (Auto) Neut % (Auto) Lymph % (Auto) Cass % (Auto) Eos % (Auto) Baso % (Auto) Immature Gran # (Auto) Neut # (Auto) Lymph # (Auto) Cass # (Auto) Eos # (Auto) Baso # (Auto) PT 36.1 H INR 3.7 H Sodium Potassium Chloride Carbon Dioxide Anion Gap BUN Creatinine Est Cr Clr Drug Dosing Est GFR ( Amer) Est GFR (Non-Af Amer) BUN/Creatinine Ratio Glucose POC Glucose Estimat Average Glucose Pending Hemoglobin A1c Pending Calcium Total Bilirubin AST ALT Alkaline Phosphatase Troponin I Total Protein Albumin Globulin Albumin/Globulin Ratio Nasal Screen MRSA (PCR) Digoxin 1.5 12/21/19 12/21/19 07:23 11:27 WBC RBC Hgb Hct MCV MCH MCHC RDW Std Deviation RDW Coeff of Mary Plt Count MPV Immature Gran % (Auto) Neut % (Auto) Lymph % (Auto) Cass % (Auto) Eos % (Auto) Baso % (Auto) Immature Gran # (Auto) Neut # (Auto) Lymph # (Auto) Cass # (Auto) Eos # (Auto) Baso # (Auto) PT INR Sodium Potassium Chloride Carbon Dioxide Anion Gap BUN Creatinine Est Cr Clr Drug Dosing Est GFR ( Amer) Est GFR (Non-Af Amer) BUN/Creatinine Ratio Glucose POC Glucose 136 H 128 H Estimat Average Glucose Hemoglobin A1c Calcium Total Bilirubin AST ALT Alkaline Phosphatase Troponin I Total Protein Albumin Globulin Albumin/Globulin Ratio Nasal Screen MRSA (PCR) Digoxin PG Care Time/CCT Total # of Minutes Spent Total Time Spent with Patient: Total time spent is greater than 50% in coordination of care (as documented) at patient's floor/unit and/or counseling patient: Coding Level of Care Code 82764 Inpt Consult Level 4 Diagnoses ESTEE (acute kidney injury) N17.9 Chronic renal insufficiency N18.9 CHF exacerbation I50.9 Heart failure type: unspecified Pneumonia J18.9 Laterality: unspecified laterality Lung location: unspecified part of lung Pneumonia type: due to unspecified organism Aortic stenosis I35.0 Cardiomyopathy I42.9 (1) CHF exacerbation Heart failure type: unspecified Qualified Code(s): I50.9 - Heart failure, unspecified (2) Pneumonia Laterality: unspecified laterality Lung location: unspecified part of lung Pneumonia type: due to unspecified organism Qualified Code(s): J18.9 - Pneumonia, unspecified organism
--- NOTE | 2019-12-21 14:12 | Hospitalist Progress Note ---
Date of Service December 21, 2019 Assessment & Plan (1) CHF exacerbation: Acute on chronic systolic heart failure. CXR on admission showed volume overload. BNP > 35,000. Echo on 12/20 showed EF 45-50%. This is worse than his outpatient EF with Tunde Curry per cardiology. - Continue Lasix 40 mg IV BID - Monitor I&Os, creatinine, weights (2) Pneumonia: CXR showed asymmetric extensive right mid to basilar opacity, though it may be a pleural effusion. - Repeat CXR with good 2v standing - Continue ceftriaxone 2 g IV daily and azithromycin 250 mg daily p.o. for now - Blood cultures on 12/19 are no growth as of 12/20 - Will get procalcitonin as well to help determine if this is fluid vs. infection. (3) Chronic renal insufficiency: ESTEE on CKD. Baseline Cr ~2.0 per nephrology; however, he has not been that low in quite some time. This is likely cardiorenal given acute CHF. - Avoid nephrotoxic agents - Nephrology consulted - Appreciate recs - Cr now 2.7. Monitor with diuresis. (4) A-fib: Permanent atrial fib. In afib on admission EKG. - Continue beta-herb -> Rates under control - Hold warfarin for INR > 3 at present. - Monitor INR (5) Arteriosclerotic cardiovascular disease (ASCVD): No chest pain. Troponins stable at 0.04. - Continue home medicine: ASA, beta-herb, ACEi (6) Diabetes mellitus: A1c was 6.8% in 11/2019. - Glycemic control with long-acting & sliding scale insulin, Accu-Cheks before meals and at bedtime - Glycemic pharmacy following (7) Hypertension: BP is 115/60 today. - Continue home medicine: Metoprolol succinate 100mg p.o. daily, lisinopril 2.5 mg p.o. daily (8) Enlarged prostate with lower urinary tract symptoms (LUTS): Stable; not LUTS today. - Continue home dose of tamsulosin 0.4 mg p.o. daily, finasteride 5 mg p.o. daily. (9) DVT prophylaxis: On warfarin for afib -> Currently supratherapeutic Admission and Anticipated Discharge Date Admission Date: December 20, 2019 Subjective Feeling better today. Less shortness of breath and less cough. Reports no fevers/chills, chest pain, shortness of breath, abdominal pain, nausea, or vomiting. Physical Exam Constitutional: WD/WN, vitals as above Eyes: EOM intact bilaterally; no conjunctival abnormality ENMT: external ear and nose normal, oropharynx normal Neck: trachea midline, no thyromegaly normal visual inspection Respiratory: normal respiratory effort, lungs clear to auscultation no respiratory distress Cardiovascular: RRR, no murmur, no edema Gastrointestinal (Abdomen): Inspection/Auscultation: abdomen normal to inspection; abdomen not distended Musculoskeletal: no cyanosis or clubbing, extremities motor strength 5/5 Skin: no rashes, warm and dry Neurologic: moves all extremities and awake Psychiatric: Orientation: alert, oriented to person and cooperative Results & Data ([facility]) Vital Signs (Past 12 Hours) Vital Signs Temp Pulse Pulse Resp BP Pulse Ox 12/21/19 11:29 36.7 C 61 18 116/60 91 12/21/19 07:55 68 12/21/19 07:25 36.4 C L 81 19 124/70 91 12/21/19 03:25 36.3 C L 63 17 122/69 93 PG Care Time/CCT Total # of Minutes Spent Total Time Spent with Patient: Total time spent is greater than 50% in coordination of care (as documented) at patient's floor/unit and/or counseling patient: Coding Level of Care Code 09145 Subseq Hosp Care Lvl 3 Diagnoses CHF exacerbation I50.9 Heart failure type: unspecified Pneumonia J18.9 Laterality: unspecified laterality Lung location: unspecified part of lung Pneumonia type: due to unspecified organism Chronic renal insufficiency N18.9 A-fib I48.91 Arteriosclerotic cardiovascular disease (ASCVD) I25.10 Diabetes mellitus E11.9 Hypertension I10 Enlarged prostate with lower urinary tract symptoms (LUTS) N40.1 DVT prophylaxis Z29.9 (1) CHF exacerbation Heart failure type: unspecified Qualified Code(s): I50.9 - Heart failure, unspecified (2) Pneumonia Laterality: unspecified laterality Lung location: unspecified part of lung Pneumonia type: due to unspecified organism Qualified Code(s): J18.9 - Pneumonia, unspecified organism
--- NOTE | 2019-12-21 14:16 | Ultrasound Report ---
RENAL ULTRASOUND HISTORY: ESTEE, renal mass, please document PVR COMPARISON: Abdomen and pelvis CT 04/27/2018. FINDINGS: Right kidney: 10.2 cm. No hydronephrosis. Moderate to severe cortical atrophy. A 1 cm exophytic cyst is noted. Left kidney: 11.1 cm. No hydronephrosis. Moderate to severe cortical atrophy. There is a 3.5 x 3.1 x 3.3 cm slightly hypoechoic exophytic mass within the lower pole. Bladder: No bladder wall thickening. The bilateral ureteral jets were identified. Prevoid volume is 2 27 cc. Postvoid residual was 25 cc. Miscellaneous: Punctate calcified granulomas within the spleen. Trace perihepatic fluid. IMPRESSION: 1. Moderate to severe bilateral cortical renal atrophy. 2. A 3.5 x 3.1 x 3.3 cm slightly hyperechoic exophytic mass within the left kidney. This is similar i n size compared to the 2018 examination. Follow-up nonemergent renal MRI can be used for further eval uation. 3. Small post void residual of 25 cc. 4. No hydronephrosis. ACT 112: Negative or not required by law. Electronically signed by: Dagoberto Meza M.D. 12/21/2019 2:15 PM
--- NOTE | 2019-12-21 15:02 | XRay Report ---
TWO VIEW CHEST CLINICAL HISTORY: Pleural effusion. FINDINGS: AP and lateral chest radiographs are compared to study dated 12/20/2019. Correlation is made with chest CT dated 03/11/2016. The AP view is degraded by patient rotation. The heart is enlarged not ing atherosclerotic calcification of the thoracic aorta. Pulmonary vascular congestion is unchanged. There are small pleural effusions with bibasilar consolidation. There is no pneumothorax. The skeleta l structures are osteopenic. The bony thorax appears intact. IMPRESSION: 1. Cardiomegaly with evidence of congestive failure. 2. There are right larger than left pleural effusions with associated basilar consolidation. Correlat e clinically for evidence of superimposed pneumonia. ACT 112: Negative or not required by law. Electronically signed by: Barrett Smith M.D. 12/21/2019 3:01 PM
[2019-12-21] MEDS: TEMAZEPAM 15 MG CAPSULE PO SCH (20:53)
[2019-12-21] MEDS: GABAPENTIN 100 MG CAP PO SCH (20:53)
[2019-12-21] MEDS: TRAZODONE HCL 50 MG TAB PO SCH (20:53)
[2019-12-22 05:54] LABS: Basophils # (auto) 0.01 K/uL (0-0.2); Basophils % (auto) 0.2 %; Eosinophils # (auto) 0.06 K/uL (0-0.5); Eosinophils % (auto) 1.5 %; Hematocrit (blood only) 41.5 % (42-52); Hemoglobin 12.7 g/dL (14.0-18.0); Lymphocytes # (auto) 0.82 K/uL (1.2-3.4); Lymphocytes % (auto) 20.4 %; Mean Corpuscular Hgb Conc 30.6 g/dL (32-36); Mean Corpuscular Volume 98.1 fL (80-100); Mean Platelet Volume 11.5 fL (7.4-10.4); Monocytes # (auto) 0.49 K/uL (0.11-0.59); Monocytes % (auto) 12.2 %; Neutrophils # (auto) 2.63 K/uL (1.4-6.5); Neutrophils % (auto) 65.7 %; Platelet Count 121 K/uL (130-400); RDW Standard Deviation 57.1 fL (36.4-46.3); Red Blood Count 4.23 M/uL (4.7-6.1); White Blood Count 4.01 K/uL (4.8-10.8)
[2019-12-22 06:09] LABS: Estimated Average Glucose 140 mg/dl; Hemoglobin A1C 6.5 % (4.5-5.6)
[2019-12-22 06:15] LABS: Prothrombin Time 46.5 Seconds (9.0-12.0)
[2019-12-22 06:16] LABS: INR 4.8 (0.9-1.1)
[2019-12-22 06:18] LABS: Ovalocytes 1+
[2019-12-22 06:31] LABS: Calcium 9.9 mg/dl (8.5-10.1); Creatinine Clr Calc Pharmacy 26.1 ml/min; Est GFR (African American) 25.2; Est GFR (Non-African American) 21.8; Potassium 3.9 mmol/L (3.5-5.1)
--- NOTE | 2019-12-22 07:11 | Hospitalist Progress Note ---
Date of Service December 22, 2019 Assessment & Plan (1) CHF exacerbation: Acute on chronic systolic heart failure. CXR on admission showed volume overload. BNP > 35,000. Echo on 12/20 showed EF 45-50%. This is worse than his outpatient EF with Tunde Curry per cardiology. - Cardiology following - Appreciate recs - Monitor I&Os, creatinine, weights -> Weight down to 97 kg from 104.5 kg on admission. Supposedly only net -1L so far this admission. Feel I&Os may be off. - Continue Lasix 40 mg IV BID (2) Pneumonia: Admission CXR showed asymmetric extensive right mid to basilar opacity, though it may be a pleural effusion. Repeat 2-view CXR on 12/20 showed right larger than left pleural effusions with associated basilar consolidation. - Blood cultures on 12/19 are no growth as of 12/21 - Procalcitonin on 12/19 was negative - Continue ceftriaxone & azithromycin -> Could probably do a short course (5- day) - Will get repeat 2v CXR tomorrow morning. I do not think the effusion is a parapneumonic effusion/empyema. I think it is heart-failure related. Will check to see if it is resolving with diuresis. Barrett Hays also will use u/s to check effusion size tomorrow. (3) Chronic renal insufficiency: ESTEE on CKD. Baseline Cr ~2.0 per nephrology; however, he has not been that low in quite some time. This is likely cardiorenal given acute CHF. Admission Cr was 2.9. - Avoid nephrotoxic agents - Nephrology consulted - Appreciate recs - Cr now 2.6. Monitor with diuresis. (4) A-fib: Permanent atrial fib. In afib on admission EKG. - Continue beta-herb -> Rates under control - Hold warfarin for INR > 3 at present. - Monitor INR -> Up today at 4.8. No bleeding, hgb stable. Will refrain from vitamin K at this time. (5) Arteriosclerotic cardiovascular disease (ASCVD): No chest pain. Troponins stable at 0.04. - Continue home medicine: ASA, beta-herb, ACEi (6) Diabetes mellitus: A1c was 6.8% in 11/2019. - Glycemic control with long-acting & sliding scale insulin, Accu-Cheks before meals and at bedtime - Glycemic pharmacy following - Sugars good in last 24 hours: 130-145. (7) Hypertension: BP is 115/60 today. - Continue home medicine: Metoprolol succinate 100mg p.o. daily, lisinopril 2.5 mg p.o. daily (8) Enlarged prostate with lower urinary tract symptoms (LUTS): Stable; not LUTS today. - Continue home dose of tamsulosin 0.4 mg p.o. daily, finasteride 5 mg p.o. daily. (9) DVT prophylaxis: On warfarin for afib -> Currently supratherapeutic Admission and Anticipated Discharge Date Admission Date: December 20, 2019 Subjective Breathing better. No cough. Reports no fevers/chills, chest pain, shortness of breath, abdominal pain, nausea, or vomiting. Physical Exam Constitutional: WD/WN, vitals as above Eyes: EOM intact bilaterally; no conjunctival abnormality ENMT: external ear and nose normal, oropharynx normal Neck: trachea midline, no thyromegaly normal visual inspection Respiratory: normal respiratory effort, lungs clear to auscultation no respiratory distress Cardiovascular: RRR, no murmur, no edema Gastrointestinal (Abdomen): Inspection/Auscultation: abdomen normal to inspection; abdomen not distended Musculoskeletal: no cyanosis or clubbing, extremities motor strength 5/5 Skin: no rashes, warm and dry Neurologic: moves all extremities and awake Psychiatric: Orientation: alert, oriented to person and cooperative Results & Data ([facility]) Vital Signs (Past 12 Hours) Vital Signs Temp Pulse Pulse Resp BP Pulse Ox 12/22/19 03:47 36.6 C 76 19 118/66 90 12/21/19 23:38 36.7 C 81 19 110/72 94 12/21/19 23:00 62 12/21/19 19:24 36.6 C 69 16 128/73 92 PG Care Time/CCT Total # of Minutes Spent Total Time Spent with Patient: Total time spent is greater than 50% in coordination of care (as documented) at patient's floor/unit and/or counseling patient: Coding Level of Care Code 64090 Subseq Hosp Care Lvl 3 Diagnoses CHF exacerbation I50.9 Heart failure type: unspecified Pneumonia J18.9 Laterality: unspecified laterality Lung location: unspecified part of lung Pneumonia type: due to unspecified organism Chronic renal insufficiency N18.9 A-fib I48.91 Arteriosclerotic cardiovascular disease (ASCVD) I25.10 Diabetes mellitus E11.9 Hypertension I10 Enlarged prostate with lower urinary tract symptoms (LUTS) N40.1 DVT prophylaxis Z29.9 (1) CHF exacerbation Heart failure type: unspecified Qualified Code(s): I50.9 - Heart failure, unspecified (2) Pneumonia Laterality: unspecified laterality Lung location: unspecified part of lung Pneumonia type: due to unspecified organism Qualified Code(s): J18.9 - Pneumonia, unspecified organism
[2019-12-22] MEDS: INSULIN ASPART 100 UNITS/ML 3 ML PEN SC SCH ×4 (08:52→20:37)
[2019-12-22] MEDS: INSULIN HUMAN NPH SC SCH ×2 (08:53→17:47)
[2019-12-22] MEDS: KETOCONAZOLE 2% CR 15 GM TUBE EXT SCH (08:53)
[2019-12-22] MEDS: HEPARIN SOD 5,000 UNIT/0.5 ML VIAL SQ SCH ×2 (08:54→20:36)
[2019-12-22] MEDS: FUROSEMIDE 40 MG in SYRINGE 0 ML IV SCH (08:54)
[2019-12-22] MEDS: FEBUXOSTAT 40 MG TABLET PO SCH (08:55)
[2019-12-22] MEDS: ASPIRIN 81 MG ECTAB PO SCH (08:55)
[2019-12-22] MEDS: PANTOprazole 40 MG TAB PO SCH (08:55)
[2019-12-22] MEDS: ATORVASTATIN 40 MG TAB PO SCH (08:56)
[2019-12-22] MEDS: AZITHROMYCIN 250 MG TAB PO SCH (08:56)
[2019-12-22] MEDS: MULTIVITAMIN TAB PO SCH (08:56)
[2019-12-22] MEDS: TAMSULOSIN HCL 0.4 MG CAP PO SCH (08:56)
[2019-12-22] MEDS: METOPROLOL SUCC 50MG EXT REL TAB PO SCH (08:56)
[2019-12-22] MEDS: FINASTERIDE 5 MG TAB PO SCH (08:56)
[2019-12-22] MEDS: TRIAMCINOLONE ACET NASAL SPRAY 10.8ML BTL SCH (08:58)
[2019-12-22] MEDS: MUPIROCIN 2% OINT 22 GM TUBE EXT SCH ×2 (08:58→20:36)
--- NOTE | 2019-12-22 10:06 | Nephrology Progress Note ---
Date of Service December 22, 2019 Assessment & Plan (1) Chronic renal insufficiency: Mr. Montes seems to be slowly improving. He has prerenal azotemia superimposed on his chronic renal disease. I suspect that his chronic renal disease is more likely secondary to vascular disease than it is to diabetes alone. Certainly he does not have evidence of diabetic glomerulosclerosis given the degree of his renal insufficiency and the absence of significant proteinuria. He certainly has not been nephrotic. Nonetheless, he is now volume overloaded. He is slowly diuresing. His diuresis could be enhanced with the addition of metolazone which he has been on before. In addition to his 80 mg of Lasix, we could add 10 mg of metolazone but do so carefully keeping a close eye on his renal function particularly given his relatively low serum albumin. I will continue to follow him with you (2) Arteriosclerotic cardiovascular disease (ASCVD): (3) CHF (congestive heart failure): Subjective Mr. Montes says that he is feeling somewhat better today other than some continued recent problems with nausea. He denies having any current chest pain. He denies having any current problems with shortness of breath even when lying relatively flat in bed.He does recognize that his right leg is slightly swollen.He has no immediate symptoms of uremia or volume overload. He is having no current lower urinary tract symptoms despite some recent problems with urinar y hesitancy and dysuria. He has been treated for multiple episodes of lower urinary tract infections.He denies having any current flank pain. He denies having any shaking chills or fevers. He was admitted with increasing symptoms of shortness of breath and a cough. His serum creatinine was somewhat higher than his usual baseline and his BUN was disproportionately higher. He does take Lasix at home in doses that vary based on his state of hydration. Prior to admission he was taking 40 mg of Lasix only once a day. Since admission he has been on 80 mg of Lasix twice a day and has had a modest diuresis. His output exceeded his intake by less than 1 L. However, he is feeling better. His chest x-ray showed a significant right pleural effusion and a small left pleural effusion as well as some other changes consistent with congestive heart failure/volume overload. Since his modest diuresis, his serum creatinine has started to fall somewhat. His BUN has remained relatively stable. He has no current lower urinary tract symptoms. Other than his mild nausea with an episode of vomiting yesterday, he has no definite symptoms of uremia or volume overload. Physical Exam Physical Exam: On exam, Mr. Montes appears relatively comfortable. He was in no respiratory distress. His blood pressure was 132/73 supine. His pulse is 80 and irregular. Respiratory rate is 18. His oxygen saturation is 91% on room air. He is afebrile and has been throughout his hospitalization. His skin shows normal skin turgor. He has no obvious rash or infiltrative skin disease. 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 There is no evidence of inflammation involving either lower extremity. He has no palpable lymphadenopathy. His head is grossly normal. Eyes are grossly normal. The ocular fundi were not examined. Ears, nose, mouth and throat are unremarkable. His oral mucous membranes are moist. His neck is supple. At about 20 degrees, he has minimal jugular venous distention. I hear no definite carotid bruit. He has no thyromegaly. His chest shows a marked decrease in breath sounds at the right base compared to the left. His chest otherwise sounds relatively clear. Cardiac exam shows an irregular rhythm. He has a grade 2/6 to 3/6 systolic ejection murmur at the base radiating toward the neck. I do not hear a ventricular gallop. His abdomen is nontender. He has no organomegaly or mass. Extremities show the amputations as noted. He has 1+ lower extremity edema on the right. He has no lateralizing neurologic findings. He does, however, have a loss of protective sensation in his distal right leg. Results & Data Vital Signs (Past 12 Hours) Vital Signs Temp Pulse Pulse Resp BP Pulse Ox 12/22/19 08:02 36.3 C L 80 18 132/73 91 12/22/19 03:47 36.6 C 76 19 118/66 90 12/21/19 23:38 36.7 C 81 19 110/72 94 12/21/19 23:00 62 Laboratory Results Laboratory Results - last 24 hr 12/20/19 12/21/19 12/21/19 09:09 05:31 11:27 WBC RBC Hgb Hct MCV MCH MCHC RDW Std Deviation RDW Coeff of Mary Plt Count MPV Immature Gran % (Auto) Neut % (Auto) Lymph % (Auto) [place] % (Auto) Eos % (Auto) Baso % (Auto) Immature Gran # (Auto) Neut # (Auto) Lymph # (Auto) [place] # (Auto) Eos # (Auto) Baso # (Auto) Ovalocytes PT INR Sodium Potassium Chloride Carbon Dioxide Anion Gap BUN Creatinine Est Cr Clr Drug Dosing Est GFR ( Amer) Est GFR (Non-Af Amer) BUN/Creatinine Ratio Glucose POC Glucose 128 H Estimat Average Glucose 140 Hemoglobin A1c 6.5 H Calcium Procalcitonin < 0.05 12/21/19 12/21/19 12/22/19 16:13 20:50 05:38 WBC 4.01 L RBC 4.23 L Hgb 12.7 L Hct 41.5 L MCV 98.1 MCH 30.0 MCHC 30.6 L RDW Std Deviation 57.1 H RDW Coeff of Mary 16.0 H Plt Count 121 L MPV 11.5 H Immature Gran % (Auto) 0.0 Neut % (Auto) 65.7 Lymph % (Auto) 20.4 [place] % (Auto) 12.2 Eos % (Auto) 1.5 Baso % (Auto) 0.2 Immature Gran # (Auto) 0.00 Neut # (Auto) 2.63 Lymph # (Auto) 0.82 L [place] # (Auto) 0.49 Eos # (Auto) 0.06 Baso # (Auto) 0.01 Ovalocytes 1+ PT INR Sodium Potassium Chloride Carbon Dioxide Anion Gap BUN Creatinine Est Cr Clr Drug Dosing Est GFR ( Amer) Est GFR (Non-Af Amer) BUN/Creatinine Ratio Glucose POC Glucose 131 H 144 H Estimat Average Glucose Hemoglobin A1c Calcium Procalcitonin 12/22/19 12/22/19 12/22/19 05:38 05:38 07:36 WBC RBC Hgb Hct MCV MCH MCHC RDW Std Deviation RDW Coeff of Mary Plt Count MPV Immature Gran % (Auto) Neut % (Auto) Lymph % (Auto) [place] % (Auto) Eos % (Auto) Baso % (Auto) Immature Gran # (Auto) Neut # (Auto) Lymph # (Auto) [place] # (Auto) Eos # (Auto) Baso # (Auto) Ovalocytes PT 46.5 H INR 4.8 H Sodium 141 Potassium 3.9 Chloride 108 H Carbon Dioxide 26 Anion Gap 7.0 BUN 62 H Creatinine 2.59 H Est Cr Clr Drug Dosing 26.1 Est GFR ( Amer) 25.2 Est GFR (Non-Af Amer) 21.8 BUN/Creatinine Ratio 24.0 H Glucose 116 H POC Glucose 102 H Estimat Average Glucose Hemoglobin A1c Calcium 9.9 Procalcitonin PG Care Time/CCT Total # of Minutes Spent Total Time Spent with Patient: Total time spent is greater than 50% in coordination of care (as documented) at patient's floor/unit and/or counseling patient: Coding Level of Care Code 41965 Subseq Hosp Care Lvl 3 Diagnoses Chronic renal insufficiency N18.9 Arteriosclerotic cardiovascular disease (ASCVD) I25.10 CHF (congestive heart failure) I50.9 Heart failure chronicity: unspecified Heart failure type: unspecified Time Spent (min) 40 (1) CHF (congestive heart failure) Heart failure chronicity: unspecified Heart failure type: unspecified Qualified Code(s): I50.9 - Heart failure, unspecified
--- NOTE | 2019-12-22 11:43 | Cardiology Progress Note ---
Date of Service December 22, 2019 Assessment & Plan (1) CHF exacerbation: (2) Pneumonia: (3) Amputee, above knee: (4) Aortic stenosis: (5) Cardiomyopathy: (6) Chronic renal insufficiency: (7) Malignant tumor of urinary bladder: (8) Left renal mass: Patient has improved I believe he is out of acute congestive heart failure. You may consider reducing his diuretics but that is up to nephrology. On telemetry it would appear that I see some sinus beats without any coordination with the QRS complexes. Going to obtain a EKG to be certain the patient is not in heart block. Subjective The patient is comfortable and resting in his bed. He has no new cardiac complaints today. Review of Systems Review of Systems: All systems reviewed & are unremarkable except as noted in HPI & below Nothing additional to add. Physical Exam Physical Exam: General: no acute distress and stated age Head: normocephalic, no masses, lesions, tenderness or abnormalities Eyes: conjunctiva are pink and non-injected, sclera clear Neck: supple, no adenopathy, no bruits, normal jugular venous pulse, no hepatojugular reflux Chest: normal shape and normal respiratory effort Lungs: clear to auscultation and percussion Cardiac Exam: - regular rate & rhythm, no murmurs gallops or rubs - normal S1, normal S2 Pulses: 2(+) throughout Abdomen: abdomen soft, non-tender, no abnormal masses and no hepatosplenomegaly Musculoskeletal: no gait disturbance, no joint inflammation, no deforming arthritis Extremities: no edema and no cyanosis Neuro: grossly normal exam Results & Data Vital Signs (Past 12 Hours) Vital Signs Temp Pulse Resp BP Pulse Ox 12/22/19 11:36 36.4 C L 67 18 113/63 92 12/22/19 08:02 36.3 C L 80 18 132/73 91 12/22/19 03:47 36.6 C 76 19 118/66 90 Laboratory Results Laboratory Results - last 24 hr 12/20/19 12/21/19 12/21/19 09:09 05:31 16:13 WBC RBC Hgb Hct MCV MCH MCHC RDW Std Deviation RDW Coeff of Mary Plt Count MPV Immature Gran % (Auto) Neut % (Auto) Lymph % (Auto) [place] % (Auto) Eos % (Auto) Baso % (Auto) Immature Gran # (Auto) Neut # (Auto) Lymph # (Auto) [place] # (Auto) Eos # (Auto) Baso # (Auto) Ovalocytes PT INR Sodium Potassium Chloride Carbon Dioxide Anion Gap BUN Creatinine Est Cr Clr Drug Dosing Est GFR ( Amer) Est GFR (Non-Af Amer) BUN/Creatinine Ratio Glucose POC Glucose 131 H Estimat Average Glucose 140 Hemoglobin A1c 6.5 H Calcium Procalcitonin < 0.05 12/21/19 12/22/19 12/22/19 20:50 05:38 05:38 WBC 4.01 L RBC 4.23 L Hgb 12.7 L Hct 41.5 L MCV 98.1 MCH 30.0 MCHC 30.6 L RDW Std Deviation 57.1 H RDW Coeff of Mary 16.0 H Plt Count 121 L MPV 11.5 H Immature Gran % (Auto) 0.0 Neut % (Auto) 65.7 Lymph % (Auto) 20.4 [place] % (Auto) 12.2 Eos % (Auto) 1.5 Baso % (Auto) 0.2 Immature Gran # (Auto) 0.00 Neut # (Auto) 2.63 Lymph # (Auto) 0.82 L [place] # (Auto) 0.49 Eos # (Auto) 0.06 Baso # (Auto) 0.01 Ovalocytes 1+ PT 46.5 H INR 4.8 H Sodium Potassium Chloride Carbon Dioxide Anion Gap BUN Creatinine Est Cr Clr Drug Dosing Est GFR ( Amer) Est GFR (Non-Af Amer) BUN/Creatinine Ratio Glucose POC Glucose 144 H Estimat Average Glucose Hemoglobin A1c Calcium Procalcitonin 12/22/19 12/22/19 12/22/19 05:38 07:36 11:07 WBC RBC Hgb Hct MCV MCH MCHC RDW Std Deviation RDW Coeff of Mary Plt Count MPV Immature Gran % (Auto) Neut % (Auto) Lymph % (Auto) [place] % (Auto) Eos % (Auto) Baso % (Auto) Immature Gran # (Auto) Neut # (Auto) Lymph # (Auto) [place] # (Auto) Eos # (Auto) Baso # (Auto) Ovalocytes PT INR Sodium 141 Potassium 3.9 Chloride 108 H Carbon Dioxide 26 Anion Gap 7.0 BUN 62 H Creatinine 2.59 H Est Cr Clr Drug Dosing 26.1 Est GFR ( Amer) 25.2 Est GFR (Non-Af Amer) 21.8 BUN/Creatinine Ratio 24.0 H Glucose 116 H POC Glucose 102 H 157 H Estimat Average Glucose Hemoglobin A1c Calcium 9.9 Procalcitonin Medications Administered Current Inpatient Medications Acetaminophen (Tylenol) 650 mg PO Q4H PRN PRN Reason: Pain or Fever Stop: 01/19/20 12:30 Al Hydrox/Mg Hydrox/Simethicone (Maalox) 15 ml PO Q4H PRN PRN Reason: Dyspepsia Stop: 01/19/20 12:30 Aspirin (Ecotrin Ectab) 81 mg PO QAM [facility] Stop: 01/19/20 12:30 Last Admin: 12/22/19 08:55 Dose: 81 mg Documented by: Atorvastatin Calcium (Lipitor) 40 mg PO DAILY [facility] Stop: 01/20/20 08:59 Last Admin: 12/22/19 08:56 Dose: 40 mg Documented by: Azithromycin (Zithromax) 250 mg PO QAM [facility] Stop: 12/24/19 09:30 Last Admin: 12/22/19 08:56 Dose: 250 mg Documented by: Bisacodyl (Dulcolax) 10 mg MD DAILY PRN PRN Reason: Unknown Stop: 01/19/20 12:30 Dextrose (Dextrose 50%) 25 - 50 ml IV UD PRN; Protocol PRN Reason: Hypoglycemia Protocol Stop: 01/19/20 15:48 Digoxin (Lanoxin) 0.125 mg PO MoWeFr@1600 [facility] Stop: 01/21/20 15:59 Docusate Sodium (Colace) 100 mg PO BID PRN PRN Reason: Unknown Stop: 01/19/20 12:30 Febuxostat (Uloric) 40 mg PO DAILY [facility] Stop: 01/20/20 08:59 Last Admin: 12/22/19 08:55 Dose: 40 mg Documented by: Finasteride (Proscar) 5 mg PO DAILY [facility] Stop: 01/20/20 08:59 Last Admin: 12/22/19 08:56 Dose: 5 mg Documented by: Gabapentin (Neurontin) 100 mg PO HS@2000 [facility] Stop: 01/19/20 19:59 Last Admin: 12/21/19 20:53 Dose: 100 mg Documented by: Glucagon (Glucagen) 1 mg SQ UD PRN; Protocol PRN Reason: Hypoglycemia Protocol Stop: 01/19/20 15:48 Glucose (Dex4 Glucose) 4 - 8 tabs PO UD PRN; Protocol PRN Reason: Hypoglycemia Protocol Stop: 01/19/20 15:48 Glucose (Glucose 40%) 15 - 30 gm PO UD PRN; Protocol PRN Reason: Hypoglycemia Protocol Stop: 01/19/20 15:48 Heparin Sodium (Porcine) (Heparin Sodium (Porcine)) 5,000 units SQ Q12 [facility] Stop: 01/19/20 20:59 Last Admin: 12/22/19 08:54 Dose: 5,000 units Documented by: Ceftriaxone Sodium 2,000 mg/ (Dextrose) 70 mls @ 100 mls/hr IV Q24H [facility]; Protocol Stop: 12/28/19 10:59 Last Infusion: 12/21/19 11:49 Dose: Infused Documented by: Furosemide 40 mg/ Syringe 4 mls @ 4 mls/min IV BID17 [facility] Stop: 01/19/20 16:59 Last Admin: 12/22/19 08:54 Dose: 4 mls/min Documented by: Insulin Aspart (Novolog Flexpen) 0 units SC ACHS [facility] Stop: 01/19/20 16:29 Last Admin: 12/22/19 08:52 Dose: 5 units Documented by: Insulin Human NPH (Novolin N Nph) 0 units SC DAILY@0800 [facility]; Protocol Stop: 01/20/20 08:29 Last Admin: 12/22/19 08:53 Dose: Not Given Documented by: Insulin Human NPH (Novolin N Nph) 0 units SC QDD [facility]; Protocol Stop: 01/21/20 16:29 Ketoconazole (Nizoral 2%) 1 appln EXT DAILY [facility] Stop: 12/30/19 12:30 Last Admin: 12/22/19 08:53 Dose: 1 appln Documented by: Lisinopril (Zestril) 2.5 mg PO DAILY [facility] Stop: 01/20/20 08:59 Last Admin: 12/22/19 08:55 Dose: 2.5 mg Documented by: Loperamide HCl (Imodium) 2 mg PO QID PRN PRN Reason: Diarrhea Stop: 01/19/20 12:30 Magnesium Hydroxide (Milk Of Magnesia) 30 ml PO Q12H PRN PRN Reason: Constipation Stop: 01/19/20 12:30 Metoprolol Succinate (Toprol Xl) 100 mg PO DAILY [facility] Stop: 01/20/20 08:59 Last Admin: 12/22/19 08:56 Dose: 100 mg Documented by: Miscellaneous (Carbohydrates For Hypoglycemia) 15 - 30 gm PO UD PRN PRN Reason: Hypoglycemia Protocol Stop: 01/19/20 15:48 Miscellaneous Information (Consult Glycemic Management Pharmacy) 1 ea N/A UD PRN PRN Reason: Consult Stop: 01/19/20 16:29 Multivitamins (Multivitamin Tab) 1 tab PO DAILY [facility] Stop: 01/20/20 08:59 Last Admin: 12/22/19 08:56 Dose: 1 tab Documented by: Mupirocin (Bactroban 2%) 1 appln EXT BID [facility] Stop: 12/25/19 20:59 Last Admin: 12/22/19 08:58 Dose: 1 appln Documented by: Pantoprazole Sodium (Protonix) 40 mg PO DAILY [facility] Stop: 01/20/20 08:59 Last Admin: 12/22/19 08:55 Dose: 40 mg Documented by: Polyethylene Glycol (Miralax Powder Packet) 17 gm PO DAILY PRN PRN Reason: Constipation Stop: 01/19/20 12:30 Tamsulosin HCl (Flomax) 0.4 mg PO DAILY [facility] Stop: 01/20/20 08:59 Last Admin: 12/22/19 08:56 Dose: 0.4 mg Documented by: Temazepam (Restoril) 30 mg PO HS [facility] Stop: 01/19/20 20:59 Last Admin: 12/21/19 20:53 Dose: 30 mg Documented by: Tobramycin/Dexamethasone (Tobradex Oph) 1 drops OP QID PRN PRN Reason: Eye Irritation Stop: 01/19/20 12:30 Trazodone HCl (Desyrel) 50 mg PO HS [facility] Stop: 01/19/20 20:59 Last Admin: 12/21/19 20:53 Dose: 50 mg Documented by: Triamcinolone Acetonide (Nasacort) 2 sprays NA DAILY [facility] Stop: 01/20/20 08:59 Last Admin: 12/22/19 08:58 Dose: 2 sprays Documented by: (1) CHF exacerbation Heart failure type: unspecified Qualified Code(s): I50.9 - Heart failure, unspecified (2) Pneumonia Laterality: unspecified laterality Lung location: unspecified part of lung P neumonia type: due to unspecified organism Qualified Code(s): J18.9 - Pneumonia, unspecified organism
--- NOTE | 2019-12-22 12:23 | Electrocardiogram Report ---
Test Reason : Blood Pressure : / mmHG Vent. Rate : 066 BPM Atrial Rate : 258 BPM P-R Int : 000 ms QRS Dur : 122 ms QT Int : 386 ms P-R-T Axes : 000 -76 117 degrees QTc Int : 404 ms Atrial fibrillation with premature ventricular or aberrantly conducted complexes Left axis deviation Non-specific intra-ventricular conduction delay Nonspecific ST and T wave abnormality Abnormal ECG When compared with ECG of 08-NOV-2018 21:08, QT has shortened Confirmed by Kt Srivastava ([id number]) on 12/22/2019 12:23:10 PM Referred By: REFERRED SELF Confirmed By:Kt Srivastava
[2019-12-22] MEDS: cefTRIAXone SODIUM 2,000 MG in DEXTROSE 5% 50 ML IV SCH (12:25)
[2019-12-22] MEDS ORDERED: DIGOXIN 0.125 MG TAB PO SCH (16:00)
[2019-12-22] MEDS: TRAZODONE HCL 50 MG TAB PO SCH (20:36)
[2019-12-22] MEDS: GABAPENTIN 100 MG CAP PO SCH (20:36)
[2019-12-22] MEDS: TEMAZEPAM 15 MG CAPSULE PO SCH (20:41)
[2019-12-23 07:18] LABS: Basophils # (auto) 0.01 K/uL (0-0.2); Basophils % (auto) 0.2 %; Eosinophils # (auto) 0.04 K/uL (0-0.5); Eosinophils % (auto) 0.9 %; Hematocrit (blood only) 41.6 % (42-52); Hemoglobin 12.9 g/dL (14.0-18.0); Immature Granulocytes # (auto) 0.01 K/uL (0.00-0.02); Immature Granulocytes % (auto) 0.2 %; Lymphocytes # (auto) 0.91 K/uL (1.2-3.4); Lymphocytes % (auto) 21.4 %; Mean Corpuscular Hemoglobin 30.5 pg (25-34); Mean Corpuscular Volume 98.3 fL (80-100); Mean Platelet Volume 11.9 fL (7.4-10.4); Monocytes # (auto) 0.55 K/uL (0.11-0.59); Monocytes % (auto) 12.9 %; Neutrophils # (auto) 2.73 K/uL (1.4-6.5); Neutrophils % (auto) 64.4 %; Platelet Count 126 K/uL (130-400); RDW Coefficient of Variation 16.1 % (11.5-14.5); RDW Standard Deviation 57.9 fL (36.4-46.3); Red Blood Count 4.23 M/uL (4.7-6.1); White Blood Count 4.25 K/uL (4.8-10.8)
[2019-12-23 07:34] LABS: Prothrombin Time 35.7 Seconds (9.0-12.0)
[2019-12-23 07:35] LABS: INR 3.6 (0.9-1.1)
[2019-12-23] MEDS: HEPARIN SOD 5,000 UNIT/0.5 ML VIAL SQ SCH ×2 (07:36→20:50)
[2019-12-23] MEDS: METOPROLOL SUCC 50MG EXT REL TAB PO SCH (07:37)
[2019-12-23] MEDS: FINASTERIDE 5 MG TAB PO SCH (07:37)
[2019-12-23] MEDS: PANTOprazole 40 MG TAB PO SCH (07:37)
[2019-12-23] MEDS: ATORVASTATIN 40 MG TAB PO SCH (07:37)
[2019-12-23] MEDS: TAMSULOSIN HCL 0.4 MG CAP PO SCH (07:37)
[2019-12-23] MEDS: FEBUXOSTAT 40 MG TABLET PO SCH (07:37)
[2019-12-23] MEDS: AZITHROMYCIN 250 MG TAB PO SCH (07:38)
[2019-12-23] MEDS: ASPIRIN 81 MG ECTAB PO SCH (07:38)
[2019-12-23] MEDS: MULTIVITAMIN TAB PO SCH (07:38)
[2019-12-23] MEDS: KETOCONAZOLE 2% CR 15 GM TUBE EXT SCH ×2 (07:39→07:57)
[2019-12-23] MEDS: TRIAMCINOLONE ACET NASAL SPRAY 10.8ML BTL SCH (07:39)
[2019-12-23] MEDS: MUPIROCIN 2% OINT 22 GM TUBE EXT SCH ×2 (07:40→20:28)
[2019-12-23] MEDS: INSULIN HUMAN NPH SC SCH ×3 (07:40→17:28)
[2019-12-23] MEDS: INSULIN ASPART 100 UNITS/ML 3 ML PEN SC SCH ×4 (07:41→20:50)
[2019-12-23 07:48] LABS: Hypochromasia Present; Ovalocytes 1+
[2019-12-23 07:55] LABS: BUN Creatinine Ratio 24.4 (10-20); Calcium 10.3 mg/dl (8.5-10.1); Creatinine Clr Calc Pharmacy 26.1 ml/min; Est GFR (African American) 25.2; Est GFR (Non-African American) 21.8; Magnesium 2.1 mg/dl (1.8-2.4)
[2019-12-23 07:56] LABS: Phosphorus 3.2 mg/dl (2.5-4.9)
[2019-12-23] MEDS ORDERED: FUROSEMIDE 40 MG in SYRINGE 0 ML IV SCH (09:00)
--- NOTE | 2019-12-23 09:08 | XRay Report ---
TWO VIEW CHEST CLINICAL HISTORY: Pleural effusion. FINDINGS: AP and lateral chest radiographs are compared to study dated 12/21/2019. Correlation is made with chest CT dated 03/11/2016. The AP view is degraded by patient rotation. The heart is enlarged not ing atherosclerotic calcification of the thoracic aorta. Pulmonary vascular congestion is unchanged t o modestly increased from previous. There are small pleural effusions with bibasilar consolidation. T here is no pneumothorax. The skeletal structures are osteopenic. The bony thorax appears intact. IMPRESSION: 1. Cardiomegaly with evidence of congestive failure. This is unchanged to somewhat increased from 320 . 2. There are right larger than left pleural effusions with associated basilar consolidation. Correlat e clinically for evidence of superimposed pneumonia. ACT 112: Negative or not required by law. Electronically signed by: Barrett Smith M.D. 12/23/2019 9:07 AM
--- NOTE | 2019-12-23 10:05 | Nephrology Progress Note ---
Date of Service December 23, 2019 Assessment & Plan (1) Chronic renal insufficiency: (2) CHF exacerbation: Mr. Montes appears to be quite comfortable. However, his chest x-ray continues to show evidence of congestive heart failure. He has not really diuresed much at all despite twice daily furosemide. It may be helpful to add metolazone to his regimen at least in the short-term to see if we can obtain a further diuresis. Hopefully, a diuresis will be associated with a further decline in both his BUN and creatinine which are higher than his usual baseline. However, if diuresis has a tendency to increase his BUN and creatinine we may need to back off on the use of diuretics. We sydnie gali certainly encourage him to follow his restricted sodium diet and try to limit his fluids to about 1.2 L a day. I will continue to follow him with you. (3) Arteriosclerotic cardiovascular disease (ASCVD): (4) Diabetes mellitus: Subjective Mr. Montes has no complaints this morning. He denies being short of breath. However, he is spent most of his time in bed. He has been to the bathroom and apparently was wheeled down for his chest x-ray. He tolerated that limited activity without problems. He denies having any chest pain. He has no p alpitations. He says that he slept relatively well last night. He has no symptoms of uremia and no symptoms of volume overload. Physical Exam Physical Exam: On physical examination, Mr. Montes looks about the same. He was resting comfortably in bed at about 30 degrees. His blood pressure was 127/72. His heart rate is 72 and irregular. Respiratory rate is 18 with a pulse ox of 91% on room air. He is afebrile (36.3). His skin shows normal skin turgor. He has a left AKA. He has a left forearm AV fistula. He has no rash or infiltrative skin disease. There is no palpable lymphadenopathy. His head is normal. Eyes are grossly normal. The ocular fundi were not examined. Ears, nose, mouth and throat are unremarkable. He is edentulous with dentures. Oral mucous membranes are moist. His neck is supple. I see no definite jugular venous distention. I hear no carotid bruits. He has no thyromegaly. His chest shows a few basilar crackles on the left. It is otherwise clear to auscultation. Cardiac exam shows an irregularly irregular rhythm with a controlled rate. He has a grade 2/6 to 3/6 systolic ejection murmur at the base radiating toward the neck and along the left sternal border. His abdomen is nontender. He has no obvious organomegaly or mass. Extremities show the left AKA amputation. He has no edema of the right leg. He has a right transmetatarsal foot amputation. He has bilateral femoral murmurs. There is no significant lower extremity edema. His neurologic exam shows diminished protective sensation of his distal right leg. He has no significant lateralizing changes. Results & Data Vital Signs (Past 12 Hours) Vital Signs Temp Pulse Pulse Resp BP Pulse Ox 12/23/19 09:00 72 12/23/19 07:30 36.3 C L 44 L 18 127/72 91 12/23/19 03:05 37.0 C 72 21 115/82 94 12/23/19 00:09 66 12/22/19 23:25 37.0 C 79 19 123/70 92 Diagnostic Findings Laboratory Results - last 24 hr 12/22/19 12/22/19 12/22/19 11:07 16:42 20:33 WBC RBC Hgb Hct MCV MCH MCHC RDW Std Deviation RDW Coeff of Mary Plt Count MPV Immature Gran % (Auto) Neut % (Auto) Lymph % (Auto) Pierce % (Auto) Eos % (Auto) Baso % (Auto) Immature Gran # (Auto) Neut # (Auto) Lymph # (Auto) Pierce # (Auto) Eos # (Auto) Baso # (Auto) Hypochromasia Ovalocytes PT INR Sodium Potassium Chloride Carbon Dioxide Anion Gap BUN Creatinine Est Cr Clr Drug Dosing Est GFR ( Amer) Est GFR (Non-Af Amer) BUN/Creatinine Ratio Glucose POC Glucose 157 H 129 H 163 H Calcium Phosphorus Magnesium 12/23/19 12/23/19 12/23/19 05:54 05:54 05:54 WBC 4.25 L RBC 4.23 L Hgb 12.9 L Hct 41.6 L MCV 98.3 MCH 30.5 MCHC 31.0 L RDW Std Deviation 57.9 H RDW Coeff of Mary 16.1 H Plt Count 126 L MPV 11.9 H Immature Gran % (Auto) 0.2 Neut % (Auto) 64.4 Lymph % (Auto) 21.4 Pierce % (Auto) 12.9 Eos % (Auto) 0.9 Baso % (Auto) 0.2 Immature Gran # (Auto) 0.01 Neut # (Auto) 2.73 Lymph # (Auto) 0.91 L Pierce # (Auto) 0.55 Eos # (Auto) 0.04 Baso # (Auto) 0.01 Hypochromasia Present Ovalocytes 1+ PT 35.7 H INR 3.6 H Sodium 143 Potassium 4.0 Chloride 109 H Carbon Dioxide 26 Anion Gap 9.0 BUN 63 H Creatinine 2.59 H Est Cr Clr Drug Dosing 26.1 Est GFR ( Amer) 25.2 Est GFR (Non-Af Amer) 21.8 BUN/Creatinine Ratio 24.4 H Glucose 150 H POC Glucose Calcium 10.3 H Phosphorus 3.2 Magnesium 2.1 12/23/19 07:25 WBC RBC Hgb Hct MCV MCH MCHC RDW Std Deviation RDW Coeff of Mary Plt Count MPV Immature Gran % (Auto) Neut % (Auto) Lymph % (Auto) Pierce % (Auto) Eos % (Auto) Baso % (Auto) Immature Gran # (Auto) Neut # (Auto) Lymph # (Auto) Pierce # (Auto) Eos # (Auto) Baso # (Auto) Hypochromasia Ovalocytes PT INR Sodium Potassium Chloride Carbon Dioxide Anion Gap BUN Creatinine Est Cr Clr Drug Dosing Est GFR ( Amer) Est GFR (Non-Af Amer) BUN/Creatinine Ratio Glucose POC Glucose 155 H Calcium Phosphorus Magnesium PG Care Time/CCT Total # of Minutes Spent Total Time Spent: 35 Total Time Spent with Patient: Total time spent is greater than 50% in coordination of care (as documented) at patient's floor/unit and/or counseling patient: Coding Level of Care Code 79369 Subseq Hosp Care Lvl 3 Diagnoses Chronic renal insufficiency N18.9 CHF exacerbation I50.9 Heart failure type: unspecified Arteriosclerotic cardiovascular disease (ASCVD) I25.10 Diabetes mellitus E11.9 (1) CHF exacerbation Heart failure type: unspecified Qualified Code(s): I50.9 - Heart failure, unspecified
[2019-12-23] MEDS ORDERED: metOLazone 5 MG TABLET PO ONE (10:17)
[2019-12-23] MEDS: cefTRIAXone SODIUM 2,000 MG in DEXTROSE 5% 50 ML IV SCH (11:49)
--- NOTE | 2019-12-23 14:32 | Electrocardiogram Report ---
Test Reason : Blood Pressure : / mmHG Vent. Rate : 073 BPM Atrial Rate : 000 BPM P-R Int : 000 ms QRS Dur : 122 ms QT Int : 388 ms P-R-T Axes : 000 -40 111 degrees QTc Int : 427 ms Poor data quality, interpretation may be adversely affected Atrial flutter Left axis deviation Non-specific intra-ventricular conduction delay Minimal voltage criteria for LVH, may be normal variant ( Dorian product ) Nonspecific ST and T wave abnormality Abnormal ECG When compared with ECG of 20-DEC-2019 09:05, No significant change Confirmed by Kt Srivastava ([id number]) on 12/23/2019 2:31:53 PM Referred By: REFERRED SELF Confirmed By:Kt Srivastava
[2019-12-23] MEDS: FUROSEMIDE 40 MG in SYRINGE 0 ML IV SCH (16:55)
--- NOTE | 2019-12-23 17:35 | Cardiology Progress Note ---
Date of Service December 23, 2019 Assessment & Plan (1) CHF exacerbation: (2) Pneumonia: (3) Amputee, above knee: (4) Aortic stenosis: (5) Cardiomyopathy: (6) Chronic renal insufficiency: (7) Malignant tumor of urinary bladder: (8) Left renal mass: Still following. Patient appears to be comfortable. Nephrology is working with the diuretics. Subjective The patient has no new cardiac complaints today. The patient was given additional diuretics with metaxalone today. So for minimal output. Review of Systems Review of Systems: All systems reviewed & are unremarkable except as noted in HPI & below Nothing additional to add. Physical Exam Physical Exam: General: no acute distress and stated age Head: normocephalic, no masses, lesions, tenderness or abnormalities Eyes: conjunctiva are pink and non-injected, sclera clear Neck: supple, no adenopathy, no bruits, normal jugular venous pulse, no hepatojugular reflux Chest: normal shape and normal respiratory effort Lungs: clear to auscultation and percussion Cardiac Exam: - regular rate & rhythm, systolic murmur- normal S1, normal S2 Pulses: 2(+) throughout Abdomen: abdomen soft, non-tender, no abnormal masses and no hepatosplenomegaly Musculoskeletal: no gait disturbance, no joint inflammation, no deforming arthritis Extremities: no edema and no cyanosis Neuro: grossly normal exam Results & Data Vital Signs (Past 12 Hours) Vital Signs Temp Pulse Pulse Resp BP Pulse Ox 12/23/19 16:05 36.5 C 71 24 122/72 89 L 12/23/19 12:31 36.3 C L 78 18 126/76 94 12/23/19 09:00 72 12/23/19 07:30 36.3 C L 44 L 18 127/72 91 Laboratory Results Laboratory Results - last 24 hr 12/22/19 12/23/19 12/23/19 20:33 05:54 05:54 WBC 4.25 L RBC 4.23 L Hgb 12.9 L Hct 41.6 L MCV 98.3 MCH 30.5 MCHC 31.0 L RDW Std Deviation 57.9 H RDW Coeff of Mary 16.1 H Plt Count 126 L MPV 11.9 H Immature Gran % (Auto) 0.2 Neut % (Auto) 64.4 Lymph % (Auto) 21.4 [place] % (Auto) 12.9 Eos % (Auto) 0.9 Baso % (Auto) 0.2 Immature Gran # (Auto) 0.01 Neut # (Auto) 2.73 Lymph # (Auto) 0.[address] [place] # (Auto) 0.55 Eos # (Auto) 0.04 Baso # (Auto) 0.01 Hypochromasia Present Ovalocytes 1+ PT 35.7 H INR 3.6 H Sodium Potassium Chloride Carbon Dioxide Anion Gap BUN Creatinine Est Cr Clr Drug Dosing Est GFR ( Amer) Est GFR (Non-Af Amer) BUN/Creatinine Ratio Glucose POC Glucose 163 H Calcium Phosphorus Magnesium 12/23/19 12/23/19 12/23/19 05:54 07:25 11:41 WBC RBC Hgb Hct MCV MCH MCHC RDW Std Deviation RDW Coeff of Mary Plt Count MPV Immature Gran % (Auto) Neut % (Auto) Lymph % (Auto) [place] % (Auto) Eos % (Auto) Baso % (Auto) Immature Gran # (Auto) Neut # (Auto) Lymph # (Auto) [place] # (Auto) Eos # (Auto) Baso # (Auto) Hypochromasia Ovalocytes PT INR Sodium 143 Potassium 4.0 Chloride 109 H Carbon Dioxide 26 Anion Gap 9.0 BUN 63 H Creatinine 2.59 H Est Cr Clr Drug Dosing 26.1 Est GFR ( Amer) 25.2 Est GFR (Non-Af Amer) 21.8 BUN/Creatinine Ratio 24.4 H Glucose 150 H POC Glucose 155 H 194 H Calcium 10.3 H Phosphorus 3.2 Magnesium 2.1 12/23/19 16:29 WBC RBC Hgb Hct MCV MCH MCHC RDW Std Deviation RDW Coeff of Mary Plt Count MPV Immature Gran % (Auto) Neut % (Auto) Lymph % (Auto) [place] % (Auto) Eos % (Auto) Baso % (Auto) Immature Gran # (Auto) Neut # (Auto) Lymph # (Auto) [place] # (Auto) Eos # (Auto) Baso # (Auto) Hypochromasia Ovalocytes PT INR Sodium Potassium Chloride Carbon Dioxide Anion Gap BUN Creatinine Est Cr Clr Drug Dosing Est GFR ( Amer) Est GFR (Non-Af Amer) BUN/Creatinine Ratio Glucose POC Glucose 189 H Calcium Phosphorus Magnesium Medications Administered Current Inpatient Medications Acetaminophen (Tylenol) 650 mg PO Q4H PRN PRN Reason: Pain or Fever Stop: 01/19/20 12:30 Al Hydrox/Mg Hydrox/Simethicone (Maalox) 15 ml PO Q4H PRN PRN Reason: Dyspepsia Stop: 01/19/20 12:30 Aspirin (Ecotrin Ectab) 81 mg PO QAM [facility] Stop: 01/19/20 12:30 Last Admin: 12/23/19 07:38 Dose: 81 mg Documented by: Atorvastatin Calcium (Lipitor) 40 mg PO DAILY [facility] Stop: 01/20/20 08:59 Last Admin: 12/23/19 07:37 Dose: 40 mg Documented by: Azithromycin (Zithromax) 250 mg PO QAM [facility] Stop: 12/24/19 09:30 Last Admin: 12/23/19 07:38 Dose: 250 mg Documented by: Bisacodyl (Dulcolax) 10 mg [place] DAILY PRN PRN Reason: Unknown Stop: 01/19/20 12:30 Dextrose (Dextrose 50%) 25 - 50 ml IV UD PRN; Protocol PRN Reason: Hypoglycemia Protocol Stop: 01/19/20 15:48 Digoxin (Lanoxin) 0.125 mg PO MoWeFr@1600 [facility] Stop: 01/21/20 15:59 Docusate Sodium (Colace) 100 mg PO BID PRN PRN Reason: Unknown Stop: 01/19/20 12:30 Febuxostat (Uloric) 40 mg PO DAILY [facility] Stop: 01/20/20 08:59 Last Admin: 12/23/19 07:37 Dose: 40 mg Documented by: Finasteride (Proscar) 5 mg PO DAILY [facility] Stop: 01/20/20 08:59 Last Admin: 12/23/19 07:37 Dose: 5 mg Documented by: Gabapentin (Neurontin) 100 mg PO HS@2000 [facility] Stop: 01/19/20 19:59 Last Admin: 12/22/19 20:36 Dose: 100 mg Documented by: Glucagon (Glucagen) 1 mg SQ UD PRN; Protocol PRN Reason: Hypoglycemia Protocol Stop: 01/19/20 15:48 Glucose (Dex4 Glucose) 4 - 8 tabs PO UD PRN; Protocol PRN Reason: Hypoglycemia Protocol Stop: 01/19/20 15:48 Glucose (Glucose 40%) 15 - 30 gm PO UD PRN; Protocol PRN Reason: Hypoglycemia Protocol Stop: 01/19/20 15:48 Heparin Sodium (Porcine) (Heparin Sodium (Porcine)) 5,000 units SQ Q12 [facility] Stop: 01/19/20 20:59 Last Admin: 12/23/19 07:36 Dose: 5,000 units Documented by: Ceftriaxone Sodium 2,000 mg/ (Dextrose) 70 mls @ 100 mls/hr IV Q24H [facility]; Protocol Stop: 12/28/19 10:59 Last Infusion: 12/23/19 13:10 Dose: Infused Documented by: Furosemide 40 mg/ Syringe 4 mls @ 4 mls/min IV BID17 [facility] Stop: 01/22/20 16:59 Last Admin: 12/23/19 16:55 Dose: 4 mls/min Documented by: Insulin Aspart (Novolog Flexpen) 0 units SC ACHS [facility] Stop: 01/19/20 16:29 Last Admin: 12/23/19 16:55 Dose: 3 units Documented by: Insulin Human NPH (Novolin N Nph) 0 units SC DAILY@0800 [facility]; Protocol Stop: 01/20/20 08:29 Last Admin: 12/23/19 16:57 Dose: 10 units Documented by: Insulin Human NPH (Novolin N Nph) 0 units SC QDD [facility]; Protocol Stop: 01/21/20 16:29 Last Admin: 12/23/19 17:28 Dose: 5 units Documented by: Ketoconazole (Nizoral 2%) 1 appln EXT DAILY [facility] Stop: 12/30/19 12:30 Last Admin: 12/23/19 07:57 Dose: Not Given Documented by: Lisinopril (Zestril) 2.5 mg PO DAILY [facility] Stop: 01/20/20 08:59 Last Admin: 12/23/19 07:38 Dose: 2.5 mg Documented by: Loperamide HCl (Imodium) 2 mg PO QID PRN PRN Reason: Diarrhea Stop: 01/19/20 12:30 Magnesium Hydroxide (Milk Of Magnesia) 30 ml PO Q12H PRN PRN Reason: Constipation Stop: 01/19/20 12:30 Metoprolol Succinate (Toprol Xl) 100 mg PO DAILY [facility] Stop: 01/20/20 08:59 Last Admin: 12/23/19 07:37 Dose: 100 mg Documented by: Miscellaneous (Carbohydrates For Hypoglycemia) 15 - 30 gm PO UD PRN PRN Reason: Hypoglycemia Protocol Stop: 01/19/20 15:48 Miscellaneous Information (Consult Glycemic Management Pharmacy) 1 ea N/A UD PRN PRN Reason: Consult Stop: 01/19/20 16:29 Multivitamins (Multivitamin Tab) 1 tab PO DAILY [facility] Stop: 01/20/20 08:59 Last Admin: 12/23/19 07:38 Dose: 1 tab Documented by: Mupirocin (Bactroban 2%) 1 appln EXT BID [facility] Stop: 12/25/19 20:59 Last Admin: 12/23/19 07:40 Dose: 1 appln Documented by: Pantoprazole Sodium (Protonix) 40 mg PO DAILY [facility] Stop: 01/20/20 08:59 Last Admin: 12/23/19 07:37 Dose: 40 mg Documented by: Polyethylene Glycol (Miralax Powder Packet) 17 gm PO DAILY PRN PRN Reason: Constipation Stop: 01/19/20 12:30 Tamsulosin HCl (Flomax) 0.4 mg PO DAILY [facility] Stop: 01/20/20 08:59 Last Admin: 12/23/19 07:37 Dose: 0.4 mg Documented by: Temazepam (Restoril) 30 mg PO HS [facility] Stop: 01/19/20 20:59 Last Admin: 12/22/19 20:41 Dose: 30 mg Documented by: Tobramycin/Dexamethasone (Tobradex Oph) 1 drops OP QID PRN PRN Reason: Eye Irritation Stop: 01/19/20 12:30 Trazodone HCl (Desyrel) 50 mg PO HS [facility] Stop: 01/19/20 20:59 Last Admin: 12/22/19 20:36 Dose: 50 mg Documented by: Triamcinolone Acetonide (Nasacort) 2 sprays NA DAILY [facility] Stop: 01/20/20 08:59 Last Admin: 12/23/19 07:39 Dose: 2 sprays Documented by: (1) CHF exacerbation Heart failure type: unspecified Qualified Code(s): I50.9 - Heart failure, unspecified (2) Pneumonia Laterality: unspecified laterality Lung location: unspecified part of lung Pneumonia type: due to unspecified organism Qualified Code(s): J18.9 - Pneumonia, unspecified organism
--- NOTE | 2019-12-23 18:02 | Hospitalist Progress Note ---
Date of Service December 23, 2019 Assessment & Plan (1) CHF exacerbation: Acute on chronic systolic heart failure. CXR on admission showed volume overload. BNP > 35,000. Echo on 12/20 showed EF 45-50% and severe Pulm HTN, severe and MR. This is worse than his outpatient EF with Tunde Curry per cardiology. - Cardiology following - Appreciate recs - Monitor I&Os, creatinine, weights -> Weight down to 97 kg from 104.5 kg on admission. Supposedly only net -1L so far this admission. Feel I&Os may be off. Both weight and cumulative I/Os same today as yesterday, not diuresing much - Continue Lasix 40 mg IV BID and add metalozone 10mg po x 1 this AM as per d/w Nephrology (2) Pneumonia: Admission CXR showed asymmetric extensive right mid to basilar opacity, likely pleural effusion. Repeat 2-view CXR on 12/20 showed right larger than left pleural effusions with associated basilar consolidation. Repeat CXR again 01/01 similar to worse pleural effusions - Blood cultures on 12/19 remain no growth - Procalcitonin on 12/19 was negative Highly suspect PNA is RULED OUT - Continue ceftriaxone & azithromycin -> will do a short course (5-day)-tomorrow will be last day (3) Chronic renal insufficiency: ESTEE on CKD. Baseline Cr ~2.0 per nephrology; however, he has not been that low in quite some time. This is likely cardiorenal given acute CHF. Admission Cr was 2.9. Technical Recruiter now improved down to 2.59 - Avoid nephrotoxic agents - Nephrology consulted - Appreciate recs - follow BMP (4) A-fib: Permanent atrial fib. In afib on admission EKG. - Continue Toprol XL 100mg daily-> Rates under control - continue to hold warfarin for INR > 3 at present. -continue holding digoxin as level a bit high at 1.5 and has renal insufficiency and some nocturnal bradycardia -check digoxin level in AM (5) Arteriosclerotic cardiovascular disease (ASCVD): No chest pain. Troponins stable at 0.04. - Continue home medicine: ASA, beta-herb, and will restart lisinopril today (6) Diabetes mellitus: A1c was 6.8% in 11/2019. - Glycemic control with NPH bid & sliding scale insulin, Accu-Cheks before meals and at bedtime -holding home glipizide and NPH 70/30 - Glycemic pharmacy following - glucose well controlled here (7) Hypertension: BPs controlled - Continue home medicine: Metoprolol succinate 100mg p.o. daily, restarted lisinopril 2.5 mg p.o. 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 - Continue home dose of tamsulosin 0.4 mg p.o. daily, finasteride 5 mg p.o. daily. 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, noted on ECHO here Cardio following (11) CAD (coronary artery disease), [place] coronary artery: h/o LAD stent -continue ASA, statin, beta herb, ACEi (12) Left renal mass: noted on CT and unchanged from previous at 3.5x3.1x3.3 cm -follow as outpt (13) DVT prophylaxis: On warfarin for afib -> Currently supratherapeutic Dispo-ok to transition off tele, rates stable, pt requested to do so [facility] Admission and Anticipated Discharge Date Admission Date: December 20, 2019 Subjective Pt reports he is "used to CHF" and does not feel more SOB than usual. No chest pain. He is not twanting to have his tele monitor on anymore-says it is bothering him and he doesn't think it's worth having it on. Tele has shown Afib with some rates dropping into the 40s overnight, asymptomatic, some PVC couplets. I discussed his case with Nephrology/PCP and with Cardiology today Review of Systems Review of Systems: All systems reviewed & are unremarkable except as noted in HPI & below Physical Exam Constitutional: WD/WN, vitals as above Eyes: + anicteric sclerae Neck: trachea midline, no thyromegaly Respiratory: normal respiratory effort Auscultation: + diminished lung so unds (at bases bilat); no crackles and no wheezes Cardiovascular: Rate/Rhythm: regular rate and + irregularly irregular Heart Sounds: + murmur (3/6 HODAN at RUSB and apex) Gastrointestinal (Abdomen): normal bowel sounds, soft, nontender, no hepatosplenomegaly Musculoskeletal: Extremities: + extremities abnormal to inspection (left AKA, Rt transmetataral amputatino), no cyanosis and no clubbing Skin: no rashes, warm and dry Neurologic: moves all extremities and awake; no focal motor deficits Psychiatric: A+Ox3, euthymic affect Lymphatic: no lymphedema Results & Data ([facility]) Vital Signs (Past 12 Hours) Vital Signs Temp Pulse Pulse Resp BP Pulse Ox 12/23/19 16:05 36.5 C 71 24 122/72 89 L 12/23/19 12:31 36.3 C L 78 18 126/76 94 12/23/19 09:00 72 12/23/19 07:30 36.3 C L 44 L 18 127/72 91 Laboratory Results 12/23/19 12/23/19 12/23/19 Range/Units 20:49 16:29 11:41 WBC (4.8-10.8) K/uL RBC (4.7-6.1) M/uL Hgb (14.0-18.0) g/dL Hct (42-52) % MCV (80-100) fL MCH (25-34) pg MCHC (32-36) g/dL RDW Std Deviation (36.4-46.3) fL RDW Coeff of Mary (11.5-14.5) % Plt Count (130-400) K/uL MPV (7.4-10.4) fL Immature Gran % (Auto) % Neut % (Auto) % Lymph % (Auto) % Hamilton % (Auto) % Eos % (Auto) % Baso % (Auto) % Immature Gran # (Auto) (0.00-0.02) K/uL Neut # (Auto) (1.4-6.5) K/uL Lymph # (Auto) (1.2-3.4) K/uL Hamilton # (Auto) (0.11-0.59) K/uL Eos # (Auto) (0-0.5) K/uL Baso # (Auto) (0-0.2) K/uL Hypochromasia Ovalocytes PT (9.0-12.0) Seconds INR (0.9-1.1) Sodium (136-145) mmol/L Potassium (3.5-5.1) mmol/L Chloride (98-107) mmol/L Carbon Dioxide (21-32) mmol/L Anion Gap (3-11) BUN (7-18) mg/dl Creatinine (0.6-1.4) mg/dl Est Cr Clr Drug Dosing ml/min Est GFR ( Amer) Est GFR (Non-Af Amer) BUN/Creatinine Ratio (10-20) Glucose (70-99) mg/dl POC Glucose 192 H 189 H 194 H (70-99) mg/dl Calcium (8.5-10.1) mg/dl Phosphorus (2.5-4.9) mg/dl Magnesium (1.8-2.4) mg/dl 12/23/19 12/23/19 12/23/19 Range/Units 07:25 05:54 05:54 WBC (4.8-10.8) K/uL RBC (4.7-6.1) M/uL Hgb (14.0-18.0) g/dL Hct (42-52) % MCV (80-100) fL MCH (25-34) pg MCHC (32-36) g/dL RDW Std Deviation (36.4-46.3) fL RDW Coeff of Mary (11.5-14.5) % Plt Count (130-400) K/uL MPV (7.4-10.4) fL Immature Gran % (Auto) % Neut % (Auto) % Lymph % (Auto) % Hamilton % (Auto) % Eos % (Auto) % Baso % (Auto) % Immature Gran # (Auto) (0.00-0.02) K/uL Neut # (Auto) (1.4-6.5) K/uL Lymph # (Auto) (1.2-3.4) K/uL Hamilton # (Auto) (0.11-0.59) K/uL Eos # (Auto) (0-0.5) K/uL Baso # (Auto) (0-0.2) K/uL Hypochromasia Ovalocytes PT 35.7 H (9.0-12.0) Seconds INR 3.6 H (0.9-1.1) Sodium 143 (136-145) mmol/L Potassium 4.0 (3.5-5.1) mmol/L Chloride 109 H (98-107) mmol/L Carbon Dioxide 26 (21-32) mmol/L Anion Gap 9.0 (3-11) BUN 63 H (7-18) mg/dl Creatinine 2.59 H (0.6-1.4) mg/dl Est Cr Clr Drug Dosing 26.1 ml/min Est GFR ( Amer) 25.2 Est GFR (Non-Af Amer) 21.8 BUN/Creatinine Ratio 24.4 H (10-20) Glucose 150 H (70-99) mg/dl POC Glucose 155 H (70-99) mg/dl Calcium 10.3 H (8.5-10.1) mg/dl Phosphorus 3.2 (2.5-4.9) mg/dl Magnesium 2.1 (1.8-2.4) mg/dl 12/23/19 Range/Units 05:54 WBC 4.25 L (4.8-10.8) K/uL RBC 4.23 L (4.7-6.1) M/uL Hgb 12.9 L (14.0-18.0) g/dL Hct 41.6 L (42-52) % MCV 98.3 (80-100) fL MCH 30.5 (25-34) pg MCHC 31.0 L (32-36) g/dL RDW Std Deviation 57.9 H (36.4-46.3) fL RDW Coeff of Mary 16.1 H (11.5-14.5) % Plt Count 126 L (130-400) K/uL MPV 11.9 H (7.4-10.4) fL Immature Gran % (Auto) 0.2 % Neut % (Auto) 64.4 % Lymph % (Auto) 21.4 % Hamilton % (Auto) 12.9 % Eos % (Auto) 0.9 % Baso % (Auto) 0.2 % Immature Gran # (Auto) 0.01 (0.00-0.02) K/uL Neut # (Auto) 2.73 (1.4-6.5) K/uL Lymph # (Auto) 0.91 L (1.2-3.4) K/uL Hamilton # (Auto) 0.55 (0.11-0.59) K/uL Eos # (Auto) 0.04 (0-0.5) K/uL Baso # (Auto) 0.01 (0-0.2) K/uL Hypochromasia Present Ovalocytes 1+ PT (9.0-12.0) Seconds INR (0.9-1.1) Sodium (136-145) mmol/L Potassium (3.5-5.1) mmol/L Chloride (98-107) mmol/L Carbon Dioxide (21-32) mmol/L Anion Gap (3-11) BUN (7-18) mg/dl Creatinine (0.6-1.4) mg/dl Est Cr Clr Drug Dosing ml/min Est GFR ( Amer) Est GFR (Non-Af Amer) BUN/Creatinine Ratio (10-20) Glucose (70-99) mg/dl POC Glucose (70-99) mg/dl Calcium (8.5-10.1) mg/dl Phosphorus (2.5-4.9) mg/dl Magnesium (1.8-2.4) mg/dl PG Care Time/CCT Total # of Minutes Spent Total Time Spent with Patient: Total time spent is greater than 50% in coordination of care (as documented) at patient's floor/unit and/or counseling patient: Coding Level of Care Code 20286 Subseq Hosp Care Lvl 3 Diagnoses CHF exacerbation I50.9 Heart failure type: unspecified Pneumonia J18.9 Laterality: unspecified laterality Lung location: unspecified part of lung Pneumonia type: due to unspecified organism Chronic renal insufficiency N18.9 A-fib I48.91 Arteriosclerotic cardiovascular disease (ASCVD) I25.10 Diabetes mellitus E11.9 Hypertension I10 Enlarged prostate with lower urinary tract symptoms (LUTS) N40.1 Aortic stenosis I35.0 Secondary mitral valve insufficiency I34.0 CAD (coronary artery disease), [place] coronary artery I25.10 Left renal mass N28.89 DVT prophylaxis Z29.9 (1) CHF exacerbation Heart failure type: unspecified Qualified Code(s): I50.9 - Heart failure, unspecified (2) Pneumonia Laterality: unspecified laterality Lung location: unspecified part of lung Pneumonia type: due to unspecified organism Qualified Code(s): J18.9 - Pneumonia, unspecified organism
[2019-12-23] MEDS: GABAPENTIN 100 MG CAP PO SCH (19:58)
[2019-12-23] MEDS: TEMAZEPAM 15 MG CAPSULE PO SCH (20:28)
[2019-12-23] MEDS: TRAZODONE HCL 50 MG TAB PO SCH (20:28)
[2019-12-24 06:34] LABS: Eosinophils # (auto) 0.07 K/uL (0-0.5); Hematocrit (blood only) 41.3 % (42-52); Hemoglobin 12.6 g/dL (14.0-18.0); Lymphocytes # (auto) 0.79 K/uL (1.2-3.4); Lymphocytes % (auto) 22.2 %; Mean Corpuscular Hemoglobin 30.1 pg (25-34); Mean Corpuscular Hgb Conc 30.5 g/dL (32-36); Mean Corpuscular Volume 98.6 fL (80-100); Mean Platelet Volume 10.9 fL (7.4-10.4); Monocytes # (auto) 0.43 K/uL (0.11-0.59); Monocytes % (auto) 12.1 %; Neutrophils # (auto) 2.27 K/uL (1.4-6.5); Neutrophils % (auto) 63.7 %; Platelet Count 115 K/uL (130-400); RDW Coefficient of Variation 16.3 % (11.5-14.5); RDW Standard Deviation 58.1 fL (36.4-46.3); Red Blood Count 4.19 M/uL (4.7-6.1); White Blood Count 3.56 K/uL (4.8-10.8)
[2019-12-24 06:50] LABS: Prothrombin Time 35.4 Seconds (9.0-12.0)
[2019-12-24 06:59] LABS: BUN Creatinine Ratio 25.3 (10-20); Calcium 10.1 mg/dl (8.5-10.1); Est GFR (African American) 25.1; Est GFR (Non-African American) 21.7; Potassium 3.9 mmol/L (3.5-5.1)
[2019-12-24 07:09] LABS: INR 3.6 (0.9-1.1)
[2019-12-24] MEDS: FEBUXOSTAT 40 MG TABLET PO SCH (08:33)
[2019-12-24] MEDS: FINASTERIDE 5 MG TAB PO SCH (08:33)
[2019-12-24] MEDS: METOPROLOL SUCC 50MG EXT REL TAB PO SCH (08:33)
[2019-12-24] MEDS: ASPIRIN 81 MG ECTAB PO SCH (08:33)
[2019-12-24] MEDS: FUROSEMIDE 40 MG in SYRINGE 0 ML IV SCH ×2 (08:33→17:17)
[2019-12-24] MEDS: PANTOprazole 40 MG TAB PO SCH (08:33)
[2019-12-24] MEDS: AZITHROMYCIN 250 MG TAB PO SCH (08:33)
[2019-12-24] MEDS: MULTIVITAMIN TAB PO SCH (08:33)
[2019-12-24] MEDS: TAMSULOSIN HCL 0.4 MG CAP PO SCH (08:33)
[2019-12-24] MEDS: ATORVASTATIN 40 MG TAB PO SCH (08:33)
[2019-12-24] MEDS: TRIAMCINOLONE ACET NASAL SPRAY 10.8ML BTL SCH (08:34)
[2019-12-24] MEDS: KETOCONAZOLE 2% CR 15 GM TUBE EXT SCH (08:34)
[2019-12-24] MEDS: MUPIROCIN 2% OINT 22 GM TUBE EXT SCH ×2 (08:35→21:15)
[2019-12-24] MEDS: HEPARIN SOD 5,000 UNIT/0.5 ML VIAL SQ SCH ×2 (08:35→21:16)
[2019-12-24] MEDS: INSULIN ASPART 100 UNITS/ML 3 ML PEN SC SCH ×4 (08:51→21:17)
--- NOTE | 2019-12-24 09:37 | Nephrology Progress Note ---
Date of Service December 24, 2019 Assessment & Plan (1) Chronic renal insufficiency: Mr. Montes seems reasonably stable. He has not significantly diuresed with his Lasix and metolazone. He denies having any problems with shortness of breath or chest discomfort at the current time. His renal function has remained perfectly stable despite the diuresis and modestly low serum albumin. For today, I would not make any changes in his regimen. I would give him 1 more day of a combination of Lasix and metolazone. However, if he remains asymptomatic I think he could be discharged either late this afternoon or more likely tomorrow. At the time of discharge I would continue him on his Lasix but not his metolazone. Other medication should be the same. His diabetes remains well controlled. Although he has a history of atrial fibrillation it appears now that he is in either atrial flutter/fibrillation. He is being followed by cardiology. 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 Timothy Watters with the [facility]. (2) CHF exacerbation: (3) Arteriosclerotic cardiovascular disease (ASCVD): (4) Diabetes mellitus: Subjective Mr. Montes says that he is feeling relatively well. He says that he is definitely better than he was at the time of his admission. He denies having any chest pain. He denies being short of breath. However, he does point out that he has not been at all physically active. He denies PND or orthopnea. He has had no chest pain or pressure. He denies having a regular cough. He has no symptoms of uremia or volume overload. He has gotten Lasix and metolazone yesterday. However, he did not have a significant diuresis. He has no other complaints. He says that his appetite is reasonably good. Physical Exam Physical Exam: On physical examination, Mr. Montes appears to be perfectly comfortable lying in bed at an approximate 30 degree angle. His blood pressure is 127/75. His pulse is 68 and slightly irregular. Respiratory rate is 20 with a pulse ox of 94% on room air. He is afebrile. Examination of his skin shows normal skin turgor. He has scars from prior surgical procedures. He has a left [id number] amputation and a right transmetatarsal amputation. He has no rash. He has no palpable lymphadenopathy. His head is normal. Eyes are grossly normal. The ocular fundi were not examined. Ears, nose, mouth and throat are unremarkable. He is edentulous with dentures. His oral mucous membranes are moist. His neck is supple. At 30 degrees I see no jugular venous distention. I hear no carotid bruit. There is no thyromegaly. His chest is clear to auscultation. I hear no definite wheezes, rales or rhonchi. Breath sounds are somewhat diminished at the right base compared to the left. Cardiac exam shows a minimally irregular rhythm. There are periods when his rhythm seems perfectly regular consistent with atrial flutter. S1 and S2 seem normal. He has a grade 2/6 to 3/6 systolic ejection murmur at the base radiating toward the neck as well as along the left sternal border. His abdomen is nontender. He has no organomegaly or mass. Bowel sounds are normal. I hear no abdominal bruits. Extremities show no lower extremity edema in the right leg and the left stump. He has trace presacral edema. His neurologic exam shows diminished protective sensation in his right foot. He has no lateralizing changes. Results & Data Vital Signs (Past 12 Hours) Vital Signs Temp Pulse Resp BP Pulse Ox 12/24/19 07:46 36.7 C 68 20 127/75 94 12/23/19 23:45 36.5 C 76 16 123/68 91 Laboratory Results Laboratory Results - last 24 hr 12/23/19 12/23/19 12/23/19 11:41 16:29 20:49 WBC RBC Hgb Hct MCV MCH MCHC RDW Std Deviation RDW Coeff of Mary Plt Count MPV Immature Gran % (Auto) Neut % (Auto) Lymph % (Auto) Major % (Auto) Eos % (Auto) Baso % (Auto) Immature Gran # (Auto) Neut # (Auto) Lymph # (Auto) Major # (Auto) Eos # (Auto) Baso # (Auto) PT INR Sodium Potassium Chloride Carbon Dioxide Anion Gap BUN Creatinine Est Cr Clr Drug Dosing Est GFR ( Amer) Est GFR (Non-Af Amer) BUN/Creatinine Ratio Glucose POC Glucose 194 H 189 H 192 H Calcium Digoxin 12/24/19 12/24/19 12/24/19 06:18 06:18 06:18 WBC 3.56 L RBC 4.19 L Hgb 12.6 L Hct 41.3 L MCV 98.6 MCH 30.1 MCHC 30.5 L RDW Std Deviation 58.1 H RDW Coeff of Mary 16.3 H Plt Count 115 L MPV 10.9 H Immature Gran % (Auto) 0.0 Neut % (Auto) 63.7 Lymph % (Auto) 22.2 Major % (Auto) 12.1 Eos % (Auto) 2.0 Baso % (Auto) 0.0 Immature Gran # (Auto) 0.00 Neut # (Auto) 2.27 Lymph # (Auto) 0.79 L Major # (Auto) 0.43 Eos # (Auto) 0.07 Baso # (Auto) 0.00 PT 35.4 H INR 3.6 H Sodium Potassium Chloride Carbon Dioxide Anion Gap BUN Creatinine Est Cr Clr Drug Dosing Est GFR ( Amer) Est GFR (Non-Af Amer) BUN/Creatinine Ratio Glucose POC Glucose Calcium Digoxin 1.0 12/24/19 12/24/19 06:18 07:37 WBC RBC Hgb Hct MCV MCH MCHC RDW Std Deviation RDW Coeff of Mary Plt Count MPV Immature Gran % (Auto) Neut % (Auto) Lymph % (Auto) Major % (Auto) Eos % (Auto) Baso % (Auto) Immature Gran # (Auto) Neut # (Auto) Lymph # (Auto) Major # (Auto) Eos # (Auto) Baso # (Auto) PT INR Sodium 145 Potassium 3.9 Chloride 109 H Carbon Dioxide 32 Anion Gap 4.0 BUN 66 H Creatinine 2.60 H Est Cr Clr Drug Dosing 26.0 Est GFR ( Amer) 25.1 Est GFR (Non-Af Amer) 21.7 BUN/Creatinine Ratio 25.3 H Glucose 150 H POC Glucose 140 H Calcium 10.1 Digoxin PG Care Time/CCT Total # of Minutes Spent Total Time Spent: 30 Total Time Spent with Patient: Total time spent is greater than 50% in coordination of care (as documented) at patient's floor/unit and/or counseling patient: Coding Level of Care Code 17469 Subseq Hosp Care Lvl 3 Diagnoses Chronic renal insufficiency N18.9 CHF exacerbation I50.9 Heart failure type: unspecified Arteriosclerotic cardiovascular disease (ASCVD) I25.10 Diabetes mellitus E11.9 (1) CHF exacerbation Heart failure type: unspecified Qualified Code(s): I50.9 - Heart failure, unspecified
[2019-12-24] MEDS: cefTRIAXone SODIUM 2,000 MG in DEXTROSE 5% 50 ML IV SCH (12:45)
[2019-12-24] MEDS ORDERED: metOLazone 5 MG TABLET PO ONE (14:00)
--- NOTE | 2019-12-24 14:34 | Pharmacy Report ---
Pharmacy Glycemic Short Note 2 - Date of Service December 24, 2019 - Glycemic Short BSG Results (Last 24 hours): 12/23/19 12/23/19 12/24/19 16:29 20:49 06:18 Glucose 150 H POC Glucose 189 H 192 H 12/24/19 12/24/19 07:37 11:24 Glucose POC Glucose 140 H 187 H OUTPATIENT ANTIDIABETIC REGIMEN: * Novolin 70/30 20 units QAM, 8-10 units qpm with high BSG (>300) * glipizide ER 5 mg daily * A1c 6.8% ASSESSMENT: * BSGs elevated trending upwards yesterday ranging 155-194 * Received 15 units of NPH + 11 units of correctional * Improved fasting this AM with evening dose, 140, will conservatively increase dose today PLAN FOR INPATIENT GLYCEMIC CONTROL: * Hold outpatient oral diabetes medications * Basal insulin * NPH 0/12 units QAM per scale, 0/5/12 per scale with dinner * Bolus insulin * NovoLog per scale ACHS or Q6hrs while NPO * Goal Range: Low 110 mg/dL - High 140 mg/dL * Correction Factor: 30 mg/dL/unit * Nutritional / Prandial insulin per carb ratio of 1 unit per 10 grams CHO consumed PLAN FOR DISCHARGE: * Patient's A1c within goal range, can likely resume home regimen if not experiencing frequent hypoglycemic events.
[2019-12-24] MEDS: INSULIN HUMAN NPH SC SCH (17:20)
--- NOTE | 2019-12-24 18:57 | Hospitalist Progress Note ---
Date of Service December 24, 2019 Assessment & Plan (1) CHF exacerbation: Acute on chronic systolic heart failure. CXR on admission showed volume overload. BNP > 35,000. Echo on 12/20 showed EF 45-50% and severe Pulm HTN, severe and MR. This is worse than his outpatient EF with Tunde Curry per cardiology. - Cardiology following - Appreciate recs - Monitor I&Os, creatinine, weights -> Weight down to 97.3 kg from 104.5 kg on admission. Yet still supposedly only net -1L so far this admission. Feel I&Os may be off. Not diuresing much at all Appreciate Nephrology recommendations - Continue Lasix 40 mg IV BID and will give another dose of metalozone 10mg po x 1 today (had a dose on 12/22 also) as per d/w Nephrology (2) Pneumonia: Admission CXR showed asymmetric extensive right mid to basilar opacity, likely pleural effusion. Repeat 2-view CXR on 12/20 showed right larger than left pleural effusions with associated basilar consolidation. Repeat CXR again 12/22 similar to worse pleural effusions - Blood cultures on 12/19 remain no growth - Procalcitonin on 12/19 was negative Highly suspect PNA is RULED OUT - Continue ceftriaxone & azithromycin -> has now completed 5 days (3) Chronic renal insufficiency: ESTEE on CKD. Baseline Cr ~2.0 per nephrology; however, he has not been that low in quite some time. This is likely cardiorenal given acute CHF. Admission Cr was 2.9. Rn Research now improved down to 2.59 and stable today despite potent diuretics - Avoid nephrotoxic agents - Nephrology consulted - Appreciate recs - follow BMP (4) A-fib: Permanent atrial fib. In afib on admission EKG. - Continue Toprol XL 100mg daily-> Rates under control - continue to hold warfarin for INR > 3 at present. -continue holding digoxin as level a bit high at 1.5 and has renal insufficiency and some nocturnal bradycardia -digoxin level repeated on 12/23 down to 1.0 -continue to hold digoxin for now (5) Arteriosclerotic cardiovascular disease (ASCVD): No chest pain. Troponins stable at 0.04. - Continue home medicine: ASA, beta-herb, and lisinopril (6) Diabetes mellitus: A1c was 6.8% in 11/2019. - Glycemic control with NPH bid & sliding scale insulin, Accu-Cheks before meals and at bedtime -holding home glipizide and NPH 70/30 - Glycemic pharmacy following - glucose well controlled here (7) Hypertension: BPs controlled - Continue home medicine: Metoprolol succinate 100mg p.o. daily, lisinopril 2.5 mg p.o. 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 - Continue home dose of tamsulosin 0.4 mg p.o. daily, finasteride 5 mg p.o. daily. 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 He does tend to ramble on about the types of drinks he likes at home but denies drinking too much at home. When asked if he feels SOB, he responds by asking me to check him out by listening. Review of Systems Review of Systems: All systems reviewed & are unremarkable except as noted in HPI & below Physical Exam Constitutional: WD/WN, vitals as above Eyes: + anicteric sclerae Neck: trachea midline, no thyromegaly Respiratory: normal respiratory effort Auscultation: + diminished lung sounds (at bases bilat); no crackles and no wheezes Cardiovascular: Rate/Rhythm: regular rate and + irregularly irregular Heart Sounds: + murmur (3/6 HODAN at RUSB and apex) Chest (Breasts): Chest: normal inspection of chest Gastrointestinal (Abdomen): normal bowel sounds, soft, nontender, no hepatosplenomegaly Musculoskeletal: Extremities: + extremities abnormal to inspection (left AKA, Rt transmetataral amputatino), no cyanosis and no clubbing Skin: no rashes, warm and dry Neurologic: moves all extremities and awake; no focal motor deficits Lymphatic: no lymphedema Results & Data ([facility]) Vital Signs (Past 12 Hours) Vital Signs Temp Pulse Resp BP Pulse Ox 12/24/19 14:59 36.7 C 72 18 127/70 97 12/24/19 07:46 36.7 C 68 20 127/75 94 Laboratory Results 12/24/19 12/24/19 12/24/19 Range/Units 16:45 11:24 07:37 WBC (4.8-10.8) K/uL RBC (4.7-6.1) M/uL Hgb (14.0-18.0) g/dL Hct (42-52) % MCV (80-100) fL MCH (25-34) pg MCHC (32-36) g/dL RDW Std Deviation (36.4-46.3) fL RDW Coeff of Mary (11.5-14.5) % Plt Count (130-400) K/uL MPV (7.4-10.4) fL Immature Gran % (Auto) % Neut % (Auto) % Lymph % (Auto) % [place] % (Auto) % Eos % (Auto) % Baso % (Auto) % Immature Gran # (Auto) (0.00-0.02) K/uL Neut # (Auto) (1.4-6.5) K/uL Lymph # (Auto) (1.2-3.4) K/uL [place] # (Auto) (0.11-0.59) K/uL Eos # (Auto) (0-0.5) K/uL Baso # (Auto) (0-0.2) K/uL PT (9.0-12.0) Seconds INR (0.9-1.1) Sodium (136-145) mmol/L Potassium (3.5-5.1) mmol/L Chloride (98-107) mmol/L Carbon Dioxide (21-32) mmol/L Anion Gap (3-11) BUN (7-18) mg/dl Creatinine (0.6-1.4) mg/dl Est Cr Clr Drug Dosing ml/min Est GFR ( Amer) Est GFR (Non-Af Amer) BUN/Creatinine Ratio (10-20) Glucose (70-99) mg/dl POC Glucose 181 H 187 H 140 H (70-99) mg/dl Calcium (8.5-10.1) mg/dl Digoxin (0.8-2.0) ng/ml 12/24/19 12/24/19 12/24/19 Range/Units 06:18 06:18 06:18 WBC (4.8-10.8) K/uL RBC (4.7-6.1) M/uL Hgb (14.0-18.0) g/dL Hct (42-52) % MCV (80-100) fL MCH (25-34) pg MCHC (32-36) g/dL RDW Std Deviation (36.4-46.3) fL RDW Coeff of Mary (11.5-14.5) % Plt Count (130-400) K/uL MPV (7.4-10.4) fL Immature Gran % (Auto) % Neut % (Auto) % Lymph % (Auto) % [place] % (Auto) % Eos % (Auto) % Baso % (Auto) % Immature Gran # (Auto) (0.00-0.02) K/uL Neut # (Auto) (1.4-6.5) K/uL Lymph # (Auto) (1.2-3.4) K/uL [place] # (Auto) (0.11-0.59) K/uL Eos # (Auto) (0-0.5) K/uL Baso # (Auto) (0-0.2) K/uL PT 35.4 H (9.0-12.0) Seconds INR 3.6 H (0.9-1.1) Sodium 145 (136-145) mmol/L Potassium 3.9 (3.5-5.1) mmol/L Chloride 109 H (98-107) mmol/L Carbon Dioxide 32 (21-32) mmol/L Anion Gap 4.0 (3-11) BUN 66 H (7-18) mg/dl Creatinine 2.60 H (0.6-1.4) mg/dl Est Cr Clr Drug Dosing 26.0 ml/min Est GFR ( Amer) 25.1 Est GFR (Non-Af Amer) 21.7 BUN/Creatinine Ratio 25.3 H (10-20) Glucose 150 H (70-99) mg/dl POC Glucose (70-99) mg/dl Calcium 10.1 (8.5-10.1) mg/dl Digoxin 1.0 (0.8-2.0) ng/ml 12/24/19 12/23/19 Range/Units 06:18 20:49 WBC 3.56 L (4.8-10.8) K/uL RBC 4.19 L (4.7-6.1) M/uL Hgb 12.6 L (14.0-18.0) g/dL Hct 41.3 L (42-52) % MCV 98.6 (80-100) fL MCH 30.1 (25-34) pg MCHC 30.5 L (32-36) g/dL RDW Std Deviation 58.1 H (36.4-46.3) fL RDW Coeff of Mary 16.3 H (11.5-14.5) % Plt Count 115 L (130-400) K/uL MPV 10.9 H (7.4-10.4) fL Immature Gran % (Auto) 0.0 % Neut % (Auto) 63.7 % Lymph % (Auto) 22.2 % [place] % (Auto) 12.1 % Eos % (Auto) 2.0 % Baso % (Auto) 0.0 % Immature Gran # (Auto) 0.00 (0.00-0.02) K/uL Neut # (Auto) 2.27 (1.4-6.5) K/uL Lymph # (Auto) 0.79 L (1.2-3.4) K/uL [place] # (Auto) 0.43 (0.11-0.59) K/uL Eos # (Auto) 0.07 (0-0.5) K/uL Baso # (Auto) 0.00 (0-0.2) K/uL PT (9.0-12.0) Seconds INR (0.9-1.1) Sodium (136-145) mmol/L Potassium (3.5-5.1) mmol/L Chloride (98-107) mmol/L Carbon Dioxide (21-32) mmol/L Anion Gap (3-11) BUN (7-18) mg/dl Creatinine (0.6-1.4) mg/dl Est Cr Clr Drug Dosing ml/min Est GFR ( Amer) Est GFR (Non-Af Amer) BUN/Creatinine Ratio (10-20) Glucose (70-99) mg/dl POC Glucose 192 H (70-99) mg/dl Calcium (8.5-10.1) mg/dl Digoxin (0.8-2.0) ng/ml PG Care Time/CCT Total # of Minutes Spent Total Time Spent with Patient: Total time spent is greater than 50% in coordina tion of care (as documented) at patient's floor/unit and/or counseling patient: Coding Level of Care Code 43125 Subseq Hosp Care Lvl 2 Diagnoses CHF exacerbation I50.9 Heart failure type: unspecified Pneumonia J18.9 Laterality: unspecified laterality Lung location: unspecified part of lung Pneumonia type: due to unspecified organism Chronic renal insufficiency N18.9 A-fib I48.91 Arteriosclerotic cardiovascular disease (ASCVD) I25.10 Diabetes mellitus E11.9 Hypertension I10 Enlarged prostate with lower urinary tract symptoms (LUTS) N40.1 Aortic stenosis I35.0 Secondary mitral valve insufficiency I34.0 CAD (coronary artery disease), [place] coronary artery I25.10 Left renal mass N28.89 DVT prophylaxis Z29.9 (1) CHF exacerbation Heart failure type: unspecified Qualified Code(s): I50.9 - Heart failure, unspecified (2) Pneumonia Laterality: unspecified laterality Lung location: unspecified part of lung Pneumonia type: due to unspecified organism Qualified Code(s): J18.9 - Pneumonia, unspecified organism
[2019-12-24] MEDS: GABAPENTIN 100 MG CAP PO SCH (21:15)
[2019-12-24] MEDS: TRAZODONE HCL 50 MG TAB PO SCH (21:18)
[2019-12-24] MEDS: TEMAZEPAM 15 MG CAPSULE PO SCH (21:24)
[2019-12-25 07:09] LABS: INR 3.3 (0.9-1.1); Prothrombin Time 32.4 Seconds (9.0-12.0)
[2019-12-25 07:15] LABS: BUN Creatinine Ratio 26.9 (10-20); Calcium 10.2 mg/dl (8.5-10.1); Creatinine Clr Calc Pharmacy 27.1 ml/min; Est GFR (African American) 26.5; Est GFR (Non-African American) 22.8; Potassium 3.5 mmol/L (3.5-5.1)
[2019-12-25] MEDS: MULTIVITAMIN TAB PO SCH (09:16)
[2019-12-25] MEDS: PANTOprazole 40 MG TAB PO SCH (09:16)
[2019-12-25] MEDS: ATORVASTATIN 40 MG TAB PO SCH (09:16)
[2019-12-25] MEDS: FINASTERIDE 5 MG TAB PO SCH (09:16)
[2019-12-25] MEDS: TAMSULOSIN HCL 0.4 MG CAP PO SCH (09:16)
[2019-12-25] MEDS: FUROSEMIDE 40 MG in SYRINGE 0 ML IV SCH (09:16)
[2019-12-25] MEDS: FEBUXOSTAT 40 MG TABLET PO SCH (09:16)
[2019-12-25] MEDS: ASPIRIN 81 MG ECTAB PO SCH (09:17)
[2019-12-25] MEDS: HEPARIN SOD 5,000 UNIT/0.5 ML VIAL SQ SCH (09:17)
[2019-12-25] MEDS: METOPROLOL SUCC 50MG EXT REL TAB PO SCH (09:17)
[2019-12-25] MEDS: KETOCONAZOLE 2% CR 15 GM TUBE EXT SCH (09:18)
[2019-12-25] MEDS: TRIAMCINOLONE ACET NASAL SPRAY 10.8ML BTL SCH (09:18)
[2019-12-25] MEDS: INSULIN HUMAN NPH SC SCH (09:19)
[2019-12-25] MEDS: MUPIROCIN 2% OINT 22 GM TUBE EXT SCH (09:19)
[2019-12-25] MEDS: INSULIN ASPART 100 UNITS/ML 3 ML PEN SC SCH ×2 (09:22→13:06)
--- NOTE | 2019-12-25 09:40 | Nephrology Progress Note ---
Date of Service December 25, 2019 Assessment & Plan (1) Chronic renal insufficiency: Mr. Montes appears to be back to his baseline. His serum creatinine has fallen a bit although there is a disproportionate increase in his BUN to his creatinine consistent with prerenal changes. Although this may have initially been related to congestive heart failure, it may be a bit of overdiuresis at the current time. His weight is down at least 6 kg since admission. This has occurred gradually. The drop in his weight is not consistent with his intake and output. Nonetheless, he certainly appears to be far more comfortable breathing and I think that his volume status is significantly improved. I think he can be safely discharged for close outpatient follow-up. I would discharge him on furosemide 80 mg twice daily but no metolazone. My office will keep a close contact with him and arrange for outpatient laboratory work. I will see him in follow-up in 2 to 3 weeks. I did encourage him to make sure that home physical therapy comes in to help him with transfers and to make sure that he regains his strength. He would prefer to do that at home rather than stay in the hospital for physical therapy. (2) CHF exacerbation: (3) Arteriosclerotic cardiovascular disease (ASCVD): (4) Diabetes mellitus: Subjective Mr. Montes says that he is doing well and is anxious to go home. He denies having any problems with shortness of breath. He is able to lie flat in bed without shortness of breath or tachypnea. He has no chills or fevers. He has not had any problems with chest pain. He has no symptoms of uremia and no symptoms of volume overload. He has no difficulty voiding. He has no other complaints other than being a bit weak from lying in bed. He does have physical therapy that comes to his apartment when he feels necessary a nd he plans to contact them as soon as he gets home. Physical Exam Physical Exam: On physical examination, Mr. Montes appears fairly comfortable lying flat in bed. He did not appear to be tachypneic or short of breath. His blood pressure is 133/69 in the right arm supine. His pulse is 70 and slightly irregular. Respiratory rate is 16 with a pulse ox of 94% on room air. He is afebrile (36.6). His skin shows diminished skin turgor. 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 He has a few scattered ecchymoses. He has a left arm AV fistula. He has no palpable lymphadenopathy. His head is grossly normal. Eyes are normal except for minimal conjunctival injection. Ears are unremarkable although he is wearing hearing aids. Nose, mouth and throat are unremarkable. His oral mucous membranes are moist. He is edentulous with dentures. His neck is supple. Lying flat, I see no jugular venous distention. I hear no carotid bruit. His chest shows a slight decrease in breath sounds at the right base compared to the left but it is otherwise clear. Cardiac exam shows periods of a regular rhythm (? Atrial flutter) with occasional periods of it being irregular (? Atrial fibrillation). He has systolic murmur at the base radiating toward the neck as well as along the left sternal border and toward the apex. His abdomen is soft. It is nontender. He has no organomegaly or mass. Bowel sounds are normal. Extremities shows no edema of his right leg. He has a transmetatarsal amputation on the right. He has a left [id number] amputation. His neurologic exam shows no lateralizing changes. He does have diminished protective sensation of his distal right leg. Results & Data Vital Signs (Past 12 Hours) Vital Signs Temp Pulse Resp BP Pulse Ox 12/24/19 23:51 36.6 C 70 16 133/69 94 Laboratory Results Laboratory Results - last 24 hr 12/24/19 12/24/19 12/24/19 11:24 16:45 20:54 PT INR Sodium Potassium Chloride Carbon Dioxide Anion Gap BUN Creatinine Est Cr Clr Drug Dosing Est GFR ( Amer) Est GFR (Non-Af Amer) BUN/Creatinine Ratio Glucose POC Glucose 187 H 181 H 159 H Calcium Magnesium 12/25/19 12/25/19 12/25/19 05:44 05:44 07:32 PT 32.4 H INR 3.3 H Sodium 142 Potassium 3.5 Chloride 106 Carbon Dioxide 30 Anion Gap 6.0 BUN 67 H Creatinine 2.49 H Est Cr Clr Drug Dosing 27.1 Est GFR ( Amer) 26.5 Est GFR (Non-Af Amer) 22.8 BUN/Creatinine Ratio 26.9 H Glucose 112 H POC Glucose 134 H Calcium 10.2 H Magnesium 2.0 PG Care Time/CCT Total # of Minutes Spent Total Time Spent: 40 Total Time Spent with Patient: Total time spent is greater than 50% in coordination of care (as documented) at patient's floor/unit and/or counseling patient: Coding Level of Care Code 85730 Subseq Hosp Care Lvl 3 Diagnoses Chronic renal insufficiency N18.9 CHF exacerbation I50.9 Heart failure type: unspecified Arteriosclerotic cardiovascular disease (ASCVD) I25.10 Diabetes mellitus E11.9 (1) CHF exacerbation Heart failure type: unspecified Qualified Code(s): I50.9 - Heart failure, unspecified
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
== END 2019-12-25 13:56 | disposition home or self-care (01) | DRG 291 ==
LOC: ED 08:00 → SUATTDRO 11:41 → 2E 11:41 → 2N 12-23 18:03

== ENCOUNTER 2020-06-07 09:47 | Inpatient (IN) ==
[2020-06-07] MEDS ORDERED: FAMOTIDINE 20MG/5ML IV PUSH IV STA (10:09)
[2020-06-07] MEDS ORDERED: PROCHLORPERAZINE 1 ML IV ONE (10:09)
--- NOTE | 2020-06-07 10:16 | Emergency Department Note ---
Impression & Plan Nausea & vomiting, Generalized weakness, Elevated troponin, Hypercalcemia, Supratherapeutic INR ED Provider Note NAME: ETHAN BALDWIN III AGE: 84 SEX: M ARRIVES VIA: Walk-In INFORMANT: Patient, ED PROVIDER(S): Jaren Shen MD CHIEF COMPLAINT: Nausea and vomiting PLAN: Disposition: Admit. MEDICAL DECISION MAKING: The patient is a pleasant 84-year-old gentleman with a past medical history of CHF, CKD, history of left BKA, right foot diabetic ulcer with known osteomyelitis of right foot followed by wound clinic and [facility] GREGORY on Doxycycline who presents emergency department with nausea and vomiting for the past 2 days. They deny fevers, chills, cough, congestion, diarrhea. Last bowel movement was 2 days ago but is not atypical for the patient. On arrival the patient is fatigued appearing but no acute distress, afebrile with stable vital signs. He appears clinically dry. He has mild epigastric discomfort without di screte tenderness. EKG without overt acute ischemia. Chest x-ray with moderate right pleural effusion and right basilar opacity that could be consistent with atelectasis. WBC within normal limits though lymphocytes are reduced. H/H 12.5/2 9.6 similar to prior range of values though slightly increased from recent. Creatinine 2.5 within prior range of values in setting of CKD. Calcium is slightly elevated at 10.4 consistent with the patient's clinically dry appearance. LFTs are unremarkable. Troponin marginally elevated at 0.059 likely related to demand from patient's illness. Patient's BNP is >35K similar to prior values and the setting of the patient's known CHF with concomitant CKD. CT abd pelvis negative for acute intra-abdominal process. Plain film of the right foot demonstrates the patient's known osteomyelitis similar to MRI in April 2020. Patient's INR is supratherapeutic at 6.2 however no report of bleeding therefore will defer to admitting team. Given the patient's symptoms and elevated troponin reasonable to admit the patient for further management. The patient and at bedside are agreeable with this plan. Case was discussed with Dr. Hdz, [facility], who will evaluate the patient for admission. Triage Nursing notes reviewed and agree them. Prior medical records reviewed Vital Signs: reviewed and remarkable for no significant abnormalities Differential diagnosis: Gastroenteritis, food borne illness, infections, appendicitis, diverticulitis, inflammatory bowel disease, obstruction, GI bleed, biliary pathology, volvulus, as well as other pathologies. ER treatment provided: See below. Diagnostics interpreted by me: ECG: Sinus rhythm with PSVC's, 86 bpm, left axis deviation, nonspecific intraventricular conduction delay, ST depression laterally similar to December 22, [address] elevation. Cardiac Monitoring: An order for continuous cardiac monitoring was placed and demonstrated sinus rhythm, 86 bpm, P SVC's. Laboratory studies: See below Imaging studies: XR chest 1V portable CLINICAL HISTORY: Chest Pain COMPARISON STUDY: Chest radiograph December 31, 2019. FINDINGS: There is no pneumothorax. A moderate right pleural effusion has mildly increased in size since exam of December 31, 2019. There is associated right basilar opacity. Cardiomegaly is noted. Mild pulmonary edema is present. IMPRESSION: 1. Moderate right pleural effusion with right basilar opacity that likely reflects atelectasis. 2. Mild pulmonary edema. -- CT OF THE ABDOMEN AND PELVIS WITHOUT CONTRAST CLINICAL HISTORY: Nausea, vomiting and weakness. COMPARISON STUDY: CT of the abdomen pelvis April 27, 2018. Renal ultrasound December 21, 2019. TECHNIQUE: Axial images of the abdomen and pelvis were obtained without IV contrast. Images were reviewed in the axial, sagittal, and coronal planes. Automated exposure control was utilized for the study. A dose lowering technique was utilized adhering to the principles of ALARA. FINDINGS: A right pleural effusion is partially imaged. This is moderate to large in size. Right lower lobe atelectasis is noted. Evaluation of the abdomen and pelvis is suboptimal on this unenhanced examination. There is trace ascites. No pneumatosis, free air or portal venous gas is present. Unenhanced images of the liver, spleen, adrenal glands and pancreas are unremarkable. There are gallstones within the gallbladder without evidence for acute cholecystitis. Abdominal aorta is ectatic, measuring 2.8 cm. There is extensive atherosclerotic plaque. Marked bilateral renal cortical thinning is noted. Note is made of a 3.4 cm intermediate attenuation lesion within the midpole of the left kidney which is mildly increased in size since CT of April 27, 2018 when it measured 3.1 cm. An intermediate attenuation lesion within the midpole of the right kidney measures 2.3 cm. It previously measured 2 cm. There is no hydronephrosis. There is no evidence for a bowel obstruction. The appendix is normal. Colonic diverticulosis is noted without evidence for acute diverticulitis. A femoral to femoral bypass graft is suboptimally assessed on this unenhanced examination. No lymphadenopathy is present. There are no suspicious osseous lesions. IMPRESSION: 1. Partially visualized moderate to large right pleural effusion with right lower lobe compressive atelectasis. 2. Trace ascites within the abdomen and pelvis. 3. Cholelithiasis. No evidence for acute cholecystitis. 4. No bowel obstruction. 5. Mild increase in size of indeterminate bilateral renal lesions since prior CT. Solid renal lesions cannot be excluded. -- XR foot RT min 3V routine CLINICAL HISTORY: diabetic ulcer COMPARISON: Right foot radiographs April 22, 2020. MRI of the right foot April 30, 2020. FINDINGS: Amputations of the first and third toes are noted. Chronic deformity of the second toe is noted. There is no acute fracture. Tarsometatarsal joints are intact. Extensive vascular calcification is noted. There is osteopenia. There is a suspected wound of the lateral right foot. There is subtle adjacent cortical irregularity within the lateral base of the right fifth metatarsal. This corresponds to the site of ostomy myelitis on MRI of April 30, 2020. No additional sites of osteomyelitis are identified within the right foot. IMPRESSION: 1. Subtle cortical irregularity suggestive of osteomyelitis within the lateral base of the right fifth metatarsal, as shown on MRI of April 30, 2020. No ad ditional sites of osteomyelitis by radiography. 2. 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 Consultation(s): Case was discussed with Dr. Hdz, [facility], who will evaluate the patient for admission. HPI: The patient is a pleasant 84-year-old gentleman with a past medical history of CHF, CKD, history of left BKA, right foot diabetic ulcer with known osteomyelitis of right foot followed by wound clinic and Lux COLT on Doxycycline who presents emerge department with nausea and vomiting for the past 2 days. They deny fevers, chills, cough, congestion, diarrhea. Last bowel movement was 2 days ago but is not atypical for the patient. On arrival the patient is fatigued appearing but no acute distress, afebrile with stable vital signs. He appears clinically dry. He has mild epigastric discomfort without discrete tenderness. ROS: See above HPI for pertinent positives & negatives. A total of 10 systems reviewed and were otherwise negative. PAST MEDICAL HISTORY:See Below PAST SURGICAL HISTORY:See Below FAMILY HISTORY:See Below SOCIAL HISTORY:See Below HOME MEDICATIONS:See Below ALLERGIES:See Below VITALS:See Below PHYSICAL EXAMINATION: GENERAL: Awake, alert, fatigued-appearing, in no distress HENT: Normocephalic, atraumatic. Oropharynx with dry mucous membranes and otherwise unremarkable. EYES: Normal conjunctiva. Sclera non-icteric. NECK: Supple. No nuchal rigidity. FROM. No JVD. RESPIRATORY: Clear to auscultation. CARDIAC: Regular rate, normal rhythm. Extremities warm and well perfused. Pulses equal. ABDOMEN: Soft, non-distended. No tenderness to palpation. No rebound or guarding. No masses. RECTAL: Deferred. MUSCULOSKELETAL: Chest examination reveals no tenderness. The back is symmetrical on inspection without obvious abnormality. There is no CVA tenderness to palpation. No joint edema. LOWER EXTREMITIES: RLE without significant edema, erythema or calf tenderness. He does have a chronic diabetic foot ulcer on the lateral aspect of his midfoot without any surrounding erythema edema, warmth or tenderness. NEURO: Normal sensorium. No sensory or motor deficits noted. SKIN: No rash or jaundice noted. 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 GI (gastrointestinal bleed) Left renal mass Malignant tumor of urinary bladder MRSA infection (methicillin-resistant Staphylococcus aureus) Seizures Surgical History History of cardiac catheterization S/P drug eluting coronary stent placement Family History Other Diabetes Hypertension Social History Smoking Status: Never smoker Second Hand Exposure: No; Hx Alcohol Use: No Hx Substance Use: No Preferred Language: Kinyarwanda Communication Ability: Effective Trestle Mechanic Required: No Beliefs That Will Affect Care: None Current Living Situation: Family Current Living Situation Comment: s/o cares for patient, lives separate home Other Information That Helps Us Care for You: No Feels Safe at Home: Yes Safety Concerns: Feels Safe At This Time Allergies Allergies Allergy/AdvReac Type Severity Reaction Status Date / Time allopurinol Allergy Unknown Verified 06/07/20 11:17 methylprednisolone Allergy Unknown "BLOOD Verified 06/07/20 11:17 SUGARS SKYROCKET" risperidone Allergy Unknown PT UNSURE Verified 06/07/20 11:17 OF RXN meclizine AdvReac Severe CAUSED Verified 06/07/20 11:17 NAUSEA, MADE HIM "FEEL FUNNY" cephalexin AdvReac Mild NAUSEA, Verified 06/07/20 11:17 also had Rocephin & Ancef inpast, DIARRHEA pregabalin AdvReac Mild NAUSEA Verified 06/07/20 11:17 Sulfa (Sulfonamide AdvReac Mild NAUSEA Verified 06/07/20 11:17 Antibiotics) tramadol AdvReac Mild HALLUCINATI Verified 06/07/20 11:17 ONS hydrocodone AdvReac Unknown HALLUCINATI Verified 06/07/20 11:17 ONS linezolid AdvReac Unknown GI DISTRESS Verified 06/07/20 11:17 Penicillins AdvReac Unknown gi upset Verified 06/07/20 11:17 tetracycline AdvReac Unknown TURNED Verified 06/07/20 11:17 HEAD OF PENIS RED/EXCORIATED Home Meds Home Medications Medication Instructions Recorded Confirmed Humulin 70/30 U-100 Insulin 1 sliding scale dose SUBCUT UD 11/08/18 06/07/20 docusate sodium 100 mg PO BID 11/08/18 06/07/20 finasteride 5 mg PO QAM 11/08/18 06/07/20 tamsulosin 0.4 mg PO QDD 11/08/18 06/07/20 febuxostat 40 mg tablet 40 mg PO QDD #90 tab 07/04/19 06/07/20 esomeprazole magnesium 40 mg 40 mg PO QAM cap 08/12/19 06/07/20 capsule,delayed release digoxin 125 mcg (0.125 mg) tablet 125 mcg PO 3XWK 11/18/19 06/07/20 gabapentin 100 mg PO HS 12/20/19 06/07/20 metoprolol succinate 100 mg PO QAM 12/20/19 06/07/20 lactobacillus combination no.8 3,000 mmu cells PO QAM 03/23/20 06/07/20 doxycycline hyclate 100 mg capsule 100 mg PO BID 05/18/20 06/07/20 aspirin 81 mg PO QAM 06/07/20 06/07/20 atorvastatin 40 mg PO QDD 06/07/20 glipizide 5 mg PO QAM 06/07/20 06/07/20 lisinopril 2.5 mg PO QAM 06/07/20 06/07/20 temazepam 15 mg PO HS PRN 06/07/20 06/07/20 vit C,Z-Ad-jrrmb-lutein-zeaxan 1 tab PO BID 06/07/20 06/07/20 [PreserVision AREDS-2] warfarin 2.5 mg PO UD 06/07/20 06/07/20 Previous Rx's Medication Instructions Recorded furosemide 40 mg tablet 80 mg PO BID #120 tab 07/07/19 trazodone 100 mg tablet 100 mg PO HS #90 tab 03/04/20 temazepam 30 mg capsule 30 mg PO HS #90 cap 05/24/20 Results & Data (ED) Vital Signs Vital Signs - 24 hr 06/07/20 09:53 06/07/20 10:20 06/07/20 11:00 Temperature 36.6 C Temperature Source Oral Pulse Rate 96 H 82 Pulse Rate from SpO2 Sensor 83 Respiratory Rate 20 23 Blood Pressure 124/65 125/87 Blood Pressure Mean 84 104 Pulse Oximetry 93 91 91 Oxygen Delivery Method Room Air Room Air Room Air Sepsis Recent Fever Within 48 Hours No Sepsis New/Unexplained Change in Mental Status No Sepsis Action Taken by Nursing No Action Required 06/07/20 11:30 06/07/20 12:00 Temperature Temperature Source Pulse Rate 81 91 H Pulse Rate from SpO2 Sensor 86 98 H Respiratory Rate 24 25 H Blood Pressure 139/72 150/68 H Blood Pressure Mean 97 101 Pulse Oximetry 94 92 Oxygen Delivery Method Sepsis Recent Fever Within 48 Hours Sepsis New/Unexplained Change in Mental Status Sepsis Action Taken by Nursing Laboratory Data Attestation: I reviewed the patient's lab results. Result diagrams: 06/07/20 10:16 06/07/20 10:16 Lab Results 06/07/20 06/07/20 06/07/20 Range/Units 10:16 10:16 10:16 WBC 5.10 (4.8-10.8) K/uL RBC 3.98 L (4.7-6.1) M/uL Hgb 12.5 L (14.0-18.0) g/dL Hct 39.6 L (42-52) % MCV 99.5 (80-100) fL MCH 31.4 (25-34) pg MCHC 31.6 L (32-36) g/dL RDW Std Deviation 55.4 H (36.4-46.3) fL RDW Coeff of Mary 15.2 H (11.5-14.5) % Plt Count 120 L (130-400) K/uL MPV 11.1 H (7.4-10.4) fL Immature Gran % (Auto) 0.2 % Neut % (Auto) 78.0 % Lymph % (Auto) 13.9 % Hinds % (Auto) 7.5 % Eos % (Auto) 0.2 % Baso % (Auto) 0.2 % Neut # (Auto) 3.98 (1.4-6.5) K/uL Lymph # (Auto) 0.71 L (1.2-3.4) K/uL Hinds # (Auto) 0.38 (0.11-0.59) K/uL Eos # (Auto) 0.01 (0-0.5) K/uL Baso # (Auto) 0.01 (0-0.2) K/uL Immature Gran # (Auto) 0.01 (0.00-0.02) K/uL PT 59.1 H (9.0-12.0) Seconds INR 6.2 H* (0.9-1.1) APTT 49.8 H* (21.0-31.0) Seconds PTT Ratio 1.8 Sodium 140 (136-145) mmol/L Potassium 4.2 (3.5-5.1) mmol/L Chloride 102 (98-107) mmol/L Carbon Dioxide 30 (21-32) mmol/L Anion Gap 8.0 (3-11) BUN 50 H (7-18) mg/dl Creatinine 2.58 H (0.6-1.4) mg/dl Est Cr Clr Drug Dosing Not Reportable Est GFR ( Amer) 25.4 Est GFR (Non-Af Amer) 21.9 BUN/Creatinine Ratio 19.4 (10-20) Glucose 155 H (70-99) mg/dl Calcium 10.4 H (8.5-10.1) mg/dl Phosphorus 3.1 (2.5-4.9) mg/dl Magnesium 2.4 (1.8-2.4) mg/dl Total Bilirubin 1.0 (0.2-1) mg/dl Direct Bilirubin 0.4 H (0-0.2) mg/dl AST 11 L (15-37) U/L ALT 10 L (12-78) U/L Alkaline Phosphatase 72 (45-117) U/L Troponin I 0.059 H* (0-0.045) ng/ml NT-Pro-B Natriuret Pep > 96993 H (0-1800) pg/ml Total Protein 7.1 (6.4-8.2) gm/dl Albumin 3.3 L (3.4-5.0) gm/dl Globulin 3.8 (2.5-4.0) gm/dl Albumin/Globulin Ratio 0.9 (0.9-2) Lipase 66 L (73-393) U/L TSH 2.480 (0.300-4.500) uIu/ml Administered Medications Docusate Sodium (Docusate Sodium 100 Mg Cap) 100 mg PO BID MUMTAZ Stop: 07/07/20 20:59 Last Admin: 06/07/20 20:34 Dose: Not Given Documented by: [id number] Doxycycline Hyclate (Doxycycline Hyclate 100 Mg Cap) 100 mg PO 0700,1900 MUMTAZ Stop: 06/14/20 18:59 Last Admin: 06/07/20 18:59 Dose: 100 mg Documented by: [id number] Febuxostat (Febuxostat 40 Mg Tablet) 40 mg PO QDD MUMTAZ Stop: 07/07/20 16:29 Last Admin: 06/07/20 16:22 Dose: 40 mg Documented by: [id number] Furosemide (Furosemide 80 Mg Tab) 80 mg PO BID MUMTAZ Stop: 07/07/20 20:59 Last Admin: 06/07/20 20:38 Dose: 80 mg Documented by: [id number] Gabapentin (Gabapentin 100 Mg Cap) 100 mg PO HS MUMTAZ Stop: 07/07/20 20:59 Last Admin: 06/07/20 20:38 Dose: 100 mg Documented by: [id number] Insulin Aspart (Insulin Aspart 100 Units/Ml 3 Ml Pen) 0 units SC ACHS MUMTAZ Stop: 07/07/20 16:29 Last Admin: 06/07/20 20:39 Dose: 1 units Documented by: [id number] Cosigned by: [id number] Admin: 06/07/20 16:23 Dose: 6 units Documented by: [id number] Cosigned by: [id number] Insulin Human NPH (Insulin Human Nph) 0 units SC BIDM [facility]; Protocol Stop: 07/07/20 16:59 Last Admin: 06/07/20 17:20 Dose: 10 units Documented by: [id number] Cosigned by: [id number] Lactobacillus Acidophilus (Lactobacillus Acidophilus (Floranex) Tab) 4 tab PO DAILY [facility] Stop: 07/07/20 14:14 Last Admin: 06/07/20 16:12 Dose: 4 tab Documented by: [id number] Multivitamins/Minerals (Cerovite Adv Formula Tab) 1 tab PO BID [facility] Stop: 07/07/20 20:59 Last Admin: 06/07/20 20:34 Dose: Not Given Documented by: [id number] Ondansetron HCl (Ondansetron Inj 2 Mg/Ml 2 Ml Vial) 4 mg IV Q6H PRN PRN Reason: Nausea Stop: 07/07/20 13:43 Last Admin: 06/07/20 16:31 Dose: 4 mg Documented by: [id number] Pantoprazole Sodium (Pantoprazole 40 Mg Tab) 40 mg PO BID [facility]; Protocol Stop: 07/07/20 20:59 Last Admin: 06/07/20 20:38 Dose: 40 mg Documented by: [id number] Tamsulosin HCl (Tamsulosin Hcl 0.4 Mg Cap) 0.4 mg PO QDD [facility] Stop: 07/07/20 16:29 Last Admin: 06/07/20 16:12 Dose: 0.4 mg Documented by: [id number] Temazepam (Temazepam 15 Mg Capsule) 15 mg PO HS PRN PRN Reason: Sleep Stop: 07/07/20 13:43 Last Admin: 06/07/20 20:37 Dose: 15 mg Documented by: [id number] Discontinued Medications Famotidine (Famotidine 20mg/5ml Iv Push) 20 mg IV ONE STA Stop: 06/07/20 10:10 Last Admin: 06/07/20 10:24 Dose: 20 mg Documented by: [id number] Prochlorperazine (Compazine) 1 mls @ 1 mls/min IV ONE ONE Stop: 06/07/20 10:10 Last Admin: 06/07/20 10:24 Dose: 1 mls/min Documented by: [id number] Sodium Chloride (Nss) 500 mls @ 250 mls/hr IV .Q2H MUMTAZ Stop: 07/07/20 10:14 Last Admin: 06/07/20 15:56 Dose: Not Given Documented by: [id number] Admin: 06/07/20 15:45 Dose: Not Given Documented by: [id number] Infusion: 06/07/20 13:52 Dose: 0 mls/hr Documented by: [id number] Admin: 06/07/20 10:24 Dose: 250 mls/hr Documented by: [id number] Phytonadione (Phytonadione 5 Mg Tab) 5 mg PO NOW STA Stop: 06/07/20 13:45 Last Admin: 06/07/20 16:12 Dose: 5 mg Documented by: [id number] Blood Pressure Blood Pressure Findings: Normal blood pressure Blood Pressure Disposition: further management by hospitalist Discharge Plan Visit Data Chief Complaint: Vomiting Stated Complaint: vomiting for last 24 hours, weak ED Provider: Jaren Shen Discharge Problem: Nausea & vomiting, Generalized weakness, Elevated troponin, Hypercalcemia, Supratherapeutic INR Patient Disposition: Admitted As Inpatient Discharge Instructions Interventions: ED Discharge Assessment Last Done: 06/07/20 13:17
[2020-06-07] MEDS: SODIUM CHLORIDE 0.9% 500 ML IV SCH ×3 (10:24→15:56)
[2020-06-07 10:29] LABS: Basophils # (auto) 0.01 K/uL (0-0.2); Basophils % (auto) 0.2 %; Eosinophils # (auto) 0.01 K/uL (0-0.5); Eosinophils % (auto) 0.2 %; Hematocrit (blood only) 39.6 % (42-52); Hemoglobin 12.5 g/dL (14.0-18.0); Immature Granulocytes # (auto) 0.01 K/uL (0.00-0.02); Immature Granulocytes % (auto) 0.2 %; Lymphocytes # (auto) 0.71 K/uL (1.2-3.4); Lymphocytes % (auto) 13.9 %; Mean Corpuscular Hemoglobin 31.4 pg (25-34); Mean Corpuscular Hgb Conc 31.6 g/dL (32-36); Mean Corpuscular Volume 99.5 fL (80-100); Mean Platelet Volume 11.1 fL (7.4-10.4); Monocytes # (auto) 0.38 K/uL (0.11-0.59); Monocytes % (auto) 7.5 %; Neutrophils # (auto) 3.98 K/uL (1.4-6.5); Platelet Count 120 K/uL (130-400); RDW Coefficient of Variation 15.2 % (11.5-14.5); RDW Standard Deviation 55.4 fL (36.4-46.3); Red Blood Count 3.98 M/uL (4.7-6.1)
--- NOTE | 2020-06-07 10:39 | XRay Report ---
XR chest 1V portable CLINICAL HISTORY: Chest Pain COMPARISON STUDY: Chest radiograph December 31, 2019. FINDINGS: There is no pneumothorax. A moderate right pleural effusion has mildly increased in size si nce exam of December 31, 2019. There is associated right basilar opacity. Cardiomegaly is noted. Mild pu lmonary edema is present. IMPRESSION: 1. Moderate right pleural effusion with right basilar opacity that likely reflects atelectasis. 2. Mild pulmonary edema. ACT 112: Negative or not required by law. Electronically signed by: Waylon Morse M.D. 06/07/2020 10:38 AM
[2020-06-07 10:47] LABS: Alanine Aminotransferase 10 U/L (12-78); Albumin Level 3.3 gm/dl (3.4-5.0); Aspartate Aminotransferase 11 U/L (15-37); BUN Creatinine Ratio 19.4 (10-20); Bilirubin Direct 0.4 mg/dl (0-0.2); Blood Urea Nitrogen 50 mg/dl (7-18); Calcium 10.4 mg/dl (8.5-10.1); Carbon Dioxide 30 mmol/L (21-32); Chloride 102 mmol/L (98-107); Est GFR (African American) 25.4; Est GFR (Non-African American) 21.9; Glucose 155 mg/dl (70-99); Lipase 66 U/L (73-393); Magnesium 2.4 mg/dl (1.8-2.4); Potassium 4.2 mmol/L (3.5-5.1); Sodium 140 mmol/L (136-145)
[2020-06-07 10:51] LABS: Partial Thromboplastin Ratio 1.8; Prothrombin Time 59.1 Seconds (9.0-12.0)
--- NOTE | 2020-06-07 10:55 | CT Scan Report ---
CT OF THE ABDOMEN AND PELVIS WITHOUT CONTRAST CLINICAL HISTORY: Nausea, vomiting and weakness. COMPARISON STUDY: CT of the abdomen pelvis April 27, 2018. Renal ultrasound December 21, 2019. TECHNIQUE: Axial images of the abdomen and pelvis were obtained without IV contrast. Images were revi ewed in the axial, sagittal, and coronal planes. Automated exposure control was utilized for the edwin dy. A dose lowering technique was utilized adhering to the principles of ALARA. FINDINGS: A right pleural effusion is partially imaged. This is moderate to large in size. Right lowe r lobe atelectasis is noted. Evaluation of the abdomen and pelvis is suboptimal on this unenhanced ex amination. There is trace ascites. No pneumatosis, free air or portal venous gas is present. Unenhanc ed images of the liver, spleen, adrenal glands and pancreas are unremarkable. There are gallstones wi thin the gallbladder without evidence for acute cholecystitis. Abdominal aorta is ectatic, measuring 2.8 cm. There is extensive atherosclerotic plaque. Marked bilateral renal cortical thinning is noted. Note is made of a 3.4 cm intermediate attenuation lesion within the midpole of the left kidney which is mildly increased in size since CT of April 27, 2018 when it measured 3.1 cm. An intermediate atten uation lesion within the midpole of the right kidney measures 2.3 cm. It previously measured 2 cm. Th ere is no hydronephrosis. There is no evidence for a bowel obstruction. The appendix is normal. Colon ic diverticulosis is noted without evidence for acute diverticulitis. A femoral to femoral bypass gra ft is suboptimally assessed on this unenhanced examination. No lymphadenopathy is present. There are no suspicious osseous lesions. IMPRESSION: 1. Partially visualized moderate to large right pleural effusion with right lower lobe compressive at electasis. 2. Trace ascites within the abdomen and pelvis. 3. Cholelithiasis. No evidence for acute cholecystitis. 4. No bowel obstruction. 5. Mild increase in size of indeterminate bilateral renal lesions since prior CT. Solid renal lesions cannot be excluded. ACT 112: Negative or not required by law. Electronically signed by: Waylon Morse M.D. 06/07/2020 10:54 AM
[2020-06-07 10:57] LABS: Albumin Globulin Ratio 0.9 (0.9-2); Alkaline Phosphatase 72 U/L (45-117); Globulin 3.8 gm/dl (2.5-4.0); NT Pro B Type Natriuretic Pept > 35000 pg/ml (0-1800); Phosphorus 3.1 mg/dl (2.5-4.9); Total Protein 7.1 gm/dl (6.4-8.2); Troponin I 0.059 ng/ml (0-0.045)
[2020-06-07 11:13] LABS: INR 6.2 (0.9-1.1); Partial Thromboplastin Time 49.8 Seconds (21.0-31.0)
--- NOTE | 2020-06-07 11:47 | History & Physical Report ---
Date of Service June 07, 2020 Assessment & Plan (1) Nausea & vomiting: Origin of his nausea vomiting is currently unclear. Could be an anginal equivalent given his cardiomyopathy. Could be gastroparesis given his diabetes. His LFTs are unremarkable as well as imaging of his hepatobiliary system. Because of his elevated INR could also be from gastritis. He has had no melena hemoglobin is currently stable. He will be put on be ID PPI check his hemoglobin in the morning downgrade his diet to liquid diet and have his diabetic coverage be insulin sliding scale (2) Cardiomyopathy: Patient is elevated troponin on presentation with minor EKG changes not acute coronary syndrome. Given his known coronary disease he is high pretest probability however this could also be from congestive heart failure chronic kidney disease. To this end we will trend his troponins and will continue his aspirin atorvastatin as well as his beta-herb have a cardiology consultation to help manage his heart failure. Patient has a significant cardiomyopathy with EF of 20% multiple valvular abnormalities which are severe. Patient previously seen Dr. Watters and refused a defibrillator discussion. He also has refused any further intervention regarding cardiac condition. Because of his elevated troponin in mind and EKG changes he will of his troponin trended audiology evaluation will be undertaken given his heart failure and likely intensive need of outpatient management unless we progress towards hospice care. To this end the digoxin level will be checked on presentation will be maintained on Lasix 80 mg twice daily lisinopril 2.5-day metoprolol XL 100 a day and being a low-sodium diet. Patient is a history of permanent atrial fibrillation rate controlled with metoprolol and typically anticoagulated with Coumadin. He has had a severe upper GI bleed in the past requiring 5 units of packed red blood cells per the record with Dr. Watters. Subsequently his Coumadin is supratherapeutic at this time and it is currently held with oral vitamin K dosing given. R serial INRs will be checked (3) Pleural effusion: Patient's pleural effusion is seems moderate on CT scan. Because he has some shortness of breath this is complaints is unclear if the effusion may be causing his newfound shortness of breath and consideration of a diagnostic thoracentesis once his coagulopathy is reversed could be undertaken. Valuation whether this is cardiogenic or perhaps from his undiagnosed renal masses. To this and a CT scan of her chest be undertaken however without contrast due to his renal dysfunction pulmonary consultation has not been placed it till coagulopathy is reversed (4) Type 2 diabetes mellitus: Patient on diabetic diet however full liquid and insulin sliding scale undertaken with pharmacy management and a hemoglobin A1c checked (5) Enlarged prostate with lower urinary tract symptoms (LUTS): Patient currently without lower urinary tract symptoms he will be continued on Proscar 5 and Flomax 0.4 (6) Left renal mass: Patient actually has bilateral renal masses the patient says that he has discussed this with Dr. Wilkerson in the past and had felt he would not be able to survive surgery given his cardiomyopathy. Both masses have slightly progressed. Concern could be if this is renal cell carcinoma and metastasis to the lung could happen which could result in his pleural effusion. He however does not wish to defer these to be worked up at this time and a CT scan of his chest is pending at time of presentation (7) Chronic kidney disease, stage IV (severe): Patient is chronic kidney disease stage III-IV it is currently about his usual state he will be maintained on his oral Lasix unless progressive symptoms of heart failure exist then we will change to parenteral dosing (8) Diabetic ulcer of right foot associated with diabetes mellitus due to underlying condition, with fat layer exposed: Patient typically sees wound care center is recently been on doxycycline for concern for superficial infection of diabetic foot ulceration. He feels this likely may have prompted his supratherapeutic INR he will be continued on doxycycline and wound consultation will be undertaken History of Present Illness Primary Care Provider: Jayme Wilkerson MD 84 M presents [facility] with nausea and vomiting for the past 2 days. Patient also states he feels short of breath cannot tell which came first, he has had no associated chest pain. He has a past medical history of CHF, CKD 3, history of left BKA. Pt denies fevers, chills, cough, congestion, diarrhea. Last bowel movement was 2 days ago but is not atypical for the patient. Normal LFTs normal appearance of liver and gallbladder on CT scan. Patient states that his symptoms are resolved but he does not want to try to advance his diet much past liquids. Patient also has a history of a significant upper GI bleed in the past at which time he had multiple units of blood transfused he takes a daily PPI On arrival the patient is fatigued appearing but no acute distress, afebrile with stable vital signs. He is not appear to be in volume overload at this time. Minorly elevated Troponin to 0/059 but EKG without overt acute ischemia perhaps some subtle ST changes. Chest x-ray with moderate right pleural effusion and right basilar opacity that could be consistent with atelectasis. CT scan also reconfirms the pleural effusion on the right Creatinine 2.5 within prior range of values in setting of CKD 34. Patient has a history of systolic and diastolic heart failure, cardiomyopathy with an EF of 20% and moderate to severe mitral regurg and aortic stenosis.. Patient's BNP is >35K similar to prior values patient typically sees Dr. Timothy Watters with [facility] cardiology and last visit in January 2020 discussions of hospice was brought up. Patient confirms he is a DNR Allergies Allergy/AdvReac Type Severity Reaction Status Date / Time allopurinol Allergy Unknown Verified 06/07/20 11:17 methylprednisolone Allergy Unknown "BLOOD Verified 06/07/20 11:17 SUGARS SKYROCKET" risperidone Allergy Unknown PT UNSURE Verified 06/07/20 11:17 OF RXN meclizine AdvReac Severe CAUSED Verified 06/07/20 11:17 NAUSEA, MADE HIM "FEEL FUNNY" cephalexin AdvReac Mild NAUSEA, Verified 06/07/20 11:17 also had Rocephin & Ancef inpast, DIARRHEA pregabalin AdvReac Mild NAUSEA Verified 06/07/20 11:17 Sulfa (Sulfonamide AdvReac Mild NAUSEA Verified 06/07/20 11:17 Antibiotics) tramadol AdvReac Mild HALLUCINATI Verified 06/07/20 11:17 ONS hydrocodone AdvReac Unknown HALLUCINATI Verified 06/07/20 11:17 ONS linezolid AdvReac Unknown GI DISTRESS Verified 06/07/20 11:17 Penicillins AdvReac Unknown gi upset Verified 06/07/20 11:17 tetracycline AdvReac Unknown TURNED Verified 06/07/20 11:17 HEAD OF PENIS RED/EXCORIATED Home Medications Home Medications Medication Instructions Recorded Confirmed Type Humulin 70/30 U-100 Insulin 1 sliding scale dose SUBCUT UD 11/08/18 06/07/20 History docusate sodium 100 mg PO BID 11/08/18 06/07/20 History finasteride 5 mg PO QAM 11/08/18 06/07/20 History tamsulosin 0.4 mg PO QDD 11/08/18 06/07/20 History febuxostat 40 mg tablet 40 mg PO QDD #90 tab 07/04/19 06/07/20 History furosemide 40 mg tablet 80 mg PO BID #120 tab 07/07/19 06/07/20 Rx esomeprazole magnesium 40 mg 40 mg PO QAM cap 08/12/19 06/07/20 History capsule,delayed release digoxin 125 mcg (0.125 mg) tablet 125 mcg PO QAM 11/18/19 06/07/20 History gabapentin 100 mg PO HS 12/20/19 06/07/20 History metoprolol succinate 100 mg PO QAM 12/20/19 06/07/20 History trazodone 100 mg tablet 100 mg PO HS #90 tab 03/04/20 06/07/20 Rx lactobacillus combination no.8 3,000 mmu cells PO QAM 03/23/20 06/07/20 History doxycycline hyclate 100 mg capsule 100 mg PO BID 05/18/20 06/07/20 History temazepam 30 mg capsule 30 mg PO HS #90 cap 05/24/20 06/07/20 Rx aspirin 81 mg PO QAM 06/07/20 06/07/20 History atorvastatin 40 mg PO QDD 06/07/20 History glipizide 5 mg PO QAM 06/07/20 06/07/20 History lisinopril 2.5 mg PO QAM 06/07/20 06/07/20 History temazepam 15 mg PO HS PRN 06/07/20 06/07/20 History vit C,R-Og-ldgav-lutein-zeaxan 1 tab PO BID 06/07/20 06/07/20 History [PreserVision AREDS-2] warfarin 2.5 mg PO UD 06/07/20 06/07/20 History Past Med/Surg History Medical History Atrial fibrillation with RVR CAD (coronary artery disease), [place] coronary artery CHF (congestive heart failure) 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 GI (gastrointestinal bleed) Left renal mass Malignant tumor of urinary bladder MRSA infection (methicillin-resistant Staphylococcus aureus) Seizures Surgical History History of cardiac catheterization S/P drug eluting coronary stent placement Family History Other Diabetes Hypertension Social History Smoking Status: Never smoker Second Hand Exposure: No; Hx Alcohol Use: No Hx Substance Use: No Preferred Language: Slovak Communication Ability: Effective Seating Upholsterer Required: No Beliefs That Will Affect Care: None Current Living Situation: Family Current Living Situation Comment: s/o cares for patient, lives separate home Other Information That Helps Us Care for You: No Feels Safe at Home: Yes Safety Concerns: Feels Safe At This Time Review of Systems Review of Systems: Mild distress and fatigue no headache, blurry or double vision no speech or swallowing issues no chest pain, pressure or palpitations patient is able to lay flat without distress Patient can be short of breath upon sitting associated hypoxemia no reproducible abdominal pain, has had resolution of nausea or vomiting, no recent complaints of melena, diarrhea or constipation no dysuria, hematuria or frequency no focal joint pain or swelling no back pain, CVA tenderness or radicular pain no bruising, bleeding or rashes no focal signs of weakness or numbness or altered sensation no complaints or anxiety or depression. Physical Exam Physical Exam: The patient appeared patient appears chronically ill Vital signs as documented. Head exam is normocephalic atraumatic no scleral icterus Neck is with JVD 2 cm, thyromegaly, or carotid bruits. Lungs are absent breath sounds at the right base consistent with his pleural effusion Cardiac exam, irregularly irregular rate controlled systolic murmurs Abdominal exam reveals normal bowel sounds, soft non tender, no masses no bruits Extremities left lower extremity is amputated right lower extremity has wounds present apically seeing our wound clinic Neurologic exam is alert and oriented, no focal loss of strength or sensation exception of peripheral neuropathy Skin is with stage III lateral metatarsal base ulceration on right foot malleolar small ulceration on right foot Results & Data Results & Data ([facility]) Vital Signs (Past 12 Hours) Vital Signs Temp Pulse Resp BP Pulse Ox 06/07/20 11:00 82 23 125/87 91 06/07/20 10:20 91 chest x-ray 06/07/2020moderate right pleural effusion right basilar atelectasis mild pulmonary edema 06/07/20 09:53 97.9 F 96 H 20 124/65 93 Chest x-ray 06/07/2020 moderate right pleural effusion and basilar atelectasis mild pulmonary edema CT scan abdomen pelvis 06/07/2020partially visualized moderate right pleural effusion with compressive atelectasis associated with ittrace ascites in the abdomen, cholelithiasis without cholecystitis, no bowel obstruction. Mild increase in size of the indeterminate bilateral renal lesions since prior CT, 3.4 cm on the left (previously 3.1) 2.3 cm on the right (previously 2 cm) EKG shows EKG looks to be rate controlled atrial flutter may be much more pronounced lateral ST changes PG Care Time/CCT Total # of Minutes Spent Total Time Spent with Patient: Total time spent is greater than 50% in coordination of care (as documented) at patient's floor/unit and/or counseling patient: Coding Level of Care Code 91051 Initial Inpt Care Lvl 3 Diagnoses Nausea & vomiting R11.2 Cardiomyopathy I42.9 Pleural effusion J90 Type 2 diabetes mellitus E11.9 Enlarged prostate with lower urinary tract symptoms (LUTS) N40.1 Left renal mass N28.89 Chronic kidney disease, stage IV (severe) N18.4 Diabetic ulcer of right foot associated with diabetes mellitus due to underlying condition, with fat layer exposed E08.621; L97.412 Diabetic foot ulcer location: midfoot (1) Diabetic ulcer of right foot associated with diabetes mellitus due to underlying condition, with fat layer exposed Diabetic foot ulcer location: midfoot Qualified Code(s): E08.621 - Diabetes mellitus due to underlying condition with foot ulcer; L97.412 - Non-pressure chronic ulcer of right heel and midfoot with fat layer exposed
--- NOTE | 2020-06-07 12:37 | XRay Report ---
XR foot RT min 3V routine CLINICAL HISTORY: diabetic ulcer COMPARISON: Right foot radiographs April 22, 2020. MRI of the right foot April 30, 2020. FINDINGS: Amputations of the first and third toes are noted. Chronic deformity of the second toe is noted. There is no acute fracture. Tarsometatarsal joints are intact. Extensive vascular calcificatio n is noted. There is osteopenia. There is a suspected wound of the lateral right foot. There is subtl e adjacent cortical irregularity within the lateral base of the right fifth metatarsal. This correspo nds to the site of ostomy myelitis on MRI of April 30, 2020. No additional sites of osteomyelitis are identified within the right foot. IMPRESSION: 1. Subtle cortical irregularity suggestive of osteomyelitis within the lateral base of the right fift h metatarsal, as shown on MRI of April 30, 2020. No additional sites of osteomyelitis by radiography. 2. 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 ACT 112: Negative or not required by law. Electronically signed by: Waylon Morse M.D. 06/07/2020 12:35 PM
[2020-06-07] MEDS ORDERED: GLUCAGON FOR INJ 1 MG VIAL SQ PRN (13:44)
[2020-06-07] MEDS ORDERED: DEXTROSE 50% 50 ML SYRINGE IV PRN (13:44)
[2020-06-07] MEDS ORDERED: TEMAZEPAM 15 MG CAPSULE PO PRN (13:44)
[2020-06-07] MEDS ORDERED: ONDANSETRON INJ 2 MG/ML 2 ML VIAL IV PRN (13:44)
[2020-06-07] MEDS ORDERED: NITROGLYCERIN SL 0.4 MG/TAB TAB SL PRN (13:44)
[2020-06-07] MEDS ORDERED: CARBOHYDRATES FOR HYPOGLYCEMIA PO PRN (13:44)
[2020-06-07] MEDS ORDERED: GLUCOSE 40% GEL 15 GM TUBE PO PRN (13:44)
[2020-06-07] MEDS ORDERED: GLUCOSE 10 TABS/TUBE PO PRN (13:44)
[2020-06-07] MEDS ORDERED: ACETAMINOPHEN 325 MG TAB PO PRN (13:44)
[2020-06-07] MEDS ORDERED: PHYTONADIONE 5 MG TAB PO STA (13:44)
[2020-06-07] MEDS ORDERED: PHARMACY GLYCEMIC MGMT CONSULT PRN (15:00)
--- NOTE | 2020-06-07 15:09 | Electrocardiogram Report ---
Test Reason : Blood Pressure : / mmHG Vent. Rate : 086 BPM Atrial Rate : 085 BPM P-R Int : 000 ms QRS Dur : 124 ms QT Int : 374 ms P-R-T Axes : 039 -70 110 degrees QTc Int : 447 ms Atrial flutter with variable A-V block Left axis deviation Non-specific intra-ventricular conduction delay ST depression in Anterolateral leads Abnormal ECG When compared with ECG of 22-DEC-2019 12:52, No significant change Confirmed by Santy Maldonado ([id number]) on 06/07/2020 3:08:27 PM Referred By: REFERRED SELF Confirmed By:Santy Maldonado
--- NOTE | 2020-06-07 15:09 | Cardiology Consultation ---
Date of Consultation June 07, 2020 Assessment & Plan (1) Nausea & vomiting: (2) Generalized weakness: (3) Pleural effusion: (4) Elevated troponin: (5) Chronic kidney disease, stage IV (severe): (6) Peripheral arterial disease: (7) CAD (coronary artery disease), [place] coronary artery: (8) Anxiety: (9) A-fib: (10) Secondary mitral valve insufficiency: Moderate to large sized right pleural effusion, not significantly symptomatic, however, very limited ambulation. I do not believe the minimal troponin elevation represents an acute ischemic event, and no further intervention is necessary at this time. We will attempt to diurese to decrease the size of the effusion and hopefully prevent symptoms from occurring. This may prove difficult given his chronic kidney disease and therapeutic thoracentesis may need to be considered for symptom control. He is previously suffered a life-threatening GI bleed and is not maintained on an aspirin as an outpatient, it was ordered on admission but I will discontinue it at this time. He follows closely with his outpatient plaster tender and has declined further testing or intervention specifically declining ICD therapy and repeating an echocardiogram. Hospice care has been discussed with him and we may need to readdress the issue should his renal function decline with diuresis History of Present Illness Reason for Consultation: Shortness of breath/elevated troponin Requesting Physician: Dr. Hdz Attending Physician: Chance Hdz MD History of Present Illness Mr. Montes is a very pleasant 84-year-old gentleman who routinely follows with Dr. Watters of our [facility] office. He presented to [facility] emergency department on 06/07/2020 with complaints of nausea and vomiting. This is been going on for the last 2 days and is not been able to keep anything down. Sometime after the nausea started he also started noticing was a little bit more short of breath than normal but his nausea was his main concern. Upon arrival to the emergency department his initial troponin was mildly elevated with some slight changes on his EKG. He denies experiencing any chest pain as of late. He states that he is not short of breath at this time and he has been compliant with all of his medications at home. Past cardiac history as per most recent outpatient office note: 1. Cardiomyopathy, unspecified type (HCC) 2. Coronary artery disease involving [place] coronary artery of [place] heart without angina pectoris 3. Nonrheumatic aortic valve stenosis 4. Non-rheumatic mitral regurgitation 5. Persistent atrial fibrillation 6. PVD (peripheral vascular disease) ([facility]) 7. Chronic combined systolic and diastolic CHF (congestive heart failure) Allergies Allergy/AdvReac Type Severity Reaction Status Date / Time allopurinol Allergy Unknown Verified 06/07/20 11:17 methylprednisolone Allergy Unknown "BLOOD Verified 06/07/20 11:17 SUGARS SKYROCKET" risperidone Allergy Unknown PT UNSURE Verified 06/07/20 11:17 OF RXN meclizine AdvReac Severe CAUSED Verified 06/07/20 11:17 NAUSEA, MADE HIM "FEEL FUNNY" cephalexin AdvReac Mild NAUSEA, Verified 06/07/20 11:17 also had Rocephin & Ancef inpast, DIARRHEA pregabalin AdvReac Mild NAUSEA Verified 06/07/20 11:17 Sulfa (Sulfonamide AdvReac Mild NAUSEA Verified 06/07/20 11:17 Antibiotics) tramadol AdvReac Mild HALLUCINATI Verified 06/07/20 11:17 ONS hydrocodone AdvReac Unknown HALLUCINATI Verified 06/07/20 11:17 ONS linezolid AdvReac Unknown GI DISTRESS Verified 06/07/20 11:17 Penicillins AdvReac Unknown gi upset Verified 06/07/20 11:17 tetracycline AdvReac Unknown TURNED Verified 06/07/20 11:17 HEAD OF PENIS RED/EXCORIATED Home Medications Home Medications Medication Instructions Recorded Confirmed Type Humulin 70/30 U-100 Insulin 1 sliding scale dose SUBCUT UD 11/08/18 06/07/20 History docusate sodium 100 mg PO BID 11/08/18 06/07/20 History finasteride 5 mg PO QAM 11/08/18 06/07/20 History tamsulosin 0.4 mg PO QDD 11/08/18 06/07/20 History febuxostat 40 mg tablet 40 mg PO QDD #90 tab 07/04/19 06/07/20 History furosemide 40 mg tablet 80 mg PO BID #120 tab 07/07/19 06/07/20 Rx esomeprazole magnesium 40 mg 40 mg PO QAM cap 08/12/19 06/07/20 History capsule,delayed release digoxin 125 mcg (0.125 mg) tablet 125 mcg PO QAM 11/18/19 06/07/20 History gabapentin 100 mg PO HS 12/20/19 06/07/20 History metoprolol succinate 100 mg PO QAM 12/20/19 06/07/20 History trazodone 100 mg tablet 100 mg PO HS #90 tab 03/04/20 06/07/20 Rx lactobacillus combination no.8 3,000 mmu cells PO QAM 03/23/20 06/07/20 History doxycycline hyclate 100 mg capsule 100 mg PO BID 05/18/20 06/07/20 History temazepam 30 mg capsule 30 mg PO HS #90 cap 05/24/20 06/07/20 Rx aspirin 81 mg PO QAM 06/07/20 06/07/20 History atorvastatin 40 mg PO QDD 06/07/20 History glipizide 5 mg PO QAM 06/07/20 06/07/20 History lisinopril 2.5 mg PO QAM 06/07/20 06/07/20 History temazepam 15 mg PO HS PRN 06/07/20 06/07/20 History vit C,J-Sm-tdzig-lutein-zeaxan 1 tab PO BID 06/07/20 06/07/20 History [PreserVision AREDS-2] warfarin 2.5 mg PO UD 06/07/20 06/07/20 History Patient History Medical History Atrial fibrillation with RVR CAD (coronary artery disease), [place] coronary artery CHF (congestive heart failure) 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 GI (gastrointestinal bleed) Left renal mass Malignant tumor of urinary bladder MRSA infection (methicillin-resistant Staphylococcus aureus) Seizures Surgical History History of cardiac catheterization S/P drug eluting coronary stent placement Family History Other Diabetes Hypertension Social History Smoking Status: Never smoker Second Hand Exposure: No; Hx Alcohol Use: No Hx Substance Use: No Preferred Language: Tristanian Communication Ability: Effective Wharf Helper Required: No Beliefs That Will Affect Care: None Current Living Situation: Family Current Living Situation Comment: s/o cares for patient, lives separate home Other Information That Helps Us Care for You: No Feels Safe at Home: Yes Safety Concerns: Feels Safe At This Time Review of Systems Review of Systems: All systems reviewed & are unremarkable except as noted in HPI & below Physical Exam Physical Exam: General: Awake, alert and oriented x 3. No acute distress. Hard of hearing. HEENT: Normocephalic, atraumatic. Pupils equal, round and reactive to light and accommodation. Extraocular muscles are intact. Anicteric sclera. Moist mucous membranes. Neck: No JVD. No bruit. Cardiovascular: irregularly irregular, 3/6 holosystolic ejection murmur great est at the left midclavicular line with radiation to the left axilla. Pulmonary: Clear to auscultation bilaterally. No rales, rhonchi, or wheezing. Abdomen: Bowel sounds x 4, soft. No rebound, guarding or tenderness. No organomegaly. Extremities: No clubbing, cyanosis or edema. +2 pedal pulses bilaterally. Skin: Warm and dry. Results & Data ([facility]) Vital Signs (Past 12 Hours) Vital Signs Temp Pulse Pulse Resp BP BP Pulse Ox 06/07/20 13:44 36.9 C 71 16 143/78 H 06/07/20 13:17 91 H 20 127/88 94 06/07/20 13:00 91 H 20 127/88 94 06/07/20 12:30 93 H 17 122/55 L 94 06/07/20 12:00 91 H 25 H 150/68 H 92 06/07/20 11:30 81 24 139/72 94 06/07/20 11:00 82 23 125/87 91 06/07/20 10:20 91 06/07/20 09:53 36.6 C 96 H 20 124/65 93 Laboratory Results Laboratory Results - last 24 hr 06/07/20 06/07/20 06/07/20 10:16 10:16 10:16 WBC 5.10 RBC 3.98 L Hgb 12.5 L Hct 39.6 L MCV 99.5 MCH 31.4 MCHC 31.6 L RDW Std Deviation 55.4 H RDW Coeff of Mary 15.2 H Plt Count 120 L MPV 11.1 H Immature Gran % (Auto) 0.2 Neut % (Auto) 78.0 Lymph % (Auto) 13.9 [place] % (Auto) 7.5 Eos % (Auto) 0.2 Baso % (Auto) 0.2 Neut # (Auto) 3.98 Lymph # (Auto) 0.71 L [place] # (Auto) 0.38 Eos # (Auto) 0.01 Baso # (Auto) 0.01 Immature Gran # (Auto) 0.01 PT 59.1 H INR 6.2 H* APTT 49.8 H* PTT Ratio 1.8 Sodium 140 Potassium 4.2 Chloride 102 Carbon Dioxide 30 Anion Gap 8.0 BUN 50 H Creatinine 2.58 H Est Cr Clr Drug Dosing Not Reportable Est GFR ( Amer) 25.4 Est GFR (Non-Af Amer) 21.9 BUN/Creatinine Ratio 19.4 Glucose 155 H POC Glucose Calcium 10.4 H Phosphorus 3.1 Magnesium 2.4 Total Bilirubin 1.0 Direct Bilirubin 0.4 H AST 11 L ALT 10 L Alkaline Phosphatase 72 Troponin I 0.059 H* NT-Pro-B Natriuret Pep > 61347 H Total Protein 7.1 Albumin 3.3 L Globulin 3.8 Albumin/Globulin Ratio 0.9 Lipase 66 L TSH 2.480 Urine Color Urine Appearance Urine pH Ur Specific [place] Urine Protein Urine Glucose (UA) Urine Ketones Urine Blood Urine Nitrite Urine Bilirubin Urine Urobilinogen Ur Leukocyte Esterase Urine WBC (Auto) Urine RBC (Auto) U Hyaline Cast (Auto) U Epithel Cells (Auto) Urine Bacteria (Auto) Digoxin 06/07/20 06/07/20 06/07/20 14:04 14:04 15:31 WBC RBC Hgb Hct MCV MCH MCHC RDW Std Deviation RDW Coeff of Mary Plt Count MPV Immature Gran % (Auto) Neut % (Auto) Lymph % (Auto) [place] % (Auto) Eos % (Auto) Baso % (Auto) Neut # (Auto) Lymph # (Auto) [place] # (Auto) Eos # (Auto) Baso # (Auto) Immature Gran # (Auto) PT INR APTT PTT Ratio Sodium Potassium Chloride Carbon Dioxide Anion Gap BUN Creatinine Est Cr Clr Drug Dosing Est GFR ( Amer) Est GFR (Non-Af Amer) BUN/Creatinine Ratio Glucose POC Glucose Calcium Phosphorus Magnesium Total Bilirubin Direct Bilirubin AST ALT Alkaline Phosphatase Troponin I 0.062 H* NT-Pro-B Natriuret Pep Total Protein Albumin Globulin Albumin/Globulin Ratio Lipase TSH Urine Color Yellow Urine Appearance Clear Urine pH 5.5 Ur Specific [place] 1.014 Urine Protein Negative Urine Glucose (UA) Negative Urine Ketones Trace H Urine Blood Negative Urine Nitrite Negative Urine Bilirubin Negative Urine Urobilinogen Negative Ur Leukocyte Esterase Trace H Urine WBC (Auto) 1-5 Urine RBC (Auto) 0-4 U Hyaline Cast (Auto) 5-10 H U Epithel Cells (Auto) 10-20 H Urine Bacteria (Auto) Negative Digoxin 1.2 06/07/20 16:18 WBC RBC Hgb Hct MCV MCH MCHC RDW Std Deviation RDW Coeff of Mary Plt Count MPV Immature Gran % (Auto) Neut % (Auto) Lymph % (Auto) [place] % (Auto) Eos % (Auto) Baso % (Auto) Neut # (Auto) Lymph # (Auto) [place] # (Auto) Eos # (Auto) Baso # (Auto) Immature Gran # (Auto) PT INR APTT PTT Ratio Sodium Potassium Chloride Carbon Dioxide Anion Gap BUN Creatinine Est Cr Clr Drug Dosing Est GFR ( Amer) Est GFR (Non-Af Amer) BUN/Creatinine Ratio Glucose POC Glucose 174 H Calcium Phosphorus Magnesium Total Bilirubin Direct Bilirubin AST ALT Alkaline Phosphatase Troponin I NT-Pro-B Natriuret Pep Total Protein Albumin Globulin Albumin/Globulin Ratio Lipase TSH Urine Color Urine Appearance Urine pH Ur Specific [place] Urine Protein Urine Glucose (UA) Urine Ketones Urine Blood Urine Nitrite Urine Bilirubin Urine Urobilinogen Ur Leukocyte Esterase Urine WBC (Auto) Urine RBC (Auto) U Hyaline Cast (Auto) U Epithel Cells (Auto) Urine Bacteria (Auto) Digoxin Medications Administered Current Inpatient Medications Acetaminophen (Acetaminophen 325 Mg Tab) 650 mg PO Q4H PRN PRN Reason: Pain or Fever Stop: 07/07/20 13:43 Al Hydrox/Mg Hydrox/Simethicone (Aluminum/Magnesium Susp 30 Ml Udc) 15 ml PO Q4H PRN PRN Reason: Dyspepsia Stop: 07/07/20 13:43 Aspirin (Aspirin 81 Mg Ectab) 81 mg PO QAM [facility] Stop: 07/08/20 08:59 Atorvastatin Calcium (Atorvastatin 40 Mg Tab) 40 mg PO QAM [facility] Stop: 07/08/20 08:59 Dextrose (Dextrose 50% 50 Ml Syringe) 25 - 50 ml IV UD PRN; Protocol PRN Reason: Hypoglycemia Protocol Stop: 07/07/20 13:43 Digoxin (Digoxin 0.125 Mg Tab) 0.125 mg PO QAM [facility] Stop: 07/08/20 08:59 Docusate Sodium (Docusate Sodium 100 Mg Cap) 100 mg PO BID [facility] Stop: 07/07/20 20:59 Doxycycline Hyclate (Doxycycline Hyclate 100 Mg Cap) 100 mg PO 0700,1900 [facility] Stop: 06/14/20 18:59 Febuxostat (Febuxostat 40 Mg Tablet) 40 mg PO QDD [facility] Stop: 07/07/20 16:29 Last Admin: 06/07/20 16:22 Dose: 40 mg Documented by: Finasteride (Finasteride 5 Mg Tab) 5 mg PO QAM [facility] Stop: 07/08/20 08:59 Furosemide (Furosemide 80 Mg Tab) 80 mg PO BID [facility] Stop: 07/07/20 20:59 Gabapentin (Gabapentin 100 Mg Cap) 100 mg PO HS [facility] Stop: 07/07/20 20:59 Glucagon (Glucagon For Inj 1 Mg Vial) 1 mg SQ UD PRN; Protocol PRN Reason: Hypoglycemia Protocol Stop: 07/07/20 13:43 Glucose (Glucose 10 Tabs/Tube) 4 - 8 tabs PO UD PRN; Protocol PRN Reason: Hypoglycemia Protocol Stop: 07/07/20 13:43 Glucose (Glucose 40% Gel 15 Gm Tube) 15 - 30 gm PO UD PRN; Protocol PRN Reason: Hypoglycemia Protocol Stop: 07/07/20 13:43 Insulin Aspart (Insulin Aspart 100 Units/Ml 3 Ml Pen) 0 units SC ACHS [facility] Stop: 07/07/20 16:29 Last Admin: 06/07/20 16:23 Dose: 6 units Documented by: Insulin Human NPH (Insulin Human Nph) 0 units SC BIDM [facility]; Protocol Stop: 07/07/20 16:59 Lactobacillus Acidophilus (Lactobacillus Acidophilus (Floranex) Tab) 4 tab PO DAILY [facility] Stop: 07/07/20 14:14 Last Admin: 06/07/20 16:12 Dose: 4 tab Documented by: Lisinopril (Lisinopril 2.5 Mg Tab) 2.5 mg PO QAM [facility] Stop: 07/08/20 08:59 Metoprolol Succinate (Metoprolol Succ 50mg Ext Rel Tab) 100 mg PO [facility] Stop: 07/08/20 08:59 Miscellaneous (Carbohydrates For Hypoglycemia ) 15 - 30 gm PO UD PRN PRN Reason: Hypoglycemia Protocol Stop: 07/07/20 13:43 Miscellaneous Information (Pharmacy Glycemic Mgmt Consult) 1 ea N/A UD PRN; Protocol PRN Reason: Consult Stop: 07/07/20 14:59 Multivitamins/Minerals (Cerovite Adv Formula Tab) 1 tab PO BID [facility] Stop: 07/07/20 20:59 Nitroglycerin (Nitroglycerin Sl 0.4 Mg/Tab Tab) 0.4 mg SL UD PRN PRN Reason: Chest Pain Stop: 07/07/20 13:43 Ondansetron HCl (Ondansetron Inj 2 Mg/Ml 2 Ml Vial) 4 mg IV Q6H PRN PRN Reason: Nausea Stop: 07/07/20 13:43 Last Admin: 06/07/20 16:31 Dose: 4 mg Documented by: Pantoprazole Sodium (Pantoprazole 40 Mg Tab) 40 mg PO BID [facility]; Protocol Stop: 07/07/20 20:59 Tamsulosin HCl (Tamsulosin Hcl 0.4 Mg Cap) 0.4 mg PO QDD [facility] Stop: 07/07/20 16:29 Last Admin: 06/07/20 16:12 Dose: 0.4 mg Documented by: Temazepam (Temazepam 15 Mg Capsule) 15 mg PO HS PRN PRN Reason: Sleep Stop: 07/07/20 13:43 Temazepam (Temazepam 15 Mg Capsule) 30 mg PO HS PRN PRN Reason: Insomnia Stop: 07/07/20 13:43
--- NOTE | 2020-06-07 15:20 | Pharmacy Report ---
Pharmacy Glycemic Short Note 2 - Date of Service June 07, 2020 - Glycemic Short BSG Results (Last 24 hours): 06/07/20 10:16 Glucose 155 H OUTPATIENT ANTIDIABETIC REGIMEN: * Glipizide 5mg q 24 (patient reports he takes this only three times a week, however) * Humalin 70/30 per scale based on BSG TID (per patient typically 20-25 in the morning, then variable for the evening doses) ASSESSMENT: * Patient presenting with nausea and vomiting over the past 48 hours, thus PO intake has likely been minimal. * Per patient, his last glipizide dose of 5mg was Sunday morning. He does not believe he took any insulin this morning either, but is not entirely sure. * Will use past data when considering glycemic regimen. Patients admitting BSG is reasonable at 155 and given concern for his PO intake, will conservatively dose an NPH scale starting with dinner PLAN FOR INPATIENT GLYCEMIC CONTROL: * Hold outpatient oral diabetes medications * Basal insulin * NPH per scale: 0 units SQ if BSG 140 or less, 10 units of 141-200, 15 units if BSG > 200 * Bolus insulin * NovoLog per scale ACHS or Q6hrs while NPO * Goal Range: Low 120 mg/dL - High 150 mg/dL * Correction Factor: 30 mg/dL/unit * Nutritional / Prandial insulin per carb ratio of 1 unit per 10 grams CHO consumed
[2020-06-07 15:54] LABS: Appearance Urine Clear (Clear); Bacteria Urine Automated Negative (Negative); Bilirubin Urine Negative (Negative); Blood Urine Negative (Negative); Color Urine Yellow; Glucose Urine UA Negative (Negative); Ketones Urine Trace (Negative); Leukocyte Esterase Urine Trace (Negative); Nitrite Urine Negative (Negative); Protein Urine Negative (Negative); RBC Urine Automated 0-4 /hpf (0-4); Specific Gravity Urine 1.014 (1.000-1.030); Urobilinogen Urine Negative (Negative); pH Urine 5.5 (4.5-7.5)
--- NOTE | 2020-06-07 16:08 | CT Scan Report ---
CT chest wo con CLINICAL HISTORY: Atypical chest pain. Abnormal chest x-ray. COMPARISON STUDY: Chest x-ray dated 06/07/2020, CT scan dated 03/11/2016 CT DOSE: 603.27 mGy.cm TECHNIQUE: CT of the thorax was performed from the thoracic inlet to the lung bases. Images are revi ewed in the axial, sagittal, and coronal planes. IV contrast was not administered for this examinatio n. A dose lowering technique was utilized adhering to the principles of ALARA. FINDINGS: Thyroid: Imaged portions of the thyroid gland are normal in appearance. Thoracic aorta: There is mild ectasia of the ascending thoracic aorta which measures 36 mm at the lev el the main pulmonary artery. There are equivocal displaced intimal calcifications. Heart: The heart is enlarged with coronary artery calcifications and significant left atrial enlargem ent Lungs and pleural spaces: There is a moderate to large right pleural effusion. There is pulmonary emp hysema. There is mild subpleural septal edema. There are a few scattered pulmonary micronodules.. The re is right lower lobe atelectasis/consolidation. Mediastinum: Mediastinal lymph nodes are the upper limits of normal in size. [place]en: There is no evidence of pathologic hilar adenopathy given the limitations of a noncontrast stud y. Axilla: There is no evidence of pathologic axillary lymphadenopathy Upper abdomen: Partially visualized upper abdominal viscera is within normal limits. Skeletal structures: There are no lytic or blastic osseous lesions. IMPRESSION: 1. Pulmonary emphysema 2. Moderate to large right pleural effusion 3. Associated right lower lobe atelectasis/consolidation 4. Mild subpleural septal edema 5. Mild ectasia of the ascending thoracic aorta. Displaced intimal calcification versus motion artifa ct. ACT 112: Negative or not required by law. Electronically signed by: Jarred Gutierrez M.D. 06/07/2020 4:07 PM
[2020-06-07] MEDS: LACTOBACILLUS ACIDOPHILUS (FLORANEX) TAB PO SCH (16:12)
[2020-06-07] MEDS: TAMSULOSIN HCL 0.4 MG CAP PO SCH (16:12)
[2020-06-07] MEDS: FEBUXOSTAT 40 MG TABLET PO SCH (16:22)
[2020-06-07] MEDS: INSULIN ASPART 100 UNITS/ML 3 ML PEN SC SCH ×2 (16:23→20:39)
[2020-06-07] MEDS: INSULIN HUMAN NPH SC SCH (17:20)
[2020-06-07] MEDS: DOXYCYCLINE HYCLATE 100 MG CAP PO SCH (18:59)
[2020-06-07] MEDS: CEROVITE ADV FORMULA TAB PO SCH (20:34)
[2020-06-07] MEDS: DOCUSATE SODIUM 100 MG CAP PO SCH (20:34)
[2020-06-07] MEDS: TEMAZEPAM 15 MG CAPSULE PO PRN (20:37)
[2020-06-07] MEDS: GABAPENTIN 100 MG CAP PO SCH (20:38)
[2020-06-07] MEDS: PANTOprazole 40 MG TAB PO SCH (20:38)
[2020-06-07] MEDS: FUROSEMIDE 80 MG TAB PO SCH (20:38)
[2020-06-07] MEDS: TRAZODONE HCL 100 MG TAB PO SCH (21:46)
[2020-06-08 07:12] LABS: Hematocrit (blood only) 38.2 % (42-52); Hemoglobin 11.6 g/dL (14.0-18.0); Mean Corpuscular Hemoglobin 30.9 pg (25-34); Mean Corpuscular Hgb Conc 30.4 g/dL (32-36); Mean Corpuscular Volume 101.6 fL (80-100); Mean Platelet Volume 11.2 fL (7.4-10.4); Platelet Count 110 K/uL (130-400); RDW Coefficient of Variation 15.4 % (11.5-14.5); RDW Standard Deviation 56.6 fL (36.4-46.3); Red Blood Count 3.76 M/uL (4.7-6.1); White Blood Count 3.87 K/uL (4.8-10.8)
[2020-06-08 07:33] LABS: INR 3.7 (0.9-1.1); Prothrombin Time 36.2 Seconds (9.0-12.0)
[2020-06-08 07:49] LABS: Calcium 9.7 mg/dl (8.5-10.1); Creatinine Clr Calc Pharmacy 26.9 ml/min; Est GFR (African American) 26.2; Est GFR (Non-African American) 22.6; Potassium 3.9 mmol/L (3.5-5.1)
[2020-06-08] MEDS: METOPROLOL SUCC 50MG EXT REL TAB PO SCH (08:01)
[2020-06-08] MEDS: CEROVITE ADV FORMULA TAB PO SCH ×2 (08:01→20:35)
[2020-06-08] MEDS: ATORVASTATIN 40 MG TAB PO SCH (08:03)
[2020-06-08] MEDS: FINASTERIDE 5 MG TAB PO SCH (08:03)
[2020-06-08] MEDS: PANTOprazole 40 MG TAB PO SCH ×2 (08:03→20:39)
[2020-06-08] MEDS: FUROSEMIDE 80 MG TAB PO SCH ×2 (08:03→20:40)
[2020-06-08] MEDS: DOCUSATE SODIUM 100 MG CAP PO SCH ×2 (08:03→20:40)
[2020-06-08] MEDS: DOXYCYCLINE HYCLATE 100 MG CAP PO SCH ×2 (08:04→19:04)
[2020-06-08] MEDS: LACTOBACILLUS ACIDOPHILUS (FLORANEX) TAB PO SCH (08:04)
[2020-06-08] MEDS: INSULIN ASPART 100 UNITS/ML 3 ML PEN SC SCH ×4 (08:17→21:04)
[2020-06-08] MEDS ORDERED: ASPIRIN 81 MG ECTAB PO SCH (09:00)
--- NOTE | 2020-06-08 09:05 | Electrocardiogram Report ---
Test Reason : Blood Pressure : / mmHG Vent. Rate : 065 BPM Atrial Rate : 000 BPM P-R Int : 000 ms QRS Dur : 122 ms QT Int : 408 ms P-R-T Axes : 000 -57 100 degrees QTc Int : 424 ms Atrial flutter with intermittent aberrant ventricular conduction (first 7 beats) Left axis deviation Non-specific intra-ventricular conduction delay Abnormal ECG When compared with ECG of 07-JUN-2020 10:05, ST depression in Anterolateral leads no longer present Confirmed by Santy Maldonado ([id number]) on 06/08/2020 9:04:44 AM Referred By: REFERRED SELF Confirmed By:Santy Maldonado
[2020-06-08 09:56] LABS: Estimated Average Glucose 134 mg/dl; Hemoglobin A1C 6.3 % (4.5-5.6)
--- NOTE | 2020-06-08 12:23 | Pharmacy Report ---
Pharmacy Glycemic Short Note 2 - Date of Service June 08, 2020 - Glycemic Short BSG Results (Last 24 hours): 06/07/20 06/07/20 06/08/20 16:18 20:19 06:15 Glucose 52 L* POC Glucose 174 H 151 H 06/08/20 06/08/20 06/08/20 07:26 07:27 07:51 Glucose POC Glucose 56 L* 58 L* 82 06/08/20 11:22 Glucose POC Glucose 117 H OUTPATIENT ANTIDIABETIC REGIMEN: * Glipizide 5mg q 24 (patient reports he takes this only three times a week, however) * Humalin 70/30 per scale based on BSG TID (per patient typically 20-25 in the morning, then variable for the evening doses) ASSESSMENT: 06/08: * Patient well controlled yesterday, however was hypoglycemic this morning after 17 units of insulin yesterday (10 basal, 7 bolus). After discussion with the nurse, I did learn that while the patient did eat a significant amount of carbs for dinner, he subsequently vomited and has been eating very little since, likely contributing to the hypoglycemia this morning * Lunchtime BSG did uptrend. I will schedule a very conservative nph scale for this evening (max 5 units) and keep a loosened novolog scale through today. 06/07 * Patient presenting with nausea and vomiting over the past 48 hours, thus PO intake has likely been minimal. * Per patient, his last glipizide dose of 5mg was Sunday morning. He does not believe he took any insulin this morning either, but is not entirely sure. * Will use past data when considering glycemic regimen. Patients admitting BSG is reasonable at 155 and given concern for his PO intake, will conservatively dose an NPH scale starting with dinner PLAN FOR INPATIENT GLYCEMIC CONTROL: * Hold outpatient oral diabetes medications * Basal insulin * NPH per scale: 0 units SQ if BSG 180 or less, 5 units if BSG > 180 * Bolus insulin * NovoLog per scale ACHS or Q6hrs while NPO * Goal Range: Low 120 mg/dL - High 150 mg/dL * Correction Factor: 30 mg/dL/unit * Nutritional / Prandial insulin per carb ratio of 1 unit per 15 grams CHO consumed
--- NOTE | 2020-06-08 12:31 | Hospitalist Progress Note ---
Date of Service June 08, 2020 Assessment & Plan (1) Pleural effusion: 84 yo M with PMH cardiomyopathy, CHF EF 45-50%, CKD stage IV, Supratherapeutic INR, T2DM, Above knee amputation, anxiety, HTN, L renal mass, MRSA, malignant tumor of bladder, peripheral neuropathy, MARY stent, AFib, GIB w ho was admitted for nausea and vomiting and elevated troponins. Acute on chronic systolic CHF Exacerbation - R pleural effusion as seen on CT Chest, BNP >35k - last echo in 01/01 with EF 45-50%, severe aortic stenosis, severe left atrium dilation, severe mitral regurg, right ventricular pressure >60mmhg - unclear etiology of what set off exacerbation; medication noncompliance? - continuing home 80 mg lasix PO - Strict I/Os - Cardio: consider therapeutic thoracentesis alongside diuresis - home metoprolol 100 mg, lisinopril 2.5, digoxin Hypoxia due to Pleural Effusion - new 2L O2 requirement - effusion most likely due to CHF exacerbation, severe mitral regurg. also with severely elevated right heart pressures. Nausea and Vomiting - possibly secondary to abdominal pain, questionable cardiac ischemia equivalent? - no complaints of N/V after admission, will continue to monitor Elevated Troponins - demand ischemia? - no complaints of chest pain - hx afib, frequent PVCs but not abnormal rhythms on monitor - downtrending SUpratherapeutic INR - 3.2 on admission - warfarin 2.5 mg daily at home; held - likely secondary to n/v, diabetic ulcer of foot CKD IV - Cr 2.51, roughly baseline - trend Cr with daily BMPs - monitor for change in UOP with diuretics DM2 - SSI for coverage - home home oral glycemic medications - brief hypoglycemic event this AM with BSG in 50's after vomiting and then receiving nighttime basal insulin last night Macrocytic Anemia - on warfarin at home, currently held - hx near fatal GIB - last colonoscopy unsure Wound Care - diabetic foot ulcer with osteomyelitis, healing. doxycycline BID for superficial infection concern per wound center - sacral wound on admission - wound care nurse consulted Gout - home febuxostat BPH - home tamsulosin 0.4 Chronic insomnia - home temazepam 30 mg HS + 15 mg HS PRN - home Trazodone 100 mg HS sched FEN/GI: DM2 diet DVT ppx: held in setting of supratherapeutic INR Code: DNR/DNI DIspo: PCU (2) Nausea & vomiting: (3) Generalized weakness: (4) Elevated troponin: (5) Supratherapeutic INR: (6) Traumatic wound: (7) Chronic kidney disease, stage IV (severe): (8) Diabetic ulcer of right foot associated with diabetes mellitus due to underlying condition, with necrosis of bone: (9) Pressure ulcer of left buttock, stage 2: Admission and Anticipated Discharge Date Admission Date: June 07, 2020 Supervising Physician Co-Signing Physician Notes Resident Physician Supervision Note: I independently interviewed and examined the patient and verified the linares history and physical, reviewed labs and image studies, discussed the case with the resident Dr. Curiel and agree with the findings and care plan. Subjective Complaints of generalized stomach pain this morning. Denies chest pain. Some degree of SOB; not on oxygen at home but has been on 3L in hospital. Review of Systems Constitutional: no fever, no chills and no fatigue Respiratory: + dyspnea and + pain on inspiration; no cough Cardiovascular: no chest pain, no palpitations and no edema Gastrointestinal: + abdominal pain, + nausea and + vomiting; no constipation and no diarrhea/loose stools Neurologic: no tingling and no numbness Physical Exam 2 Constitutional: average body habitus; no acute distress and not ill appearing Respiratory: Good air movement throughout both lungs, diminished breath sounds in all lobes of right lung, no focal crackles or wheezes, no visible retractions or labored breathing Cardiovascular: RRR, blowing holosystolic murmur heard best at apex, laterally displaced PMI, Right ventricular heave? Gastrointestinal (Abdomen): mildly tender to epigastric region, otherwise nontender, soft, nondistended, normal bowel sounds, no guarding, negative Rose's sign Results & Data Results & Data ([facility]) Vital Signs (Past 12 Hours) Vital Signs Temp Pulse Pulse Resp BP Pulse Ox 06/08/20 11:21 36.4 C L 72 18 107/61 93 06/08/20 08:00 63 06/08/20 07:26 36.6 C 67 18 114/61 98 06/08/20 04:05 36.4 C L 76 18 111/64 97 Laboratory Results WBC 3.87 K/uL (4.8-10.8) L 06/08/20 06:15 RBC 3.76 M/uL (4.7-6.1) L 06/08/20 06:15 Hgb 11.6 g/dL (14.0-18.0) L 06/08/20 06:15 Hct 38.2 % (42-52) L 06/08/20 06:15 MCV 101.6 fL (80-100) H 06/08/20 06:15 MCH 30.9 pg (25-34) 06/08/20 06:15 MCHC 30.4 g/dL (32-36) L 06/08/20 06:15 RDW Std Deviation 56.6 fL (36.4-46.3) H 06/08/20 06:15 RDW Coeff of Mary 15.4 % (11.5-14.5) H 06/08/20 06:15 Plt Count 110 K/uL (130-400) L 06/08/20 06:15 MPV 11.2 fL (7.4-10.4) H 06/08/20 06:15 Immature Gran % (Auto) 0.2 % 06/07/20 10:16 Neut % (Auto) 78.0 % 06/07/20 10:16 Lymph % (Auto) 13.9 % 06/07/20 10:16 [place] % (Auto) 7.5 % 06/07/20 10:16 Eos % (Auto) 0.2 % 06/07/20 10:16 Baso % (Auto) 0.2 % 06/07/20 10:16 Neut # (Auto) 3.98 K/uL (1.4-6.5) 06/07/20 10:16 Lymph # (Auto) 0.71 K/uL (1.2-3.4) L 06/07/20 10:16 [place] # (Auto) 0.38 K/uL (0.11-0.59) 06/07/20 10:16 Eos # (Auto) 0.01 K/uL (0-0.5) 06/07/20 10:16 Baso # (Auto) 0.01 K/uL (0-0.2) 06/07/20 10:16 Immature Gran # (Auto) 0.01 K/uL (0.00-0.02) 06/07/20 10:16 PT 36.2 Seconds (9.0-12.0) H 06/08/20 06:15 INR 3.7 (0.9-1.1) H 06/08/20 06:15 APTT 49.8 Seconds (21.0-31.0) H* 06/07/20 10:16 PTT Ratio 1.8 06/07/20 10:16 Sodium 142 mmol/L (136-145) 06/08/20 06:15 Potassium 3.9 mmol/L (3.5-5.1) 06/08/20 06:15 Chloride 106 mmol/L (98-107) 06/08/20 06:15 Carbon Dioxide 33 mmol/L (21-32) H 06/08/20 06:15 Anion Gap 3.0 (3-11) 06/08/20 06:15 BUN 53 mg/dl (7-18) H 06/08/20 06:15 Creatinine 2.51 mg/dl (0.6-1.4) H 06/08/20 06:15 Est Cr Clr Drug Dosing 26.9 ml/min 06/08/20 06:15 Est GFR ( Amer) 26.2 06/08/20 06:15 Est GFR (Non-Af Amer) 22.6 06/08/20 06:15 BUN/Creatinine Ratio 21.0 (10-20) H 06/08/20 06:15 Glucose 52 mg/dl (70-99) L* 06/08/20 06:15 POC Glucose 270 mg/dl (70-99) H 06/08/20 20:15 Estimat Average Glucose 134 mg/dl 06/08/20 06:15 Hemoglobin A1c 6.3 % (4.5-5.6) H 06/08/20 06:15 Calcium 9.7 mg/dl (8.5-10.1) 06/08/20 06:15 Phosphorus 3.1 mg/dl (2.5-4.9) 06/07/20 10:16 Magnesium 2.4 mg/dl (1.8-2.4) 06/07/20 10:16 Total Bilirubin 1.0 mg/dl (0.2-1) 06/07/20 10:16 Direct Bilirubin 0.4 mg/dl (0-0.2) H 06/07/20 10:16 AST 11 U/L (15-37) L 06/07/20 10:16 ALT 10 U/L (12-78) L 06/07/20 10:16 Alkaline Phosphatase 72 U/L (45-117) 06/07/20 10:16 Troponin I 0.051 ng/ml (0-0.045) H* 06/08/20 13:49 NT-Pro-B Natriuret Pep > 57434 pg/ml (0-1800) H 06/07/20 10:16 Total Protein 7.1 gm/dl (6.4-8.2) 06/07/20 10:16 Albumin 3.3 gm/dl (3.4-5.0) L 06/07/20 10:16 Globulin 3.8 gm/dl (2.5-4.0) 06/07/20 10:16 Albumin/Globulin Ratio 0.9 (0.9-2) 06/07/20 10:16 Lipase 66 U/L (73-393) L 06/07/20 10:16 TSH 2.480 uIu/ml (0.300-4.500) 06/07/20 10:16 Urine Color Yellow 06/07/20 15:31 Urine Appearance Clear (Clear) 06/07/20 15:31 Urine pH 5.5 (4.5-7.5) 06/07/20 15:31 Ur Specific [place] 1.014 (1.000-1.030) 06/07/20 15:31 Urine Protein Negative (Negative) 06/07/20 15:31 Urine Glucose (UA) Negative (Negative) 06/07/20 15:31 Urine Ketones Trace (Negative) H 06/07/20 15:31 Urine Blood Negative (Negative) 06/07/20 15:31 Urine Nitrite Negative (Negative) 06/07/20 15:31 Urine Bilirubin Negative (Negative) 06/07/20 15:31 Urine Urobilinogen Negative (Negative) 06/07/20 15:31 Ur Leukocyte Esterase Trace (Negative) H 06/07/20 15:31 Urine WBC (Auto) 1-5 /hpf (0-5) 06/07/20 15:31 Urine RBC (Auto) 0-4 /hpf (0-4) 06/07/20 15:31 U Hyaline Cast (Auto) 5-10 /lpf (0-5) H 06/07/20 15:31 U Epithel Cells (Auto) 10-20 /lpf (0-5) H 06/07/20 15:31 Urine Bacteria (Auto) Negative (Negative) 06/07/20 15:31 Digoxin 1.2 ng/ml (0.8-2.0) 06/07/20 14:04 Resident Activity Tracking Resident Involvement: Resident Care Provided Care Provided: Adult [facility]
[2020-06-08] MEDS: NYSTATIN SUSP 500,000 U/5 ML UDC PO SCH ×2 (14:04→20:39)
[2020-06-08] MEDS: TAMSULOSIN HCL 0.4 MG CAP PO SCH (17:27)
[2020-06-08] MEDS: FEBUXOSTAT 40 MG TABLET PO SCH (17:27)
--- NOTE | 2020-06-08 17:28 | Cardiology Progress Note ---
Date of Service June 08, 2020 Assessment & Plan (1) Nausea & vomiting: (2) Generalized weakness: (3) Pleural effusion: (4) Elevated troponin: (5) Chronic kidney disease, stage IV (severe): (6) Peripheral arterial disease: (7) CAD (coronary artery disease), [place] coronary artery: (8) Anxiety: (9) A-fib: (10) Secondary mitral valve insufficiency: Moderate to large sized right pleural effusion, not significantly symptomatic, however, very limited ambulation. I do not believe the minimal troponin elevation represents an acute ischemic event, and no further intervention is necessary at this time. We will attempt to diurese to decrease the size of the effusion and hopefully prevent symptoms from occurring. I will check a mediastinal ultrasound in the a.m. to follow the volume of his effusion. This may prove difficult given his chronic kidney disease and therapeutic thoracentesis may need to be considered for symptom control. Likely his renal function has remained stable thus far. He is previously suffered a life-threatening GI bleed and is not maintained on an aspirin as an outpatient, it was ordered on admission but I will discontinue it at this time. He follows closely with his outpatient veneer sawyer and has declined further testing or intervention specifically declining ICD therapy and repeating an echocardiogram. Hospice care has been discussed with him and we may need to readdress the issue should his renal function decline with diuresis Admission and Anticipated Discharge Date Admission Date: June 07, 2020 Subjective Patient seen and examined, chart reviewed. Reports that nausea is improving. And continues to deny shortness of breath. Denies chest pain, palpitations, lightheadedness, dizziness or syncope. Strict I's and O's have not been maintained due to the patient's lack of compliance. Telemetry reviewed: Underlying atrial flutter with periods of possible atrial fibrillation. Frequent PVCs with short nonsustained salvos of ventricular tachycardia also present. Review of Systems Review of Systems: All systems reviewed & are unremarkable except as noted in HPI & below Physical Exam Physical Exam: General: Awake, alert and oriented x 3. No acute distress. Hard of hearing. HEENT: Normocephalic, atraumatic. Pupils equal, round and reactive to light and accommodation. Extraocular muscles are intact. Anicteric sclera. Moist mucous membranes. Neck: No JVD. No bruit. Cardiovascular: irregularly irregular, 3/6 holosystolic ejection murmur greatest at the left midclavicular line with radiation to the left axilla. Pulmonary: Clear to auscultation bilaterally. No rales, rhonchi, or wheezing. Abdomen: Bowel sounds x 4, soft. No rebound, guarding or tenderness. No organomegaly. Extremities: No clubbing, cyanosis or edema. +2 pedal pulses bilaterally. Skin: Warm and dry. Results & Data ([facility]) Vital Signs (Past 12 Hours) Vital Signs Temp Pulse Pulse Resp BP Pulse Ox 06/08/20 15:07 36.4 C L 67 58 L 16 111/66 97 06/08/20 11:21 36.4 C L 72 18 107/61 93 06/08/20 08:00 63 06/08/20 07:26 36.6 C 67 18 114/61 98
[2020-06-08] MEDS: INSULIN HUMAN NPH SC SCH (17:31)
[2020-06-08] MEDS: GABAPENTIN 100 MG CAP PO SCH (20:39)
[2020-06-08] MEDS: TRAZODONE HCL 100 MG TAB PO SCH (20:40)
[2020-06-08] MEDS: TEMAZEPAM 15 MG CAPSULE PO PRN (21:04)
[2020-06-08] MEDS: ALUMINUM/MAGNESIUM SUSP 30 ML UDC PO PRN (21:06)
[2020-06-09] MEDS ORDERED: TEMAZEPAM 15 MG CAPSULE PO ONE (02:55)
[2020-06-09 06:33] LABS: Hematocrit (blood only) 34.7 % (42-52); Hemoglobin 10.9 g/dL (14.0-18.0); Mean Corpuscular Hemoglobin 31.8 pg (25-34); Mean Corpuscular Hgb Conc 31.4 g/dL (32-36); Mean Corpuscular Volume 101.2 fL (80-100); RDW Coefficient of Variation 15.1 % (11.5-14.5); RDW Standard Deviation 55.7 fL (36.4-46.3); Red Blood Count 3.43 M/uL (4.7-6.1); White Blood Count 3.44 K/uL (4.8-10.8)
[2020-06-09 06:39] LABS: INR 2.1 (0.9-1.1); Prothrombin Time 21.4 Seconds (9.0-12.0)
[2020-06-09 07:05] LABS: BUN Creatinine Ratio 20.6 (10-20); Calcium 9.4 mg/dl (8.5-10.1); Creatinine Clr Calc Pharmacy 26.5 ml/min; Est GFR (African American) 25.7; Est GFR (Non-African American) 22.2; Potassium 4.1 mmol/L (3.5-5.1)
[2020-06-09 07:11] LABS: Mean Platelet Volume 11.1 fL (7.4-10.4); Platelet Count 98 K/uL (130-400); Platelet Estimate Decreased (Normal)
--- NOTE | 2020-06-09 08:07 | Hospitalist Progress Note ---
Date of Service June 09, 2020 Assessment & Plan (1) Pleural effusion: 84 yo M with PMH cardiomyopathy, CHF EF 45-50%, CKD stage IV, Supratherapeutic INR, T2DM, Above knee amputation, anxiety, HTN, L renal mass, MRSA, malignant tumor of bladder, peripheral neuropathy, MARY stent, AFib, GIB w ho was admitted for nausea and vomiting and elevated troponins. Acute on chronic systolic CHF Exacerbation - R pleural effusion as seen on CT Chest, BNP >35k - last echo in 01/01 with EF 45-50%, severe aortic stenosis, severe left atrium dilation, severe mitral regurg, right ventricular pressure >60mmhg - etiology appears to be extra salt on corn on the cob last week - continuing home 80 mg lasix PO - Strict I/Os - positive balance but unsure if reliable. Patient symptomatically improving. - Cardio: consider therapeutic thoracentesis alongside diuresis - home metoprolol 100 mg, lisinopril 2.5, digoxin - restarting warfarin 2.5 mg tomorrow Elevated Troponins - demand ischemia? - no complaints of chest pain - hx afib, frequent PVCs but not abnormal rhythms on monitor - downtrending CKD IV - Cr 2.51, roughly baseline - trend Cr with daily BMPs - monitor for change in UOP with diuretics DM2 - SSI for coverage - home home oral glycemic medications - brief hypoglycemic event this AM with BSG in 50's after vomiting and then receiving nighttime basal insulin last night Macrocytic Anemia - on warfarin at home, currently held - hx near fatal GIB - last colonoscopy unsure Wound Care - diabetic foot ulcer with osteomyelitis, healing. doxycycline BID for superficial infection concern per wound center - sacral wound on admission - wound care nurse consulted Gout - home febuxostat BPH - home tamsulosin 0.4 Chronic insomnia - home temazepam 30 mg HS + 15 mg HS PRN - home Trazodone 100 mg HS sched FEN/GI: DM2 diet DVT ppx: held in setting of supratherapeutic INR Code: DNR/DNI DIspo: PCU Admission and Anticipated Discharge Date Admission Date: June 07, 2020 Supervising Physician Co-Signing Physician Notes Resident Physician Supervision Note: I independently interviewed and examined the patient and verified the linares history and physical, reviewed labs and image studies, discussed the case with the resident Dr. Curiel and agree with the findings and care plan. Subjective No acute complaints this morning. Discussed the option of having a conversation with the palliative care team given that he has multiple disease processes that are approaching end-stage (CKD CHF) and that he may be able to feel more comfortable and optimize his goals for living with his conversation. Patient seemed a little confused but on board with this plan Review of Systems Constitutional: no fever, no chills, no body aches and no fatigue Respiratory: no cough and no dyspnea Cardiovascular: no chest pain, no dyspnea and no edema Gastrointestinal: no abdominal pain, no nausea, no vomiting, no constipation and no diarrhea/loose stools Physical Exam Physical Exam: Constitutional: in no apparent distress, sitting comfortably in bed. Eyes: EOMI, pupils equal and reactive bilaterally, no scleral icterus Cardiac: RRR, no murmurs, gallops or rubs. Normal S1, S2 Pulm: diffuse wheezing and crackles throughout right lung, improved from yesterday Abd: soft, nontender, nondistended, normal bowel sounds, no rebound or guarding Extremities: 2+ peripheral pulses, no edema Neuro: no focal deficits, moving all 4 limbs, A&Ox3 Results & Data Results & Data ([facility]) Vital Signs (Past 12 Hours) Vital Signs Temp Pulse Pulse Resp BP Pulse Ox 06/09/20 07:24 36.5 C 54 L 16 107/53 L 100 06/09/20 03:10 36.5 C 60 18 111/60 95 06/08/20 23:37 36.4 C L 49 L 17 102/51 L 95 Laboratory Results WBC 3.44 K/uL (4.8-10.8) L 06/09/20 06:01 RBC 3.43 M/uL (4.7-6.1) L 06/09/20 06:01 Hgb 10.9 g/dL (14.0-18.0) L 06/09/20 06:01 Hct 34.7 % (42-52) L 06/09/20 06:01 MCV 101.2 fL (80-100) H 06/09/20 06:01 MCH 31.8 pg (25-34) 06/09/20 06:01 MCHC 31.4 g/dL (32-36) L 06/09/20 06:01 RDW Std Deviation 55.7 fL (36.4-46.3) H 06/09/20 06:01 RDW Coeff of Mary 15.1 % (11.5-14.5) H 06/09/20 06:01 Plt Count 98 K/uL (130-400) L 06/09/20 06:01 MPV 11.1 fL (7.4-10.4) H 06/09/20 06:01 Immature Gran % (Auto) 0.2 % 06/07/20 10:16 Neut % (Auto) 78.0 % 06/07/20 10:16 Lymph % (Auto) 13.9 % 06/07/20 10:16 [place] % (Auto) 7.5 % 06/07/20 10:16 Eos % (Auto) 0.2 % 06/07/20 10:16 Baso % (Auto) 0.2 % 06/07/20 10:16 Neut # (Auto) 3.98 K/uL (1.4-6.5) 06/07/20 10:16 Lymph # (Auto) 0.71 K/uL (1.2-3.4) L 06/07/20 10:16 [place] # (Auto) 0.38 K/uL (0.11-0.59) 06/07/20 10:16 Eos # (Auto) 0.01 K/uL (0-0.5) 06/07/20 10:16 Baso # (Auto) 0.01 K/uL (0-0.2) 06/07/20 10:16 Immature Gran # (Auto) 0.01 K/uL (0.00-0.02) 06/07/20 10:16 Platelet Estimate Decreased (Normal) L 06/09/20 06:01 PT 21.4 Seconds (9.0-12.0) H 06/09/20 06:01 INR 2.1 (0.9-1.1) H 06/09/20 06:01 APTT 49.8 Seconds (21.0-31.0) H* 06/07/20 10:16 PTT Ratio 1.8 06/07/20 10:16 Sodium 140 mmol/L (136-145) 06/09/20 06:01 Potassium 4.1 mmol/L (3.5-5.1) 06/09/20 06:01 Chloride 104 mmol/L (98-107) 06/09/20 06:01 Carbon Dioxide 32 mmol/L (21-32) 06/09/20 06:01 Anion Gap 4.0 (3-11) 06/09/20 06:01 BUN 53 mg/dl (7-18) H 06/09/20 06:01 Creatinine 2.55 mg/dl (0.6-1.4) H 06/09/20 06:01 Est Cr Clr Drug Dosing 26.5 ml/min 06/09/20 06:01 Est GFR ( Amer) 25.7 06/09/20 06:01 Est GFR (Non-Af Amer) 22.2 06/09/20 06:01 BUN/Creatinine Ratio 20.6 (10-20) H 06/09/20 06:01 Glucose 92 mg/dl (70-99) 06/09/20 06:01 POC Glucose 275 mg/dl (70-99) H 06/09/20 16:17 Estimat Average Glucose 134 mg/dl 06/08/20 06:15 Hemoglobin A1c 6.3 % (4.5-5.6) H 06/08/20 06:15 Calcium 9.4 mg/dl (8.5-10.1) 06/09/20 06:01 Phosphorus 3.1 mg/dl (2.5-4.9) 06/07/20 10:16 Magnesium 2.4 mg/dl (1.8-2.4) 06/07/20 10:16 Total Bilirubin 1.0 mg/dl (0.2-1) 06/07/20 10:16 Direct Bilirubin 0.4 mg/dl (0-0.2) H 06/07/20 10:16 AST 11 U/L (15-37) L 06/07/20 10:16 ALT 10 U/L (12-78) L 06/07/20 10:16 Alkaline Phosphatase 72 U/L (45-117) 06/07/20 10:16 Troponin I 0.051 ng/ml (0-0.045) H* 06/08/20 13:49 NT-Pro-B Natriuret Pep > 63344 pg/ml (0-1800) H 06/07/20 10:16 Total Protein 7.1 gm/dl (6.4-8.2) 06/07/20 10:16 Albumin 3.3 gm/dl (3.4-5.0) L 06/07/20 10:16 Globulin 3.8 gm/dl (2.5-4.0) 06/07/20 10:16 Albumin/Globulin Ratio 0.9 (0.9-2) 06/07/20 10:16 Lipase 66 U/L (73-393) L 06/07/20 10:16 TSH 2.480 uIu/ml (0.300-4.500) 06/07/20 10:16 Urine Color Yellow 06/07/20 15:31 Urine Appearance Clear (Clear) 06/07/20 15:31 Urine pH 5.5 (4.5-7.5) 06/07/20 15:31 Ur Specific [place] 1.014 (1.000-1.030) 06/07/20 15:31 Urine Protein Negative (Negative) 06/07/20 15:31 Urine Glucose (UA) Negative (Negative) 06/07/20 15:31 Urine Ketones Trace (Negative) H 06/07/20 15:31 Urine Blood Negative (Negative) 06/07/20 15:31 Urine Nitrite Negative (Negative) 06/07/20 15:31 Urine Bilirubin Negative (Negative) 06/07/20 15:31 Urine Urobilinogen Negative (Negative) 06/07/20 15:31 Ur Leukocyte Esterase Trace (Negative) H 06/07/20 15:31 Urine WBC (Auto) 1-5 /hpf (0-5) 06/07/20 15:31 Urine RBC (Auto) 0-4 /hpf (0-4) 06/07/20 15:31 U Hyaline Cast (Auto) 5-10 /lpf (0-5) H 06/07/20 15:31 U Epithel Cells (Auto) 10-20 /lpf (0-5) H 06/07/20 15:31 Urine Bacteria (Auto) Negative (Negative) 06/07/20 15:31 Digoxin 1.2 ng/ml (0.8-2.0) 06/07/20 14:04 Resident Activity Tracking Resident Involvement: Resident Care Provided Care Provided: Adult Hospital Medicine
[2020-06-09] MEDS: DOCUSATE SODIUM 100 MG CAP PO SCH ×2 (08:39→20:27)
[2020-06-09] MEDS: CEROVITE ADV FORMULA TAB PO SCH ×2 (08:39→20:27)
[2020-06-09] MEDS: PANTOprazole 40 MG TAB PO SCH ×2 (08:39→20:28)
[2020-06-09] MEDS: METOPROLOL SUCC 50MG EXT REL TAB PO SCH (08:39)
[2020-06-09] MEDS: DOXYCYCLINE HYCLATE 100 MG CAP PO SCH ×2 (08:39→18:21)
[2020-06-09] MEDS: FUROSEMIDE 80 MG TAB PO SCH ×2 (08:39→16:46)
[2020-06-09] MEDS: NYSTATIN SUSP 500,000 U/5 ML UDC PO SCH ×3 (08:39→20:28)
[2020-06-09] MEDS: ATORVASTATIN 40 MG TAB PO SCH (08:39)
[2020-06-09] MEDS: INSULIN HUMAN NPH SC SCH ×2 (08:40→16:43)
[2020-06-09] MEDS: FINASTERIDE 5 MG TAB PO SCH (08:40)
[2020-06-09] MEDS: LACTOBACILLUS ACIDOPHILUS (FLORANEX) TAB PO SCH (08:40)
[2020-06-09] MEDS: INSULIN ASPART 100 UNITS/ML 3 ML PEN SC SCH ×4 (08:41→20:29)
[2020-06-09] MEDS: ALUMINUM/MAGNESIUM SUSP 30 ML UDC PO PRN ×2 (10:35→16:39)
--- NOTE | 2020-06-09 11:45 | Electrocardiogram Report ---
Test Reason : Blood Pressure : / mmHG Vent. Rate : 056 BPM Atrial Rate : 000 BPM P-R Int : 000 ms QRS Dur : 114 ms QT Int : 396 ms P-R-T Axes : 000 016 129 degrees QTc Int : 382 ms Atrial flutter with variable A-V block Non-specific intra-ventricular conduction delay ST depression in Anterolateral leads , consider ischemia Abnormal ECG When compared with ECG of 08-JUN-2020 07:04, ST now depressed in Anterorlateral leads Confirmed by Santy Maldonado ([id number]) on 06/09/2020 11:44:56 AM Referred By: REFERRED SELF Confirmed By:Santy Maldonado
--- NOTE | 2020-06-09 13:59 | Cardiology Progress Note ---
Date of Service June 09, 2020 Assessment & Plan (1) Nausea & vomiting: (2) Generalized weakness: (3) Pleural effusion: (4) Elevated troponin: (5) Chronic kidney disease, stage IV (severe): (6) Peripheral arterial disease: (7) CAD (coronary artery disease), [place] coronary artery: (8) Anxiety: (9) A-fib: (10) Secondary mitral valve insufficiency: Moderate to large sized right pleural effusion, not significantly symptomatic, however, very limited ambulation. I do not believe the minimal troponin elevation represents an acute ischemic event, and no further intervention is necessary at this time. We will attempt to diurese to decrease the size of the effusion and hopefully prevent symptoms from occurring. Await ultrasound results. May benefit from therapeutic thoracentesis. Renal function remained stable, will continue with diuretics at this time. He follows closely with his outpatient regional climate change analyst and has declined further testing or intervention specifically declining ICD therapy and repeating an echocardiogram. Hospice care has been discussed with him and we may need to readdress the issue should his renal function decline with diuresis Admission and Anticipated Discharge Date Admission Date: June 07, 2020 Subjective Patient seen and examined, chart reviewed. Reports that nausea is improving. And continues to deny shortness of breath. Denies chest pain, palpitations, lightheadedness, dizziness or syncope. Strict I's and O's have not been maintained due to the patient's lack of compliance. Telemetry reviewed: Underlying atrial flutter with periods of possible atrial fibrillation. Frequent PVCs with short nonsustained salvos of ventricular tachycardia also present. Review of Systems Review of Systems: All systems reviewed & are unremarkable except as noted in HPI & below Physical Exam Physical Exam: General: Awake, alert and oriented x 3. No acute distress. HEENT: Normocephalic, atraumatic. Pupils equal, round and reactive to light and accommodation. Extraocular muscles are intact. Anicteric sclera. Moist mucous membranes. Neck: No JVD. No bruit. Cardiovascular: irregularly irregular, unable to appreciate murmur, rub or gallop. Pulmonary: Poor air movement on the right with diffuse rhonchi Abdomen: Bowel sounds x 4, soft. No rebound, guarding or tenderness. No organomegaly. Extremities: No clubbing, cyanosis or edema. +2 pedal pulses bilaterally. Skin: Warm and dry. Results & Data ([facility]) Vital Signs (Past 12 Hours) Vital Signs Temp Pulse Pulse Resp BP Pulse Ox 06/09/20 11:17 36.5 C 76 18 100/54 L 90 06/09/20 08:40 74 95 06/09/20 07:24 36.5 C 54 L 16 107/53 L 100 06/09/20 03:10 36.5 C 60 18 111/60 95
--- NOTE | 2020-06-09 14:41 | Ultrasound Report ---
US effusion-chest/mediastinum CLINICAL HISTORY: right pleural effusion COMPARISON STUDY: Chest CT 06/07/2020. FINDINGS: Real-time sonographic imaging of the chest was performed with patient intake representative images submitt ed. Right pleural effusion demonstrating a total volume of 555 cc. This was not marked for thoracente sis due to the adjacent lung. No left pleural effusion. IMPRESSION: Right pleural effusion demonstrating a total volume of 555 cc. ACT 112: Negative or not required by law. Electronically signed by: Dagoberto Meza M.D. 06/09/2020 2:40 PM
[2020-06-09] MEDS ORDERED: DIGOXIN 0.125 MG TAB PO SCH (16:00)
[2020-06-09] MEDS: FEBUXOSTAT 40 MG TABLET PO SCH (16:41)
[2020-06-09] MEDS: TAMSULOSIN HCL 0.4 MG CAP PO SCH (16:41)
[2020-06-09] MEDS ORDERED: WARFARIN SOD 2.5 MG TAB PO SCH (18:30)
[2020-06-09] MEDS: TEMAZEPAM 15 MG CAPSULE PO PRN (20:27)
[2020-06-09] MEDS: TRAZODONE HCL 100 MG TAB PO SCH (20:28)
[2020-06-09] MEDS: GABAPENTIN 100 MG CAP PO SCH (20:29)
[2020-06-10] MEDS ORDERED: FUROSEMIDE 80 MG in SYRINGE 0 ML IV SCH (06:00)
[2020-06-10] MEDS: DOXYCYCLINE HYCLATE 100 MG CAP PO SCH (06:32)
[2020-06-10] MEDS: ALUMINUM/MAGNESIUM SUSP 30 ML UDC PO PRN (06:58)
[2020-06-10] MEDS ORDERED: MAGNESIUM HYDROXIDE SUSP 30 ML UDC PO PRN (07:44)
[2020-06-10 07:58] LABS: Prothrombin Time 20.8 Seconds (9.0-12.0)
[2020-06-10 08:05] LABS: Hematocrit (blood only) 38.6 % (42-52); Hemoglobin 12.1 g/dL (14.0-18.0); Mean Corpuscular Hemoglobin 31.6 pg (25-34); Mean Corpuscular Hgb Conc 31.3 g/dL (32-36); Mean Corpuscular Volume 100.8 fL (80-100); RDW Coefficient of Variation 14.8 % (11.5-14.5); RDW Standard Deviation 54.7 fL (36.4-46.3); Red Blood Count 3.83 M/uL (4.7-6.1); White Blood Count 4.93 K/uL (4.8-10.8)
[2020-06-10 08:10] LABS: Mean Platelet Volume 11.2 fL (7.4-10.4); Platelet Count 95 K/uL (130-400)
[2020-06-10 08:23] LABS: BUN Creatinine Ratio 20.4 (10-20); Creatinine Clr Calc Pharmacy 25.8 ml/min; Est GFR (African American) 24.9; Est GFR (Non-African American) 21.5; Potassium 4.8 mmol/L (3.5-5.1)
[2020-06-10] MEDS: NYSTATIN SUSP 500,000 U/5 ML UDC PO SCH (08:34)
[2020-06-10] MEDS: METOPROLOL SUCC 50MG EXT REL TAB PO SCH (08:35)
[2020-06-10] MEDS: LACTOBACILLUS ACIDOPHILUS (FLORANEX) TAB PO SCH (08:35)
[2020-06-10] MEDS: FUROSEMIDE 80 MG TAB PO SCH (08:35)
[2020-06-10] MEDS: FINASTERIDE 5 MG TAB PO SCH (08:35)
[2020-06-10] MEDS: PANTOprazole 40 MG TAB PO SCH (08:35)
[2020-06-10] MEDS: ATORVASTATIN 40 MG TAB PO SCH (08:35)
[2020-06-10] MEDS: INSULIN HUMAN NPH SC SCH (08:37)
[2020-06-10] MEDS: INSULIN ASPART 100 UNITS/ML 3 ML PEN SC SCH ×2 (08:37→11:57)
[2020-06-10] MEDS: CEROVITE ADV FORMULA TAB PO SCH ×2 (08:38→08:41)
[2020-06-10] MEDS: DOCUSATE SODIUM 100 MG CAP PO SCH (08:38)
--- NOTE | 2020-06-10 10:59 | Hospitalist Progress Note ---
Date of Service June 10, 2020 Assessment & Plan (1) Pleural effusion: 84 yo M with PMH cardiomyopathy, CHF EF 45-50%, CKD stage IV, Supratherapeutic INR, T2DM, Above knee amputation, anxiety, HTN, L renal mass, MRSA, malignant tumor of bladder, peripheral neuropathy, MARY stent, AFib, GIB w ho was admitted for nausea and vomiting and elevated troponins. Acute on chronic systolic CHF Exacerbation - R pleural effusion as seen on CT Chest, BNP >35k - last echo in 01/01 with EF 45-50%, severe aortic stenosis, severe left atrium dilation, severe mitral regurg, right ventricular pressure >60mmhg - etiology appears to be extra salt on corn on the cob last week - continuing home 80 mg lasix PO - Strict I/Os - positive balance but unsure if reliable. Patient symptomatically improving. - Cardio: consider therapeutic thoracentesis alongside diuresis - home metoprolol 100 mg, lisinopril 2.5, digoxin - restarting warfarin 2.5 mg tomorrow Elevated Troponins - demand ischemia? - no complaints of chest pain - hx afib, frequent PVCs but not abnormal rhythms on monitor - downtrending CKD IV - Cr 2.51, roughly baseline - trend Cr with daily BMPs - monitor for change in UOP with diuretics DM2 - SSI for coverage - home home oral glycemic medications - brief hypoglycemic event this AM with BSG in 50's after vomiting and then receiving nighttime basal insulin last night Macrocytic Anemia - on warfarin at home, currently held - hx near fatal GIB - last colonoscopy unsure Wound Care - diabetic foot ulcer with osteomyelitis, healing. doxycycline BID for superficial infection concern per wound center - sacral wound on admission - wound care nurse consulted Gout - home febuxostat BPH - home tamsulosin 0.4 Chronic insomnia - home temazepam 30 mg HS + 15 mg HS PRN - home Trazodone 100 mg HS sched FEN/GI: DM2 diet DVT ppx: held in setting of supratherapeutic INR Code: DNR/DNI DIspo: PCU Admission and Anticipated Discharge Date Admission Date: June 07, 2020 Results & Data Results & Data ([facility]) Vital Signs (Past 12 Hours) Vital Signs Temp Pulse Resp BP Pulse Ox 06/10/20 06:59 67 16 122/70 98 06/10/20 06:37 94 06/10/20 05:12 36.4 C L 63 18 98/62 L 83 L 06/09/20 23:14 36.4 C L 78 18 103/57 L 93
[2020-06-10] MEDS ORDERED: INSULIN HUMAN NPH SC SCH (11:30)
--- NOTE | 2020-06-10 11:45 | Cardiology Progress Note ---
Date of Service June 10, 2020 Assessment & Plan (1) Nausea & vomiting: (2) Generalized weakness: (3) Pleural effusion: (4) Elevated troponin: (5) Chronic kidney disease, stage IV (severe): (6) Peripheral arterial disease: (7) CAD (coronary artery disease), [place] coronary artery: (8) Anxiety: (9) A-fib: (10) Secondary mitral valve insufficiency: Pleural effusion only 550 mL's and complicated by overlying lung. Patient continues to deny shortness of breath. Okay to discharge to home on previous outpatient medical regimen. He follows closely with his outpatient assembl[employer] and has declined further testing or intervention specifically declining ICD therapy and repeating an echocardiogram. Hospice care has been discussed with him and we may need to readdress as an outpatient. We will schedule to be seen in [place]. Admission and Anticipated Discharge Date Admission Date: June 07, 2020 Subjective Patient seen and examined, chart reviewed. His friend is also at bedside. States he feels well. Nausea has resolved. Denies shortness of breath, chest pain, palpitations, lightheadedness or syncope. Telemetry reviewed: Underlying atrial flutter with periods of possible atrial fibrillation. Frequent PVCs with short nonsustained salvos of ventricular tachycardia also present. Review of Systems Review of Systems: All systems reviewed & are unremarkable except as noted in HPI & below Physical Exam Physical Exam: General: Awake, alert and oriented x 3. No acute distress. HEENT: Normocephalic, atraumatic. Pupils equal, round and reactive to light and accommodation. Extraocular muscles are intact. Anicteric sclera. Moist mucous membranes. Neck: No JVD. No bruit. Cardiovascular: irregularly irregular, unable to appreciate murmur, rub or gallop. Pulmonary: Poor air movement on the right with diffuse rhonchi Abdomen: Bowel sounds x 4, soft. No rebound, guarding or tenderness. No organomegaly. Extremities: No clubbing, cyanosis or edema. +2 pedal pulses bilaterally. Skin: Warm and dry. Results & Data ([facility]) Vital Signs (Past 12 Hours) Vital Signs Temp Pulse Resp BP Pulse Ox 06/10/20 06:59 67 16 122/70 98 06/10/20 06:37 94 06/10/20 05:12 36.4 C L 63 18 98/62 L 83 L
--- NOTE | 2020-06-10 12:20 | Pharmacy Report ---
Pharmacy Glycemic Short Note 2 - Date of Service June 10, 2020 - Glycemic Short BSG Results (Last 24 hours): 06/09/20 06/09/20 06/10/20 16:17 20:14 07:05 Glucose POC Glucose 275 H 182 H 81 06/10/20 06/10/20 07:37 11:40 Glucose 91 POC Glucose 132 H OUTPATIENT ANTIDIABETIC REGIMEN: * Glipizide 5mg q 24 (patient reports he takes this only three times a week, however) * Humalin 70/30 per scale based on BSG TID (per patient typically 20-25 in the morning, then variable for the evening doses) ASSESSMENT: 06/10:t * Patient received a total of 18 units of insulin yesterday (5 basal, 13 novolog). Looking at the trend over the last 48 hours, it appears that with an evening NPH dose, the patient stays on the lower side in the AM and spikes for dinner and HS BSGs. Will transition NPH dosing to qam, with today's dose given at lunchtime. If post prandials still elevated after this change, may consider tightening lunch and dinner novolog scale. PO intake appears to be improving. 06/08: * Patient well controlled yesterday, however was hypoglycemic this morning after 17 units of insulin yesterday (10 basal, 7 bolus). After discussion with the nurse, I did learn that while the patient did eat a significant amount of carbs for dinner, he subsequently vomited and has been eating very little since, likely contributing to the hypoglycemia this morning * Lunchtime BSG did uptrend. I will schedule a very conservative nph scale for this evening (max 5 units) and keep a loosened novolog scale through today. 06/07 * Patient presenting with nausea and vomiting over the past 48 hours, thus PO intake has likely been minimal. * Per patient, his last glipizide dose of 5mg was Sunday morning. He does not believe he took any insulin this morning either, but is not entirely sure. * Will use past data when considering glycemic regimen. Patients admitting BSG is reasonable at 155 and given concern for his PO intake, will conservatively dose an NPH scale starting with dinner PLAN FOR INPATIENT GLYCEMIC CONTROL: * Hold outpatient oral diabetes medications * Basal insulin * NPH 5 units SC qam (Today's dose at lunchtime) * Bolus insulin * NovoLog per scale ACHS or Q6hrs while NPO * Goal Range: Low 120 mg/dL - High 150 mg/dL * Correction Factor: 30 mg/dL/unit * Nutritional / Prandial insulin per carb ratio of 1 unit per 10 grams CHO consumed
--- NOTE | 2020-06-10 14:12 | Discharge Summary ---
Date of Service June 10, 2020 Admission HPI Per Admitting Provider 84 M presents emerge department with nausea and vomiting for the past 2 days. Patient also states he feels short of breath cannot tell which came first, he has had no associated chest pain. He has a past medical history of CHF, CKD 3, history of left BKA. Pt denies fevers, chills, cough, congestion, diarrhea. Last bowel movement was 2 days ago but is not atypical for the patient. Normal LFTs normal appearance of liver and gallbladder on CT scan. Patient states that his symptoms are resolved but he does not want to try to advance his diet much past liquids. Patient also has a history of a significant upper GI bleed in the past at which time he had multiple units of blood transfused he takes a daily PPI On arrival the patient is fatigued appearing but no acute distress, afebrile with stable vital signs. He is not appear to be in volume overload at this time. Minorly elevated Troponin to 0/059 but EKG without overt acute ischemia perhaps some subtle ST changes. Chest x-ray with moderate right pleural effusion and right basilar opacity that could be consistent with atelectasis. CT scan also reconfirms the pleural effusion on the right Creatinine 2.5 within prior range of values in setting of CKD 34. Patient has a history of systolic and diastolic heart failure, cardiomyopathy with an EF of 20% and moderate to severe mitral regurg and aortic stenosis.. Patient's BNP is >35K similar to prior values patient typically sees Dr. Timothy Watters with [facility] cardiology and last visit in January 2020 discussions of hospice was brought up. Patient confirms he is a DNR Admission Exam Per Admitting Provider The patient appeared patient appears chronically ill Vital signs as documented. Head exam is normocephalic atraumatic no scleral icterus Neck is with JVD 2 cm, thyromegaly, or carotid bruits. Lungs are absent breath sounds at the right base consistent with his pleural effusion Cardiac exam, irregularly irregular rate controlled systolic murmurs Abdominal exam reveals normal bowel sounds, soft non tender, no masses no bruits Extremities left lower extremity is amputated right lower extremity has wounds present apically seeing our wound clinic Neurologic exam is alert and oriented, no focal loss of strength or sensation exception of peripheral neuropathy Skin is with stage III lateral metatarsal base ulceration on right foot malleolar small ulceration on right foot Principal Diagnosis CHF exacerbation, Elevated Troponin Discharge Exam Constitutional: in no apparent distress, sitting comfortably in bed. Eyes: EOMI, pupils equal and reactive bilaterally, no scleral icterus Cardiac: RRR, no murmurs, gallops or rubs. Normal S1, S2 Pulm: diffuse wheezing and crackles throughout right lung, improved from yesterday Abd: soft, nontender, nondistended, normal bowel sounds, no rebound or guarding Extremities: 2+ peripheral pulses, no edema Neuro: no focal deficits, moving all 4 limbs, A&Ox3 Discharge Data Allergies Allergy/AdvReac Type Severity Reaction Status Date / Time allopurinol Allergy Unknown Verified 06/07/20 11:17 methylprednisolone Allergy Unknown "BLOOD Verified 06/07/20 11:17 SUGARS SKYROCKET" risperidone Allergy Unknown PT UNSURE Verified 06/07/20 11:17 OF RXN meclizine AdvReac Severe CAUSED Verified 06/07/20 11:17 NAUSEA, MADE HIM "FEEL FUNNY" cephalexin AdvReac Mild NAUSEA, Verified 06/07/20 11:17 also had Rocephin & Ancef inpast, DIARRHEA pregabalin AdvReac Mild NAUSEA Verified 06/07/20 11:17 Sulfa (Sulfonamide AdvReac Mild NAUSEA Verified 06/07/20 11:17 Antibiotics) tramadol AdvReac Mild HALLUCINATI Verified 06/07/20 11:17 ONS hydrocodone AdvReac Unknown HALLUCINATI Verified 06/07/20 11:17 ONS linezolid AdvReac Unknown GI DISTRESS Verified 06/07/20 11:17 Penicillins AdvReac Unknown gi upset Verified 06/07/20 11:17 tetracycline AdvReac Unknown TURNED Verified 06/07/20 11:17 HEAD OF PENIS RED/EXCORIATED Consultations 06/07/20 11:32 ED Decision to Admit Stat 06/07/20 13:44 Consult Cardiology Routine Ordered Studies 06/07/20 10:09 CT abd pelvis wo con Stat 06/07/20 16:00 CT chest wo con Routine 06/09/20 14:30 US effusion-chest/mediastinum Routine Hospital Course (1) Pleural effusion: 84 yo M with PMH cardiomyopathy, CHF EF 45-50%, CKD stage IV, Supratherapeutic INR, T2DM, Above knee amputation, anxiety, HTN, L renal mass, MRSA, malignant tumor of bladder, peripheral neuropathy, MARY stent, AFib, GIB who was admitted for elevated troponins. Acute on chronic systolic CHF Exacerbation: likely caused by excessive salt ingestion with meals. Caused buildup of large R pleural effusion which improved with diuretics, discharged on home diuretic regimen. Elevated troponins: likely demand ischemia, downtrended, no complaints of chest pain during stay. Adamant that he does not want ICD for his cardiomyopathy further invasive cardiac care. Cardiology consulted during admission and agreed with conservative management. All other chronic medical conditions managed per home regimens. Discharged home with home health and plans to refer to [facility]iative Care [facility]patient in [place] regarding goals of care going forward. Total Time Total Time Spent Total Time Spent (In Minutes): see attending attestation Discharge Plan Discharge Items Patient Disposition: Home - Home Health Services Reason For Visit: ELEVATED TROPONIN Discharge Diagnosis: Pleural Effusion, Congestive Heart Failure Activity: Resume your previous activity Non-emergency contact: Primary Care Provider Call non-emergency contact if: your symptoms worsen Follow-up/Referrals: Belgica Carlin MD [Primary Care Provider] - (DR CARLIN'S OFFICE WILL CALL PATIENT WITH APPOINTMENT DATE AND TIME) Diet: Low Sodium (2gm) Addtl Attending Provider Instructions: You were evaluated in the hospital for new shortness of breath found to be due to a large pleural effusion (fluid build up in your right lung). We were able to decrease this fluid by increasing the amount of lasix you were receiving, and you were able to come off the extra oxygen with this. This fluid build up was most likely caused by your worsened heart failure. The best way to avoid this happening again is to control the amount of salt you intake and to make sure you take your medications as directed. As we discussed, you have a number of complicated medical conditions including renal failure and congestive heart failure that would benefit from a conversation with Palliative care to optimize your goals of care going forward. Pending Studies at Discharge: No Stand-Alone Forms: My [employer], Smoking Cessation Medications and DC Order Prescriptions: Continued doxycycline hyclate 100 mg capsule 100 mg PO BID RF: 0 furosemide 40 mg tablet 80 mg PO BID Qty: 120 RF: 5 trazodone 100 mg tablet 100 mg PO HS Qty: 90 RF: 3 temazepam 30 mg capsule 30 mg PO HS Qty: 90 RF: 3 febuxostat 40 mg tablet 40 mg PO QDD Qty: 90 RF: 0 esomeprazole magnesium [Nexium] 40 mg capsule,delayed release(DR/EC) 40 mg PO QAM RF: 0 aspirin 81 mg Tablet,Delayed Release (Dr/Ec) 81 mg PO QAM RF: 0 PreserVision AREDS-2 [id number] [id number] Capsule 1 tab PO BID RF: 0 atorvastatin 40 mg tablet 40 mg PO QDD RF: 0 glipizide 5 mg tablet extended release 24hr 5 mg PO QAM RF: 0 warfarin 2.5 mg tablet 2.5 mg PO UD RF: 0 temazepam 15 mg capsule 15 mg PO HS PRN (Reason: Sleep) RF: 0 lisinopril 2.5 mg tablet 2.5 mg PO QAM RF: 0 Humulin 70/30 U-100 Insulin 100 unit/mL (70-30) Suspension 1 sliding scale dose SUBCUT UD RF: 0 tamsulosin 0.4 mg Capsule 0.4 mg PO QDD RF: 0 docusate sodium 100 mg Capsule 100 mg PO BID RF: 0 finasteride 5 mg Tablet 5 mg PO QAM RF: 0 digoxin 125 mcg (0.125 mg) tablet 125 mcg PO 3XWK RF: 0 metoprolol succinate 100 mg tablet extended release 24 hr 100 mg PO QAM RF: 0 gabapentin 100 mg capsule 100 mg PO HS RF: 0 lactobacillus combination no.8 3 billion cell Capsule 3,000 mmu cells PO QAM RF: 0 Discharge Orders: Discharge Order (Routine); Ordered 06/10/20 Ordered By: Neris Curiel Admission Data Admit Date/Time: 06/07/20 12:08 Attending Provider: Belgica Carlin Admit Provider: Chance Hdz Primary Care Provider: Belgica Carlin Other Providers: James Carrera ; Neris Curiel ; Jayme Wilkerson ; [facility],Home [facility] ; Belgica Carlin Other Interventions: Discharge Summary Assessment (RN) Last Done: 06/10/20 14:02 Supervising Physician Co-Signing Physician Notes Resident Physician Supervision Note: I independently interviewed and examined the patient and verified the linares history and physical, reviewed labs and image studies, discussed the case with the resident Dr. Curiel and agree with the findings and care plan. Resident Activity Tracking Resident Involvement: Resident Care Provided Care Provided: Adult Hospital Medicine
== END 2020-06-10 14:30 | disposition home health service (06) | DRG 291 ==
LOC: ED 09:47 → 2E 12:08 → SUPCPDRO 12:08 → SUATTDRO 12:08 → 2E 13:17